=== PATIENT | male | born 1935 | race Caucasian/White ===

== ENCOUNTER → 2020-06-04 09:06 | Outpatient (BNVA) | payer MEDICARE, SELFPAY | PROVIDERS: PCP Internal Medicine Medical Oncology; Visit Provider Urology | DX: C67.3 Malignant neoplasm of anterior wall of bladder (principal); N40.1 Benign prostatic hyperplasia with lower urinary tract symptoms; N13.8 Other obstructive and reflux uropathy | CPT/HCPCS: 52000; 81003; 99213 ==

== ENCOUNTER 2020-09-03 08:50 | Outpatient (REF) | payer MEDICARE, SELFPAY ==
[2020-09-04 09:48] LABS: Urine Cytology See Pathology rpt
== END 2020-09-03 08:51 | disposition home or self-care (01) ==
LOC: CF 08:50
PROVIDERS: PCP Internal Medicine Medical Oncology; Visit Provider Urology
DX: C67.9 Malignant neoplasm of bladder, unspecified (principal)
CPT/HCPCS: 52000; 81002; 88112; 99212

== ENCOUNTER 2020-09-10 14:41 | Emergency (ER) | payer MEDICARE, SELFPAY ==
[2020-09-10 17:02] VITALS: BP 180/93; PULSE 80; RESP 16; TEMP 37.1; O2SAT 98; BMI 26.6
[2020-09-10 22:00] VITALS: BP 164/83; PULSE 95; RESP 18; TEMP 37.1; O2SAT 96
[2020-09-10 22:06] VITALS: BP 155/82; PULSE 82; RESP 18; O2SAT 98
--- NOTE | 2020-09-10 22:34 | US_ITS ---
EXAMINATION: US SCROTUM CLINICAL INFORMATION: Left scrotal pain. COMPARISON: None TECHNIQUE: A sonogram of the scrotum was performed assessing salguero-scale appearance and color Doppler flow. Spectral Doppler analysis of the arterial and venous flow were performed in the testes bilaterally. FINDINGS: RIGHT: Right testicle measures 4.0 x 1.9 x 3.2 cm, volume 12.6 mL. No focal testicular parenchymal lesions are visualized. Spectral Doppler analysis of the arterial and venous flow is normal in the right testis. Right epididymal head is normal in size. No right hydrocele or varicocele is seen. Right epididymal Doppler flow is normal. LEFT: Left testicle measures 3.4 x 2.0 x 2.5 cm, volume 8.8 mL. No focal testicular parenchymal lesions are visualized. Spectral Doppler analysis of the arterial and venous flow is normal in the left testis. Left epididymal head is slightly bigger than the right. No left varicocele is seen. A small to moderate left-sided hydrocele is present. Left epididymal Doppler flow is normal. US/US scrotum IMPRESSION: 1. Left-sided hydrocele. 2. Normal-appearing testes with symmetric vascular flow.
--- NOTE | 2020-09-10 22:35 | ECG_ITS ---
Test Reason : PAIN Blood Pressure : / mmHG Vent. Rate : 092 BPM Atrial Rate : 092 BPM P-R Int : 184 ms QRS Dur : 084 ms QT Int : 388 ms P-R-T Axes : 070 -15 040 degrees QTc Int : 479 ms Normal sinus rhythm Normal ECG No previous ECGs available Referred By: Gin Lares Electronically Signed By:MAYA MCCARTHY MD
--- NOTE | 2020-09-10 22:38 | ED_ITS ---
HPI - Abdominal Pain General Chief Complaint: Abdominal Pain Stated Complaint: low abd pain Time Seen by Provider: 09/10/20 22:16 Source: patient Mode of arrival: ambulatory Limitations: no limitations History of Present Illness HPI narrative: Patient comes to emergency room complaining of left lower quadrant pain. Patient states that early this morning, he woke up with bilateral lower quadrant cramping, he thought he was going to have diarrhea, walked to the bathroom, had no bowel movement. Patient states he has been having constant sharp pain in both lower quadrants but over last few hours it has been radiating towards the left lower quadrant. Patient states he has vomited 7 times today. Patient has history of bladder cancer, he is scheduled next week for a TURB with bilateral retrogrades. Patient states he also has significant left testicular pain. Patient denies hematuria Related Data Home Medications Medication Instructions Recorded Confirmed finasteride 5 mg tablet 5 mg PO DAILY 06/04/20 09/10/20 hydrochlorothiazide 25 mg tablet 25 mg PO DAILY 06/04/20 09/10/20 lisinopril 10 mg tablet 10 mg PO DAILY 06/04/20 09/10/20 tamsulosin 0.4 mg capsule 0.4 mg PO DAILY 06/04/20 09/10/20 Previous Rx's Medication Instructions Recorded prednisone 50 mg PO DAILY #5 tab 09/11/20 tamsulosin 0.4 mg PO BEDTIME #10 cap 09/11/20 tramadol 50 mg PO Q8H PRN #10 tab 09/11/20 Allergies Allergy/AdvReac Type Severity Reaction Status Date / Time No Known Allergies Allergy Verified 09/10/20 17:04 [No Known Allergies*] Review of Systems Review of Systems Constitutional : No Weight loss, No Fever, No Chills, No Night Sweats, No Fatigue, No Malaise ENT/Mouth : No Hearing loss, No Ear Pain, No Nasal Congestion, No Sinus Pain, No Hoarseness, No sore throat, No Rhinorrhea, No Swallowing Difficulty Eyes: No Eye Pain, No Swelling, No Redness, No Foreign Body, No Discharge, No Vision Changes Cardiovascular : No Chest Pain, No SOB, No Dyspnea on Exertion, No Orthopnea, No Edema, No Palpitations Respiratory : No Cough, No Sputum, No Wheezing, No Smoke Exposure, No Dyspnea Gastrointestinal : Complaining of nausea vomiting, No Diarrhea, No Constipation, complaining of bilateral lower quadrant pain, worse on the left side, No Hematochezia, No Melena Genitourinary : No Dysuria, No Urinary Frequency, No Hematuria, No Urinary Incontinence, No Urgency, No Flank Pain, No Urinary Flow Changes, No Hesitancy, complaining of left testicular pain Musculoskeletal : No joint pain, No Myalgias, No Joint Swelling Skin : No Skin Lesions, No rash Neuro : No Weakness, No Numbness, No Paresthesias, No Loss of Consciousness, No Dizziness, No Headache Psych : No Anxiety/Panic, No Depression, No SI/HI/AH/VH, No Social Issues, Heme/Lymph: No Bruising, No Bleeding,No Lymphadenopathy Endocrine : No Polyuria, No Polydipsia, No Temperature Intolerance Physical Exam Vital Signs: Vital Signs: Last Vital Signs Temp 98.8 F 09/10/20 22:00 Pulse 82 09/10/20 22:06 Resp 18 09/10/20 22:06 BP 155/82 H 09/10/20 22:06 Pulse Ox 98 09/10/20 22:06 Body Mass Index 26.6 Appearance: Alert. Oriented X3. No acute distress. Eyes: Pupils equal, round and reactive to light. ENT: Pharynx normal. Neck: Normal inspection. Neck supple. No lymph nodes noted. No crepitus CVS: Normal heart rate and rhythm. Pulses normal. Normal S1 and S2 Respiratory: No respiratory distress. Breath sounds normal. No Wheezing. No rales Abdomen: Soft , tender to palpation on the left lower quadrant : Pain to palpation on the left testicle, no discoloration Skin: Skin warm and dry. Normal skin color. Normal skin turgor. Extremities: No lower extremity edema. No lower extremity edema. No Lacerations. No Rash Neuro: Oriented X 3. No motor deficit. No sensory deficit. Moving all extermities. No slurred speech. Course Course Course Narrative: I discussed with the patient that he has a kidney stone. It is a 5 mm, it may or may not pass by itself patient's creatinine was elevated, patient was rehydrated, chemistry #2 pending. Patient's creatinine 2. Is 2. Did not change significantly from previous read. It is unlikely that the kidney stone is increasing the creatinine level since it is unilateral. It is likely that this is patient's new baseline. Patient has had previously elevated creatinine in the past. Patient started to have very close follow-up with his primary care physician for repeat chemistry labs. At this time, patient states he feels very well and is asymptomatic MDM - Abdominal Pain Lab Data Result diagrams: 09/10/20 22:46 09/11/20 04:19 Labs: Lab Results 09/10/20 09/10/20 09/11/20 Range/Units 22:46 22:46 01:55 WBC 12.4 H (4.8-10.8) X10*3/uL RBC 4.82 (4.60-5.80) X10*6/uL Hgb 15.3 (14.0-18.0) g/dl Hct 45.3 (42-52) % MCV 94.0 (80-98) fL MCH 31.7 (27.0-33.0) pg MCHC 33.8 (31.0-36.0) g/dl RDW 12.6 (11.0-16.0) % Plt Count 193 (160-400) X10*3/uL MPV 9.4 (9.4-12.4) fL Immature Gran % (Auto) 0.5 H (0.0-0.4) % Neut % (Auto) 90.9 H (45-73) % Lymph % (Auto) 5.0 L (20-40) % Stephens % (Auto) 3.5 (2-11) % Eos % (Auto) 0.1 (0-4) % Baso % (Auto) 0.0 (0-2) % Lymph # (Auto) 0.6 L (1.2-4.9) X10*3/uL Stephens # (Auto) 0.4 (0.1-1.2) X10*3/uL Eos # (Auto) 0.0 (0.0-0.4) X10*3/uL Baso # (Auto) 0.0 (0.0-0.2) X10*3/uL Abs Immat Gran (auto) 0.06 H (0.00-0.03) X10*3/uL Absolute Neuts (auto) 11.2 H (2.0-8.3) X10*3/uL Absolute Nucleated RBC 0.000 (0.0-0.012) X10*3/uL Nucleated RBC % (auto) 0.0 (0.0-0.2) /100WBC Sodium 142 (135-145) mmol/L Potassium 5.1 (3.3-5.1) mmol/l Chloride 106 (96-108) mmol/L Carbon Dioxide 23 (22-29) mmol/L Anion Gap 18 (12-20) BUN 37 H (9-16) mg/dL Creatinine 1.91 H (0.5-1.4) mg/dL Estim Creat Clear Calc 26.4 Estimated GFR 34 Random Glucose 176 H (60-115) mg/dL Calcium 8.8 (8.4-10.2) mg/dL Total Bilirubin 1.1 H (0.0-1.0) mg/dL Direct Bilirubin 0.3 (0.0-0.5) mg/dL AST 32 (5-37) U/L ALT 32 (0-40) U/L Alkaline Phosphatase 74 (39-117) U/L Total Protein 7.1 (6.5-8.0) g/dL Albumin 4.5 (3.5-5.0) g/dL Lipase 32 (8-78) U/L Urine Color YELLOW Urine Appearance CLEAR Urine pH 6.0 (5.0-8.0) Ur Specific Anderson 1.025 (1.005-1.025) Urine Protein NEG (NEG-TRACE) MG/DL Urine Glucose (UA) NEG (NEG) MG/DL Urine Ketones NEG (NEG) MG/DL Urine Blood 1+ H (NEG) Urine Nitrite NEG (NEG) Ur Leukocyte Esterase NEG (NEG) Urine RBC 0-2 (0) /HPF Urine WBC 0 (0-4) /HPF Ur Squamous Epith Cells TRACE /LPF Amorphous Sediment TRACE /LPF Urine Bacteria NONE /LPF Urine Mucus TRACE /LPF 09/11/20 Range/Units 04:19 WBC (4.8-10.8) X10*3/uL RBC (4.60-5.80) X10*6/uL Hgb (14.0-18.0) g/dl Hct (42-52) % MCV (80-98) fL MCH (27.0-33.0) pg MCHC (31.0-36.0) g/dl RDW (11.0-16.0) % Plt Count (160-400) X10*3/uL MPV (9.4-12.4) fL Immature Gran % (Auto) (0.0-0.4) % Neut % (Auto) (45-73) % Lymph % (Auto) (20-40) % Stephens % (Auto) (2-11) % Eos % (Auto) (0-4) % Baso % (Auto) (0-2) % Lymph # (Auto) (1.2-4.9) X10*3/uL Stephens # (Auto) (0.1-1.2) X10*3/uL Eos # (Auto) (0.0-0.4) X10*3/uL Baso # (Auto) (0.0-0.2) X10*3/uL Abs Immat Gran (auto) (0.00-0.03) X10*3/uL Absolute Neuts (auto) (2.0-8.3) X10*3/uL Absolute Nucleated RBC (0.0-0.012) X10*3/uL Nucleated RBC % (auto) (0.0-0.2) /100WBC Sodium 142 (135-145) mmol/L Potassium 4.2 (3.3-5.1) mmol/l Chloride 111 H (96-108) mmol/L Carbon Dioxide 18 L (22-29) mmol/L Anion Gap 17 (12-20) BUN 36 H (9-16) mg/dL Creatinine 2.01 H (0.5-1.4) mg/dL Estim Creat Clear Calc 25.1 Estimated GFR 32 Random Glucose 147 H (60-115) mg/dL Calcium 7.8 L D (8.4-10.2) mg/dL Total Bilirubin (0.0-1.0) mg/dL Direct Bilirubin (0.0-0.5) mg/dL AST (5-37) U/L ALT (0-40) U/L Alkaline Phosphatase (39-117) U/L Total Protein (6.5-8.0) g/dL Albumin (3.5-5.0) g/dL Lipase (8-78) U/L Urine Color Urine Appearance Urine pH (5.0-8.0) Ur Specific Anderson (1.005-1.025) Urine Protein (NEG-TRACE) MG/DL Urine Glucose (UA) (NEG) MG/DL Urine Ketones (NEG) MG/DL Urine Blood (NEG) Urine Nitrite (NEG) Ur Leukocyte Esterase (NEG) Urine RBC (0) /HPF Urine WBC (0-4) /HPF Ur Squamous Epith Cells /LPF Amorphous Sediment /LPF Urine Bacteria /LPF Urine Mucus /LPF Imaging Data Scrotum ultrasound: Radiologist's impression: RIGHT: Right testicle measures 4.0 x 1.9 x 3.2 cm, volume 12.6 mL. No focal testicular parenchymal lesions are visualized. Spectral Doppler analysis of the arterial and venous flow is normal in the right testis. Right epididymal head is normal in size. No right hydrocele or varicocele is seen. Right epididymal Doppler flow is normal. LEFT: Left testicle measures 3.4 x 2.0 x 2.5 cm, volume 8.8 mL. No focal testicular parenchymal lesions are visualized. Spectral Doppler analysis of the arterial and venous flow is normal in the left testis. Left epididymal head is slightly bigger than the right. No left varicocele is seen. A small to moderate left-sided hydrocele is present. Left epididymal Doppler flow is normal. US/US scrotum IMPRESSION: 1. Left-sided hydrocele. 2. Normal-appearing testes with symmetric vascular flow. CT scan - abdomen: Radiologist's impression: FINDINGS: LUNG BASES: Mild dependent atelectasis. No focal consolidation. Heart is normal in size. No pericardial effusion. LIVER, GALLBLADDER, AND BILIARY TREE: Numerous sharply demarcated water density cystic lesions are present in the liver measuring up to 4.2 cm in diameter. These most likely correspond to cysts but are incompletely assessed without intravenous contrast material. Liver is normal in size and contour. No biliary ductal dilatation. The gallbladder is unremarkable with no evidence of radiopaque gallstones, gallbladder wall thickening, or obvious pericholecystic inflammatory changes. PANCREAS: Mild generalized fatty replacement of the pancreas. No ductal dilatation or focal abnormalities. No calcifications or surrounding inflammatory fat stranding. SPLEEN: Unremarkable. ADRENAL GLANDS: Unremarkable. KIDNEYS AND URETERS: Numerous bilateral water density peripelvic cysts are identified. Multiple bilateral renal calculi are again noted. The largest stone on the right measures 6 mm in greatest diameter with a density of 1280 Hounsfield units, situated 1990 is deep to the skin surface at the right posterior mid axillary line. A 5 mm calculus is present at a lower pole calyx in the right kidney. The largest calculus in the left kidney is situated within a calyx at the interpolar region, measuring 6 mm in diameter with a density of 1333 Hounsfield units, situated 8.5 cm from the skin surface at the left posterior mid axillary line. There is superimposed moderate left-sided hydronephrosis with peripelvic and perinephric fat stranding. The proximal ureter is mildly dilated due to an obstructing calculus at the left proximal ureter just distal to the UVJ. This calculus measures 5 mm in diameter and has a density of 1500 Hounsfield units. No additional obstructing renal or ureteral calculi are identified. Retroperitoneal fat stranding extends from the left kidney distally and the fascial plane anterior to the iliopsoas musculature. BLADDER: Subtle bladder wall irregularity is noted, not well assessed on this unenhanced study. GASTROINTESTINAL TRACT: Mild colonic diverticulosis. No evidence of acute diverticulitis. Stomach, small bowel, and colon are normal in caliber. No vertebral body wall thickening or acute inflammatory changes. Appendix is normal. ABDOMINAL WALL: Status post hernia mesh repair in the left inguinal region with a small residual fat-containing focus at the left internal canal. LYMPH NODES: No adenopathy. VASCULAR: Atherosclerotic calcifications are present in the abdominal aorta and iliac arteries. No aneurysmal dilatation. PELVIC VISCERA: Prostate gland is borderline enlarged, measuring 4.6 cm transverse. There is a central defect in the prostate gland near the bladder which and is of uncertain etiology. Recommend correlation with prior surgical procedures in this region. OSSEOUS STRUCTURES: Moderate to severe degenerative spondylosis is present in the lower lumbar spine. No acute fracture or malalignment. 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 Prominent enthesopathic spurring at the greater trochanters with changes of chronic tearing of the left gluteus minimus. CT/CT abdomen pelvis wo con IMPRESSION: 1. An obstructing 5 mm calculus at the left proximal ureter producing moderate left hydroureteronephrosis. 2. Multiple additional nonobstructing bilateral renal calculi. Multiple bilateral parapelvic renal cysts. 3. Numerous hepatic cysts. 4. Mild colonic diverticulosis. No acute diverticulitis. ECG Data Attestation: I personally reviewed and interpreted this ECG as follows: (Heart rate 92, QTC 479, normal sinus rhythm, no ST segment depression or elevation, no T-wave inversion) Discharge Plan Discharge Clinical Impression: Ureterolithiasis Patient Disposition: Home, Self-Care Instructions: Kidney Stones (ED) Additional Instructions: Please follow-up with Dr. Gentile. Also, please follow-up with her primary care physician for repeat labs. Please follow-up with your primary care physician tomorrow. If you have any worsening or new symptoms, please return to the emergency room or call 911 Prescriptions: New prednisone 50 mg tablet 50 mg PO DAILY Qty: 5 RF: 0 tamsulosin 0.4 mg capsule 0.4 mg PO BEDTIME Qty: 10 RF: 0 tramadol 50 mg tablet 50 mg PO Q8H PRN (Reason: pain) Qty: 10 RF: 0 No Action finasteride 5 mg tablet 5 mg PO DAILY RF: 0 tamsulosin 0.4 mg capsule 0.4 mg PO DAILY RF: 0 hydrochlorothiazide 25 mg tablet 25 mg PO DAILY RF: 0 lisinopril 10 mg tablet 10 mg PO DAILY RF: 0 Referrals: Tong Gentile MD [Physician] - 1 day [facility] Past Medical History Medical History Arthritis Cancer Carpal tunnel syndrome, bilateral Elevated cholesterol Hearing loss History of BPH HTN (hypertension) Normal colonoscopy Surgical History H/O colonoscopy H/O inguinal hernia repair History of bladder surgery History of carpal tunnel release of both wrists History of left knee replacement History of total right knee replacement (TKR) History of transurethral destruction of bladder lesion Family History Family History Father No problems noted. Mother No problems noted. Social History Social History Alcohol intake: current Alcohol intake frequency: holidays/special occasions only Alcohol type: wine Smoking Status: Never smoker Use of substances other than those prescribed or required for medical reasons: No Advance Directives: No
[2020-09-10 22:52] LABS: Eosinophils Percent Auto 0.1 % (0-4); Hematocrit 45.3 % (42-52); Hemoglobin 15.3 g/dl (14.0-18.0); Imm Gran Abs Auto 0.06 X10*3/uL (0.00-0.03); Imm Gran Pct Auto 0.5 % (0.0-0.4); Lymphocytes Absolute Auto 0.6 X10*3/uL (1.2-4.9); MANUAL DIFF FLAG NO; Mean Corpuscular HGB Conc 33.8 g/dl (31.0-36.0); Mean Corpuscular Hemoglobin 31.7 pg (27.0-33.0); Mean Platelet Volume 9.4 fL (9.4-12.4); Monocytes Absolute Auto 0.4 X10*3/uL (0.1-1.2); Monocytes Percent Auto 3.5 % (2-11); Neutrophils Absolute Auto 11.2 X10*3/uL (2.0-8.3); Neutrophils Percent Auto 90.9 % (45-73); Platelet Count 193 X10*3/uL (160-400); Red Blood Count 4.82 X10*6/uL (4.60-5.80); Red Cell Distribution Width 12.6 % (11.0-16.0); SCAN SMEAR FLAG 1; White Blood Count 12.4 X10*3/uL (4.8-10.8)
[2020-09-10] MEDS: 0.9 % Sodium Chloride 1,000 ML 999 ML IVCONT (22:54)
[2020-09-10] MEDS: ondansetron HCL 4 MG/2 ML VIAL IVPUSH (22:54)
[2020-09-10] MEDS: Morphine Sulfate 4 MG/ML CARTRIDGE 2 MG IVPUSH (22:54)
--- NOTE | 2020-09-10 22:56 | PC.NURSE ---
patient a&ox3, iv inserted, labs drawn, radiographer cardiac catheterization applied, nsr 80s, pt hypertensive-provider aware, electronic bench technician in room doing us, pt medicated per order, will continue to monitor
[2020-09-10 23:18] LABS: Alanine Aminotransferase 32 U/L (0-40); Albumin Level 4.5 g/dL (3.5-5.0); Alkaline Phosphatase 74 U/L (39-117); Anion Gap 18 (12-20); Aspartate Amino Transferase 32 U/L (5-37); Bilirubin Direct 0.3 mg/dL (0.0-0.5); Bilirubin Total 1.1 mg/dL (0.0-1.0); Blood Urea Nitrogen 37 mg/dL (9-16); Calcium 8.8 mg/dL (8.4-10.2); Carbon Dioxide 23 mmol/L (22-29); Chloride 106 mmol/L (96-108); Creatinine Clr Calc Pharmacy 26.4; Estimated Glomerular Filt Rate 34; Glucose Random 176 mg/dL (60-115); Lipase 32 U/L (8-78); Potassium 5.1 mmol/l (3.3-5.1); Sodium 142 mmol/L (135-145); Total Protein 7.1 g/dL (6.5-8.0)
--- NOTE | 2020-09-10 23:35 | CT_ITS ---
EXAMINATION: CT ABDOMEN AND PELVIS WITHOUT CONTRAST CLINICAL INFORMATION: Lower quadrant pain. COMPARISON: 01/12/2020 TECHNIQUE: Multidetector volumetric imaging was performed from the superior aspect of the liver through the pubic symphysis. Sagittal and coronal reformatted images were obtained on the technologist's workstation. This CT examination was performed using dose optimization techniques as appropriate, variously including the following: *Automated exposure control *Adjustment of mA and/or kV according to patient size (this includes techniques or standardized protocols for targeted exams where dose is matched to indication/reason for exam; i.e. extremities or head) *Use of iterative reconstruction technique DLP: 533 mGy-cm FINDINGS: LUNG BASES: Mild dependent atelectasis. No focal consolidation. Heart is normal in size. No pericardial effusion. LIVER, GALLBLADDER, AND BILIARY TREE: Numerous sharply demarcated water density cystic lesions are present in the liver measuring up to 4.2 cm in diameter. These most likely correspond to cysts but are incompletely assessed without intravenous contrast material. Liver is normal in size and contour. No biliary ductal dilatation. The gallbladder is unremarkable with no evidence of radiopaque gallstones, gallbladder wall thickening, or obvious pericholecystic inflammatory changes. PANCREAS: Mild generalized fatty replacement of the pancreas. No ductal dilatation or focal abnormalities. No calcifications or surrounding inflammatory fat stranding. SPLEEN: Unremarkable. ADRENAL GLANDS: Unremarkable. KIDNEYS AND URETERS: Numerous bilateral water density peripelvic cysts are identified. Multiple bilateral renal calculi are again noted. The largest stone on the right measures 6 mm in greatest diameter with a density of 1280 Hounsfield units, situated 1990 is deep to the skin surface at the right posterior mid axillary line. A 5 mm calculus is present at a lower pole calyx in the right kidney. The largest calculus in the left kidney is situated within a calyx at the interpolar region, measuring 6 mm in diameter with a density of 1333 Hounsfield units, situated 8.5 cm from the skin surface at the left posterior mid axillary line. There is superimposed moderate left-sided hydronephrosis with peripelvic and perinephric fat stranding. The proximal ureter is mildly dilated due to an obstructing calculus at the left proximal ureter just distal to the UVJ. This calculus measures 5 mm in diameter and has a density of 1500 Hounsfield units. No additional obstructing renal or ureteral calculi are identified. Retroperitoneal fat stranding extends from the left kidney distally and the fascial plane anterior to the iliopsoas musculature. BLADDER: Subtle bladder wall irregularity is noted, not well assessed on this unenhanced study. GASTROINTESTINAL TRACT: Mild colonic diverticulosis. No evidence of acute diverticulitis. Stomach, small bowel, and colon are normal in caliber. No vertebral body wall thickening or acute inflammatory changes. Appendix is normal. ABDOMINAL WALL: Status post hernia mesh repair in the left inguinal region with a small residual fat-containing focus at the left internal canal. LYMPH NODES: No adenopathy. VASCULAR: Atherosclerotic calcifications are present in the abdominal aorta and iliac arteries. No aneurysmal dilatation. PELVIC VISCERA: Prostate gland is borderline enlarged, measuring 4.6 cm transverse. There is a central defect in the prostate gland near the bladder which and is of uncertain etiology. Recommend correlation with prior surgical procedures in this region. OSSEOUS STRUCTURES: Moderate to severe degenerative spondylosis is present in the lower lumbar spine. No acute fracture or malalignment. 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 Prominent enthesopathic spurring at the greater trochanters with changes of chronic tearing of the left gluteus minimus. CT/CT abdomen pelvis wo con IMPRESSION: 1. An obstructing 5 mm calculus at the left proximal ureter producing moderate left hydroureteronephrosis. 2. Multiple additional nonobstructing bilateral renal calculi. Multiple bilateral parapelvic renal cysts. 3. Numerous hepatic cysts. 4. Mild colonic diverticulosis. No acute diverticulitis.
[2020-09-11] MEDS: 0.9 % Sodium Chloride 500 ML 999 ML IVCONT (02:02)
[2020-09-11 02:36] LABS: Glucose Urine UA NEG (NEG); Leukocyte Esterase Urine NEG (NEG); Nitrite Urine NEG (NEG); Specific Gravity - Urine 1.025 (1.005-1.025); Urine Blood 1+ (NEG); Urine Ketones NEG (NEG); Urine Protein NEG (NEG-TRACE)
[2020-09-11 02:45] LABS: Appearance Urine CLEAR; Color Urine YELLOW
[2020-09-11 03:18] LABS: Amorphous Sediment Urine TRACE /LPF; Mucus Urine TRACE /LPF; RBC Urine 0-2 /HPF (0); Squamous Epithelial Cell Urine TRACE /LPF; WBC Urine 0 /HPF (0-4)
[2020-09-11 05:46] LABS: Anion Gap 17 (12-20); Blood Urea Nitrogen 36 mg/dL (9-16); Calcium 7.8 mg/dL (8.4-10.2); Carbon Dioxide 18 mmol/L (22-29); Chloride 111 mmol/L (96-108); Creatinine Clr Calc Pharmacy 25.1; Estimated Glomerular Filt Rate 32; Glucose Random 147 mg/dL (60-115); Potassium 4.2 mmol/l (3.3-5.1); Sodium 142 mmol/L (135-145)
== END 2020-09-11 06:55 | disposition home or self-care (01) ==
PROVIDERS: Emergency Provider Emergency Medicine; PCP Internal Medicine Medical Oncology
DX: Z79.899 Other long term (current) drug therapy (principal); R10.32 Left lower quadrant pain; N20.1 Calculus of ureter
CPT/HCPCS: 36415; 74176; 76870; 80048; 80076; 81001; 81003; 83690; 85025; 93005; 96361; 96374; 96375; 99284; J2270; J2405

== ENCOUNTER 2020-09-14 10:50 | Inpatient (IN) | payer MEDICARE, SELFPAY ==
[2020-09-14] VITALS (7 sets, daily range): BP systolic 104–193; BP diastolic 47–118; PULSE 90–131; RESP 15–18; TEMP 36.8–37.1; O2SAT 94–98; BMI 26.6
--- NOTE | 2020-09-14 09:55 | ECG_ITS ---
Test Reason : RAPD RATE Blood Pressure : / mmHG Vent. 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
[2020-09-14 12:53] LABS: Glucose Urine UA NEG (NEG); Leukocyte Esterase Urine NEG (NEG); Nitrite Urine NEG (NEG); Specific Gravity - Urine >= 1.030 (1.005-1.025); Urine Blood 3+ (NEG); Urine Ketones NEG (NEG); Urine Protein 1+ MG/DL (NEG-TRACE)
[2020-09-14 12:57] LABS: Appearance Urine HAZY; Color Urine YELLOW
[2020-09-14 13:11] LABS: Mucus Urine TRACE /LPF; RBC Urine TNTC /HPF (0); Renal Epithelial Cells Urine TRACE /LPF; Squamous Epithelial Cell Urine TRACE /LPF; WBC Urine 0 /HPF (0-4)
--- NOTE | 2020-09-14 13:44 | CT_ITS ---
EXAMINATION: CT ABDOMEN AND PELVIS WITHOUT CONTRAST CLINICAL INFORMATION: Kidney stones. Vomiting and abdominal distention. COMPARISON: Abdomen CT from 09/10/2020 TECHNIQUE: Multidetector volumetric imaging was performed from the superior aspect of the liver through the pubic symphysis. Sagittal and coronal reformatted images were obtained on the technologist's workstation. This CT examination was performed using dose optimization techniques as appropriate, variously including the following: *Automated exposure control *Adjustment of mA and/or kV according to patient size (this includes techniques or standardized protocols for targeted exams where dose is matched to indication/reason for exam; i.e. extremities or head) *Use of iterative reconstruction technique DLP: 543 mGy-cm FINDINGS: LUNG BASES: Linear opacities of atelectasis in each lower lobe and inferior lingula. No pulmonary consolidation or pleural effusion at either lung base. HEPATOBILIARY: Again noted are multiple hepatic cysts. Gallbladder is unremarkable. No evidence of biliary tract obstruction. PANCREAS: No acute abnormalities within the atrophied pancreas. No pancreatic mass or ductal dilatation. SPLEEN: Normal. ADRENAL GLANDS: There is mild symmetric fullness of adrenal glands without a discrete adrenal nodule. KIDNEYS AND URETERS: Again noted are peripelvic renal cysts, moderate left hydronephrosis and perinephric edema. The left-sided hydronephrosis is caused by a 0.5 cm calculus positioned just proximal to the region of the ureterovesical junction. The bilateral renal calculi are unchanged in size and position compared to 09/10/2020. BOWEL AND PERITONEUM: The esophageal vestibule is mildly distended with gas. The esophagus is underdistended. No abnormal sized loops of small or large bowel. Appendix is normal. Diverticulosis of the sigmoid colon without diverticulitis. There is mild gaseous distention of the colon, and mild to moderate amount of fecal material is present within the colon. A trace amount of free fluid is present in the abdomen and pelvis. No pneumoperitoneum. ABDOMINAL WALL: A very small fat-containing umbilical hernia is unchanged. Prior mesh placement along the undersurface of the abdominal wall, overlying the left inguinal canal. Chronic, mild protrusion of fat into each inguinal canal. VASCULATURE: Atherosclerosis of the abdominal aorta without aneurysm. LYMPH NODES: No pathologic sized lymph nodes in the abdomen or pelvis. No inguinal lymphadenopathy. BLADDER AND PELVIC VISCERA: The urinary bladder is unremarkable. Prostate gland is normal in size. Probable prior transurethral resection of some of the prostate tissue. SKELETAL: No acute abnormalities within the degenerated spine. Chronic grade 1 anterolisthesis is noted at L3-L4. The lumbar spine degenerative disc disease is severe at L1-L2, L4-5 and L5-S1. Chondrocalcinosis of the spine, hips and pubic symphysis. Chronic osteoarthritis of the hips. CT/CT abdomen pelvis wo con IMPRESSION: * The previously observed stone in the proximal left ureter has migrated distally, and is now positioned just proximal to the region of the ureterovesical junction. Persistent moderate left hydroureteronephrosis and perinephric edema. * The bilateral renal calculi are unchanged in size and position compared to 09/10/2020. * Multiple hepatic cysts. * Colonic diverticulosis without diverticulitis. * No evidence of bowel obstruction. * Small amount of free fluid is present in the abdomen and pelvis.
--- NOTE | 2020-09-14 13:44 | ECG_ITS ---
Test Reason : ABDOMINAL PAIN Blood Pressure : / mmHG Vent. Rate : 102 BPM Atrial Rate : 102 BPM P-R Int : 138 ms QRS Dur : 084 ms QT Int : 350 ms P-R-T Axes : 060 -29 025 degrees QTc Int : 456 ms Sinus tachycardia Inferior infarct , age undetermined Abnormal ECG When compared with ECG of 10-SEP-2020 23:05, Inferior infarct is now Present Referred By: Alethea Barrios Electronically Signed By:MAYA MCCARTHY MD
[2020-09-14 14:02] LABS: Hematocrit 46.4 % (42-52); Hemoglobin 15.8 g/dl (14.0-18.0); Imm Gran Abs Auto 0.12 X10*3/uL (0.00-0.03); Imm Gran Pct Auto 0.6 % (0.0-0.4); Lymphocytes Absolute Auto 0.8 X10*3/uL (1.2-4.9); Lymphocytes Percent Auto 3.5 % (20-40); MANUAL DIFF FLAG SCAN; Mean Corpuscular HGB Conc 34.1 g/dl (31.0-36.0); Mean Corpuscular Hemoglobin 31.7 pg (27.0-33.0); Mean Platelet Volume 9.9 fL (9.4-12.4); Monocytes Absolute Auto 2.1 X10*3/uL (0.1-1.2); Monocytes Percent Auto 9.7 % (2-11); Neutrophils Absolute Auto 18.2 X10*3/uL (2.0-8.3); Neutrophils Percent Auto 86.2 % (45-73); Platelet Count 202 X10*3/uL (160-400); Red Blood Count 4.99 X10*6/uL (4.60-5.80); Red Cell Distribution Width 12.6 % (11.0-16.0); SCAN SMEAR FLAG 1; White Blood Count 21.2 X10*3/uL (4.8-10.8)
--- NOTE | 2020-09-14 14:09 | ED.ABDPAIN ---
HPI - Abdominal Pain General Chief Complaint: Nausea/Vomiting/Diarrhea Stated Complaint: N/V/D Time Seen by Provider: 09/14/20 13:43 Source: patient Mode of arrival: ambulatory Limitations: no limitations History of Present Illness HPI narrative: 84 y/o male with history of bladder cancer, CKD, recently diagnosed 5mm obstructing left sided kidney stone with moderate left hydroureteronephrosis on 09/10 who presents back to the ED with N/V, diffuse abdominal pain and distention, as well as constipation. He states his last BM was on 09/10. He was discharged with Prednisone, Tramadol and Flomax for his kidney stone. For his constipation he tried fleet enemas, suppositories and stool softners without effect. He is passing gas. He is retching and dry heaving but not able to bring up any vomit. He states he did notice that he passed any kidney stones at home. He was due to see Dr. Gentile on 09/16 for bladder surgery per his report. Related Data Home Medications Medication Instructions Recorded Confirmed finasteride 5 mg tablet 5 mg PO DAILY 06/04/20 09/10/20 hydrochlorothiazide 25 mg tablet 25 mg PO DAILY 06/04/20 09/10/20 lisinopril 10 mg tablet 10 mg PO DAILY 06/04/20 09/10/20 tamsulosin 0.4 mg capsule 0.4 mg PO DAILY 06/04/20 09/10/20 Previous Rx's Medication Instructions Recorded prednisone 50 mg PO DAILY #5 tab 09/11/20 tamsulosin 0.4 mg PO BEDTIME #10 cap 09/11/20 tramadol 50 mg PO Q8H PRN #10 tab 09/11/20 Allergies Allergy/AdvReac Type Severity Reaction Status Date / Time No Known Allergies Allergy Verified 09/14/20 12:09 [No Known Allergies*] Review of Systems Review of Systems Constitutional: No Fever, No Chills ENT/Mouth: No sore throat, No Rhinorrhea, No Swallowing Difficulty Eyes: No Eye Pain, No Swelling, No Redness Cardiovascular: No Chest Pain, No SOB, No Orthopnea, No Edema Respiratory: No Cough, No Sputum, No Wheezing, No dyspnea Gastrointestinal: + Nausea, + Vomiting, No Diarrhea, + abdominal Pain, +constipation, No Hematochezia, No Melena Genitourinary: No Dysuria, No Urinary Frequency, No Hematuria Musculoskeletal: No joint pain, No Myalgias Skin: No Skin Lesions, No rash Neuro: No Weakness, No Numbness, No Dizziness, No Headache Psych: No Anxiety/Panic, No Depression Heme/Lymph: No Bruising, No Lymphadenopathy Endocrine: No Polyuria, No Polydipsia Physical Exam Vital Signs: Vital Signs: Last Vital Signs Temp 98.5 F 09/14/20 15:57 Pulse 109 H 09/14/20 15:57 Resp 15 09/14/20 15:57 BP 162/79 H 09/14/20 15:57 Pulse Ox 94 09/14/20 15:57 Body Mass Index 26.6 Appearance: Alert. Oriented X3. Appears uncomfortable and in pain Eyes: Pupils equal, round and reactive to light. ENT: Pharynx normal. Neck: Normal inspection. Neck supple. CVS: Normal heart rate and rhythm. Pulses normal. Respiratory: No respiratory distress. Breath sounds normal. Abdomen: Softly distended with tympany to percussion, tender throughout, left sided CVA tenderness Skin: Skin warm and dry. Normal skin color. Normal skin turgor. No rashes. Extremities: No lower extremity edema. Neuro: Oriented X 3. No motor deficit. No sensory deficit. Course Course Course Narrative: 84 y/o male with known obstructing 5mm kidney stone presenting with persistent pain, N/V and new constipation. Tympany on percussion. ?evolving SBO vs worsening pain from kidney stone. Will get repeat CT scan - IV zofran and morphine ordered. Only 160cc in the bladder. Reevaluation(s) Reevaluation #1: WBC 21K, concern for possible infected stone so dose of Rocephin ordered. Awaiting UA. SCr up just slightly. Upon review he did have a normal SCr in December (however was 1.94 in 2019) so unclear baseline. Concern that the stone is leading to obstructive uropathy. CT scan showing previous stone now at [facility] with persistent hydro and peripnephric edema. TT Dr. Gentiel who is recommending admission to medicine with his service consulting. Reevaluation #2: UA negative, lactic acid ok. Cultures sent but leukocytosis is likely reactive from persistent vomiting. Patient continues to report pain - additional IV morphine added. TT Dr. Black who will admit the patient. He was updated on plan for admission and all questions were answered. MDM - Abdominal Pain Lab Data Result diagrams: 09/14/20 13:55 09/14/20 13:55 Labs: Lab Results 09/14/20 09/14/20 09/14/20 Range/Units 12:17 13:55 13:55 WBC 21.2 H (4.8-10.8) X10*3/uL RBC 4.99 (4.60-5.80) X10*6/uL Hgb 15.8 (14.0-18.0) g/dl Hct 46.4 (42-52) % MCV 93.0 (80-98) fL MCH 31.7 (27.0-33.0) pg MCHC 34.1 (31.0-36.0) g/dl RDW 12.6 (11.0-16.0) % Plt Count 202 (160-400) X10*3/uL MPV 9.9 (9.4-12.4) fL Immature Gran % (Auto) 0.6 H (0.0-0.4) % Neut % (Auto) 86.2 H (45-73) % Lymph % (Auto) 3.5 L (20-40) % Bland % (Auto) 9.7 (2-11) % Eos % (Auto) 0.0 (0-4) % Baso % (Auto) 0.0 (0-2) % Lymph # (Auto) 0.8 L (1.2-4.9) X10*3/uL Bland # (Auto) 2.1 H (0.1-1.2) X10*3/uL Eos # (Auto) 0.0 (0.0-0.4) X10*3/uL Baso # (Auto) 0.0 (0.0-0.2) X10*3/uL Abs Immat Gran (auto) 0.12 H (0.00-0.03) X10*3/uL Absolute Neuts (auto) 18.2 H (2.0-8.3) X10*3/uL Absolute Nucleated RBC 0.000 (0.0-0.012) X10*3/uL Nucleated RBC % (auto) 0.0 (0.0-0.2) /100WBC Smear Tech's Comments VERIFIED Hold Blue Top SEE NOTE Sodium (135-145) mmol/L Potassium (3.3-5.1) mmol/l Chloride (96-108) mmol/L Carbon Dioxide (22-29) mmol/L Anion Gap (12-20) BUN (9-16) mg/dL Creatinine (0.5-1.4) mg/dL Estim Creat Clear Calc Estimated GFR Random Glucose (60-115) mg/dL Lactic Acid (0.5-2.0) mmol/L Calcium (8.4-10.2) mg/dL Magnesium (1.6-2.6) mg/dL Total Bilirubin (0.0-1.0) mg/dL Direct Bilirubin (0.0-0.5) mg/dL AST (5-37) U/L ALT (0-40) U/L Alkaline Phosphatase (39-117) U/L Total Protein (6.5-8.0) g/dL Albumin (3.5-5.0) g/dL Urine Color YELLOW Urine Appearance HAZY Urine pH 6.0 (5.0-8.0) Ur Specific [place] >= 1.030 H (1.005-1.025) Urine Protein 1+ H (NEG-TRACE) MG/DL Urine Glucose (UA) NEG (NEG) MG/DL Urine Ketones NEG (NEG) MG/DL Urine Blood 3+ H (NEG) Urine Nitrite NEG (NEG) Ur Leukocyte Esterase NEG (NEG) Urine RBC TNTC H (0) /HPF Urine WBC 0 (0-4) /HPF Ur Squamous Epith Cells TRACE /LPF Ur Renal Epithelial Cell TRACE /LPF Urine Bacteria NONE /LPF Urine Mucus TRACE /LPF COVID-19 ([facility]) (Negative) COVID-19 Clin Com 09/14/20 09/14/20 09/14/20 Range/Units 13:55 15:03 15:04 WBC (4.8-10.8) X10*3/uL RBC (4.60-5.80) X10*6/uL Hgb (14.0-18.0) g/dl Hct (42-52) % MCV (80-98) fL MCH (27.0-33.0) pg MCHC (31.0-36.0) g/dl RDW (11.0-16.0) % Plt Count (160-400) X10*3/uL MPV (9.4-12.4) fL Immature Gran % (Auto) (0.0-0.4) % Neut % (Auto) (45-73) % Lymph % (Auto) (20-40) % Bland % (Auto) (2-11) % Eos % (Auto) (0-4) % Baso % (Auto) (0-2) % Lymph # (Auto) (1.2-4.9) X10*3/uL Bland # (Auto) (0.1-1.2) X10*3/uL Eos # (Auto) (0.0-0.4) X10*3/uL Baso # (Auto) (0.0-0.2) X10*3/uL Abs Immat Gran (auto) (0.00-0.03) X10*3/uL Absolute Neuts (auto) (2.0-8.3) X10*3/uL Absolute Nucleated RBC (0.0-0.012) X10*3/uL Nucleated RBC % (auto) (0.0-0.2) /100WBC Smear Tech's Comments Hold Blue Top Sodium 137 (135-145) mmol/L Potassium 4.1 (3.3-5.1) mmol/l Chloride 99 (96-108) mmol/L Carbon Dioxide 24 (22-29) mmol/L Anion Gap 18 (12-20) BUN 42 H (9-16) mg/dL Creatinine 2.04 H (0.5-1.4) mg/dL Estim Creat Clear Calc 24.7 Estimated GFR 31 Random Glucose 161 H (60-115) mg/dL Lactic Acid 2.0 (0.5-2.0) mmol/L Calcium 8.3 L D (8.4-10.2) mg/dL Magnesium 2.1 (1.6-2.6) mg/dL Total Bilirubin 1.9 H (0.0-1.0) mg/dL Direct Bilirubin 0.8 H (0.0-0.5) mg/dL AST 21 (5-37) U/L ALT 28 (0-40) U/L Alkaline Phosphatase 67 (39-117) U/L Total Protein 6.2 L (6.5-8.0) g/dL Albumin 3.9 (3.5-5.0) g/dL Urine Color Urine Appearance Urine pH (5.0-8.0) Ur Specific [place] (1.005-1.025) Urine Protein (NEG-TRACE) MG/DL Urine Glucose (UA) (NEG) MG/DL Urine Ketones (NEG) MG/DL Urine Blood (NEG) Urine Nitrite (NEG) Ur Leukocyte Esterase (NEG) Urine RBC (0) /HPF Urine WBC (0-4) /HPF Ur Squamous Epith Cells /LPF Ur Renal Epithelial Cell /LPF Urine Bacteria /LPF Urine Mucus /LPF COVID-19 (CAROLINE) Negative (Negative) COVID-19 Clin Com See Note Critical Care Time Critical Care Time Critical Care Time: No Discharge Plan Discharge Clinical Impression: Hydronephrosis with renal and ureteral calculous obstruction, Constipation Patient Disposition: Admitted As Inpatient Prescriptions: No Action prednisone 50 mg tablet 50 mg PO DAILY Qty: 5 RF: 0 tamsulosin 0.4 mg capsule 0.4 mg PO BEDTIME Qty: 10 RF: 0 tramadol 50 mg tablet 50 mg PO Q8H PRN (Reason: pain) Qty: 10 RF: 0 finasteride 5 mg tablet 5 mg PO DAILY RF: 0 tamsulosin 0.4 mg capsule 0.4 mg PO DAILY RF: 0 hydrochlorothiazide 25 mg tablet 25 mg PO DAILY RF: 0 lisinopril 10 mg tablet 10 mg PO DAILY RF: 0 PMFSH Past Medical History Medical History (Updated 09/14/20 @ 16:14 by JULI Mcintyre) Arthritis Cancer Carpal tunnel syndrome, bilateral CKD (chronic kidney disease) Elevated cholesterol Hearing loss History of BPH HTN (hypertension) Normal colonoscopy Surgical History H/O colonoscopy H/O inguinal hernia repair History of bladder surgery History of carpal tunnel release of both wrists History of left knee replacement History of total right knee replacement (TKR) History of transurethral destruction of bladder lesion Family History Family History Father No problems noted. Mother No problems noted. Social History Social History Alcohol intake: current Alcohol intake frequency: holidays/special occasions only Alcohol type: wine Smoking Status: Never smoker Advance Directives: No Advance Directives Information Provided: No
[2020-09-14] MEDS: Morphine Sulfate 2 MG/ML CARTRIDGE IVPUSH (14:10)
[2020-09-14] MEDS: ondansetron HCL 4 MG/2 ML VIAL IVPUSH ×2 (14:10→21:12)
[2020-09-14] MEDS: 0.9 % Sodium Chloride 1,000 ML 999 ML IVCONT (14:16)
[2020-09-14 14:21] LABS: SLIDE REVIEW VERIFIED
[2020-09-14 14:42] LABS: Alanine Aminotransferase 28 U/L (0-40); Albumin Level 3.9 g/dL (3.5-5.0); Alkaline Phosphatase 67 U/L (39-117); Anion Gap 18 (12-20); Aspartate Amino Transferase 21 U/L (5-37); Bilirubin Direct 0.8 mg/dL (0.0-0.5); Bilirubin Total 1.9 mg/dL (0.0-1.0); Blood Urea Nitrogen 42 mg/dL (9-16); Calcium 8.3 mg/dL (8.4-10.2); Carbon Dioxide 24 mmol/L (22-29); Chloride 99 mmol/L (96-108); Creatinine Clr Calc Pharmacy 24.7; Estimated Glomerular Filt Rate 31; Glucose Random 161 mg/dL (60-115); Magnesium 2.1 mg/dL (1.6-2.6); Potassium 4.1 mmol/l (3.3-5.1); Sodium 137 mmol/L (135-145); Total Protein 6.2 g/dL (6.5-8.0)
[2020-09-14] MEDS: cefTRIAXone sodium 1 GM in 0.9 % Sodium Chloride 50 ML IV (15:08)
[2020-09-14 15:31] LABS: COVID-19 Test Negative (Negative); IDNOW Serial# 9DD0AD1C
[2020-09-14] MEDS: Morphine Sulfate 4 MG/ML CARTRIDGE IVPUSH (15:51)
[2020-09-14] MEDS: Tamsulosin HCL 0.4 MG CAPSULE 0.8 MG PO (16:00)
[2020-09-14] MEDS: dexAMETHasone sod phosphate 4 MG/ML VIAL 6 MG IVPUSH (16:00)
[2020-09-14] MEDS: Sodium Phosphate,Mono-Dibasic 133 ML ENEMA PR (16:01)
[2020-09-14] MEDS: Enoxaparin Sodium 30 MG/0.3 ML SYRINGE SUBCUT (18:25)
[2020-09-14] MEDS: amLODIPine Besylate 5 MG TABLET PO (18:26)
[2020-09-14] MEDS: oxyCODONE HCl Immed Release 5 MG TABLET PO (18:35)
[2020-09-14] MEDS: Sodium Chloride 0.45 % 1,000 ML 100 ML IVCONT (18:45)
--- NOTE | 2020-09-14 19:08 | HP_ITS ---
DATE OF SERVICE: 09/14/2020 HISTORY OF PRESENTING ILLNESS: This is an 84-year-old gentleman, who was recently evaluated in the emergency room on September 10 due to abdominal pain, localized to the left lower quadrant. The patient's workup revealed a 5 mm left ureteral stone with hydronephrosis. The patient's creatinine was stable. Case was discussed with Dr. Will, and the patient was supposed to have outpatient followup with Dr. Will, but the patient presented to [facility] today due to nausea, vomiting, diffuse abdominal pain and distention as well as constipation. The patient's last bowel movement was on September 10. The patient was discharged during previous ER visit on tramadol, Flomax, and prednisone for his kidney stone. In the emergency room, workup included a CAT scan of the abdomen and pelvis that showed persistent left hydroureteronephrosis. It was noted that the stone in the left proximal ureter has migrated distally and now positioned just proximal to the region of the ureterovesical junction. There were multiple hepatic cysts noticed. There was diverticulosis. There was small amount of free fluid in the abdomen and pelvis area with no evidence of bowel obstruction. The patient was noted to have moderate stool burden. In the ER, the patient was treated with morphine, Fleet enema as well as Flomax, antiemetics, IV antibiotics. The patient is feeling a little better since admission and sitting on a commode. PAST MEDICAL HISTORY: Significant for history of hyperlipidemia, history of hypertension, history of bladder cancer, history of chronic kidney disease stage 3. PAST SURGICAL HISTORY: 1. The patient is status post inguinal hernia repair. 2. Status post carpal tunnel release of both wrists. 3. History of left knee replacement. 4. History of total right knee replacement. ALLERGIES: THE PATIENT HAS NO KNOWN DRUG ALLERGIES. FAMILY HISTORY: The patient's mother is . There is no family history of premature coronary artery disease or diabetes. REVIEW OF SYSTEMS: CONSTITUTIONAL: The patient denies any fever or chills. CARDIOVASCULAR: The patient denies any chest pain or palpitation. RESPIRATORY: No cough or sputum production. GASTROINTESTINAL: The patient complained of dry heaving, nausea. No vomiting. Diffuse abdominal pain and distention. : He denies any urinary frequency or urgency. Rest of all other systems are reviewed and are negative. MEDICATIONS: On admission are finasteride 5 mg daily, hydrochlorothiazide 25 mg daily, lisinopril 10 mg daily, Flomax 0.4 mg daily. The patient was discharged home on tramadol as needed for pain control. PHYSICAL EXAMINATION: GENERAL: The patient appears to be uncomfortable, in no acute distress. HEENT: Pupils are equal, round, and reactive to light and accommodation. NECK: Supple. No increased JVD. CVS: The patient has normal heart rate and rhythm. LUNGS: Clear to auscultation bilaterally with no respiratory distress. No wheeze or rhonchi. ABDOMEN: Distended. Bowel sounds are audible. Mild tenderness to deep palpation. The patient has left-sided CVA tenderness with palpation. SKIN: Warm and dry. No rashes noted. EXTREMITIES: Without clubbing, cyanosis, or edema. NEURO: Nonfocal. LABORATORY DATA: Showed a WBC count of 21,000, hematocrit 46. Sodium 137, potassium 4.1, chloride 99, bicarb 24, creatinine 2. The patient's creatinine was 2.1 on September 11, but prior to that in December 2019, the patient's creatinine was 1.1. Random blood sugar is 161, calcium 8.3, bilirubin is 1.9, total protein is 6.2, normal AST and ALT. ASSESSMENT AND PLAN: This is an 84-year-old gentleman with history of bladder cancer, presented to [facility] few days ago with abdominal pain and was diagnosed to have a left ureteral stone, was supposed to have a followup with Dr. Will, but since the patient developed nausea, vomiting, abdominal distention, he returned back to emergency room for further followup and found to have constipation and persistent left ureteral stone that has now at the level of ureterovesical junction. The patient is being admitted for further management of stone and obstructive uropathy as well as acute on chronic kidney disease. 1. Left hydronephrosis due to left ureteral stone. The patient will be admitted to medical floor, will be treated with pain medication, IV fluid, IV antibiotic due to obstructive stone and will be seen by Dr. Will for possible cystoscopy and stone retraction if the stone does not come out by itself. 2. Acute on chronic kidney disease. The patient will be placed on IV fluid. We will hold hydrochlorothiazide and lisinopril. Follow renal function. 3. Nausea, vomiting, abdominal pain, and constipation, likely due to use of narcotic medication. The patient has been given Fleet enema if no response and the patient will be treated with stool softeners and lactulose. 4. Hypertension. The patient noted to have elevated blood pressure. We will place the patient on Norvasc since hydrochlorothiazide and lisinopril is on hold. We will follow blood pressure closely. 5. Deep vein thrombosis prophylaxis with renally dosed Lovenox. 6. Code status discussed with the patient and he wishes to be a full code. NOTE: The patient has elevated WBC count, likely due to stress versus obstructive left ureteral stone and possible UTI, will be covered with antibiotics. Follow CBC. MD WINDY Sanabria/ELMIRA / [id number] MTDD
[2020-09-14] MEDS: Docusate Sodium 100 MG CAPSULE PO (20:35)
--- NOTE | 2020-09-14 22:51 | PC.NURSE ---
patient's rate went to 150-170/min. corresponding mechanical pulse. hospitalist to bedside. ekg taken. monitoring at this time.
--- NOTE | 2020-09-14 23:36 | PC.NURSE ---
Hospitalist aware of sustained svt/afib. continuing to monitor.
[2020-09-14] MEDS: Metoprolol Tartrate 2.5 MG in 0.9 % Sodium Chloride 50 ML 210 MG IV (23:55)
[2020-09-14] MEDS: Metoprolol Tartrate 25 MG TABLET PO (23:57)
[2020-09-15] VITALS (10 sets, daily range): BP systolic 124–148; BP diastolic 45–87; PULSE 79–98; RESP 15–19; TEMP 36.4–37.2; O2SAT 96–100
--- NOTE | 2020-09-15 00:07 | PC.NURSE ---
2nd iv established in left wrist. 18g. metroprolol and maintainence fluid infusing.
--- NOTE | 2020-09-15 00:13 | PM.EVENT ---
Event Note Date of Service: 09/15/20 Event Note: Patient noted to have brief narrow complex tachycardia episodes in ED on telemetry. Some dizziness with them. Started on Metoprolol PO 25mg and IV prn for sustained tachycardeia. Tele showed narrow complex suggestive of SVT. Echo and card consults ordered.
--- NOTE | 2020-09-15 01:03 | PC.NURSE ---
pt had large loose bm at bedside commode.
--- NOTE | 2020-09-15 03:22 | PC.NURSE ---
pt has second bm at this time.
[2020-09-15] MEDS: Sodium Chloride 0.45 % 1,000 ML 100 ML IVCONT (05:18)
[2020-09-15 05:43] LABS: Basophils Percent Auto 0.1 % (0-2); Hematocrit 37.9 % (42-52); Hemoglobin 12.7 g/dl (14.0-18.0); Imm Gran Abs Auto 0.09 X10*3/uL (0.00-0.03); Imm Gran Pct Auto 0.5 % (0.0-0.4); Lymphocytes Percent Auto 4.9 % (20-40); MANUAL DIFF FLAG SCAN; Mean Corpuscular HGB Conc 33.5 g/dl (31.0-36.0); Mean Corpuscular Hemoglobin 31.7 pg (27.0-33.0); Mean Corpuscular Volume 94.5 fL (80-98); Mean Platelet Volume 9.9 fL (9.4-12.4); Monocytes Percent Auto 10.4 % (2-11); Neutrophils Absolute Auto 16.4 X10*3/uL (2.0-8.3); Neutrophils Percent Auto 84.1 % (45-73); Platelet Count 165 X10*3/uL (160-400); Red Blood Count 4.01 X10*6/uL (4.60-5.80); Red Cell Distribution Width 12.9 % (11.0-16.0); SCAN SMEAR FLAG 1; White Blood Count 19.5 X10*3/uL (4.8-10.8)
[2020-09-15 06:10] LABS: SLIDE REVIEW VERIFIED
[2020-09-15 06:52] LABS: Anion Gap 13 (12-20); Blood Urea Nitrogen 43 mg/dL (9-16); Calcium 6.2 mg/dL (8.4-10.2); Carbon Dioxide 20 mmol/L (22-29); Chloride 99 mmol/L (96-108); Creatinine Clr Calc Pharmacy 24.8; Estimated Glomerular Filt Rate 32; Glucose Random 690 mg/dL (60-115); Potassium 3.4 mmol/l (3.3-5.1); Sodium 129 mmol/L (135-145)
[2020-09-15 07:35] LABS: Glucose, Whole Blood 149 mg/dL (60-115)
[2020-09-15] MEDS: Docusate Sodium 100 MG CAPSULE PO ×2 (08:30→20:21)
[2020-09-15] MEDS: Tamsulosin HCL 0.4 MG CAPSULE PO (08:31)
[2020-09-15] MEDS: Finasteride 5 MG TABLET PO (08:31)
[2020-09-15] MEDS: 0.9 % Sodium Chloride Flush 3 ML SYRINGE IVFLUSH ×3 (08:33→21:48)
--- NOTE | 2020-09-15 09:41 | P.PNIM_ITS ---
Subjective Subjective Date of Service: 09/15/20 Interval History: Admitted for obstructive uropathy abdominal pain and constipation, patient feeling better this a.m. except for persistent hiccup causing abdominal discomfort has had 2 bowel movements since admission, overnight events noted patient had a run of narrow complex tachycardia heart rate improved with use of metoprolol patient remained asymptomatic. Review of Systems [employer] no headache no dizziness CVS no chest pain GI hiccups and abdominal pain with hiccups Respiratory no cough sputum production Physical Exam Vital Signs: Vital Signs: Last Vital Signs Temp 98.7 F 09/14/20 18:17 Pulse 80 09/15/20 07:55 Resp 18 09/15/20 07:55 BP 137/84 09/15/20 07:55 Pulse Ox 98 09/15/20 07:55 Body Mass Index 26.6 General patient resting in bed appears uncomfortable due to hiccups comfortably in no acute distress. Neck is supple no JVD. CVS regular rate rhythm, Respiratory lungs clear to auscultation, no respiratory distress, no wheeze, no rhonchi. Gastrointestinal abdomen soft, distended bowel sounds audible, no guarding no rigidity Extremities no clubbing cyanosis or edema. Neuro nonfocal patient moving all 4 extremity speech clear. Skin no rash Objective Data Current Medications Generic Name Dose Route Start Last Admin Trade Name Freq PRN Reason Stop Dose Admin Acetaminophen 650 mg 09/14/20 17:52 Acetaminophen 325 Mg Tablet PO Q6H PRN Pain, Mild (Pain Scale 1-3) Docusate Sodium 100 mg 09/14/20 21:00 09/15/20 08:30 Docusate Sodium 100 Mg Capsule PO 100 mg BID CRISTELA Administration Enoxaparin Sodium 30 mg 09/14/20 18:00 09/14/20 18:25 Enoxaparin Sodium 30 Mg/0.3 Ml Syringe SUBCUT 30 mg Q24H CRISTELA Administration Finasteride 5 mg 09/15/20 09:00 09/15/20 08:31 Finasteride 5 Mg Tablet PO 5 mg DAILY CRISTELA Administration Metoprolol Tartrate 2.5 mg/ 52.5 mls @ 210 mls/hr 09/14/20 23:39 09/15/20 00:13 Sodium Chloride IV Infused Q6H PRN Infusion HR sustained >130 Promethazine HCl 12.5 mg/ 50.5 mls @ 202 mls/hr 09/15/20 09:36 Sodium Chloride IV Q6H PRN Nausea Ceftriaxone Sodium 1 gm/ 50 mls @ 100 mls/hr 09/15/20 09:45 Sodium Chloride IV Q24H CRISTELA Metoprolol Succinate 25 mg 09/15/20 09:45 Metoprolol Succinate Er 25 Mg Tab.Er.24h PO DAILY CRISTELA Protocol Oxycodone HCl 5 mg 09/14/20 17:52 09/14/20 18:35 Oxycodone Hcl Immed Release 5 Mg Tablet PO 5 mg Q6H PRN Administration Pain, Severe (Pain Scale 7-10) Pharmacy Consult 1 each 09/14/20 16:04 Consult Rx Perform Med Rec MISCELLANE ONCE PRN Consult order Sodium Chloride 3 ml 09/15/20 00:00 09/15/20 08:33 0.9 % Sodium Chloride Flush 3 Ml Syringe IVFLUSH 3 ml QSHIFT CRISTELA Administration Tamsulosin HCl 0.4 mg 09/15/20 09:00 09/15/20 08:31 Tamsulosin Hcl 0.4 Mg Capsule PO 0.4 mg DAILY CRISTELA Administration Labs CBC & Chem 7: 09/15/20 05:38 09/15/20 05:38 Assessment and Plan (1) Hydronephrosis with renal and ureteral calculous obstruction: Status: Acute (2) Constipation: Status: Acute (3) Bladder cancer: Status: Acute (4) BPH loc w urin obs/LUTS: Status: Acute (5) Acute kidney injury superimposed on chronic kidney disease: Status: Acute Assessment and Plan: 84-year-old gentleman with history of bladder cancer, presented to [facility] few days ago with abdominal pain and was diagnosed to have aleft ureteral stone, was supposed to have a followup with Dr. Will, but sincethe patient developed nausea, vomiting, abdominal distention, he returned backto emergency room for further followup and found to have constipation and persistent left ureteral stone that has now at the level of ureterovesicaljunction. The patient is being admitted for further management of stone andobstructive uropathy as well as acute on chronic kidney disease. 1. Left hydronephrosis due to left ureteral stone. Patient feeling better this a.m. mild abdominal discomfort, creatinine remains elevated continue IV fluid and pain management patient to be evaluated by Dr. Gentile at a.m. for cystoscopy Keep patient NPO after midnight 2. Acute on chronic kidney disease stage IV. Likely related to obstructive uropathy with left ureteral stone, continue to hold hydrochlorothiazide and lisinopril IV fluid, follow renal function 3. Nausea, vomiting, abdominal pain, and constipation, likely due to use of narcotic medication. Patient responded well to Fleet enema has had 2-3 bowel movements persistent mild abdominal distension soft nontender continue stool softeners and lactulose as needed while on narcotic. 4. Hypertension. Hydrochlorothiazide and lisinopril on hold due to renal failure, patient treated with 1 dose of Norvasc but last night had an episode of narrow complex tachycardia therefore will place on Toprol-XL 25 mg daily 5. Narrow complex tachycardia with heart rate up to 130s last night patient treated with IV metoprolol currently in normal sinus rhythm patient remained asymptomatic will obtain an echocardiogram tomorrow morning. 6. Leukocytosis likely due to stress versus related to obstructive left ureteral stone, UA is unremarkable will follow blood cultures continue patient on IV ceftriaxone, of note patient also received 1 dose of IV dexamethasone in the ER 7. Elevated blood sugar patient noted to have a blood sugar of 690 repeat blood sugar in 140 blood sugars were drawn above the IV D5W therefore will DC insulin sliding scale and blood sugar monitoring patient has no history of diabetes Code status discussed with the patient and he wishes to be a full code. Deep vein thrombosis prophylaxis with renally dosed Lovenox
[2020-09-15] MEDS: oxyCODONE HCl Immed Release 5 MG TABLET PO ×3 (10:17→23:03)
--- NOTE | 2020-09-15 11:13 | P.CONCA_ITS ---
History of Present Illness History of Present Illness Date of Service: 09/15/20 Requesting physician: Yoana Black Consult reason: pre-op evaluation and other (SVT) Chief complaint: COLIN/hydronephrosis left ureteral stone Narrative: You are asked to consult on Bill because of brief short runs of narrow complex tachycardia. This was noted while patient is being monitored in the ED. Presently ED with abdominal discomfort present 1st on Wednesday was diagnosed with kidney stone. He subsequently presented yesterday again with recurrent belly discomfort, nausea and able to keep anything down and intractable hiccups. Noted to have again ureteral stone with hydronephrosis with acute kidney injury. He is scheduled to undergo urology procedure tomorrow under general anesthesia. While in the ED while on straining and under distress he was noted to have short burst of narrow complex tachycardia. They are consistent with supraventricular tachycardia. He had no symptoms of palpitations during this time. He has no lightheadedness, syncope. He was started on metoprolol therapy and since then has not noted any significant tachyarrhythmias. Do no bradycardia noted. He has no prior cardiac history. 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 Review of Systems Constitutional: Constitutional: Denies body ache(s), Denies fever(s) and Reports malaise Cardiovascular: Cardiovascular: Reports no additional cardiovascular complain ts Respiratory: Respiratory: Reports no additional respiratory complaints Gastrointestinal: Gastrointestinal: Reports abdominal pain, Reports nausea and Reports other (Hiccups) Musculoskeletal: Musculoskeletal: Reports no additional musculoskeletal complaints Neurologic: Reports system reviewed and no additional complaints, except as documented Psychiatric: Psychiatric: Reports no additional psychiatric complaints Endocrine: Endocrine: Reports no additional endocrine complaints Hematologic/Lymphatic: Hematologic/Lymphatic: Reports no additional hematologic/lymphatic complaints [facility] Past Medical History Medical History (Updated 09/15/20 @ 11:18 by Ulises Zuluaga MD) Arthritis Cancer Carpal tunnel syndrome, bilateral CKD (chronic kidney disease) Elevated cholesterol Hearing loss History of BPH HTN (hypertension) Normal colonoscopy SVT (supraventricular tachycardia) Family History Family History Father No problems noted. Mother No problems noted. Surgical History Surgical History H/O colonoscopy H/O inguinal hernia repair History of bladder surgery History of carpal tunnel release of both wrists History of left knee replacement History of total right knee replacement (TKR) History of transurethral destruction of bladder lesion Social History Social History Alcohol intake: current Alcohol intake frequency: holidays/special occasions only Alcohol type: wine Smoking Status: Never smoker Advance Directives: No Advance Directives Information Provided: No Meds Allergies Allergy/AdvReac Type Severity Reaction Status Date / Time No Known Allergies Allergy Verified 09/14/20 12:09 [No Known Allergies*] Home Medications Medication Instructions Recorded Confirmed Type finasteride 5 mg tablet 5 mg PO DAILY 06/04/20 09/14/20 History hydrochlorothiazide 25 mg tablet 25 mg PO DAILY 06/04/20 09/14/20 History lisinopril 10 mg tablet 10 mg PO DAILY 06/04/20 09/14/20 History tamsulosin 0.4 mg capsule 0.4 mg PO DAILY 06/04/20 09/14/20 History Physical Exam Vital Signs: Vital Signs: Last Vital Signs Temp 98.7 F 09/14/20 18:17 Pulse 89 09/15/20 10:19 Resp 19 09/15/20 10:19 BP 133/87 09/15/20 10:19 Pulse Ox 98 09/15/20 10:19 Body Mass Index 26.6 Const: General: cooperative, comfortable, in distress mild and other (Due to abdominal discomfort) and anxious Nutritional Appearance: average body habitus Orientation/consciousness: patient oriented x3 Limitations: no limitations HENMT: Head: Yes normocephalic and Yes atraumatic Neck: Neck: Yes trachea midline, Yes supple and Yes no JVD Resp: Effort & Inspection: normal respiratory effort Auscultation: clear to auscultation bilaterally Cardio: Jugular venous distension: no JVD Palpation: normal PMI Rate: regular rate Rhythm: regular rhythm Heart sounds: S1 normal heart sound present and S2 normal heart sound present GI: Inspection: Yes distended Auscultation: normal bowel sounds Skin: General skin exam: no rashes or lesions noted Neuro: General: patient oriented x3 Extrem: General: Yes no clubbing, cyanosis or edema Psych: Appearance: grossly normal Results Labs and Meds Result diagrams: 09/15/20 05:38 09/15/20 05:38 Lab results: Laboratory Results - last 24 hr 09/14/20 09/14/20 09/14/20 12:17 13:55 13:55 WBC 21.2 H RBC 4.99 Hgb 15.8 Hct 46.4 MCV 93.0 MCH 31.7 MCHC 34.1 RDW 12.6 Plt Count 202 MPV 9.9 Immature Gran % (Auto) 0.6 H Neut % (Auto) 86.2 H Lymph % (Auto) 3.5 L [place] % (Auto) 9.7 Eos % (Auto) 0.0 Baso % (Auto) 0.0 Lymph # (Auto) 0.8 L [place] # (Auto) 2.1 H Eos # (Auto) 0.0 Baso # (Auto) 0.0 Abs Immat Gran (auto) 0.12 H Absolute Neuts (auto) 18.2 H Absolute Nucleated RBC 0.000 Nucleated RBC % (auto) 0.0 Smear Tech's Comments VERIFIED Hold Blue Top SEE NOTE Sodium Potassium Chloride Carbon Dioxide Anion Gap BUN Creatinine Estim Creat Clear Calc Estimated GFR POC Glucose Random Glucose Lactic Acid Calcium Magnesium Total Bilirubin Direct Bilirubin AST ALT Alkaline Phosphatase Total Protein Albumin Urine Color YELLOW Urine Appearance HAZY Urine pH 6.0 Ur Specific [place] >= 1.030 H Urine Protein 1+ H Urine Glucose (UA) NEG Urine Ketones NEG Urine Blood 3+ H Urine Nitrite NEG Ur Leukocyte Esterase NEG Urine RBC TNTC H Urine WBC 0 Ur Squamous Epith Cells TRACE Ur Renal Epithelial Cell TRACE Urine Bacteria NONE Urine Mucus TRACE COVID-19 (CAROLINE) COVID-19 Clin Com 09/14/20 09/14/20 09/14/20 13:55 15:03 15:04 WBC RBC Hgb Hct MCV MCH MCHC RDW Plt Count MPV Immature Gran % (Auto) Neut % (Auto) Lymph % (Auto) [place] % (Auto) Eos % (Auto) Baso % (Auto) Lymph # (Auto) [place] # (Auto) Eos # (Auto) Baso # (Auto) Abs Immat Gran (auto) Absolute Neuts (auto) Absolute Nucleated RBC Nucleated RBC % (auto) Smear Tech's Comments Hold Blue Top Sodium 137 Potassium 4.1 Chloride 99 Carbon Dioxide 24 Anion Gap 18 BUN 42 H Creatinine 2.04 H Estim Creat Clear Calc 24.7 Estimated GFR 31 POC Glucose Random Glucose 161 H Lactic Acid 2.0 Calcium 8.3 L D Magnesium 2.1 Total Bilirubin 1.9 H Direct Bilirubin 0.8 H AST 21 ALT 28 Alkaline Phosphatase 67 Total Protein 6.2 L Albumin 3.9 Urine Color Urine Appearance Urine pH Ur Specific [place] Urine Protein Urine Glucose (UA) Urine Ketones Urine Blood Urine Nitrite Ur Leukocyte Esterase Urine RBC Urine WBC Ur Squamous Epith Cells Ur Renal Epithelial Cell Urine Bacteria Urine Mucus COVID-19 (CAROLINE) Negative COVID-19 Clin Com See Note 09/15/20 09/15/20 09/15/20 05:38 05:38 07:30 WBC 19.5 H RBC 4.01 L Hgb 12.7 L Hct 37.9 L MCV 94.5 MCH 31.7 MCHC 33.5 RDW 12.9 Plt Count 165 MPV 9.9 Immature Gran % (Auto) 0.5 H Neut % (Auto) 84.1 H Lymph % (Auto) 4.9 L [place] % (Auto) 10.4 Eos % (Auto) 0.0 Baso % (Auto) 0.1 Lymph # (Auto) 1.0 L [place] # (Auto) 2.0 H Eos # (Auto) 0.0 Baso # (Auto) 0.0 Abs Immat Gran (auto) 0.09 H Absolute Neuts (auto) 16.4 H Absolute Nucleated RBC 0.000 Nucleated RBC % (auto) 0.0 Smear Tech's Comments VERIFIED Hold Blue Top Sodium 129 L Potassium 3.4 Chloride 99 Carbon Dioxide 20 L Anion Gap 13 BUN 43 H Creatinine 2.03 H Estim Creat Clear Calc 24.8 Estimated GFR 32 POC Glucose 149 H Random Glucose 690 H* Lactic Acid Calcium 6.2 L D Magnesium Total Bilirubin Direct Bilirubin AST ALT Alkaline Phosphatase Total Protein Albumin Urine Color Urine Appearance Urine pH Ur Specific [place] Urine Protein Urine Glucose (UA) Urine Ketones Urine Blood Urine Nitrite Ur Leukocyte Esterase Urine RBC Urine WBC Ur Squamous Epith Cells Ur Renal Epithelial Cell Urine Bacteria Urine Mucus COVID-19 (CAROLINE) COVID-19 Clin Com Imaging Radiologist's impression: Impressions Abdomen/Pelvis CT 09/14/20 13:44 IMPRESSION: * The previously observed stone in the proximal left ureter has migrated distally, and is now positioned just proximal to the region of the ureterovesical junction. Persistent moderate left hydroureteronephrosis and perinephric edema. * The bilateral renal calculi are unchanged in size and position compared to 09/10/2020. * Multiple hepatic cysts. * Colonic diverticulosis without diverticulitis. * No evidence of bowel obstruction. * Small amount of free fluid is present in the abdomen and pelvis. Assessment and Plan (1) Preoperative cardiovascular examination: Status: Acute Preoperative cardiovascular risk stratification elderly man to undergo urologic surgery under general anesthesia. Prior to Wednesday he was in pretty active shape. He had more than 4 Mets of physical activity level. He has no cardiac symptoms with that. He is currently optimized to undergo urology procedure with low risk for perioperative cardiovascular morbidity mortality. Continue metoprolol to control arrhythmias, see below. (2) SVT (supraventricular tachycardia): Status: Acute Supraventricular tachycardia, narrow complex short bursts without any symptoms. Most likely caused by systemic strain related to pain as well as kidney stone. Rule out any overwhelming infection. Agree with metoprolol therapy at this point time. We discussed about stress medications strategies. Benign nature of overall short burst of SVT was discussed with him. He understands and agrees. Avoidance of stimulants was discussed. Will sign of the case at current time. Feel free to consult us if there are any issues.
[2020-09-15] MEDS: Metoprolol Succinate ER 25 MG TAB.ER.24H PO (11:40)
[2020-09-15] MEDS: cefTRIAXone sodium 1 GM in 0.9 % Sodium Chloride 50 ML IV (14:52)
[2020-09-15] MEDS: Enoxaparin Sodium 30 MG/0.3 ML SYRINGE SUBCUT (17:06)
--- NOTE | 2020-09-15 20:54 | PM.EVENT ---
Event Note Date of Service: 09/15/20 Event Note: Patient was to be admitted to [facility] for telemetry monitroing due to the SVT episodes. Cardiology input noted-benign nature of the dysrhythmia and was started on Metroprolol with good effect. Per ED nursing staff no significant SVT episodes seen on tele so will downgrade to Med Surg bed.
[2020-09-16] VITALS (16 sets, daily range): BP systolic 121–164; BP diastolic 60–86; PULSE 76–111; RESP 16–20; TEMP 36.2–36.9; O2SAT 93–96
[2020-09-16] MEDS: oxyCODONE HCl Immed Release 5 MG TABLET PO (05:58)
[2020-09-16 06:26] LABS: MANUAL DIFF FLAG NO
[2020-09-16 06:42] LABS: Basophils Percent Auto 0.1 % (0-2); Hematocrit 39.6 % (42-52); Hemoglobin 13.4 g/dl (14.0-18.0); Imm Gran Abs Auto 0.09 X10*3/uL (0.00-0.03); Imm Gran Pct Auto 0.6 % (0.0-0.4); Lymphocytes Absolute Auto 0.8 X10*3/uL (1.2-4.9); Lymphocytes Percent Auto 5.6 % (20-40); Mean Corpuscular HGB Conc 33.8 g/dl (31.0-36.0); Mean Corpuscular Volume 94.5 fL (80-98); Mean Platelet Volume 10.2 fL (9.4-12.4); Monocytes Absolute Auto 1.5 X10*3/uL (0.1-1.2); Monocytes Percent Auto 10.1 % (2-11); Neutrophils Absolute Auto 12.4 X10*3/uL (2.0-8.3); Neutrophils Percent Auto 83.6 % (45-73); Platelet Count 187 X10*3/uL (160-400); Red Blood Count 4.19 X10*6/uL (4.60-5.80); Red Cell Distribution Width 12.8 % (11.0-16.0); White Blood Count 14.8 X10*3/uL (4.8-10.8)
[2020-09-16 07:12] LABS: Anion Gap 16 (12-20); Blood Urea Nitrogen 52 mg/dL (9-16); Calcium 7.8 mg/dL (8.4-10.2); Carbon Dioxide 22 mmol/L (22-29); Chloride 103 mmol/L (96-108); Creatinine Clr Calc Pharmacy 25.6; Estimated Glomerular Filt Rate 33; Glucose Random 138 mg/dL (60-115); Potassium 3.8 mmol/l (3.3-5.1); Sodium 137 mmol/L (135-145)
--- NOTE | 2020-09-16 07:34 | P.CNUR_ITS ---
History of Present Illness Consult details Consult date: 09/15/20 Narrative: Admit for left distal ureteric stone Patient is known to me Has upcoming procedure for bladder cancer Seen in hospital for kidney stone last Wednesday Repeat presentation and stone is in distal portion of left ureter Will admit for pain management and scheduled procedure tomorrow will include ureteroscopy laser lithotripsy and stent placement. Review of Systems 2 Review of Systems: Yes all other systems are reviewed and are negative Neurologic: Reports system reviewed and no additional complaints, except as documented PMFSH Past Medical History Medical History Arthritis Cancer Carpal tunnel syndrome, bilateral CKD (chronic kidney disease) Elevated cholesterol Hearing loss History of BPH HTN (hypertension) Normal colonoscopy SVT (supraventricular tachycardia) Family History Family History Father No problems noted. Mother No problems noted. Surgical History Surgical History H/O colonoscopy H/O inguinal hernia repair History of bladder surgery History of carpal tunnel release of both wrists History of left knee replacement History of total right knee replacement (TKR) History of transurethral destruction of bladder lesion Social History Social History Household Members: Spouse Housing: House Alcohol intake: current Alcohol intake frequency: holidays/special occasions only Alcohol type: wine Smoking Status: Never smoker Meds Allergies Allergy/AdvReac Type Severity Reaction Status Date / Time No Known Allergies Allergy Verified 09/14/20 12:09 [No Known Allergies*] Home Medications Medication Instructions Recorded Confirmed Type finasteride 5 mg tablet 5 mg PO DAILY 06/04/20 09/14/20 History hydrochlorothiazide 25 mg tablet 25 mg PO DAILY 06/04/20 09/14/20 History lisinopril 10 mg tablet 10 mg PO DAILY 06/04/20 09/14/20 History tamsulosin 0.4 mg capsule 0.4 mg PO DAILY 06/04/20 09/14/20 History Physical Exam Vital Signs: Vital Signs: Last Vital Signs Temp 98.4 F 09/16/20 07:10 Pulse 84 09/16/20 07:10 Resp 18 09/16/20 07:10 BP 121/63 09/16/20 07:10 Pulse Ox 93 09/16/20 07:10 Body Mass Index 26.6 Const: General: cooperative, healthy appearing, comfortable and no acute distress Nutritional Appearance: average body habitus Orientation/consciousness: oriented to person, oriented to place and oriented to time Eyes: General: appearance normal, both eyes and all related structures Chest: Chest palpation & inspection: normal inspection of the chest Resp: Effort & Inspection: normal respiratory effort Cardio: Rate: regular rate GI: Inspection: Yes normal to inspection Skin: Hair: normal Neuro: General: oriented to person, oriented to place and oriented to time Extrem: General: Yes normal to inspection Results Labs Result diagrams: 09/16/20 05:55 09/16/20 05:54 Labs: Abnormal lab results 09/15/20 09/16/20 09/16/20 Range/Units 07:30 05:54 05:55 WBC 14.8 H (4.8-10.8) X10*3/uL RBC 4.19 L (4.60-5.80) X10*6/uL Hgb 13.4 L (14.0-18.0) g/dl Hct 39.6 L (42-52) % Immature Gran % (Auto) 0.6 H (0.0-0.4) % Neut % (Auto) 83.6 H (45-73) % Lymph % (Auto) 5.6 L (20-40) % Lymph # (Auto) 0.8 L (1.2-4.9) X10*3/uL [place] # (Auto) 1.5 H (0.1-1.2) X10*3/uL Abs Immat Gran (auto) 0.09 H (0.00-0.03) X10*3/uL Absolute Neuts (auto) 12.4 H (2.0-8.3) X10*3/uL BUN 52 H (9-16) mg/dL Creatinine 1.97 H (0.5-1.4) mg/dL POC Glucose 149 H (60-115) mg/dL Random Glucose 138 H D (60-115) mg/dL Calcium 7.8 L D (8.4-10.2) mg/dL Short CBC 09/16/20 Range/Units 05:55 WBC 14.8 H (4.8-10.8) X10*3/uL Hgb 13.4 L (14.0-18.0) g/dl Hct 39.6 L (42-52) % Plt Count 187 (160-400) X10*3/uL BMP 09/16/20 05:54 Sodium 137 Potassium 3.8 Chloride 103 Carbon Dioxide 22 BUN 52 H Creatinine 1.97 H Calcium 7.8 L D Urine 09/14/20 Range/Units 12:17 Urine Color YELLOW Urine Appearance HAZY Urine pH 6.0 (5.0-8.0) Ur Specific [place] >= 1.030 H (1.005-1.025) Urine Protein 1+ H (NEG-TRACE) MG/DL Urine Glucose (UA) NEG (NEG) MG/DL All other labs normal. Assessment and Plan (1) Bladder cancer: Status: Acute (2) BPH loc w urin obs/LUTS: Status: Acute (3) Hydronephrosis with renal and ureteral calculous obstruction: Status: Acute 1.0 admit for pain management 2.0 plan for left-sided ureteroscopy laser lithotripsies stent placement tomorrow in addition to bladder tumor removal
[2020-09-16] MEDS: 0.9 % Sodium Chloride Flush 3 ML SYRINGE IVFLUSH ×2 (07:57→16:18)
[2020-09-16] MEDS: Finasteride 5 MG TABLET PO (09:13)
[2020-09-16] MEDS: Tamsulosin HCL 0.4 MG CAPSULE PO (09:13)
[2020-09-16] MEDS: Metoprolol Succinate ER 25 MG TAB.ER.24H PO (09:13)
[2020-09-16] MEDS: Docusate Sodium 100 MG CAPSULE PO ×2 (09:13→21:34)
[2020-09-16] MEDS: Lactated Ringers 1,000 ML 50 ML IVCONT ×2 (10:59→19:56)
--- NOTE | 2020-09-16 11:06 | MHC.CM.PN ---
CM ATEMPTED TO MEET WITH PATIENT, PT OFF UNIT FOR PROCEDURE AT THIS TIME, CM WILL ATTEMPT LATER IN DAY.
--- NOTE | 2020-09-16 11:41 | P.CONAN_ITS ---
[facility] Past Medical History Medical History Arthritis Cancer Carpal tunnel syndrome, bilateral CKD (chronic kidney disease) Elevated cholesterol Hearing loss History of BPH HTN (hypertension) Normal colonoscopy SVT (supraventricular tachycardia) Family History Family History Father No problems noted. Mother No problems noted. Surgical History Surgical History H/O colonoscopy H/O inguinal hernia repair History of bladder surgery History of carpal tunnel release of both wrists History of left knee replacement History of total right knee replacement (TKR) History of transurethral destruction of bladder lesion Social History Social History Household Members: Spouse Housing: House Alcohol intake: current Alcohol intake frequency: holidays/special occasions only Alcohol type: wine Smoking Status: Never smoker Meds Allergies Allergy/AdvReac Type Severity Reaction Status Date / Time No Known Allergies Allergy Verified 09/14/20 12:09 [No Known Allergies*] Home Medications Medication Instructions Recorded Confirmed Type finasteride 5 mg tablet 5 mg PO DAILY 06/04/20 09/14/20 History hydrochlorothiazide 25 mg tablet 25 mg PO DAILY 06/04/20 09/14/20 History lisinopril 10 mg tablet 10 mg PO DAILY 06/04/20 09/14/20 History tamsulosin 0.4 mg capsule 0.4 mg PO DAILY 06/04/20 09/14/20 History Exam Exam Date and Time: September 16, 2020 1141 Height,Weight and Vital Signs: Height 5 ft 6 in Weight 74.843 kg Last Vital Signs Temp 98.0 F 09/16/20 10:53 Pulse 76 09/16/20 10:53 Resp 18 09/16/20 10:53 BP 150/76 H 09/16/20 10:53 Pulse Ox 94 09/16/20 10:53 Pertinent Lab Results Pertinent Lab Results: Laboratory Tests 09/14/20 09/14/20 09/14/20 12:17 13:55 13:55 WBC 21.2 H RBC 4.99 Hgb 15.8 Hct 46.4 MCV 93.0 MCH 31.7 MCHC 34.1 RDW 12.6 Plt Count 202 MPV 9.9 Immature Gran % (Auto) 0.6 H Neut % (Auto) 86.2 H Lymph % (Auto) 3.5 L Callahan % (Auto) 9.7 Eos % (Auto) 0.0 Baso % (Auto) 0.0 Lymph # (Auto) 0.8 L Callahan # (Auto) 2.1 H Eos # (Auto) 0.0 Baso # (Auto) 0.0 Abs Immat Gran (auto) 0.12 H Absolute Neuts (auto) 18.2 H Absolute Nucleated RBC 0.000 Nucleated RBC % (auto) 0.0 Smear Tech's Comments VERIFIED Hold Blue Top SEE NOTE Sodium Potassium Chloride Carbon Dioxide Anion Gap BUN Creatinine Estim Creat Clear Calc Estimated GFR POC Glucose Random Glucose Lactic Acid Calcium Magnesium Total Bilirubin Direct Bilirubin AST ALT Alkaline Phosphatase Total Protein Albumin Urine Color YELLOW Urine Appearance HAZY Urine pH 6.0 Ur Specific [place] >= 1.030 H Urine Protein 1+ H Urine Glucose (UA) NEG Urine Ketones NEG Urine Blood 3+ H Urine Nitrite NEG Ur Leukocyte Esterase NEG Urine RBC TNTC H Urine WBC 0 Ur Squamous Epith Cells TRACE Ur Renal Epithelial Cell TRACE Urine Bacteria NONE Urine Mucus TRACE COVID-19 (CAROLINE) COVID-19 Clin Com 09/14/20 09/14/20 09/14/20 13:55 15:03 15:04 WBC RBC Hgb Hct MCV MCH MCHC RDW Plt Count MPV Immature Gran % (Auto) Neut % (Auto) Lymph % (Auto) Callahan % (Auto) Eos % (Auto) Baso % (Auto) Lymph # (Auto) Callahan # (Auto) Eos # (Auto) Baso # (Auto) Abs Immat Gran (auto) Absolute Neuts (auto) Absolute Nucleated RBC Nucleated RBC % (auto) Smear Tech's Comments Hold Blue Top Sodium 137 Potassium 4.1 Chloride 99 Carbon Dioxide 24 Anion Gap 18 BUN 42 H Creatinine 2.04 H Estim Creat Clear Calc 24.7 Estimated GFR 31 POC Glucose Random Glucose 161 H Lactic Acid 2.0 Calcium 8.3 L D Magnesium 2.1 Total Bilirubin 1.9 H Direct Bilirubin 0.8 H AST 21 ALT 28 Alkaline Phosphatase 67 Total Protein 6.2 L Albumin 3.9 Urine Color Urine Appearance Urine pH Ur Specific [place] Urine Protein Urine Glucose (UA) Urine Ketones Urine Blood Urine Nitrite Ur Leukocyte Esterase Urine RBC Urine WBC Ur Squamous Epith Cells Ur Renal Epithelial Cell Urine Bacteria Urine Mucus COVID-19 (CAROLINE) Negative COVID-19 Clin Com See Note 09/15/20 09/15/20 09/15/20 05:38 05:38 07:30 WBC 19.5 H RBC 4.01 L Hgb 12.7 L Hct 37.9 L MCV 94.5 MCH 31.7 MCHC 33.5 RDW 12.9 Plt Count 165 MPV 9.9 Immature Gran % (Auto) 0.5 H Neut % (Auto) 84.1 H Lymph % (Auto) 4.9 L Callahan % (Auto) 10.4 Eos % (Auto) 0.0 Baso % (Auto) 0.1 Lymph # (Auto) 1.0 L Callahan # (Auto) 2.0 H Eos # (Auto) 0.0 Baso # (Auto) 0.0 Abs Immat Gran (auto) 0.09 H Absolute Neuts (auto) 16.4 H Absolute Nucleated RBC 0.000 Nucleated RBC % (auto) 0.0 Smear Tech's Comments VERIFIED Hold Blue Top Sodium 129 L Potassium 3.4 Chloride 99 Carbon Dioxide 20 L Anion Gap 13 BUN 43 H Creatinine 2.03 H Estim Creat Clear Calc 24.8 Estimated GFR 32 POC Glucose 149 H Random Glucose 690 H* Lactic Acid Calcium 6.2 L D Magnesium Total Bilirubin Direct Bilirubin AST ALT Alkaline Phosphatase Total Protein Albumin Urine Color Urine Appearance Urine pH Ur Specific [place] Urine Protein Urine Glucose (UA) Urine Ketones Urine Blood Urine Nitrite Ur Leukocyte Esterase Urine RBC Urine WBC Ur Squamous Epith Cells Ur Renal Epithelial Cell Urine Bacteria Urine Mucus COVID-19 (CAROLINE) COVID-19 Clin Com 09/16/20 09/16/20 05:54 05:55 WBC 14.8 H RBC 4.19 L Hgb 13.4 L Hct 39.6 L MCV 94.5 MCH 32.0 MCHC 33.8 RDW 12.8 Plt Count 187 MPV 10.2 Immature Gran % (Auto) 0.6 H Neut % (Auto) 83.6 H Lymph % (Auto) 5.6 L Callahan % (Auto) 10.1 Eos % (Auto) 0.0 Baso % (Auto) 0.1 Lymph # (Auto) 0.8 L [place]ahan # (Auto) 1.5 H Eos # (Auto) 0.0 Baso # (Auto) 0.0 Abs Immat Gran (auto) 0.09 H Absolute Neuts (auto) 12.4 H Absolute Nucleated RBC 0.000 Nucleated RBC % (auto) 0.0 Smear Tech's Comments Hold Blue Top Sodium 137 Potassium 3.8 Chloride 103 Carbon Dioxide 22 Anion Gap 16 BUN 52 H Creatinine 1.97 H Estim Creat Clear Calc 25.6 Estimated GFR 33 POC Glucose Random Glucose 138 H D Lactic Acid Calcium 7.8 L D Magnesium Total Bilirubin Direct Bilirubin AST ALT Alkaline Phosphatase Total Protein Albumin Urine Color Urine Appearance Urine pH Ur Specific [place] Urine Protein Urine Glucose (UA) Urine Ketones Urine Blood Urine Nitrite Ur Leukocyte Esterase Urine RBC Urine WBC Ur Squamous Epith Cells Ur Renal Epithelial Cell Urine Bacteria Urine Mucus COVID-19 (CAROLINE) COVID-19 Clin Com Airway Mallampati Class: III TM Dist: >3cm Neck ROM: Full Loose/Missing/Broken Teeth: No Heart: RRR Lungs: CTA Assessment and Plan Assessment Anesthesia Assessment: Anesthesia Plan Discussed and Chart Reviewed Final Anesthetic Review NPO: Yes ASA Class: II Final Preanesthetic Review: Meds/Allgs Chart Reviewed, Consent Obtained/Reviewed and Anes Risks/Benef Reviewed Patient Risk: Low Procedure Risk: Low Anesthetic Plan Anesthetic Plan: GA Disposition: Standard PACU
--- NOTE | 2020-09-16 11:44 | FL_ITS ---
EXAMINATION: XR FLUOROSCOPY WITH IMAGES CLINICAL INFORMATION: Kidney stones and left ureter stone COMPARISON: Previous CT of the abdomen and pelvis 09/14/2020 TECHNIQUE: Fluoroscopy performed by Dr. Tong Gentile. Fluoroscopy time: 66 seconds Dose: 19 mgy Images: 3 FINDINGS: Initial image demonstrates opacification of the left distal ureter. There is a round filling defect in the left distal ureter questionable for a stone. Final images demonstrate placement of a left internal ureteral stent. There is evidence of previous left hernia repair. FL/FL guidance in OR IMPRESSION: Fluoroscopic guidance for left retrograde exam.
--- NOTE | 2020-09-16 11:45 | MHC.SHP ---
Pre-Procedural Eval Section A The patient is an INPATIENT: Yes Changes since office visit: No Cold of Flu in the past 2 weeks, No New Medical Problems, No Changes in Medication and No Patient answered all questions The History & Physical has been completed within 30 days and I have reviewed it.: Yes Section B Chief Complaint: COLIN/hydronephrosis left ureteral stone Allergies: Allergies Allergy/AdvReac Type Severity Reaction Status Date / Time No Known Allergies Allergy Verified 09/14/20 12:09 [No Known Allergies*] Plan Diagnosis/Plan: Change I have reviewed the history and physical and performed a pertinent physical examination on my patient. No changes have occurred unless specified. Has additional distal left ureteric stone and stone in left kidney. Procedure will be transurethral resection of bladder tumor plus left retrograde, ureteroscopy, laser lithotripsy, stent placement.
--- NOTE | 2020-09-16 11:52 | PC.NURSE ---
REVIEWED WITH MD, NO ANTIBIOTIC NEEDED. ALREADY ON IV ABX ON FLOOR.
--- NOTE | 2020-09-16 13:02 | P.BOP_ITS ---
Brief Operative Note Date of Service: 09/16/20 Pre-op diagnosis: 1. Bladder cancer 2. Left distal ureteral stone 3. Left renal stone multiple Post-op diagnosis: same Procedure: 1. TURBT medium bladder tumor left sidewall 2. Left retrograde, left rigid ureteroscopy laser lithotripsy stone basketing 3. Left flexible ureteroscopy to left renal pelvis with laser lithotripsy of 2 stones 4. Stent placement left Implants: Left 6 Turkmen by 24 cm stent Surgeon: Tong Gentile MD Anesthesia: GLMA Estimated blood loss (mL): 0 Pathology: other (1. ureteric stone) Condition: stable Disposition: floor
--- NOTE | 2020-09-16 13:04 | P.OP_ITS ---
Operative Note Operative Note Date of Service: 09/16/20 Narrative: PreOperative Diagnosis: 1. Bladder cancer 2. Left distal ureteric stone 3. Left renal stone times 2 Post Operative Diagnosis: Same Procedure: 1. TURBT fulguration of bladder cancer 2. Left retrograde, rigid ureteroscopy, laser lithotripsy stone basketing 3. Left flexible ureteroscopy laser lithotripsy stone basketing of 2 separate stones 4. Left stent placement 5. Gemcitabine bladder instillation Surgeon: Dr Tong Gentile Anesthesia: General Indications for procedure: This is a 84-year-old male. Originally scheduled for TURBT of a small tumor. Admitted to hospital yesterday with a distal left ureteric stone. Also has proximal renal stone. Advised to undergo the TURBT and additional procedures necessary for stone management. These have been discussed. Procedure: After informed consent was verified the patient was brought to the operating room and placed in a supine position. Anesthesia was administered per protocol. Patient was placed in a modified dorsal lithotomy position and prepped and draped in sterile fashion. Safety pause time-out was performed. Antibiotics being given. A 22 [place] cystoscope inserted per urethra. No abnormality noted the anterior posterior urethra. Prior prostate TURP with healing was noted. The cystoscope was removed. Resectoscope was placed. Bladder was examined in its entirety. On left wall was recurrent bladder tumor. This was fulgurated and resected. There was minimal specimen after this procedure. We used a narrow band imaging blue light to examine the rest of the bladder. There were a few areas of enhancing cells which were fulgurated. No other enhancing lesions with seen. Once complete the resectoscope was removed. The cystoscope was placed. Retrograde was performed on the left side which showed a filling defect in the distal portion of the ureter. A Sensor guidewire was placed without difficulty. The rigid ureteral scope was placed alongside the Sensor guidewire. A stone was encountered and using the holmium laser 272 nm the stone was broken into small pieces. Using a basket these were removed and will be sent for analysis. Rigid ureteroscope was removed. The flexible ureteroscope was placed over the wire. Within able to be advanced. The scope was removed. The open-ended ca theter was placed over the wire and a wire exchange to a Stiff wire. Once this has occurred we were able to advance the flexible ureteral scope up to level the renal pelvis. The wire was removed. Renal pelvis was examined in its entirety. There was a stone in both the upper and mid calices. Each was approximately 5 mm in size similar the size of the 1 that had become stuck. Each was dusted u sing the holmium laser on dusting settings. When this was complete the wire was placed back through the flexible ureteral scope. The ureter scope was removed. A rigid cystoscope was back loaded over the wire. A 6 [place]ian by 24 cm double-J ureteric stent was placed without difficulty good coil seen in the kidney and in the bladder. The cystoscope was removed. The bladder was emptied. An [address] Andrade catheter was placed. 2 g of gemcitabine in 50 cc of normal saline was placed which will remain indwelling for 1 hour and then will be irrigated from his bladder. He tolerated procedure well was extubated in operating room transferred in stable condition recovery area Pathology: Stones Drains: Andrade catheter
--- NOTE | 2020-09-16 13:47 | P.PNIM_ITS ---
Subjective Subjective Date of Service: 09/16/20 Interval History: the patient was seen and evaluated this morning Laying in bed, feels comfortable complaining from a lot of back ups and ab dominal pain on and of a Denies any fever, chills or shortness of breath No reported other overnight events. Systemic review: No fever, chills or weakness No chest pain, palpitation No shortness of breath or coughing Left-sided abdominal abdominal pain, no reported a nausea or vomiting No urinary symptoms No any rash or wounds Physical Exam Vital Signs: Vital Signs: Last Vital Signs Temp 98 F 09/16/20 13:39 Pulse 108 H 09/16/20 13:39 Resp 16 09/16/20 13:39 BP 142/73 H 09/16/20 13:25 Pulse Ox 95 09/16/20 13:39 Body Mass Index 26.6 Const: Other: Constitutional : Alert, oriented, not in distress Neck : Normal inspection, Supple Cardiovascular : RRR, S1 S2, no lower extremity edema Respiratory : Good bilateral air entry, no crackles, wheezes or rhonchi Gastrointestinal: soft, lax, Normal bowel sounds, Non tender Skin : Warm/Dry, No rash Neurological : Alert & oriented x3, No focal deficit Objective Data Current Medications Generic Name Dose Route Start Last Admin Trade Name Freq PRN Reason Stop Dose Admin Acetaminophen 650 mg 09/14/20 17:52 Acetaminophen 325 Mg Tablet PO Q6H PRN Pain, Mild (Pain Scale 1-3) Acetaminophen 650 mg 09/16/20 11:55 Acetaminophen 325 Mg Tablet PO ONCE PRN Pain, Mild (Pain Scale 1-3) Docusate Sodium 100 mg 09/14/20 21:00 09/16/20 09:13 Docusate Sodium 100 Mg Capsule PO 100 mg BID CRISTELA Administration Enoxaparin Sodium 30 mg 09/14/20 18:00 09/15/20 17:06 Enoxaparin Sodium 30 Mg/0.3 Ml Syringe SUBCUT 30 mg Q24H CRISTELA Administration Finasteride 5 mg 09/15/20 09:00 09/16/20 09:13 Finasteride 5 Mg Tablet PO 5 mg DAILY CRISTELA Administration Metoprolol Tartrate 2.5 mg/ 52.5 mls @ 210 mls/hr 09/14/20 23:39 09/15/20 00:13 Sodium Chloride IV Infused Q6H PRN Infusion HR sustained >130 Promethazine HCl 12.5 mg/ 50.5 mls @ 202 mls/hr 09/15/20 09:36 Sodium Chloride IV Q6H PRN Nausea Ceftriaxone Sodium 1 gm/ 50 mls @ 100 mls/hr 09/15/20 14:00 09/15/20 14:52 Sodium Chloride IV 100 mls/hr Q24H CRISTELA Administration Lactated Ringer's 1,000 mls @ 50 mls/hr 09/16/20 10:45 09/16/20 10:59 Lr IVCONT 50 mls/hr .Q20H CRISTELA Administration Metoprolol Succinate 25 mg 09/15/20 09:45 09/16/20 09:13 Metoprolol Succinate Er 25 Mg Tab.Er.24h PO 25 mg DAILY CRISTELA Administration Protocol Oxycodone HCl 5 mg 09/14/20 17:52 09/16/20 05:58 Oxycodone Hcl Immed Release 5 Mg Tablet PO 5 mg Q6H PRN Administration Pain, Severe (Pain Scale 7-10) Pharmacy Consult 1 each 09/14/20 16:04 Consult Rx Perform Med Rec MISCELLANE ONCE PRN Consult order Sodium Chloride 3 ml 09/15/20 00:00 09/16/20 07:57 0.9 % Sodium Chloride Flush 3 Ml Syringe IVFLUSH 3 ml QSHIFT CRISTELA Administration Tamsulosin HCl 0.4 mg 09/15/20 09:00 09/16/20 09:13 Tamsulosin Hcl 0.4 Mg Capsule PO 0.4 mg DAILY CRISTELA Administration Labs CBC & Chem 7: 09/16/20 05:55 09/16/20 05:54 Microbiology Microbiology Results: Microbiology 09/14/20 15:09 Blood - Venous Blood Culture - Preliminary No growth after 24 hours. 09/14/20 15:03 Blood - Venous Blood Culture - Preliminary No growth after 24 hours. Assessment and Plan (1) Hydronephrosis with renal and ureteral calculous obstruction: Status: Acute (2) Constipation: Status: Acute (3) Bladder cancer: Status: Acute (4) BPH loc w urin obs/LUTS: Status: Acute (5) Acute kidney injury superimposed on chronic kidney disease: Status: Acute Assessment and Plan: 84-year-old gentleman with history of bladder cancer, presented to [facility] few days ago with abdominal pain and was diagnosed to have a left ureteral stone, was supposed to have a followup with Dr. Will, but sincethe patient developed nausea, vomiting, abdominal distention, he returned backto emergency room for further followup and found to have constipation and persistent left ureteral stone that has now at the level of ureterovesicaljunction. Left hydronephrosis due to obstructive left ureteral stone. Pain better controlled Plan by Dr. Gentile today for cystoscopy Monitor urine output Acute on chronic kidney disease stage IV Secondary to obstructive uropathy with left ureteral stone continue to hold hydrochlorothiazide and lisinopril Continue IV fluid follow renal function Constipation likely due to use of narcotic medication. Patient responded well to Fleet enema has had 2-3 bowel movements continue stool softeners and lactulose as needed while on narcotic. Hypertension. Hydrochlorothiazide and lisinopril on hold due to renal failure Continue Toprol-XL 25 mg daily Narrow complex tachycardia heart rate up to 130s H for an episode, treated with IV metoprolol currently in normal sinus rhythm patient remained asymptomatic will obtain an echocardiogram Leukocytosis likely due to stress versus related to obstructive left ureteral stone, UA is unremarkable Which follow blood cultures continue IV ceftriaxone DVT PPX Lovenox
--- NOTE | 2020-09-16 15:33 | MHC.CM.PN ---
IMM 09/16/20, PT RETURNED FROM LEFT LITHOTRIPSY & STENT, PT IS ALERT AND ORIENTED, PT REPORTS HE IS INDEPENDENT WITH ALL CARE AT HOME, DENIES USE OF DME OR ANY HOME SERVICES, PT LIVES WITH AT HOME. PT VERIFIES PCP DR JIA CHAMBERS AND [facility] [place]. PER PT IS HEALTH CARE PROXY, PT COULD NOT RECALL IF THERE IS AN ALTERNATE. CM CALLED PT'S MARCELA AND REQUESTED A COPY BE FAXED TO CM, PT'S REPORTS SHE WILL LOOK FOR IT. HCP/: MARCELA (CELL) [phone], (L) [phone] PCP: DR JIA CHAMBERS
[2020-09-16] MEDS: cefTRIAXone sodium 1 GM in 0.9 % Sodium Chloride 50 ML IV (16:17)
[2020-09-16] MEDS: Enoxaparin Sodium 30 MG/0.3 ML SYRINGE SUBCUT (17:12)
[2020-09-17 06:21] LABS: Hematocrit 36.9 % (42-52); Hemoglobin 12.4 g/dl (14.0-18.0); Mean Corpuscular HGB Conc 33.6 g/dl (31.0-36.0); Mean Corpuscular Hemoglobin 31.6 pg (27.0-33.0); Mean Corpuscular Volume 93.9 fL (80-98); Mean Platelet Volume 10.1 fL (9.4-12.4); Platelet Count 228 X10*3/uL (160-400); Red Blood Count 3.93 X10*6/uL (4.60-5.80); Red Cell Distribution Width 12.7 % (11.0-16.0); White Blood Count 14.9 X10*3/uL (4.8-10.8)
[2020-09-17 06:42] LABS: Anion Gap 13 (12-20); Blood Urea Nitrogen 49 mg/dL (9-16); Calcium 7.5 mg/dL (8.4-10.2); Carbon Dioxide 21 mmol/L (22-29); Chloride 108 mmol/L (96-108); Creatinine Clr Calc Pharmacy 38.8; Estimated Glomerular Filt Rate 53; Glucose Random 158 mg/dL (60-115); Potassium 4.2 mmol/l (3.3-5.1); Sodium 138 mmol/L (135-145)
[2020-09-17 07:46] VITALS: BP 163/81; PULSE 82; RESP 19; TEMP 36.4; O2SAT 94
--- NOTE | 2020-09-17 09:00 | CA_ITS ---
Transthoracic Echocardiogram Patient (Last, First, Middle): Bill Patel R Gender: Male Date of : 1935 Age: 84 Procedure Date: 09/17/2020 Procedure Type: Transthoracic Echocardiogram Location: S3E Height: 167.64 cm Weight: 73.94 kg BSA: 1.83 m2 Heart Rate: bpm BP: 126 / 67 mmHg Field Sales Agent: DSG Referring MD: Jaylen Del Valle MD Symptoms: tachycardia Study Quality: Fair ECG Rhythm: Sinus Conclusions: - The left ventricular systolic function is normal. The visually estimated ejection fraction is between 65-70%. - There is mild calcification of the aortic valve. - There is mild mitral annular calcification. - There is mild tricuspid valve regurgitation. Findings Left Ventricle Normal left ventricular cavity size. There is moderately increased left ventricular wall thickness. The left ventricular systolic function is normal. The visually estimated ejection fraction is between 65-70%. There is no evidence of regional wall motion abnormalities. E/E prime ratio is between 8 and 15 consistent with indeterminate filling pressures. Evidence suggests grade I (mild) diastolic dysfunction. Right Ventricle Normal right ventricular cavity size and systolic function. Atria The left atrium is normal in size. The right atrium is normal in size. Aortic Valve There is mild calcification of the aortic valve. There is no aortic valve stenosis. There is no aortic valve regurgitation. Mitral Valve There is mild mitral annular calcification. There is trace mitral valve regurgitation. There is no mitral valve stenosis. Pulmonic Valve The pulmonic valve was not well visualized. Tricuspid Valve Normal tricuspid valve structure. There is mild tricuspid valve regurgitation. The pulmonary artery systolic pressure is normal. Great Vessels The aortic annulus, sinuses of valsalva, and asc aorta are normal in size. Venous The inferior vena cava is normal in size and collapses greater than 50% with inspiration. Pericardium/Pleural There is no evidence of pericardial effusion. Prior Study Comparison No prior study available for comparison. Measurements 2D Linear Measurements IVSd: 1.04 0.6-0.9/0.6-1.0 cm LVIDd: 4.70 3.9-5.3/4.2-5.9 cm LVIDd Index: 2.57 2.4-3.2/2.2-3.1 cm/m2 LVIDs: 2.33 2.0-3.6 cm LVPWd: 1.18 0.7-1.1 cm Ao Root: 2.70 2.1-3.5 cm LA Diam: 3.90 2.7-3.8/3.0-4.0 cm LAIDs Index: 2.13 1.5-2.3 cm/m2 LV Mass: 236.65 67-162/88-224 g LV Mass Index: 129.32 43-95/49-115 g/m2 LVOT Diam: 1.80 3.0+(-)1.3 cm 2D Systolic Function EF 4C: 63.90 >55% EF 2C: 69.80 >55% EF BiP: 66.70 >55% Mitral Valve MV Pk E: 0.75 MV PK A: 1.18 MV Decel Time: 165.00 E/A: 0.60 E'Lateral: 6.77 E'Medial: 6.29 E/E' Med: 12.00 E/E' Lat: 11.10 PHT: 48.00 MVA PHT: 4.58 Decel [place]: 4.54 Aortic Valve AoV Pk Stephen: 1.91 AoV Pk Grad: 15.00 LVOT LVOT Pk Stephen: 1.28 LVOT Mn Stephen: 0.82 LVOT VTI: 0.24 LVOT Pk Grad: 7.00 LVOT Mn Grad: 3.00 LVOT Diam: 1.80 LVOT Area: 2.54 Diastolic Function MV Pk E: 0.75 MV Pk A: 1.18 E/A: 0.60 E'Medial: 6.29 E/E' Med: 12.00 E' Laterial: 6.77 E/E' Lat: 11.10 Tricuspid Valve TR Pk Stephen: 2.46 TR Pk Grad: 24.00 RA Press: 3.00 RVSP: 27.00 Great Vessels Aorta Ao Root-2D: 2.70 2.0-3.7 cm Ao Asc: 3.30 2.1-3.4 cm Updated in Other Vendor System with Status of Final Michael Cadet MD electronically signed on 09/17/2020 12:17:52 PM with status of Final
[2020-09-17] MEDS: Docusate Sodium 100 MG CAPSULE PO (09:42)
[2020-09-17] MEDS: Metoprolol Succinate ER 25 MG TAB.ER.24H PO (09:42)
[2020-09-17] MEDS: 0.9 % Sodium Chloride Flush 3 ML SYRINGE IVFLUSH (09:42)
[2020-09-17] MEDS: Finasteride 5 MG TABLET PO (09:42)
[2020-09-17] MEDS: Tamsulosin HCL 0.4 MG CAPSULE PO (09:42)
--- NOTE | 2020-09-17 10:52 | MHC.CM.PN ---
PT DISCHARGING HOME SELF-CARE TODAY, TO TRANSPORT.
--- NOTE | 2020-09-17 11:12 | MHC.CM.PN ---
CM SPOKE WITH PT'S REGARDING HCP, PT'S MARCELA WILL REATTEMPT TO FAX IT TO [facility] FAX.
--- NOTE | 2020-09-17 11:14 | P.DS_ITS ---
DS: Providers Provider Date of Service: 09/17/20 Date of admission: 09/14/20 17:52 Primary care physician: Bill Tanner MD Consults: 09/14/20 16:10 Consult to Urology Stat Consulting Provider: Tong Gentile Reason for consultation: obstructing stone w/ hydro and ?COLIN, persistent pain, N/V Has provider been notified: Yes 09/15/20 00:15 Consult to Cardiology Routine Consulting Provider: Ulises Zuluaga Reason for consultation: narrow complex tachycardia Has provider been notified: No DS: Diagnosis Discharge Diagnosis (1) Hydronephrosis with renal and ureteral calculous obstruction: Status: Acute (2) Constipation: Status: Acute (3) Bladder cancer: Status: Acute (4) BPH loc w urin obs/LUTS: Status: Acute (5) Acute kidney injury superimposed on chronic kidney disease: Status: Acute DS: Medications Discharge Medications Home Medications: Home Medications Medication Instructions Recorded Confirmed finasteride 5 mg tablet 5 mg PO DAILY 06/04/20 09/14/20 lisinopril 10 mg tablet 10 mg PO DAILY 06/04/20 09/14/20 tamsulosin 0.4 mg capsule 0.4 mg PO DAILY 06/04/20 09/14/20 Previous Rx's Medication Instructions Recorded hydrochlorothiazide 12.5 mg PO DAILY #30 tab 09/17/20 metoprolol succinate 25 mg PO DAILY #30 tab 09/17/20 DS: Summary Hospital Course Hospital Course: History of presenting illness 84-year-old gentleman, who was recently evaluated in the emergencyroom on September 10 due to abdominal pain, localized to the left lower quadrant. The patient's workup revealed a 5 mm left ureteral stone with hydronephrosis.The patient's creatinine was stable. Case was discussed with Dr. Will, andthe patient was supposed to have outpatient followup with Dr. Will, but the patient presented to [facility] today due to nausea, vomiting,diffuse abdominal pain and distention as well as constipation. The patient'slast bowel movement was on September 10. The patient was discharged duringprevious ER visit on tramadol, Flomax, and prednisone for his kidney stone. Inthe emergency room, workup included a CAT scan of the abdomen and pelv is that showed persistent left hydroureteronephrosis. It was noted that the stone in the left proximal ureter has migrated distally and now positioned just proximal to the region of the ureterovesical junction. There were multiple hepatic cysts noticed. There was diverticulosis. There was small amount offree fluid in the abdomen and pelvis area with no evidence of bowelobstruction. The patient was noted to have moderate stool burden. In the ER,the patient was treated with morphine, Fleet enema as well as Flomax,antiemetics, IV antibiotics. The patient is feeling a little better sinceadmission and sitting on a commode. Hospital course 84-year-old gentleman with history of bladder cancer, presented to [facility] few days ago with abdominal pain and was diagnosed to have a left ureteral stone, was supposed to have a followup with Dr. Will, but since the patient developed nausea, vomiting, abdominal distention, he returned back to emergency room for further followup and found to have constipation and persistent left ureteral stone that has now at the level of ureterovesical junction. Left hydronephrosis due to obstructive left ureteral stone/bladder ca. s/p transurethral resection of bladder tumor plus left retrograde, ureteroscopy, laser lithotripsy, stent placement on 09/16 postprocedure, postprocedure patient is voiding clear urine, no complain of pain. Being discharged home for close outpatient follow-up with Urology. Acute on chronic kidney disease stage IV Secondary to obstructive uropathy , creatinine function back to baseline resume home medication Constipation likely due to use of narcotic medication, resolved. Hypertension. Continue lisinopril, dose of hydrochlorothiazide reduced to 12.5 mg since patient started on Toprol-XL 25 mg due to narrow complex tachycardia Narrow complex tachycardia Noted to have 1 episode of supraventricular tachycardia, narrow complex without any symptoms likely due to pain, patient placed on Toprol-XL 25 mg evaluated by Cardiology no further intervention Required Leukocytosis likely due to stress , blood cultures x2 negative UA is unremarkable patient treated initially with IV ceftriaxone now antibiotic discontinued. Time Spent with Patient Time attestation: Total time spent providing and/or coordinating discharge services: Discharge coordination time: Greater than 30 minutes Physical Exam Vital Signs: Vital Signs: Last Vital Signs Temp 97.6 F 09/17/20 07:46 Pulse 82 09/17/20 07:46 Resp 19 09/17/20 07:46 BP 163/81 H 09/17/20 07:46 Pulse Ox 94 09/17/20 07:46 Body Mass Index 26.6 General no acute distress. Neck is supple no JVD. CVS regular rate rhythm, Respiratory lungs clear to auscultation, no respiratory distress, no wheeze, no rhonchi. Gastrointestinal abdomen soft, bowel sounds audible, no guarding, no rigidity Extremities no clubbing, cyanosis or edema. Neuro nonfocal patient moving all 4 extremity speech clear. Skin no rash DS: Data Data Completed and Pending Pending studies at discharge: Pending at discharge 09/16/20 13:13 Surgical [PTH] Routine Labs on day of discharge: Laboratory Tests 09/14/20 09/14/20 09/14/20 12:17 13:55 13:55 WBC 21.2 H RBC 4.99 Hgb 15.8 Hct 46.4 MCV 93.0 MCH 31.7 MCHC 34.1 RDW 12.6 Plt Count 202 MPV 9.9 Immature Gran % (Auto) 0.6 H Neut % (Auto) 86.2 H Lymph % (Auto) 3.5 L [place] % (Auto) 9.7 Eos % (Auto) 0.0 Baso % (Auto) 0.0 Lymph # (Auto) 0.8 L [place] # (Auto) 2.1 H Eos # (Auto) 0.0 Baso # (Auto) 0.0 Abs Immat Gran (auto) 0.12 H Absolute Neuts (auto) 18.2 H Absolute Nucleated RBC 0.000 Nucleated RBC % (auto) 0.0 Smear Tech's Comments VERIFIED Hold Blue Top SEE NOTE Sodium Potassium Chloride Carbon Dioxide Anion Gap BUN Creatinine Estim Creat Clear Calc Estimated GFR POC Glucose Random Glucose Lactic Acid Calcium Magnesium Total Bilirubin Direct Bilirubin AST ALT Alkaline Phosphatase Total Protein Albumin Urine Color YELLOW Urine Appearance HAZY Urine pH 6.0 Ur Specific [place] >= 1.030 H Urine Protein 1+ H Urine Glucose (UA) NEG Urine Ketones NEG Urine Blood 3+ H Urine Nitrite NEG Ur Leukocyte Esterase NEG Urine RBC TNTC H Urine WBC 0 Ur Squamous Epith Cells TRACE Ur Renal Epithelial Cell TRACE Urine Bacteria NONE Urine Mucus TRACE COVID-19 (CAROLINE) COVID-19 Clin Com 09/14/20 09/14/20 09/14/20 13:55 15:03 15:04 WBC RBC Hgb Hct MCV MCH MCHC RDW Plt Count MPV Immature Gran % (Auto) Neut % (Auto) Lymph % (Auto) [place] % (Auto) Eos % (Auto) Baso % (Auto) Lymph # (Auto) [place] # (Auto) Eos # (Auto) Baso # (Auto) Abs Immat Gran (auto) Absolute Neuts (auto) Absolute Nucleated RBC Nucleated RBC % (auto) Smear Tech's Comments Hold Blue Top Sodium 137 Potassium 4.1 Chloride 99 Carbon Dioxide 24 Anion Gap 18 BUN 42 H Creatinine 2.04 H Estim Creat Clear Calc 24.7 Estimated GFR 31 POC Glucose Random Glucose 161 H Lactic Acid 2.0 Calcium 8.3 L D Magnesium 2.1 Total Bilirubin 1.9 H Direct Bilirubin 0.8 H AST 21 ALT 28 Alkaline Phosphatase 67 Total Protein 6.2 L Albumin 3.9 Urine Color Urine Appearance Urine pH Ur Specific [place] Urine Protein Urine Glucose (UA) Urine Ketones Urine Blood Urine Nitrite Ur Leukocyte Esterase Urine RBC Urine WBC Ur Squamous Epith Cells Ur Renal Epithelial Cell Urine Bacteria Urine Mucus COVID-19 (CAROLINE) Negative COVID-19 Clin Com See Note 09/15/20 09/15/20 09/15/20 05:38 05:38 07:30 WBC 19.5 H RBC 4.01 L Hgb 12.7 L Hct 37.9 L MCV 94.5 MCH 31.7 MCHC 33.5 RDW 12.9 Plt Count 165 MPV 9.9 Immature Gran % (Auto) 0.5 H Neut % (Auto) 84.1 H Lymph % (Auto) 4.9 L [place] % (Auto) 10.4 Eos % (Auto) 0.0 Baso % (Auto) 0.1 Lymph # (Auto) 1.0 L [place] # (Auto) 2.0 H Eos # (Auto) 0.0 Baso # (Auto) 0.0 Abs Immat Gran (auto) 0.09 H Absolute Neuts (auto) 16.4 H Absolute Nucleated RBC 0.000 Nucleated RBC % (auto) 0.0 Smear Tech's Comments VERIFIED Hold Blue Top Sodium 129 L Potassium 3.4 Chloride 99 Carbon Dioxide 20 L Anion Gap 13 BUN 43 H Creatinine 2.03 H Estim Creat Clear Calc 24.8 Estimated GFR 32 POC Glucose 149 H Random Glucose 690 H* Lactic Acid Calcium 6.2 L D Magnesium Total Bilirubin Direct Bilirubin AST ALT Alkaline Phosphatase Total Protein Albumin Urine Color Urine Appearance Urine pH Ur Specific [place] Urine Protein Urine Glucose (UA) Urine Ketones Urine Blood Urine Nitrite Ur Leukocyte Esterase Urine RBC Urine WBC Ur Squamous Epith Cells Ur Renal Epithelial Cell Urine Bacteria Urine Mucus COVID-19 (CAROLINE) COVID-19 [employer] Com 09/16/20 09/16/20 09/17/20 05:54 05:55 05:38 WBC 14.8 H 14.9 H RBC 4.19 L 3.93 L Hgb 13.4 L 12.4 L Hct 39.6 L 36.9 L MCV 94.5 93.9 MCH 32.0 31.6 MCHC 33.8 33.6 RDW 12.8 12.7 Plt Count 187 228 MPV 10.2 10.1 Immature Gran % (Auto) 0.6 H Neut % (Auto) 83.6 H Lymph % (Auto) 5.6 L [place] % (Auto) 10.1 Eos % (Auto) 0.0 Baso % (Auto) 0.1 Lymph # (Auto) 0.8 L [place] # (Auto) 1.5 H Eos # (Auto) 0.0 Baso # (Auto) 0.0 Abs Immat Gran (auto) 0.09 H Absolute Neuts (auto) 12.4 H Absolute Nucleated RBC 0.000 0.000 Nucleated RBC % (auto) 0.0 0.0 Smear Tech's Comments Hold Blue Top Sodium 137 Potassium 3.8 Chloride 103 Carbon Dioxide 22 Anion Gap 16 BUN 52 H Creatinine 1.97 H Estim Creat Clear Calc 25.6 Estimated GFR 33 POC Glucose Random Glucose 138 H D Lactic Acid Calcium 7.8 L D Magnesium Total Bilirubin Direct Bilirubin AST ALT Alkaline Phosphatase Total Protein Albumin Urine Color Urine Appearance Urine pH Ur Specific [place] Urine Protein Urine Glucose (UA) Urine Ketones Urine Blood Urine Nitrite Ur Leukocyte Esterase Urine RBC Urine WBC Ur Squamous Epith Cells Ur Renal Epithelial Cell Urine Bacteria Urine Mucus COVID-19 (CAROLINE) COVID-19 Clin Com 09/17/20 05:38 WBC RBC Hgb Hct MCV MCH MCHC RDW Plt Count MPV Immature Gran % (Auto) Neut % (Auto) Lymph % (Auto) [place] % (Auto) Eos % (Auto) Baso % (Auto) Lymph # (Auto) [place] # (Auto) Eos # (Auto) Baso # (Auto) Abs Immat Gran (auto) Absolute Neuts (auto) Absolute Nucleated RBC Nucleated RBC % (auto) Smear Tech's Comments Hold Blue Top Sodium 138 Potassium 4.2 Chloride 108 Carbon Dioxide 21 L Anion Gap 13 BUN 49 H Creatinine 1.30 Estim Creat Clear Calc 38.8 Estimated GFR 53 POC Glucose Random Glucose 158 H Lactic Acid Calcium 7.5 L Magnesium Total Bilirubin Direct Bilirubin AST ALT Alkaline Phosphatase Total Protein Albumin Urine Color Urine Appearance Urine pH Ur Specific [place] Urine Protein Urine Glucose (UA) Urine Ketones Urine Blood Urine Nitrite Ur Leukocyte Esterase Urine RBC Urine WBC Ur Squamous Epith Cells Ur Renal Epithelial Cell Urine Bacteria Urine Mucus COVID-19 (CAROLINE) COVID-19 Clin Com Preliminary micro results at discharge 09/14/20 15:09 Blood Culture - Preliminary Blood - Venous No growth after 48 hours. 09/14/20 15:03 Blood Culture - Preliminary Blood - Venous No growth after 48 hours. Discharge Plan Discharge Patient Disposition: Home, Self-Care Referrals: Bill Tanner MD [Primary Care Provider] - Discharge Medications: New metoprolol succinate 25 mg Tablet Extended Release 24 Hr 25 mg PO DAILY Qty: 30 RF: 0 hydrochlorothiazide 12.5 mg tablet 12.5 mg PO DAILY Qty: 30 RF: 0 Continued finasteride 5 mg tablet 5 mg PO DAILY RF: 0 tamsulosin 0.4 mg capsule 0.4 mg PO DAILY RF: 0 lisinopril 10 mg tablet 10 mg PO DAILY RF: 0 Discontinued hydrochlorothiazide 25 mg tablet 25 mg PO DAILY RF: 0 Discharge Orders: Discharge Order (Routine); Ordered 09/17/20 Ordered By: Yoana Black Diet: advance to usual diet Activity on Discharge: As tolerated Visit Report Forms: Patient Portal Discharge page Care Plan Goals: Continue all medications as prescribed Health Concerns: Constipation/ renal stone Plan of Treatment: Outpatient follow-up with primary care physician and Urology Dr. Gentile
[2020-09-17 11:24] VITALS: BP 135/67; PULSE 78; RESP 17; TEMP 36.6; O2SAT 96
[2020-09-17 11:55] VITALS: O2SAT 97
--- NOTE | 2020-09-17 15:00 | HO.POSTANES ---
Post Anesthesia Evaluation Post Anesthesia Evaluation Vital Signs: Vital Signs Temp Pulse Resp BP Pulse Ox 09/17/20 11:55 97 09/17/20 11:24 97.8 F 78 17 135/67 96 09/17/20 07:46 97.6 F 82 19 163/81 H 94 Anesthesia: General Mental Status: Awake Pain Control: Satisfactory Nausea/Vomiting: None Hydration: Adequate Anesthesia-Related Issues: No Anes. Related Issues
== END 2020-09-17 12:30 | disposition home or self-care (01) | DRG 657 ==
LOC: HO.ED 16:14 → HO.EDOVER 17:57 → HO.S3 09-15 20:56
PROVIDERS: Physician Assistant; Student in an Organized Health Care Education/Training Program; Urology; Admitting Provider Hospitalist; Emergency Provider Emergency Medicine Emergency Medical Services; PCP Internal Medicine Medical Oncology; Visit Provider Hospitalist
PROC: 0TBB8ZZ Excision of Bladder, Via Natural or Artificial Opening Endoscopic (ICD-10-PCS; principal; 2020-09-16 10:20)
DX: C67.9 Malignant neoplasm of bladder, unspecified (principal); N13.2 Hydronephrosis with renal and ureteral calculous obstruction; N13.8 Other obstructive and reflux uropathy; I47.1 Supraventricular tachycardia; N18.4 Chronic kidney disease, stage 4 (severe); N17.9 Acute kidney failure, unspecified; I12.9 Hypertensive chronic kidney disease with stage 1 through stage 4 chronic kidney disease, or unspecified chronic kidney disease; N40.1 Benign prostatic hyperplasia with lower urinary tract symptoms; D72.829 Elevated white blood cell count, unspecified; K59.03 Drug induced constipation; T40.605A Adverse effect of unspecified narcotics, initial encounter; Y92.9 Unspecified place or not applicable; Z96.653 Presence of artificial knee joint, bilateral; Z20.822 Contact with and (suspected) exposure to COVID-19; Z79.899 Other long term (current) drug therapy
CPT/HCPCS: 36415; 74176; 80048; 80076; 81001; 82365; 82947; 83605; 83735; 85025; 85027; 87040; 87635; 88300; 93005; 93306; 96361; 96365; 96375; 96376; 99285; C1769; C2617; J0696; J1100; J1650; J2270; J2405; J3010; J9201; Q9967

== ENCOUNTER → 2020-09-24 08:46 | Outpatient (REF) | payer MEDICARE, SELFPAY ==
--- NOTE | 2020-09-24 07:39 | ECG_ITS ---
Hook-up date: 2020-09-24 11:27:00 Duration: 27:53:00 Test Indications: SVT, PREPROC EXAM Medications: 312915 QRS complexes 15 Ventricular ectopics which represent <1 % of total QRS comp. 371 Supraventricular ectopics which represent <1 % of total QRS comp. * Paced QRS complexs which represent % of total QRS comp. VENTRICULAR ECTOPY 12 Isolated 0 Bigeminal Cycles 0 Couplets 1 Runs 3 Beats in Runs 3 Beats LONGEST at 130 BPM at 13:39:26 2020-09-24 3 Beats FASTEST at 130 BPM at 13:39:26 2020-09-24 SUPRAVENTRICULAR ECTOPY 301 Isolated 6 Couplets 5 Runs 58 Beats in Runs 24 Beats LONGEST at 143 BPM at 02:02:25 2020-09-25 24 Beats FASTEST at 143 BPM at 02:02:25 2020-09-25 HEART RATES 49 MIN at 06:25:47 2020-09-25 77 AVG 121 MAX at 21:55:15 2020-09-24 LONGEST RR 1.3680 secs at 06:25:43 2020-09-25 S-T LEVELS Channel 1 - 128 mm at 11:27:00 2020-09-24 - 128 mm at 11:27:00 2020-09-24 Channel 2 - 128 mm at 11:27:00 2020-09-24 - 128 mm at 11:27:00 2020-09-24 Channel 3 - 128 mm at 03:04:61 -- - 128 mm at 03:04:61 Basic rhythm Normal sinus rhythm No long pause or profound bradycardia Rare Premature ventricular complexes One 3 beat norman of NSVT at 130 bpm Occasional Premature atrial complexes One 24 beat run of SVE c/w SVT No diary submitted Referred By: Ulises Zuluaga Overread By: ULISES ZULUAGA MD
== END ==
LOC: HO.CARD 08:46
PROVIDERS: PCP Internal Medicine Medical Oncology; Visit Provider Urology
DX: C67.9 Malignant neoplasm of bladder, unspecified (principal); N20.0 Calculus of kidney; Z01.810 Encounter for preprocedural cardiovascular examination; I47.1 Supraventricular tachycardia
CPT/HCPCS: 52000; 52310; 93226; 99212

== ENCOUNTER → 2020-10-08 09:40 | Outpatient (BNVA) | payer MEDICARE, SELFPAY | PROVIDERS: PCP Internal Medicine Medical Oncology; Visit Provider Nurse Practitioner Family | DX: I47.1 Supraventricular tachycardia (principal); R06.02 Shortness of breath; I10 Essential (primary) hypertension; E78.00 Pure hypercholesterolemia, unspecified | CPT/HCPCS: 93005; 99212 ==

== ENCOUNTER → 2020-10-16 07:56 | Outpatient (REF) | payer MEDICARE, SELFPAY ==
--- NOTE | ~2020-10-16 | NM_ITS ---
Lexiscan Myocardial perfusion study Indication: Supraventricular tachycardia, abnormal EKG showing inferior Q waves, assess for ischemia Technique: The patient was brought in for a Lexiscan perfusion study on 10/16/2020 and was injected 0.4 mg of Lexiscan intravenously. Within a minute of this injection 25 mCi of sestamibi was given intravenously. Images were obtained using the SPECT gamma camera interlaced with the gating device. Images were obtained in supine position. Resting perfusion study was performed on 10/17/2020. Patient was administered 25 mCi of sestamibi intravenously at rest. Images were then obtained in supine position. Total DLP 60mGy-cm. Images were processed with the software and compared side to side in short axis, horizontal long axis and vertical long axis views. Findings: Raw acquisition was reviewed. The stress perfusion study showed diminished tracer uptake along the inferior wall. With CT attenuation correction this improves significantly suggestive of diaphragmatic attenuation artifact. The gated study shows normal LV systolic function with calculated LVEF of 70%. LV cavity is normal in size. The gated study shows normal wall thickening and contraction of segments. Resting study shows diminished tracer uptake along the inferior wall that seems similar to the stress acquisition. There is also improvement with CT attenuation correction suggesting diaphragmatic artifact. Gating at rest reveals normal wall motion with ejection fraction at 75%. The findings are consistent with fixed inferior defect consistent with diaphragmatic artifact. No reversible defects.. NM/NM roxy perf SPECT rest & str Impression: 1. Myocardial perfusion imaging study shows no evidence of ischemia. Fixed inferior defect suspected to be from diaphragmatic artifact. 2. Gated LVEF is 70% during stress; 73% during rest. 3. Transient ischemic dilatation not present. EKG component of the test reported separately.
--- NOTE | 2020-10-16 08:03 | CA_ITS ---
Acquisition Time: 2020-10-16 08:04:04 Total Exercise Time: 00:02:00 Test Indications: SVT,AFIB Medications: SEE CHART Protocol: LEXISCAN Max HR: 086 BPM 62% of Pred: 137 BPM Max BP: 128/070 mmHG Max Work Load: 1.0 METS Pharmacological stress test using Lexiscan while sitting and kicking his feet. Pt tolerated well, However 2 minutes into recovery pt's HR down to 28, Pt became pale. Pt placed in trandelenburg position. Asystole on the monitor with no pulse, code called. CPR started and pt back to SR with palpable pulse after 20 sec. Pt's color returned to normal pt woke up HR up to 60's. BP 122/60 then 130 66. NS 250 ml given to pt. Aminophyline 75 mg IV given to pt to reversed the sx. Report to Anny ESQUIVEL in the ED. Pt transfered to ED. Referred By: Darlin Laguerre Overread By: Danny Hightower
== END ==
LOC: HO.CARD 07:56
PROVIDERS: Visit Provider Nurse Practitioner Family
DX: R06.02 Shortness of breath (principal); I47.1 Supraventricular tachycardia; I10 Essential (primary) hypertension
CPT/HCPCS: 78452; 93017; A9500; J0280; J2785

== ENCOUNTER 2020-10-16 09:30 | Emergency (ER) | payer MEDICARE, SELFPAY ==
--- NOTE | ~2020-10-16 | XR_ITS ---
EXAMINATION: XR CHEST CLINICAL INFORMATION: Syncope COMPARISON: None. TECHNIQUE: Portable upright AP view of the chest was obtained. FINDINGS: The heart is normal in size. The vascularity is normal. There is no vascular congestion, airspace consolidation, or effusion. The costophrenic sulci are clear. The hilar and mediastinal contours are normal. There is subtle oval density overlying the right posterior lateral fifth rib and left posterior lateral sixth rib. These may represent bone islands. Possibility of superimposed pulmonary nodule cannot be excluded. There is no acute bony abnormality. There are degenerative changes thoracic spine and 2 orthopedic anchors overlying left humeral head. XR/XR chest 1V IMPRESSION: 1. Small nodular density overlying right fifth rib and overlying left sixth rib, possibly bone islands. When clinically able, additional slightly lordotic view may be performed to exclude superimposed pulmonary nodule. 2. Otherwise unremarkable exam.
[2020-10-16 09:31] VITALS: BP 131/66; PULSE 58; RESP 16; TEMP 36.8; O2SAT 100; BMI 26.6
--- NOTE | 2020-10-16 09:40 | ECG_ITS ---
Test Reason : SYNCOPE Blood Pressure : / mmHG Vent. Rate : 059 BPM Atrial Rate : 059 BPM P-R Int : 176 ms QRS Dur : 086 ms QT Int : 436 ms P-R-T Axes : 078 073 033 degrees QTc Int : 431 ms Sinus bradycardia Possible Right ventricular hypertrophy Abnormal ECG When compared with ECG of 14-SEP-2020 22:47, Vent. rate has decreased BY 41 BPM QRS axis Shifted right Criteria for Inferior infarct are no longer Present T wave amplitude has increased in Lateral leads Referred By: Dread Hoffman Electronically Signed By:Jeet Aquino
[2020-10-16] MEDS: 0.9 % Sodium Chloride 1,000 ML 999 ML IVCONT (09:57)
[2020-10-16 10:00] VITALS: O2SAT 100
--- NOTE | 2020-10-16 10:05 | ED.SYNCOPE ---
HPI - Syncope General Chief Complaint: Syncope Stated Complaint: Syncope Time Seen by Provider: 10/16/20 09:40 Source: patient Mode of arrival: ambulatory Limitations: no limitations History of Present Illness HPI narrative: 84-year-old male came in from cardiac suite after patient passed out after patient had Lexiscan and regadenoson injection patient became bradycardic then lost consciousness, after chest dropping he regained consciousness shortly after. Patient declined shortness of breath, or chest pain. Patient now feels back to normal baseline. Related Data Home Medications Medication Instructions Recorded Confirmed finasteride 5 mg tablet 5 mg PO DAILY 06/04/20 10/08/20 lisinopril 10 mg tablet 10 mg PO DAILY 06/04/20 10/08/20 tamsulosin 0.4 mg capsule 0.4 mg PO DAILY 06/04/20 10/08/20 Previous Rx's Medication Instructions Recorded hydrochlorothiazide 12.5 mg PO DAILY #30 tab 09/17/20 metoprolol succinate 25 mg 25 mg PO DAILY #30 tab 10/08/20 tablet,extended release 24 hr Allergies Allergy/AdvReac Type Severity Reaction Status Date / Time No Known Allergies Allergy Verified 09/24/20 09:11 [No Known Allergies*] Review of Systems Review of Systems: All other systems are reviewed and are negative Constitutional: Reports as per HPI and Reports no additional constitutional complaints Eyes: Reports as per HPI and Reports no additional eye complaints Reports system reviewed and no additional complaints, except as documented Cardiovascular: Reports as per HPI and Reports no additional cardiovascular complaints Respiratory: Reports as per HPI and Reports no additional respiratory complaints Gastrointestinal: Reports as per HPI and Reports no additional gastrointestinal complaints Genitourinary: Reports no additional female genitourinary complaints Musculoskeletal: Reports no additional musculoskeletal complaints Skin/Breast: Reports system reviewed and no additional complaints, except as docu Psychiatric: Reports no additional psychiatric complaints Endocrine: Reports no additional endocrine complaints Hematologic/Lymphatic: Reports no additional hematologic/lymphatic complaints Allergic/Immunologic: Reports no additional allergic/immunologic complaints Reports system reviewed and no additional complaints, except as documented and Reports Abnormal speech present [facility] Past Medical History Medical History Arthritis Cancer Carpal tunnel syndrome, bilateral CKD (chronic kidney disease) Elevated cholesterol Hearing loss History of BPH HTN (hypertension) Normal colonoscopy SVT (supraventricular tachycardia) Surgical History H/O colonoscopy H/O inguinal hernia repair History of bladder surgery History of carpal tunnel release of both wrists History of left knee replacement History of total right knee replacement (TKR) History of transurethral destruction of bladder lesion Family History Family History Father No problems noted. Mother No problems noted. Social History Social History Household Members: Spouse Housing: House Alcohol intake: never Smoking Status: Never smoker Advance Directives Date on File: 09/18/20 service: Yes Current occupational status: retired Physical Exam Vital Signs: Vital Signs: Last Vital Signs Temp 97.5 F 10/16/20 11:57 Pulse 64 10/16/20 11:57 Resp 17 10/16/20 11:57 BP 138/62 10/16/20 11:57 Pulse Ox 97 10/16/20 11:57 Body Mass Index 26.6 Vital signs have been reviewed as appeared to be correct. Blood pressure normal. Heart rate normal. Respiration rate normal. Temperature normal. Oxygen saturation normal. With orthostatic vital sign patient was symptomatic and dizzy when he stood up. Appearance: Alert. Oriented X3. No acute distress. Head: Normal external exam. Normocephalic. Atraumatic. No Motta signs noted. No raccoon eyes noted Eyes: PERRLA. EOMI. Conjunctiva and sclera normal. Eyelids normal. ENT: TM's Normal. Pharynx normal. Uvula midline. Moist mucous membranes. No trismus noted. No drooling noted. No muffled voice noted. Neck: Normal inspection. Neck supple. FROM. No adenopathy. Thyroid Normal. No meningeal signs. No neck mass noted. CVS: Normal heart rate and rhythm. Heart sound normal. No murmurs noted. Pulses normal throughout. Respiratory: No respiratory distress. Painless inspiration. Breath sounds normal. No wheezes/rales/rhonchi noted. Chest nontender. No accessory muscle usage noted or decreased air movement noted. Abdomen: Soft and nontender. Bowel sounds normal in all 4 quadrants. No distention noted. No organomegaly noted. No visible injury noted. Back: No CVA tenderness. Full range of motion noted. Skin: Skin warm and dry. Normal skin color. Normal skin turgor. No rashes/lesions/lacerations noted. Extremities: No lower extremity edema. Extremities exhibit normal range of motion. Extremities nontender. Neuro: Oriented X 3. No motor deficit. No sensory deficit. Reflexes normal. Course Course Course Narrative: Assessment and plan. 84-year-old male who had Lexiscan done and developed bradycardia and syncopal episode after regadenoson injection which could be a normal side effect, patient had slight orthostatic vital signs but patient received IV fluid in the emergency department, patient is asymptomatic currently EKG is unchanged, troponin is unremarkable, Dr. Aquino crowning hammer operator input is appreciated and patient can be discharged home and follow-up to continue the cardiac workup as an outpatient. Patient is asymptomatic at discharge Labs are baseline patient has chronic hematuria patient had a history of urinary bladder tumor removal by Dr. Gentile. Will discharge the patient to follow up with Dr. Zuluaga office, and follow-up with Dr. Gentile for hematuria. MDM - Syncope Lab Data Attestation: I reviewed the patient's lab results. Result diagrams: 10/16/20 11:17 10/16/20 11:17 Labs: Lab Results 10/16/20 10/16/20 10/16/20 Range/Units 11:17 11:17 11:17 WBC 9.1 (4.8-10.8) X10*3/uL RBC 4.02 L (4.60-5.80) X10*6/uL Hgb 12.8 L (14.0-18.0) g/dl Hct 38.3 L (42-52) % MCV 95.3 (80-98) fL MCH 31.8 (27.0-33.0) pg MCHC 33.4 (31.0-36.0) g/dl RDW 12.7 (11.0-16.0) % Plt Count 157 L D (160-400) X10*3/uL MPV 9.5 (9.4-12.4) fL Immature Gran % (Auto) 0.9 H (0.0-0.4) % Neut % (Auto) 81.2 H (45-73) % Lymph % (Auto) 9.9 L (20-40) % Atlantic % (Auto) 7.6 (2-11) % Eos % (Auto) 0.1 (0-4) % Baso % (Auto) 0.3 (0-2) % Lymph # (Auto) 0.9 L (1.2-4.9) X10*3/uL Atlantic # (Auto) 0.7 (0.1-1.2) X10*3/uL Eos # (Auto) 0.0 (0.0-0.4) X10*3/uL Baso # (Auto) 0.0 (0.0-0.2) X10*3/uL Abs Immat Gran (auto) 0.08 H (0.00-0.03) X10*3/uL Absolute Neuts (auto) 7.4 (2.0-8.3) X10*3/uL Absolute Nucleated RBC 0.000 (0.0-0.012) X10*3/uL Nucleated RBC % (auto) 0.0 (0.0-0.2) /100WBC Sodium 138 (135-145) mmol/L Potassium 4.0 (3.3-5.1) mmol/L Chloride 106 (96-108) mmol/L Carbon Dioxide 26 (22-29) mmol/L Anion Gap 10 L (12-20) BUN 22 H D (9-16) mg/dL Creatinine 0.96 (0.5-1.4) mg/dL Estim Creat Clear Calc 52.6 Estimated GFR > 60 Random Glucose 134 H (60-115) mg/dL Calcium 7.6 L (8.4-10.2) mg/dL Total Bilirubin 1.0 (0.0-1.0) mg/dL Direct Bilirubin 0.4 (0.0-0.5) mg/dL AST 16 (5-37) U/L ALT 19 (0-40) U/L Alkaline Phosphatase 69 (39-117) U/L Troponin I High Sens 6.2 (<3.5-35.0) ng/L B-Natriuretic Peptide (<100) pg/mL Total Protein 5.4 L (6.5-8.0) g/dL Albumin 3.7 (3.5-5.0) g/dL Lipase 40 (8-78) U/L COVID-19 (CAROLINE) (Negative) COVID-19 Clin Com 10/16/20 10/16/20 Range/Units 11:17 11:17 WBC (4.8-10.8) X10*3/uL RBC (4.60-5.80) X10*6/uL Hgb (14.0-18.0) g/dl Hct (42-52) % MCV (80-98) fL MCH (27.0-33.0) pg MCHC (31.0-36.0) g/dl RDW (11.0-16.0) % Plt Count (160-400) X10*3/uL MPV (9.4-12.4) fL Immature Gran % (Auto) (0.0-0.4) % Neut % (Auto) (45-73) % Lymph % (Auto) (20-40) % Atlantic % (Auto) (2-11) % Eos % (Auto) (0-4) % Baso % (Auto) (0-2) % Lymph # (Auto) (1.2-4.9) X10*3/uL Atlantic # (Auto) (0.1-1.2) X10*3/uL Eos # (Auto) (0.0-0.4) X10*3/uL Baso # (Auto) (0.0-0.2) X10*3/uL Abs Immat Gran (auto) (0.00-0.03) X10*3/uL Absolute Neuts (auto) (2.0-8.3) X10*3/uL Absolute Nucleated RBC (0.0-0.012) X10*3/uL Nucleated RBC % (auto) (0.0-0.2) /100WBC Sodium (135-145) mmol/L Potassium (3.3-5.1) mmol/L Chloride (96-108) mmol/L Carbon Dioxide (22-29) mmol/L Anion Gap (12-20) BUN (9-16) mg/dL Creatinine (0.5-1.4) mg/dL Estim Creat Clear Calc Estimated GFR Random Glucose (60-115) mg/dL Calcium (8.4-10.2) mg/dL Total Bilirubin (0.0-1.0) mg/dL Direct Bilirubin (0.0-0.5) mg/dL AST (5-37) U/L ALT (0-40) U/L Alkaline Phosphatase (39-117) U/L Troponin I High Sens (<3.5-35.0) ng/L B-Natriuretic Peptide 78 (<100) pg/mL Total Protein (6.5-8.0) g/dL Albumin (3.5-5.0) g/dL Lipase (8-78) U/L COVID-19 (CAROLINE) Negative (Negative) COVID-19 Clin Com See Note Imaging Data Chest x-ray: Radiologist's impression: 1. Small nodular density overlying right fifth rib and overlying left sixth rib, possibly bone islands. When clinically able, additional slightly lordotic view may be performed to exclude superimposed pulmonary nodule. 2. Otherwise unremarkable exam. ECG Data Interpretation: Sinus bradycardia at 59 beats per minutes, normal axis deviation, normal intervals, no significant ST-T changes. Discharge Plan Discharge Clinical Impression: Hematoma Syncope Qualifiers: Syncope type: unspecified Qualified Code(s): R55 - Syncope and collapse Patient Disposition: Home, Self-Care Instructions: Syncope (ED), Hematuria (ED) Prescriptions: No Action hydrochlorothiazide 12.5 mg tablet 12.5 mg PO DAILY Qty: 30 RF: 0 finasteride 5 mg tablet 5 mg PO DAILY RF: 0 tamsulosin 0.4 mg capsule 0.4 mg PO DAILY RF: 0 lisinopril 10 mg tablet 10 mg PO DAILY RF: 0 metoprolol succinate 25 mg tablet extended release 24 hr 25 mg PO DAILY Qty: 30 RF: 5 Referrals: Tong Gentile MD [Physician] - 2 days Bill Tanner MD [Primary Care Provider] - 2 days Ulises Zuluaga MD [Physician] - 2 days Interventions: ED Discharge Assessment Last Done: 10/16/20 13:02 Discharge Date/Time: 10/16/20 13:03
[2020-10-16 10:06] VITALS: BP 150/47; PULSE 52
[2020-10-16 10:07] VITALS: BP 122/60; BP 129/62; PULSE 60; PULSE 66
--- NOTE | 2020-10-16 10:27 | PC.NURSE ---
cardio at bedside
--- NOTE | 2020-10-16 10:39 | PC.NURSE ---
ambulated to the bathroom and back. independent steady gait. pt had a bm
--- NOTE | 2020-10-16 11:02 | PM.CNCAR ---
History of Present Illness History of Present Illness Date of Service: 10/16/20 Requesting physician: Dread Hoffman Chief complaint: Syncope Narrative: 84-year-old gentleman who came for Lexiscan and developed bradycardia and brief syncope. He recently was in the hospital when he developed supraventricular tachycardia. ECG at that time and subsequently showed inferior Q-waves. It appears he saw our office and then was referred for stress testing. He underwent Lexiscan and after getting Regadenoson he developed dizziness and reported bradycardia and briefly passed out. ER is reported that CPR was started for few seconds. Patient is back to normal and has no symptoms. He said occasionally feels lightheaded and he had workup done for that previously. He denies chest discomfort shortness of breath right now. He was noticed to be slightly orthostatic and is getting IV fluids. Review of Systems Review of Systems: No symptoms Yes all other systems are reviewed and are negative [facility] Past Medical History Medical History Arthritis Cancer Carpal tunnel syndrome, bilateral CKD (chronic kidney disease) Elevated cholesterol Hearing loss History of BPH HTN (hypertension) Normal colonoscopy SVT (supraventricular tachycardia) Family History Family History Father No problems noted. Mother No problems noted. Surgical History Surgical History H/O colonoscopy H/O inguinal hernia repair History of bladder surgery History of carpal tunnel release of both wrists History of left knee replacement History of total right knee replacement (TKR) History of transurethral destruction of bladder lesion Social History Social History Household Members: Spouse Housing: House Alcohol intake: never Smoking Status: Never smoker Use of substances other than those prescribed or required for medical reasons: No Advance Directives: Yes Advance Directives on File: Yes Advance Directives Date on File: 09/18/20 service: Yes Current occupational status: retired Meds Allergies Allergy/AdvReac Type Severity Reaction Status Date / Time No Known Allergies Allergy Verified 09/24/20 09:11 [No Known Allergies*] Home Medications Medication Instructions Recorded Confirmed Last Taken Type finasteride 5 mg tablet 5 mg PO DAILY 06/04/20 10/08/20 Unknown History lisinopril 10 mg tablet 10 mg PO DAILY 06/04/20 10/08/20 Unknown History tamsulosin 0.4 mg capsule 0.4 mg PO DAILY 06/04/20 10/08/20 09/14/20 History Physical Exam Vital Signs: Vital Signs: Last Vital Signs Temp 98.2 F 10/16/20 09:31 Pulse 66 10/16/20 10:07 Resp 16 10/16/20 09:31 BP 129/62 10/16/20 10:07 Pulse Ox 100 10/16/20 10:00 Body Mass Index 26.6 GENERAL APPEARANCE: in no acute distress, well developed, well nourished. HEENT: unremarkable. HEAD: normocephalic, atraumatic. NECK/THYROID: no carotid bruit, no jugular venous distention. SKIN: no suspicious lesions, warm and dry. HEART: no murmurs, regular rate and rhythm, S1, S2 normal. LUNGS: clear to auscultation bilaterally. ABDOMEN: normal, bowel sounds present, soft, nontender, nondistended. EXTREMITIES: no clubbing, cyanosis, or edema. PERIPHERAL PULSES: equal. NEUROLOGIC: nonfocal, alert and oriented. PSYCH: mood/affect full range. Results Labs and Meds Result diagrams: 10/16/20 11:17 10/16/20 11:17 Imaging Radiologist's impression: Impressions Chest X-Ray 10/16/20 09:40 IMPRESSION: 1. Small nodular density overlying right fifth rib and overlying left sixth rib, possibly bone islands. When clinically able, additional slightly lordotic view may be performed to exclude superimposed pulmonary nodule. 2. Otherwise unremarkable exam. Assessment and Plan (1) Syncope: Qualifiers: Syncope type: unspecified Qualified Code(s): R55 - Syncope and collapse Status: Acute Pleasant 84-year-old gentleman who came for an outpatient pharmacologic stress test. After getting Regadenoson he developed dizziness and bradycardia which was transient. He briefly passed out but is back to normal. He is mildly orthostatic and is getting IV fluids. He is otherwise back to normal. I think this is likely a reaction to regular no son. Bradycardia can happen with Regadenoson and is usually of brief reaction because of short half-life of the drug. In any case right now if his blood workup comes back normal and he is feeling back to normal after IV fluids then after ambulation he can be discharged back home. In terms of his stress testing we will have to reschedule him. He is saying that he can exercise a probably we can pursue an exercise stress tests or coronary CTA. Thank you for allowing me to participate in the care of your patient. Please feel free to contact me if you have any questions.
[2020-10-16 11:25] LABS: MANUAL DIFF FLAG NO
[2020-10-16 11:30] LABS: Basophils Percent Auto 0.3 % (0-2); Eosinophils Percent Auto 0.1 % (0-4); Hematocrit 38.3 % (42-52); Hemoglobin 12.8 g/dl (14.0-18.0); Imm Gran Abs Auto 0.08 X10*3/uL (0.00-0.03); Imm Gran Pct Auto 0.9 % (0.0-0.4); Lymphocytes Absolute Auto 0.9 X10*3/uL (1.2-4.9); Lymphocytes Percent Auto 9.9 % (20-40); Mean Corpuscular HGB Conc 33.4 g/dl (31.0-36.0); Mean Corpuscular Hemoglobin 31.8 pg (27.0-33.0); Mean Corpuscular Volume 95.3 fL (80-98); Mean Platelet Volume 9.5 fL (9.4-12.4); Monocytes Absolute Auto 0.7 X10*3/uL (0.1-1.2); Monocytes Percent Auto 7.6 % (2-11); Neutrophils Absolute Auto 7.4 X10*3/uL (2.0-8.3); Neutrophils Percent Auto 81.2 % (45-73); Platelet Count 157 X10*3/uL (160-400); Red Blood Count 4.02 X10*6/uL (4.60-5.80); Red Cell Distribution Width 12.7 % (11.0-16.0); White Blood Count 9.1 X10*3/uL (4.8-10.8)
--- NOTE | 2020-10-16 11:45 | PC.NURSE ---
labs drawn pt to [facility] to complete testing
[2020-10-16 11:50] LABS: COVID-19 Test Negative (Negative)
--- NOTE | 2020-10-16 11:54 | PC.NURSE ---
return from [facility]. plan for dc per cardio and return tomorrow for additional nuc med scan
[2020-10-16 11:56] LABS: Alanine Aminotransferase 19 U/L (0-40); Albumin Level 3.7 g/dL (3.5-5.0); Alkaline Phosphatase 69 U/L (39-117); Anion Gap 10 (12-20); Aspartate Amino Transferase 16 U/L (5-37); Bilirubin Direct 0.4 mg/dL (0.0-0.5); Blood Urea Nitrogen 22 mg/dL (9-16); Calcium 7.6 mg/dL (8.4-10.2); Carbon Dioxide 26 mmol/L (22-29); Chloride 106 mmol/L (96-108); Creatinine Clr Calc Pharmacy 52.6; Estimated Glomerular Filt Rate > 60; Glucose Random 134 mg/dL (60-115); Lipase 40 U/L (8-78); Sodium 138 mmol/L (135-145); Total Protein 5.4 g/dL (6.5-8.0)
[2020-10-16 11:57] VITALS: BP 138/62; PULSE 64; RESP 17; TEMP 36.4; O2SAT 97
[2020-10-16 11:57] LABS: B Type Natriuretic Peptide 78 pg/mL (<100); Troponin-I High Sensitivity 6.2 ng/L (<3.5-35.0)
--- NOTE | 2020-10-16 11:58 | PC.NURSE ---
pt returned from [facility], vitals obtained, pt sinus vimal 60s on patch driller, no c/o pain or discomfort, patient awaiting lab results, will continue to monitor.
== END 2020-10-16 13:03 | disposition home or self-care (01) ==
PROVIDERS: Emergency Provider Emergency Medicine; PCP Internal Medicine Medical Oncology
DX: S20.219A Contusion of unspecified front wall of thorax, initial encounter (principal); R55 Syncope and collapse; I10 Essential (primary) hypertension; W18.30XA Fall on same level, unspecified, initial encounter; Y93.9 Activity, unspecified; Y92.9 Unspecified place or not applicable; Y99.9 Unspecified external cause status; Z20.822 Contact with and (suspected) exposure to COVID-19; Z79.899 Other long term (current) drug therapy
CPT/HCPCS: 36415; 71045; 78452; 80048; 80076; 83690; 83880; 84484; 85025; 87635; 93005; 93017; 96360; 99284; 99285; A9500; J0280; J2785

== ENCOUNTER → 2020-10-22 11:08 | Outpatient (BNVA) | payer MEDICARE, SELFPAY | PROVIDERS: PCP Internal Medicine Medical Oncology; Visit Provider Urology | DX: N20.0 Calculus of kidney (principal); N40.1 Benign prostatic hyperplasia with lower urinary tract symptoms; C67.9 Malignant neoplasm of bladder, unspecified | CPT/HCPCS: 81002; 99212 ==

== ENCOUNTER → 2020-11-05 09:40 | Outpatient (BNVA) | payer MEDICARE, SELFPAY | PROVIDERS: PCP Internal Medicine Medical Oncology; Visit Provider Nurse Practitioner Family | DX: I47.1 Supraventricular tachycardia (principal); I10 Essential (primary) hypertension; R06.02 Shortness of breath; E78.00 Pure hypercholesterolemia, unspecified; Z79.899 Other long term (current) drug therapy | CPT/HCPCS: 99212 ==

== ENCOUNTER 2020-12-09 07:51 | Outpatient (REF) | payer MEDICARE, SELFPAY ==
--- NOTE | ~2020-12-09 | US_ITS ---
EXAMINATION: US RETROPERITONEAL LIMITED (RENAL ONLY) CLINICAL INFORMATION: Calculus of kidney. COMPARISON: CT abdomen pelvis 09/14/2020. TECHNIQUE: Real-time imaging of the kidneys. FINDINGS: RIGHT KIDNEY: 10.5 x 6.0 x 6.2 cm (SAG x AP x TRV). The kidney is normal in size, contour, and echogenicity. Renal cortical thickness is normal. No focal parenchymal lesions or hydronephrosis. There are multiple parapelvic cyst. There is echogenic stone in the midpole measuring 0.3 x 0.3 cm. There is mild hydronephrosis and a prominent proximal ureter measuring 0.8 cm. LEFT KIDNEY: 11.1 x 5.7 x 5.7 cm (SAG x AP x TRV). The kidney is normal in size, contour, and echogenicity. Renal cortical thickness is normal. No renal calculi or focal parenchymal lesions. There are parapelvic left renal cyst. There is mild hydronephrosis with a prominent ureter measuring 0.5 cm. US/US renal BI IMPRESSION: Mild bilateral hydronephrosis with prominent ureters but no obstructive etiology seen. There is a nonobstructive echogenic stone midpole right kidney. There are bilateral parapelvic renal cyst.
== END 2020-12-09 07:52 | disposition home or self-care (01) ==
LOC: HO.US 07:51
PROVIDERS: Visit Provider Urology
DX: N20.0 Calculus of kidney (principal)
CPT/HCPCS: 76775

== ENCOUNTER → 2020-12-24 09:13 | Outpatient (BNVA) | payer MEDICARE, SELFPAY | PROVIDERS: PCP Internal Medicine Medical Oncology; Visit Provider Urology | DX: N20.0 Calculus of kidney (principal); C67.9 Malignant neoplasm of bladder, unspecified | CPT/HCPCS: 52000; 81002; 99212 ==

== ENCOUNTER → 2021-03-11 08:41 | Outpatient (BNVA) | payer MEDICARE, SELFPAY | PROVIDERS: PCP Internal Medicine Medical Oncology; Visit Provider Internal Medicine Cardiovascular Disease | DX: I47.1 Supraventricular tachycardia (principal); R55 Syncope and collapse; I10 Essential (primary) hypertension | CPT/HCPCS: 93005; 99212 ==

== ENCOUNTER 2021-05-06 14:24 | Emergency (ER) | payer OTHER, MEDICARE, SELFPAY ==
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
[2021-05-06 14:41] VITALS: BP 157/76; BP 172/78; PULSE 74; PULSE 78; RESP 18; O2SAT 95; O2SAT 98; BMI 42.7
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
[2021-05-06 15:48] VITALS: BP 181/72; PULSE 63; RESP 18; O2SAT 98
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
[2021-05-06 17:22] VITALS: BP 188/77; PULSE 65; RESP 16; TEMP 36.9; O2SAT 99
--- NOTE | 2021-05-06 17:23 | PC.NURSE ---
NASRIN HEWITT IS AWARE OF PATIENT HIGH BLOOD PRESSURE .
[2021-05-06 17:37] LABS: MANUAL DIFF FLAG NO
[2021-05-06 17:38] LABS: Basophils Percent Auto 0.1 % (0-2); Eosinophils Percent Auto 0.3 % (0-4); Hematocrit 43.6 % (42-52); Hemoglobin 14.5 g/dl (14.0-18.0); Imm Gran Abs Auto 0.09 X10*3/uL (0.00-0.03); Imm Gran Pct Auto 0.7 % (0.0-0.4); Lymphocytes Absolute Auto 0.9 X10*3/uL (1.2-4.9); Lymphocytes Percent Auto 6.7 % (20-40); Mean Corpuscular HGB Conc 33.3 g/dl (31.0-36.0); Mean Corpuscular Hemoglobin 32.4 pg (27.0-33.0); Mean Corpuscular Volume 97.5 fL (80-98); Mean Platelet Volume 9.4 fL (9.4-12.4); Monocytes Percent Auto 7.5 % (2-11); Neutrophils Absolute Auto 11.3 X10*3/uL (2.0-8.3); Neutrophils Percent Auto 84.7 % (45-73); Platelet Count 198 X10*3/uL (160-400); Red Blood Count 4.47 X10*6/uL (4.60-5.80); Red Cell Distribution Width 12.4 % (11.0-16.0); White Blood Count 13.4 X10*3/uL (4.8-10.8)
[2021-05-06 17:51] LABS: Anion Gap 12 (12-20); Blood Urea Nitrogen 26 mg/dL (9-16); Calcium 9.2 mg/dL (8.4-10.2); Carbon Dioxide 25 mmol/L (22-29); Chloride 109 mmol/L (96-108); Creatinine Clr Calc Pharmacy 55.5; Estimated Glomerular Filt Rate 57; Glucose Random 124 mg/dL (60-115); Potassium 4.5 mmol/L (3.3-5.1); Sodium 141 mmol/L (135-145)
[2021-05-06 17:57] LABS: Troponin-I High Sensitivity 5.5 ng/L (<3.5-35.0)
--- NOTE | 2021-05-06 18:03 | PC.NURSE ---
had wave of nausea that has improved. clarke requested. awaits MRI.
[2021-05-06 18:06] LABS: Glucose, Whole Blood 97 mg/dL (60-115)
[2021-05-06] MEDS: Ondansetron ODT 4 MG TAB.RAPDIS TRANSLINGU (18:11)
[2021-05-06 18:52] VITALS: BP 178/88; PULSE 67; RESP 20; TEMP 36.9; O2SAT 99
--- NOTE | 2021-05-06 19:51 | PC.NURSE ---
PT AWAITING FOR CT.
[2021-05-06 20:33] VITALS: BP 186/85; PULSE 63; RESP 17; TEMP 37.6; O2SAT 95
[2021-05-06 21:01] VITALS: RESP 18
[2021-05-06] MEDS: Morphine Sulfate 4 MG/ML CARTRIDGE IVPUSH (21:01)
[2021-05-06] MEDS: ondansetron HCL 4 MG/2 ML VIAL IVPUSH (21:01)
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
== END 2021-05-06 22:46 | disposition short-term general hospital (02) ==
PROVIDERS: Emergency Provider Emergency Medicine; PCP Internal Medicine Medical Oncology
DX: S14.127A Central cord syndrome at C7 level of cervical spinal cord, initial encounter (principal); S60.512A Abrasion of left hand, initial encounter; V47.6XXA Car passenger injured in collision with fixed or stationary object in traffic accident, initial encounter; Z20.822 Contact with and (suspected) exposure to COVID-19; R06.02 Shortness of breath; I10 Essential (primary) hypertension; W22.12XA Striking against or struck by front passenger side automobile airbag, initial encounter; Y93.89 Activity, other specified; Y92.414 Local residential or business street as the place of occurrence of the external cause; Y99.9 Unspecified external cause status; Z79.899 Other long term (current) drug therapy
CPT/HCPCS: 36415; 71046; 72125; 72141; 73130; 80048; 82947; 84484; 85025; 93005; 96374; 96375; 99285; 99291; J2270; J2405

== ENCOUNTER 2021-05-16 13:51 | Outpatient (REF) | payer MEDICARE, SELFPAY ==
[2021-05-16 17:36] LABS: Urine Cytology See Pathology rpt
== END 2021-05-16 13:52 | disposition home or self-care (01) ==
LOC: HO.LAB 13:51
PROVIDERS: PCP Internal Medicine Medical Oncology; Visit Provider Urology
DX: C67.9 Malignant neoplasm of bladder, unspecified (principal); N39.0 Urinary tract infection, site not specified; Z79.899 Other long term (current) drug therapy
CPT/HCPCS: 87086; 87088; 87186; 88112; 99212

== ENCOUNTER 2021-06-19 10:40 | Outpatient (REF) | payer MEDICARE, SELFPAY ==
[2021-06-19 16:45] LABS: Urine Cytology See Pathology rpt
== END 2021-06-19 10:41 | disposition home or self-care (01) ==
LOC: HO.LAB 10:40
PROVIDERS: PCP Internal Medicine Medical Oncology; Visit Provider Urology
DX: C67.9 Malignant neoplasm of bladder, unspecified (principal)
CPT/HCPCS: 52000; 88112; 99212

== ENCOUNTER 2021-08-15 10:55 | Outpatient (REF) | payer MEDICARE, SELFPAY ==
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
[2021-08-15 11:22] LABS: MANUAL DIFF FLAG NO
[2021-08-15 12:13] LABS: Basophils Percent Auto 0.3 % (0-2); Eosinophils Percent Auto 0.5 % (0-4); Hematocrit 42.6 % (42.0-52.0); Hemoglobin 14.3 g/dl (14.0-18.0); Imm Gran Abs Auto 0.04 X10*3/uL (0.00-0.03); Imm Gran Pct Auto 0.6 % (0.0-0.4); Lymphocytes Absolute Auto 1.4 X10*3/uL (1.2-4.9); Lymphocytes Percent Auto 21.7 % (20-40); Mean Corpuscular HGB Conc 33.6 g/dl (31.0-36.0); Mean Corpuscular Hemoglobin 32.9 pg (27.0-33.0); Mean Corpuscular Volume 98.2 fL (80.0-98.0); Mean Platelet Volume 9.9 fL (9.4-12.4); Monocytes Absolute Auto 0.9 X10*3/uL (0.1-1.2); Neutrophils Absolute Auto 4.2 x10*3/uL (2.0-8.3); Neutrophils Percent Auto 63.9 % (45-73); Platelet Count 208 X10*3/uL (160-400); Red Blood Count 4.34 X10*6/uL (4.60-5.80); Red Cell Distribution Width 13.3 % (11.0-16.0); White Blood Count 6.5 X10*3/uL (4.8-10.8)
[2021-08-15 12:44] LABS: Alanine Aminotransferase 30 U/L (0-40); Albumin Level 4.3 g/dL (3.5-5.0); Alkaline Phosphatase 72 U/L (39-117); Anion Gap 12 (12-20); Aspartate Amino Transferase 31 U/L (5-37); B Type Natriuretic Peptide 38 pg/mL (<100); Bilirubin Total 1.5 mg/dL (0.0-1.0); Blood Urea Nitrogen 26 mg/dL (9-16); Calcium 9.5 mg/dL (8.4-10.2); Carbon Dioxide 27 mmol/L (22-29); Chloride 107 mmol/L (96-108); Estimated Glomerular Filt Rate 51; Glucose Random 64 mg/dL (60-115); Potassium 4.6 mmol/L (3.3-5.1); Sodium 141 mmol/L (135-145); Total Protein 6.5 g/dL (6.5-8.0)
[2021-08-15 13:10] LABS: Erythrocyte Sedimentation Rate 2 MM/HR (0-15)
== END 2021-08-15 10:56 | disposition home or self-care (01) ==
LOC: HO.XRAY 10:55
PROVIDERS: PCP Internal Medicine Medical Oncology; Visit Provider Internal Medicine Medical Oncology
DX: R97.20 Elevated prostate specific antigen [PSA] (principal); R06.09 Other forms of dyspnea; E78.2 Mixed hyperlipidemia
CPT/HCPCS: 36415; 71046; 80053; 83880; 84443; 85025; 85652

== ENCOUNTER → 2021-09-11 08:54 | Outpatient (BNVA) | payer MEDICARE, SELFPAY | PROVIDERS: PCP Internal Medicine Medical Oncology; Visit Provider Internal Medicine Cardiovascular Disease | DX: I47.1 Supraventricular tachycardia (principal); R06.02 Shortness of breath; R55 Syncope and collapse | CPT/HCPCS: 99212 ==

== ENCOUNTER 2021-10-17 10:54 | Outpatient (REF) | payer MEDICARE, SELFPAY ==
[2021-10-17 16:09] LABS: Urine Cytology See Pathology rpt
== END 2021-10-17 10:55 | disposition home or self-care (01) ==
LOC: HO.LAB 10:54
PROVIDERS: PCP Internal Medicine Medical Oncology; Visit Provider Urology
DX: C67.9 Malignant neoplasm of bladder, unspecified (principal); R39.15 Urgency of urination
CPT/HCPCS: 52000; 88112; 99212

== ENCOUNTER → 2021-11-14 08:38 | Outpatient (REF) | payer MEDICARE, SELFPAY ==
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
== END ==
LOC: HO.CARD 08:38
PROVIDERS: PCP Internal Medicine Medical Oncology; Visit Provider Internal Medicine Medical Oncology
DX: R06.00 Dyspnea, unspecified (principal)
CPT/HCPCS: 93306; 93356

== ENCOUNTER → 2021-12-16 14:14 | Outpatient (BNVA) | payer MEDICARE, SELFPAY | PROVIDERS: PCP Internal Medicine Medical Oncology; Visit Provider Urology | DX: Z13.89 Encounter for screening for other disorder (principal) | CPT/HCPCS: Q3014 ==

== ENCOUNTER 2022-01-19 14:59 | Outpatient (REF) | payer MEDICARE, SELFPAY ==
[2022-01-19 16:07] LABS: Anion Gap 13 (12-20); Blood Urea Nitrogen 39 mg/dL (9-16); Calcium 8.9 mg/dL (8.4-10.2); Carbon Dioxide 23 mmol/L (22-29); Chloride 106 mmol/L (96-108); Estimated Glomerular Filt Rate 40; Glucose Random 113 mg/dL (60-115); Potassium 4.3 mmol/L (3.3-5.1); Sodium 138 mmol/L (135-145)
== END 2022-01-19 15:00 | disposition home or self-care (01) ==
LOC: HO.LAB 14:59
PROVIDERS: PCP Internal Medicine Medical Oncology; Visit Provider Internal Medicine Cardiovascular Disease
DX: I10 Essential (primary) hypertension (principal); R06.02 Shortness of breath
CPT/HCPCS: 36415; 80048

== ENCOUNTER 2022-04-21 10:05 | Outpatient (REF) | payer MEDICARE, SELFPAY ==
[2022-04-21 16:51] LABS: Urine Cytology See Pathology rpt
== END 2022-04-21 10:06 | disposition home or self-care (01) ==
LOC: HO.LAB 10:05
PROVIDERS: Visit Provider Urology
DX: C67.9 Malignant neoplasm of bladder, unspecified (principal); N40.1 Benign prostatic hyperplasia with lower urinary tract symptoms; R39.15 Urgency of urination
CPT/HCPCS: 52000; 88112; 99212

== ENCOUNTER → 2022-09-10 08:41 | Outpatient (BNVA) | payer MEDICARE, SELFPAY | PROVIDERS: PCP Internal Medicine Medical Oncology; Referring Provider Internal Medicine Medical Oncology; Visit Provider Internal Medicine Cardiovascular Disease | DX: R06.02 Shortness of breath (principal); R55 Syncope and collapse; I47.1 Supraventricular tachycardia | CPT/HCPCS: 93005; 99212 ==

== ENCOUNTER 2022-10-22 08:47 | Outpatient (REF) | payer MEDICARE, SELFPAY ==
[2022-10-22 16:54] LABS: Urine Cytology See Pathology rpt
== END 2022-10-22 08:48 | disposition home or self-care (01) ==
LOC: HO.LAB 08:47
PROVIDERS: PCP Internal Medicine Medical Oncology; Visit Provider Urology
DX: C67.9 Malignant neoplasm of bladder, unspecified (principal)
CPT/HCPCS: 52000; 88112; 99212

== ENCOUNTER → 2022-12-02 11:37 | Outpatient (BNVA) | payer MEDICARE, SELFPAY | PROVIDERS: PCP Internal Medicine Medical Oncology; Visit Provider Urology | DX: R39.15 Urgency of urination (principal); N20.0 Calculus of kidney; C67.9 Malignant neoplasm of bladder, unspecified | CPT/HCPCS: Q3014 ==

== ENCOUNTER → 2023-02-04 09:24 | Outpatient (REF) | payer MEDICARE, SELFPAY | LOC: HO.CARD 09:24 | PROVIDERS: PCP Internal Medicine Medical Oncology; Visit Provider Internal Medicine Medical Oncology | DX: Z13.89 Encounter for screening for other disorder (principal) ==

== ENCOUNTER 2023-09-16 08:44 | Outpatient (AMB) | payer MEDICARE, SELFPAY ==
--- NOTE | 2023-09-16 08:46 | A.OFFVIS_ITS ---
Intake Vital Signs 09/16/23 08:47 Height 5 ft 6 in Weight 156 lb 8.451 oz BMI 25.3 BP 138/80 Blood Pressure Location Lt brachial Position Sitting Pulse 71 Intake Visit Reasons: 1Y follow up Intake Note: 1 year follow-up with ekg feeling good Clothing Sales Assistant Required: No Allergies No Known Allergies [No Known Allergies*] Allergy (Verified 12/02/22 11:46) Medication List - Last Reconciled 09/16/23 by Ulises Zuluaga MD finasteride 5 mg PO DAILY hydrochlorothiazide 12.5 mg PO DAILY lisinopril 10 mg PO DAILY metoprolol succinate ER 25 mg PO DAILY tamsulosin 0.4 mg PO DAILY tolterodine ER 2 mg PO DAILY 90 days HPI HPI Comments History of Present Illness Details Bill comes for follow-up. He has been doing well from cardiac perspective. Denies any new symptoms. He said he has not had any attacks or palpitations similar to SVT in the last couple years since being on metoprolol. No syncopal episodes. Remains active. Denies any exertional chest pain or shortness of breath. Maintains his house and lives independently. Blood pressures been generally well controlled. [facility]LY [facility] Medical History Cataract SVT (supraventricular tachycardia) CKD (chronic kidney disease) Cancer Arthritis Hearing loss History of BPH Elevated cholesterol HTN (hypertension) Carpal tunnel syndrome, bilateral Normal colonoscopy Surgical History History of bladder surgery History of transurethral destruction of bladder lesion H/O colonoscopy History of carpal tunnel release of both wrists H/O inguinal hernia repair History of total right knee replacement (TKR) History of left knee replacement Family History Father No problems noted. Mother No problems noted. Social History Household Members: Spouse Housing: House Do you presently have visiting nurse or other home services: No Alcohol intake: never Comment: PT SLEEPING Patient Tobacco Use Status: Never used Tobacco Advance Directives Date on File: 09/18/20 service: Yes Current occupational status: retired Review of Systems Const Denies chills, Denies fatigue, Denies fever(s), Denies frequent falls, Denies weakness, Denies weight gain and Denies weight loss ENT Denies dizziness Card Denies chest pain, Denies leg edema, Denies lightheadedness, Denies palpitations, Denies dyspnea, Denies dyspnea on exertion, Denies orthopnea and Denies other (loss of consciousness) Resp Denies cough, Denies dyspnea and Denies dyspnea on exertion GI Denies hematochezia and Denies change in stool character Musc Denies abnormal gait, Denies muscle weakness, Denies numbness, Denies radiating pain into limb and Denies tingling Neuro Denies abnormal gait, Denies dizziness, Denies frequent falls, Denies numbness, Denies tingling and Denies weakness Endo Denies fatigue and Denies palpitations Physical Exam Vital Signs: Last Vital Signs Pulse 71 09/16/23 08:47 BP 138/80 09/16/23 08:47 BMI result Body Mass Index 25.3 Const General: cooperative, comfortable, no acute distress, well developed, alert and awake Nutritional Appearance: average body habitus Orientation/consciousness: patient oriented x3 Limitations: no limitations Neck Neck: Yes trachea midline, Yes supple and Yes no JVD Resp Effort & Inspection: normal respiratory effort Auscultation: clear to auscultation bilaterally Cardio Jugular venous distension: no JVD Palpation: normal PMI Rate: regular rate Rhythm: regular rhythm Heart sounds: S1 normal heart sound present and S2 normal heart sound present GI Auscultation: normal bowel sounds Neuro General: patient oriented x3 and no focal motor deficits Extrem General: Yes no clubbing, cyanosis or edema Psych Appearance: grossly normal Assessment & Plan Assessment & Plan (1) SVT (supraventricular tachycardia): Code(s): I47.1 - Supraventricular tachycardia Plan: Supraventricular tachycardia which has remained suppressed on low-dose metoprolol therapy. Has done very well with no hospitalization related to it. Continue metoprolol therapy. We discussed about pathophysiology of supraventricular tachycardia and discussed about vagal maneuvers. He shows understanding. Avoidance of stimulants was discussed. (2) HTN (hypertension): Code(s): I10 - Essential (primary) hypertension Plan: Hypertension which is currently well optimized advised to monitor blood pressure at home maintain a log. Goal blood pressure less than 130/84. Low-salt diet was discussed. No change in therapy. Continue the same. (3) Syncope: Code(s): R55 - Syncope and collapse Qualifiers: Syncope type: unspecified Qualified Code(s): R55 - Syncope and collapse Plan: Prior history of syncope without any recurrence. Most likely orthostatic in nature. Discussed with him about maintaining adequate hydration. Orthostatic precautions were discussed. Follow up in the clinic in 1 year's time after an echocardiogram. Thank you for allowing me to partake in his care Orders: Orders CA echo transthoracic complete 50 Weeks I47.1 - Supraventricular tachycardia Coding Level of Care Code Est Pt Level 4 (52796) Diagnoses SVT (supraventricular tachycardia) I47.1 HTN (hypertension) I10 Syncope, unspecified syncope type R55 Syncope type: unspecified
[2023-09-16 08:47] VITALS: BP 138/80; PULSE 71; BMI 25.3
== END 2023-09-16 09:07 | disposition home or self-care (01) ==
PROVIDERS: PCP Internal Medicine Medical Oncology; Visit Provider Internal Medicine Cardiovascular Disease
DX: I47.10 Supraventricular tachycardia, unspecified (principal); I10 Essential (primary) hypertension; R55 Syncope and collapse
CPT/HCPCS: 93010; 99214

== ENCOUNTER → 2023-09-16 08:44 | Outpatient (BNVA) | payer MEDICARE, SELFPAY | PROVIDERS: Visit Provider Internal Medicine Cardiovascular Disease | DX: I47.10 Supraventricular tachycardia, unspecified (principal); I10 Essential (primary) hypertension; R55 Syncope and collapse | CPT/HCPCS: 93005; 99212 ==

== ENCOUNTER 2023-09-22 12:56 | Outpatient (REF) | payer MEDICARE, SELFPAY | END 2023-09-22 12:57 | disposition home or self-care (01) | LOC: HO.LAB 12:56 | PROVIDERS: PCP Internal Medicine Medical Oncology; Visit Provider Urology | DX: C67.9 Malignant neoplasm of bladder, unspecified (principal) | CPT/HCPCS: 52000; 88121; 99212 ==

== ENCOUNTER 2023-09-22 12:56 | Outpatient (AMB) | payer MEDICARE, SELFPAY ==
--- NOTE | 2023-09-22 13:05 | MHC.OFFVIS ---
Intake Intake Visit Reasons: Cysto(Bladder Ca) Intake Note: Patient is Present for Cystoscopy Urology Med: Finasteride, Tamsulosin, Tolterodine Antibiotic Allergy: None Blood Thinner: None URO- G Disposable Cystoscope lot: [id number] exp: 02/10/2025 Allergies No Known Allergies [No Known Allergies*] Allergy (Verified 12/02/22 11:46) HPI HPI Comments History of Present Illness Details Bill is a very pleasant male. He is a patient of Dr. Tanner. 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 10/22 NAD Adjuvant therapy gemcitabine three-week boost 12/18, 06/19 Planned treatment - surveillance Lower Urinary Tract Symptoms: Current visit is for further evaluation of, lower urinary tract symptoms, combination obstructive and urgency Current treatment includes - 10/21 at tolterodine for urgency frequency Prior treatments include 08/16 TURP, finasteride and tamsulosin Prostate Symptom Score 06/16 , Moderate (9-19), Bother 3. Symptoms include 06/16 , incomplete emptying, weak stream, nocturia (>2), and are progressing. Results from testing include renal/bladder us Yes date 06/29/2018 PVR 50 prostate size 50 Prior Prostate Score unknown. PSA 2/19 1.0. Prostate volume 50+gm. o Treatment plan continue with current medications [facility] Medical History Cataract SVT (supraventricular tachycardia) CKD (chronic kidney disease) Cancer Arthritis Hearing loss History of BPH Elevated cholesterol HTN (hypertension) Carpal tunnel syndrome, bilateral Normal colonoscopy Surgical History History of bladder surgery History of transurethral destruction of bladder lesion H/O colonoscopy History of carpal tunnel release of both wrists H/O inguinal hernia repair History of total right knee replacement (TKR) History of left knee replacement Family History Father No problems noted. Mother No problems noted. Social History Household Members: Spouse Housing: House Do you presently have visiting nurse or other home services: No Alcohol intake: never Comment: PT SLEEPING Patient Tobacco Use Status: Never used Tobacco Advance Directives Date on File: 09/18/20 service: Yes Current occupational status: retired Review of Systems Const Denies chills and Denies fever(s) Card Reports no additional complaints and Denies syncope Resp Denies cough GI Denies abdominal pain and Denies heartburn Reports as per HPI and Denies change in libido Neuro Denies syncope Psych Denies change in libido Endo Denies change in libido Physical Exam Const General: cooperative, healthy appearing, comfortable and no acute distress Orientation/consciousness: patient oriented x3 HEENT Face and sinus: Yes normal facial exam Mouth: moist mucous membranes Neck Neck: Yes normal visual inspection, Yes full ROM and Yes trachea midline Chest Chest palpation & inspection: normal inspection of the chest Resp Effort & Inspection: normal respiratory effort, able to speak in complete sentences and no respiratory distress GI Inspection: Yes normal to inspection Back/Spine/Pelvis Cervical Spine: normal cervical lordosis Thoracic/Lumbar Spine: thoracic and lumbar spine normal to inspection Skin General skin exam: no rashes or lesions noted Neuro General: patient oriented x3, gait normal, tone normal and moves all extremities Extrem General: Yes normal to inspection and Yes capillary refill normal Office Procedures Cystoscopy Consent Discussed risk and benefit or proposed procedure with the patient. Information consent for procedure given to the patient. Discussed technical aspects, risks, benefits and alternatives in full. Addressed all of the patient's questions and concerns regarding the procedure. The patient demonstrated knowledge and understanding. They wish to proceed with this procedure. Preparation The patient was prepped in the usual manner. A mid level practitioner was present and in the room. Genitalia was prepped with betadine solution in a sterile manner. Lidocaine Jelly 2% was placed into the urethra and 16Fr flexible Olympus cystoscope was inserted into the meatus after adequate lubrication. Procedure Meatus circumcised Urethra anterior and posterior urethra normal Prostatic Urethra TURP defect Bladder examination with retroflexion of cystoscope Bladder Orifices normal shape and position left lateral, right lateral, left horseshoe, right horseshoe, left stadium, right stadium, bilateral stadium Bladder Capacity medium Trabeculations mild moderate severe Cellule Formation grade 2- Diverticulum Formation - Mucosal Erythema - Bladder Tumor left sidewall superficial bladder cancer proximally quarter-sized [id number] DISPOSABLE SCOPE URO-G FLEXIBLE SCOPE Procedure code (CPT) selection complete Office Meds lidocaine HCl 2 % mucosal jelly in applicator Performing Provider: Tong Gentile MD Performing Location: [facility] Administered by: Katey Funez RN on 09/22/23 13:08 Dose Route Admin Location Dispensed Lot Number Expiration Date [employer] 10 mL intra-urethral 10 mL nitrofurantoin monohydrate/macrocrystals 100 mg capsule Performing Provider: Tong Gentile MD Performing Location: [facility] Administered by: Katey Funez RN on 09/22/23 13:08 Dose Route Admin Location Dispensed Lot Number Expiration Date [employer] 100 mg PO 1 cap naproxen 500 mg tablet Performing Provider: Tong Gentile MD Performing Location: [facility] Administered by: Katey Funez RN on 09/22/23 13:08 Dose Route Admin Location Dispensed Lot Number Expiration Date [employer] 500 mg PO 1 tab Assessment & Plan Assessment & Plan (1) Bladder cancer: Code(s): C67.9 - Malignant neoplasm of bladder, unspecified Plan Risks, benefits and alternatives to therapy were discussed. These include but are not limited to infection, bleeding, damage to local organs and tissues, need for further interventions. Anesthetic risks regarding cardiac arrhythmia, blood clots, and potential mortality were discussed. The patient understands the typical recovery time and the outpatient nature of the procedure. After consideration of these risks the patient gives full informed consent and they wish to move ahead with the procedure. TURBT with mitomycin-C and cytarabine Orders: Orders AMB Cystoscopy Today C67.9 - Malignant neoplasm of bladder, unspecified AMB Urinalysis Automated Today Z13.9 - Encounter for screening, unspecified FISH Bladder Cancer Today C67.9 - Malignant neoplasm of bladder, unspecified Patient Instructions: Imaging studies, laboratory and physical exam results were discussed and reviewed in detail. No major barriers to patient understanding were identified. An opportunity to ask questions regarding the treatment plan was provided. All questions were answered. The patient expressed understanding and agreement with the above treatment plan. The patient is aware they should contact our office by phone for worsening of their current condition or the appearance of new urologic symptoms. Compliance is encouraged with any medications and followup testing that is ordered. It is a privilege to participate in the urologic care of your patient. If you have any questions or concerns regarding treatment for the above conditions, or other urologic issues, please do not hesitate to contact me. The office telephone contact is [phone]. This note is constructed using voice recognition software. While every effort has been made to ensure accuracy clinical informatics strategist errors may have been included. Yours sincerely, Dr Tong Gentile MD, [facility] - Urology Providers of Expert, Compassionate Care for the Genitourinary System Coding Level of Care Code Est Pt Level 4 (41319) Diagnoses Bladder cancer C67.9 CPT Codes Cystoscopy - CPT: 74817-[id number] ([id number])
== END 2023-09-22 13:51 | disposition home or self-care (01) ==
PROVIDERS: PCP Internal Medicine Medical Oncology; Visit Provider Urology
DX: C67.2 Malignant neoplasm of lateral wall of bladder (principal)
CPT/HCPCS: 52000; 99213

== ENCOUNTER 2023-11-19 09:54 | Outpatient (AMB) | payer MEDICARE, SELFPAY ==
--- NOTE | 2023-11-19 09:57 | A.OFFVIS_ITS ---
Intake Intake Visit Reasons: H&P TURBT Intake Note: Patient is Present for Telephone Follow Up H&P Urology Med: Finasteride, Tamsulosin, Tolterodine Antibiotic Allergy: None Blood Thinner: None Confirmed Pharmacy: [facility] Allergies No Known Allergies [No Known Allergies*] Allergy (Verified 11/19/23 09:58) HPI HPI Comments History of Present Illness Details Bill is a very pleasant male. He is a patient of Dr. Tanner. He is seen for the following urologic conditions - bladder cancer - lower urinary tract symptoms - urinary urgency and frequency Telemedicine Evaluation 15 min Consultation DS [employer] Chris Video attempted Discussed TURBT with fulguration and mitomycin-C with cytarabine May require three-week boost after completion Cystoscopy with bladder cancer recurrence left sidewall Recommend TURBT with fulguration and mitomycin-C and cytarabine Bladder Cancer: 2018 noninvasive low-grade Bladder cancer was initially diagnosed Dr Gentile , 2017 Bladder intervention(s) performed 08/16 , TURBT, Ta noninvasive papillary carcinoma, 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 10/22 NAD Adjuvant therapy gemcitabine three-week boost 12/18, 06/19 Planned treatment - surveillance Lower Urinary Tract Symptoms: Current visit is for further evaluation of, lower urinary tract symptoms, combination obstructive and urgency Current treatment includes - 10/21 at tolterodine for urgency frequency Prior treatments include 08/16 TURP, finasteride and tamsulosin Prostate Symptom Score 06/16 , Moderate (9-19), Bother 3. Symptoms include 06/16 , incomplete emptying, weak stream, nocturia (>2), and are progressing. Results from testing include renal/bladder us Yes date 06/29/2018 PVR 50 prostate size 50 Prior Prostate Score unknown. PSA 10/18 1.0. Prostate volume 50+gm. o Treatment plan continue with current medications [facility] Medical History Cataract SVT (supraventricular tachycardia) CKD (chronic kidney disease) Cancer Arthritis Hearing loss History of BPH Elevated cholesterol HTN (hypertension) Carpal tunnel syndrome, bilateral Normal colonoscopy Surgical History History of bladder surgery History of transurethral destruction of bladder lesion H/O colonoscopy History of carpal tunnel release of both wrists H/O inguinal hernia repair History of total right knee replacement (TKR) History of left knee replacement Family History Father No problems noted. Mother No problems noted. Social History Household Members: Spouse Housing: House Do you presently have visiting nurse or other home services: No Alcohol intake: never Comment: PT SLEEPING Patient Tobacco Use Status: Never used Tobacco Advance Directives Date on File: 09/18/20 service: Yes Current occupational status: retired Review of Systems Const All systems reviewed & are unremarkable except as noted in HPI and below Reports no additional complaints Resp Reports no additional complaints GI Reports no additional complaints Reports as per HPI Musc Reports no additional complaints Physical Exam Telemedicine evaluation Appropriate responses Regular breathing rate and rhythm HEENT Head: Yes normal to inspection Ears: hearing grossly normal bilaterally Eyes General: appearance normal, both eyes and all related structures Neck Neck: Yes normal visual inspection Chest Chest palpation & inspection: normal inspection of the chest Resp Effort & Inspection: normal respiratory effort and able to speak in complete sentences Assessment & Plan Assessment & Plan (1) Bladder cancer: Code(s): C67.9 - Malignant neoplasm of bladder, unspecified Plan Risks, benefits and alternatives to therapy were discussed. These include but are not limited to infection, bleeding, damage to local organs and tissues, need for further interventions. Anesthetic risks regarding cardiac arrhythmia, blood clots, and potential mo rtality were discussed. The patient understands the typical recovery time and the outpatient nature of the procedure. After consideration of these risks the patient gives full informed consent and they wish to move ahead with the procedure. Plan TURBT with mitomycin-C/cytarabine Patient Instructions: Imaging studies, laboratory and physical exam results were discussed and reviewed in detail. No major barriers to patient understanding were identified. An opportunity to ask questions regarding the treatment plan was provided. All questions were answered. The patient expressed understanding and agreement with the above treatment plan. The patient is aware they should contact our office by phone for worsening of their current condition or the appearance of new urologic symptoms. Compliance is encouraged with any medications and followup testing that is ordered. It is a privilege to participate in the urologic care of your patient. If you have any questions or concerns regarding treatment for the above conditions, or other urologic issues, please do not hesitate to contact me. The office telephone contact is [phone]. This note is constructed using voice recognition software. While every effort has been made to ensure accuracy washhouse hand errors may have been included. Yours sincerely, Dr Tong Gentile MD, [facility] - Urology Providers of Expert, Compassionate Care for the Genitourinary System Telehealth Telehealth Location of provider rendering services: practice address Location of patient: address on file Patient Identification confirmed using: Name, : Yes Telehealth method: video Patient verbally consented to treatment: Yes Patient verbally consented to billing insurance company: Yes Patient informed of any privacy concerns related to visit: Yes Coding Level of Care Code Tele Est Pt Level 3 (75260) Diagnoses Bladder cancer C67.9
== END 2023-11-19 15:16 | disposition home or self-care (01) ==
LOC: HO.HUSH 09:54
PROVIDERS: PCP Internal Medicine Medical Oncology; Visit Provider Urology
DX: C67.4 Malignant neoplasm of posterior wall of bladder (principal)
CPT/HCPCS: 99213

== ENCOUNTER → 2023-11-19 09:54 | Outpatient (BNVA) | payer MEDICARE, SELFPAY | PROVIDERS: PCP Internal Medicine Medical Oncology; Visit Provider Urology ==

== ENCOUNTER 2023-11-29 06:42 | Day surgery (SDC) | payer MEDICARE, SELFPAY ==
[2023-11-25 10:36] VITALS: BMI 25.2
--- NOTE | 2023-11-26 09:12 | P.CONAN_ITS ---
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 Follows yearly. Last office visit 08/2023 [facility] Active Problems Active Problems: All Active Problems (Updated 10/17/21 @ 11:37 by Tong Gentile MD) Urinary urgency (Acute) SOB (shortness of breath) on exertion (Acute) Recurrent UTI (urinary tract infection) (Acute) Bladder cancer (Acute) BPH loc w urin obs/LUTS (Acute) Nephrolithiasis (Acute) Shortness of breath (Acute) Syncope (Acute) Central cord synd/C5-C7 (Acute) Elevated cholesterol (Acute) HTN (hypertension) (Acute) SVT (supraventricular tachycardia) (Acute) Past Medical History Medical History Cataract SVT (supraventricular tachycardia) CKD (chronic kidney disease) Cancer Arthritis Hearing loss History of BPH Elevated cholesterol HTN (hypertension) Carpal tunnel syndrome, bilateral Normal colonoscopy Family History Family History Father No problems noted. Mother No problems noted. Surgical History Surgical History History of bladder surgery History of transurethral destruction of bladder lesion H/O colonoscopy History of carpal tunnel release of both wrists H/O inguinal hernia repair History of total right knee replacement (TKR) History of left knee replacement Social History Social History Household Members: Spouse Housing: House Do you presently have visiting nurse or other home services: No Alcohol intake: never Comment: PT SLEEPING Patient Tobacco Use Status: Never used Tobacco Are you DNR?: No Advance Directives: No Advance Directives Information Provided: Yes Advance Directives Date on File: 09/18/20 Nutrition Risks: No Nutritional Risk service: Yes Current occupational status: retired Meds Allergies Allergy/AdvReac Type Severity Reaction Status Date / Time No Known Allergies Allergy Verified 11/29/23 07:28 [No Known Allergies*] Home Medications Medication Instructions Recorded Confirmed Last Taken Type lisinopril 10 mg tablet 10 mg PO DAILY 06/04/20 11/29/23 Unknown History finasteride 5 mg tablet 5 mg PO DAILY 09/10/22 11/29/23 Unknown History tamsulosin 0.4 mg capsule 0.4 mg PO DAILY 09/16/23 11/29/23 Unknown History Exam Height,Weight and Vital Signs: Height 5 ft 6 in Weight 70.76 kg Narrative Narrative: EKG 08/2023 normal sinus rhythm with sinus arrhythmias 71 beats per minute otherwise normal EKG Assessment and Plan Assessment Anesthesia Assessment: Chart Reviewed Documented by User: Kevan Peter MD 11/29/23 09:07 [facility] Past Medical History Medical History Cataract SVT (supraventricular tachycardia) CKD (chronic kidney disease) Cancer Arthritis Hearing loss History of BPH Elevated cholesterol HTN (hypertension) Carpal tunnel syndrome, bilateral Normal colonoscopy Family History Family History Father No problems noted. Mother No problems noted. Family history of problems with anesthesia: No Surgical History Surgical History History of bladder surgery History of transurethral destruction of bladder lesion H/O colonoscopy History of carpal tunnel release of both wrists H/O inguinal hernia repair History of total right knee replacement (TKR) History of left knee replacement History of Problems with Anesthesia: No Social History Social History Household Members: Spouse Housing: House Do you presently have visiting nurse or other home services: No Alcohol intake: never Comment: PT SLEEPING Patient Tobacco Use Status: Never used Tobacco Are you DNR?: No Advance Directives: No Advance Directives Information Provided: Yes Advance Directives Date on File: 09/18/20 Nutrition Risks: No Nutritional Risk service: Yes Current occupational status: retired Meds Allergies Allergy/AdvReac Type Severity Reaction Status Date / Time No Known Allergies Allergy Verified 11/29/23 07:28 [No Known Allergies*] Home Medications Medication Instructions Recorded Confirmed Last Taken Type lisinopril 10 mg tablet 10 mg PO DAILY 06/04/20 11/29/23 Unknown History finasteride 5 mg tablet 5 mg PO DAILY 09/10/22 11/29/23 Unknown History tamsulosin 0.4 mg capsule 0.4 mg PO DAILY 09/16/23 11/29/23 Unknown History Exam Airway Mallampati Class: II TM Dist: >3cm Neck ROM: Full Loose/Missing/Broken Teeth: Yes and Lower Heart: ok Lungs: ok Assessment and Plan Assessment Anesthesia Assessment: Anesthesia Plan Discussed Final Anesthetic Review Family History of Problems with Anesthesia: No History of Problems with Anesthesia: No NPO: Yes ASA Class: III Final Preanesthetic Review: No Changes in Pt Med Stat, Meds/Allgs Chart Reviewed , Consent Obtained/Reviewed and Anes Risks/Benef Reviewed Patient Risk: Intermediate Procedure Risk: Low Anesthetic Plan Anesthetic Plan: GA and Agree w/ Assess. and Plan Disposition: Standard PACU
[2023-11-29] VITALS (11 sets, daily range): BP systolic 102–157; BP diastolic 52–80; PULSE 57–81; RESP 14–18; TEMP 36.1–36.6; O2SAT 95–99; BMI 25.8
[2023-11-29] MEDS: Lactated Ringers 1,000 ML 100 ML IVCONT (07:18)
--- NOTE | 2023-11-29 08:30 | MHC.SHP ---
Pre-Procedural Eval Section A - 24 Hr Update-Section A only Date of Service: 11/29/23 The patient is an INPATIENT: No Changes since office visit: No Cold of Flu in the past 2 weeks, No New Medical Problems, No Changes in Medication and No Patient answered all questions The patient has been examined within 24 hours of the surgical procedure. The History & Physical has been completed within 30 days and I have reviewed it.: No Section B - Complete if H&P > 30 days Chief Complaint: Malignant neoplasm of bladder, unspecified Details of Present Illness: left side wall recurrence Relevant Family History (Specify if Yes): No Relevant Social History: None Present Medications: see Short Stay Collaborative assessment Medical History: Significant History History of Previous Operations: Relevant previous surgery/procedure and date(s) Allergies: Allergies Allergy/AdvReac Type Severity Reaction Status Date / Time No Known Allergies Allergy Verified 11/29/23 07:28 [No Known Allergies*] Review of Systems Sugical H&P ROS: Negative: Constitution, Cardiovascular, Respiratory, Neurological, Psychiatric, Hem-Onc, Allergic/Immunologic, Gastrointestinal, Genitourinary, Musculoskeletal, Integumentary, Endocrine and Eyes/Ears/Nose/Throat Exam Surgical H&P Exam: Normal: HEENT, Normal: Heart, Normal: Lungs, Normal: Extremities, Normal: Abdomen, Normal: Skin and Normal: Neurological Plan Diagnosis/Plan: Unchanged (TURBT with fulgeration and [facility]MC instillation) I have reviewed the history and physical and performed a pertinent physical examination on my patient. No changes have occurred unless specified. Time Spent With Patient Time: Total time managing care of this patient today ____ minutes.
--- NOTE | 2023-12-03 16:42 | P.OP_ITS ---
Operative Note Operative Note Date of Service: 11/29/23 Narrative: PreOperative Diagnosis: bladder cancer Post Operative Diagnosis: bladder cancer - multiple superficial lesions. Two lesions each approximately 2 cm lateral sidewall left Procedure: TURBT and mitomycin C with cytarabine Surgeon: Dr Tong Gentile Anesthesia: general Indications for procedure: Follow-up for superficial bladder cancer. Recurrence found within office. Here for therapy Procedure: After informed consent was verified the patient was brought to the operating keya m and placed in a supine position. Anesthesia was administered per protocol. The patient was placed in a modified dorsal lithotomy position and prepped and draped in a sterile fashion. Safety pause time-out was performed. Antibiotics were confirmed. A 26 Upper Sor[place] continuous flow resectoscope was inserted per urethra. The visual obturator was used in order to minimize potential for urethral damage. Lesions were resected and fulgurated with 1 cm margin. Bladder was examined with narrow band imaging. Areas of suspicion were fulgurated. At the completion of the procedure the bladder was irrigated. The cystoscope was removed. A [address] Andrade catheter was inserted into the bladder. 10 cc was placed in the balloon. Mitomycin-C with cytarabine was instilled into the bladder. The flow from the catheter was left clamped. The inflow to the catheter was attached to a 3 L normal saline bag. The patient tolerated the procedure well. They were extubated in the operating room and transferred in stable condition to the recovery area. Mitomycin-C will remain in the bladder for 1 hour. At the completion of 1 hour the clamp will be removed. The mitomycin-C will be allowed to egress to the urine collection bag. The 3 L bag of normal saline will be run at maximum rate through the bladder in order to dilute any residual mitomycin-C. The Andrade catheter will then be removed. Pathology: Bladder fragments Drains: Andrade catheter as above
== END 2023-11-29 12:33 | disposition home or self-care (01) ==
PROVIDERS: PCP Internal Medicine Medical Oncology; Visit Provider Urology
PROC: 0TBB8ZZ Excision of Bladder, Via Natural or Artificial Opening Endoscopic (ICD-10-PCS; CPT 52235; principal; 2023-11-29 08:50)
DX: C67.2 Malignant neoplasm of lateral wall of bladder (principal); I12.9 Hypertensive chronic kidney disease with stage 1 through stage 4 chronic kidney disease, or unspecified chronic kidney disease; N18.9 Chronic kidney disease, unspecified; E78.00 Pure hypercholesterolemia, unspecified; I47.10 Supraventricular tachycardia, unspecified; Z98.890 Other specified postprocedural states; Z79.899 Other long term (current) drug therapy
CPT/HCPCS: 52235; 51720; J1956; J2704; J3010; J9100; J9280

== ENCOUNTER → 2023-11-29 06:42 | Outpatient (BNV) | payer MEDICARE, SELFPAY | PROVIDERS: PCP Internal Medicine Medical Oncology; Visit Provider Urology | DX: C67.2 Malignant neoplasm of lateral wall of bladder (principal) | CPT/HCPCS: 52235 ==

== ENCOUNTER 2023-12-14 14:07 | Outpatient (AMB) | payer MEDICARE, SELFPAY ==
--- NOTE | 2023-12-14 14:12 | A.OFFVIS_ITS ---
Intake Intake Visit Reasons: S/P TURBT follow up(Confirmed) Intake Note: Patient is Present for Follow Up TURBT Urology Medication: Finasteride, Tolterodine, Tamsulosin Antibiotic Allergies: None Blood Thinners:None Allergies No Known Allergies [No Known Allergies*] Allergy (Verified 11/29/23 07:28) HPI HPI Comments History of Present Illness Details Bill is a very pleasant male. He is a patient of Dr. Tanner. He is seen for the following urologic conditions - bladder cancer - lower urinary tract symptoms - urinary urgency and frequency TURBT follow-up. 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 12/17 TURBT fulgerate recurrence - Gemcitabine 3 weeks 09/19 TURBT, distal left ureteric with single dose gemcitabine - 12/21 TURBT multiple small lesions with mitomycin C and cytarabine installation Recurrence Risk per [facility] Intermediate Risk Bladder cancer risk factors Organic Solvent exposure Yes Smoking No - no other exposures Prior Cystoscopy 12/16 small anterior lesion 06/17 - small red area fulgerated on prior resection area 12/17 NAD, 04/18 NAD - 09/19 small lesion left side posterior wall - 12/18 NAD, 06/19 NAD, 11/18 NAD, 04/20 NAD, 10/22 NAD Prior Cytology 12/16 FISH positive 06/17 Cytology + high-grade - 09/19 Atypical, 06/19 NAD, 04/20 NAD. 10/22 NAD Adjuvant therapy gemcitabine three-week boost 12/18, 06/19 Planned treatment - induction therapy Lower Urinary Tract Symptoms: Current visit is for further evaluation of, lower urinary tract symptoms, combination obstructive and urgency Current treatment includes - 10/21 at tolterodine for urgency frequency Prior treatments include 08/16 TURP, finasteride and tamsulosin Prostate Symptom Score 06/16 , Moderate (9-19), Bother 3. Symptoms include 06/16 , incomplete emptying, weak stream, nocturia (>2), and are progressing. Results from testing include renal/bladder us Yes date 06/29/2018 PVR 50 prostate size 50 Prior Prostate Score unknown. PSA 10/18 1.0. Prostate volume 50+gm. o Treatment plan continue with current medications [facility] Medical History Cataract SVT (supraventricular tachycardia) CKD (chronic kidney disease) Cancer Arthritis Hearing loss History of BPH Elevated cholesterol HTN (hypertension) Carpal tunnel syndrome, bilateral Normal colonoscopy Surgical History History of bladder surgery History of transurethral destruction of bladder lesion H/O colonoscopy History of carpal tunnel release of both wrists H/O inguinal hernia repair History of total right knee replacement (TKR) History of left knee replacement Family History Father No problems noted. Mother No problems noted. Social History Household Members: Spouse Housing: House Do you presently have visiting nurse or other home services: No Alcohol intake: never Comment: PT SLEEPING Patient Tobacco Use Status: Never used Tobacco Advance Directives Date on File: 09/18/20 service: Yes Current occupational status: retired Review of Systems Const Denies chills and Denies fever(s) Card Reports no additional complaints and Denies syncope Resp Denies cough GI Denies abdominal pain and Denies heartburn Reports as per HPI and Denies change in libido Neuro Denies syncope Psych Denies change in libido Endo Denies change in libido Physical Exam Const General: cooperative, healthy appearing, comfortable and no acute distress Orientation/consciousness: patient oriented x3 HEENT Face and sinus: Yes normal facial exam Mouth: moist mucous membranes Neck Neck: Yes normal visual inspection, Yes full ROM and Yes trachea midline Chest Chest palpation & inspection: normal inspection of the chest Resp Effort & Inspection: normal respiratory effort, able to speak in complete sentences and no respiratory distress GI Inspection: Yes normal to inspection Back/Spine/Pelvis Cervical Spine: normal cervical lordosis Thoracic/Lumbar Spine: thoracic and lumbar spine normal to inspection Skin General skin exam: no rashes or lesions noted Neuro General: patient oriented x3, gait normal, tone normal and moves all extremities Extrem General: Yes normal to inspection and Yes capillary refill normal Assessment & Plan Assessment & Plan (1) Bladder cancer: Code(s): C67.9 - Malignant neoplasm of bladder, unspecified Plan 5 weeks immunotherapy with check cystoscopy in 6 weeks Patient Instructions: Imaging studies, laboratory and physical exam results were discussed and reviewed in detail. No major barriers to patient understanding were identified. An opportunity to ask questions regarding the treatment plan was provided. All questions were answered. The patient expressed understanding and agreement with the above treatment plan. The patient is aware they should contact our office by phone for worsening of their current condition or the appearance of new urologic symptoms. Compliance is encouraged with any medications and followup testing that is ordered. It is a privilege to participate in the urologic care of your patient. If you have any questions or concerns regarding treatment for the above conditions, or other urologic issues, please do not hesitate to contact me. The office telephone contact is [phone]. This note is constructed using voice recognition software. While every effort has been made to ensure accuracy retail service technician errors may have been included. Yours sincerely, Dr Tong Gentile MD, [facility] - Urology Providers of Expert, Compassionate Care for the Genitourinary System Coding Level of Care Code Est Pt Level 4 (45092) Diagnoses Bladder cancer C67.9
== END 2023-12-14 14:24 | disposition home or self-care (01) ==
PROVIDERS: PCP Internal Medicine Medical Oncology; Visit Provider Urology
DX: C67.9 Malignant neoplasm of bladder, unspecified (principal)
CPT/HCPCS: 99214

== ENCOUNTER → 2023-12-14 14:07 | Outpatient (BNVA) | payer MEDICARE, SELFPAY | PROVIDERS: PCP Internal Medicine Medical Oncology; Visit Provider Urology | DX: C67.9 Malignant neoplasm of bladder, unspecified (principal) | CPT/HCPCS: 99212 ==

== ENCOUNTER 2024-03-14 11:07 | Outpatient (REF) | payer MEDICARE, SELFPAY ==
[2024-03-14 16:38] LABS: Urine Cytology See Pathology rpt
== END 2024-03-14 11:08 | disposition home or self-care (01) ==
LOC: HO.LAB 11:07
PROVIDERS: PCP Internal Medicine Medical Oncology; Visit Provider Urology
DX: C67.9 Malignant neoplasm of bladder, unspecified (principal)
CPT/HCPCS: 52000; 81003; 88112; 99212

== ENCOUNTER 2024-03-14 11:07 | Outpatient (AMB) | payer MEDICARE, SELFPAY ==
--- NOTE | 2024-03-14 11:21 | A.OFFVIS_ITS ---
Intake Visit Reasons: 3M Cysto(Bladder CA) Intake Note: Patient is Present for Cystoscopy Urology Med: Tolterodine, Tamsulosin, Finasteride Antibiotic Allergy: None Blood Thinner: None URO- G Disposable Cystoscope lot: [id number] exp:10/14/26 Allergies No Known Allergies [No Known Allergies*] Allergy (Verified 03/20/24 09:43) HPI Comments Details: Bill is a very pleasant male. He is a patient of Dr. Tanner. 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 12/17 TURBT fulgerate recurrence - Gemcitabine 3 weeks 09/19 TURBT, distal left ureteric with single dose gemcitabine - 12/21 TURBT multiple small lesions with mitomycin C and cytarabine installation Recurrence Risk per [facility] Intermediate Risk Bladder cancer risk factors Organic Solvent exposure Yes Smoking No - no other exposures Prior Cystoscopy 12/16 small anterior lesion 06/17 - small red area fulgerated on prior resection area 12/17 NAD, 04/18 NAD - 09/19 small lesion left side posterior wall - 12/18 NAD, 06/19 NAD, 11/18 NAD, 04/20 NAD, 10/22 NAD Prior Cytology 12/16 FISH positive 06/17 Cytology + high-grade - 09/19 Atypical, 06/19 NAD, 04/20 NAD. 10/22 NAD Adjuvant therapy gemcitabine three-week boost 12/18, 06/19 - Induction [facility]/Cytarabine 12/21 Planned treatment - surveillance Lower Urinary Tract Symptoms: Current visit is for further evaluation of, lower urinary tract symptoms, combination obstructive and urgency Current treatment includes - 10/21 at tolterodine for urgency frequency Prior treatments include 08/16 TURP, finasteride and tamsulosin Prostate Symptom Score 06/16 , Moderate (9-19), Bother 3. Symptoms include 06/16 , incomplete emptying, weak stream, nocturia (>2), and are progressing. Results from testing include renal/bladder us Yes date 06/29/2018 PVR 50 prostate size 50 Prior Prostate Score unknown. PSA 10/18 1.0. Prostate volume 50+gm. o Treatment plan continue with current medications PFSH Medical History (Updated 05/04/24 @ 12:17 by Debbie Padilla RN) [place] (hard of hearing) Basal cell carcinoma Dyspnea on exertion Syncope and collapse Cataract SVT (supraventricular tachycardia) CKD (chronic kidney disease) Cancer Arthritis Hearing loss History of BPH Elevated cholesterol HTN (hypertension) Carpal tunnel syndrome, bilateral Surgical History (Updated 05/04/24 @ 11:59 by Debbie Padilla RN) Hx of right cataract extraction History of bladder surgery History of transurethral destruction of bladder lesion H/O colonoscopy History of carpal tunnel release of both wrists H/O inguinal hernia repair History of total right knee replacement (TKR) History of left knee replacement Family History Father No problems noted. Mother No problems noted. Social History Household Members: Spouse Housing: House Are you a primary career services representative to a significant other at home: No Do you presently have visiting nurse or other home services: No Alcohol intake: never Comment: PT SLEEPING Patient Tobacco Use Status: Never used Tobacco Advance Directives Date on File: 09/18/20 service: Yes Current occupational status: retired Review of Systems Const Denies chills and Denies fever(s) Card Reports no additional complaints and Denies syncope Resp Denies cough GI Denies abdominal pain and Denies heartburn Reports as per HPI and Denies change in libido Neuro Denies syncope Psych Denies change in libido Endo Denies change in libido Physical Exam Const General: cooperative, healthy appearing, comfortable and no acute distress Orientation/consciousness: patient oriented x3 HEENT Face and sinus: Yes normal facial exam Mouth: moist mucous membranes Neck Neck: Yes normal visual inspection, Yes full ROM and Yes trachea midline Chest Chest palpation & inspection: normal inspection of the chest Resp Effort & Inspection: normal respiratory effort, able to speak in complete sentences and no respiratory distress GI Inspection: Yes normal to inspection Back/Spine/Pelvis Cervical Spine: normal cervical lordosis Thoracic/Lumbar Spine: thoracic and lumbar spine normal to inspection Skin General skin exam: no rashes or lesions noted Neuro General: patient oriented x3, gait normal, tone normal and moves all extremities Extrem General: Yes normal to inspection and Yes capillary refill normal Office Procedures Cystoscopy Consent Discussed risk and benefit or proposed procedure with the patient. Information consent for procedure given to the patient. Discussed technical aspects, risks, benefits and alternatives in full. Addressed all of the patient's questions and concerns regarding the procedure. The patient demonstrated knowledge and understanding. They wish to proceed with this procedure. Preparation The patient was prepped in the usual manner. A child center assistant was present and in the room. Genitalia was prepped with betadine solution in a sterile manner. Lidocaine Jelly 2% was placed into the urethra and 16Fr flexible Olympus cystoscope was inserted into the meatus after adequate lubrication. Procedure Cystoscopy performed using a disposable Urovue digital 16 Senegalese cystoscope. Meatus circumcision Urethra anterior and posterior urethra normal Prostatic Urethra open prostate Bladder examination with retroflexion of cystoscope Bladder Orifices normal shape and position Bladder Capacity medium Trabeculations - Cellule Formation - Diverticulum Formation - Mucosal Erythema - Bladder Tumor scarring with possible recurrence [id number] DISPOSABLE SCOPE URO-G FLEXIBLE SCOPE Procedure code (CPT) selection complete Office Meds lidocaine HCl 2 % mucosal jelly in applicator Performing Provider: Tong Gentile MD Performing Location: [facility] Administered by: Shahid Moise RN on 03/14/24 11:45 Dose Route Admin Location Dispensed Lot Number Expiration Date NDC Solution Design Engineer 10 mL intra-urethral 10 mL nitrofurantoin monohydrate/macrocrystals 100 mg capsule Performing Provider: Tong Gentile MD Performing Location: [facility] Administered by: Shahid Moise RN on 03/14/24 11:45 Dose Route Admin Location Dispensed Lot Number Expiration Date NDC Solution Design Engineer 100 mg PO 1 cap naproxen 500 mg tablet Performing Provider: Tong Gentile MD Performing Location: [facility] Administered by: Shahid Moise RN on 03/14/24 11:45 Dose Route Admin Location Dispensed Lot Number Expiration Date NDC Solution Design Engineer 500 mg PO 1 tab Results AMB Urinalysis, Automated UA Leukoctes 0 Violette/uL Last Edit by JUDITH Blue on 03/14/24 11:31 UA Nitrite Negative Last Edit by JUDITH Blue on 03/14/24 11:31 UA Urobilinogen 0.2 mg/dL Last Edit by Sharon Kraus, A on 03/14/24 11:3 1 UA Protein 15 mg/dL Last Edit by Sharon Kraus, RMA on 03/14/24 11:31 UA pH 5.0 Last Edit by Sharon Kraus, RMA on 03/14/24 11:31 UA Blood 10 Alessandro/uL Last Edit by Sharon Kraus, A on 03/14/24 11:31 UA Specific [place] 1.025 Last Edit by Shraon Kraus, RMA on 03/14/24 11: 31 UA Ketone Negative Last Edit by Sharon Kraus A on 03/14/24 11:31 UA Bilirubin 0 mg/dL Last Edit by Sharon Kraus A on 03/14/24 11:31 UA Glucose 0 mg/dL Last Edit by Sharon Kraus A on 03/14/24 11:31 Results Reviewed Results Reviewed: Laboratory Last Values Urine pH (Auto) 5.0 03/14/24 11:22 Specific [place] (Auto) 1.025 03/14/24 11:22 Urine Protein (Auto) 15 mg/dL 03/14/24 11:22 Glucose (UA)(Auto) 0 mg/dL 03/14/24 11:22 Urine Ketones (Auto) Negative 03/14/24 11:22 Urine Blood (Auto) 10 Alessandro/uL 03/14/24 11:22 Urine Nitrite (Auto) Negative 03/14/24 11:22 Urine Bilirubin (Auto) 0 mg/dL 03/14/24 11:22 Urine Urobilinogen (Auto) 0.2 mg/dL 03/14/24 11:22 Leukocyte Esterase (Auto) 0 Violette/uL 03/14/24 11:22 Assessment & Plan Assessment & Plan (1) Bladder cancer: Code(s): C67.9 - Malignant neoplasm of bladder, unspecified Category: Medical (2) BPH loc w urin obs/LUTS: Code(s): N40.1 - Benign prostatic hyperplasia with lower urinary tract symptoms Category: Medical Plan 3m f/u cysto in office Orders: Orders AMB Urinalysis Automated 03/14/24 Z13.9 - Encounter for screening, unspecified AMB Cystoscopy 03/14/24 C67.9 - Malignant neoplasm of bladder, unspecified Urine Cytology 03/14/24 C67.9 - Malignant neoplasm of bladder, unspecified Patient Instructions: Imaging studies, laboratory and physical exam results were discussed and re viewed in detail. No major barriers to patient understanding were identified. An opportunity to ask questions regarding the treatment plan was provided. All questions were answered. The patient expressed understanding and agreement with the above treatment plan. The patient is aware they should contact our office by phone for worsening of their current condition or the appearance of new urologic symptoms. Compliance is encouraged with any medications and followup testing that is ordered. It is a privilege to participate in the urologic care of your patient. If you have any questions or concerns regarding treatment for the above conditions, or other urologic issues, please do not hesitate to contact me. The office telephone contact is [phone]. This note is constructed using voice recognition software. While every effort has been made to ensure accuracy street sweeper errors may have been included. Yours sincerely, Dr Tong Gentile MD, [facility] - Urology Providers of Expert, Compassionate Care for the Genitourinary System Coding Level of Care Code Est Pt Level 3 (03668) Diagnoses Bladder cancer C67.9 BPH loc w urin obs/LUTS N40.1 CPT Codes Cystoscopy - CPT: [id number] ([id number])
== END 2024-03-14 12:07 | disposition home or self-care (01) ==
PROVIDERS: PCP Internal Medicine Medical Oncology; Visit Provider Urology
DX: C67.2 Malignant neoplasm of lateral wall of bladder (principal); Z13.9 Encounter for screening, unspecified
CPT/HCPCS: 52000; 99213

== ENCOUNTER 2024-03-17 08:38 | Outpatient (AMB) | payer MEDICARE, SELFPAY ==
--- NOTE | 2024-03-17 09:52 | A.SPINEOV_ITS ---
Intake Visit Reasons: Lumbar radiculopathy Intake Note: Mr. 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 He has an 88-year-old gentleman who underwent an L3-4, L4-[address] Adrian catalan in 2012, who had good relief of his claudicating leg symptoms at that time. However, over the last few years he has had progressive pain in the lower part of his sacral region radiating down to his buttock into his posterior thighs and calves with standing and walking. He occasionally will get the symptoms at night have to take a Tylenol but in general the symptoms are present in the upright posture and when he is mobilizing. If he sits down, it generally goes away. He has not had any therapy or cortisone injections at this point. He had a lumbar MRI done at [place] showing progressive worsening of spondylolisthesis at L3-4, severe stenosis at L3-4, and moderate to severe stenosis at L2-3. He was sent today for an evaluation. PMH: He is history of hypertension, bladder cancer for which he has had cystoscopies and subsequent removals of tumors periodically with chemotherapy, bilateral knee replacement, rotator cuff surgery twice, hypertension, SVT which has been managed with medication. He denies any heart attacks, strokes, bleeding disorders, major abdominal surgeries, neck surgeries, bleeding disorders blood clots etc.. His medical record however suggests he may have had a spinal cord injury at 1 point. Social hx: He has not smoke or drink Medications: Flomax, lisinopril, metoprolol, finasteride, hydrochlorothiazide, tolterodine Allergies: None Physical exam: He is awake alert oriented no acute distress, here with his , he has mild hand weakness and mild left iliopsoas weakness. Other than that his strength is full. Reflexes 3+ and symmetric, no Smith's, no clonus. He is slow to stand up due to discomfort and pain. Imaging review: There is a lumbar MRI and old x-rays done at [place], this shows he has spondylolisthesis at L3-4 with severe central canal stenosis. There is moderate central canal stenosis at L2-3 as well. L4-5 looks adequately decompressed. There is moderate foraminal stenosis at multiple levels. We sent the patient for flexion-extension x-rays and these show that there is some progression of the spondylolisthesis at L3-4 since 2013, but there is no significant movement with flexion-extension. There is a cervical MRI done at [place] showing severe spinal cord compression at C5-6 but no cord signal change. Impression: 88-year-old male history of an left L3-4, L4-[address] Campbell in 2012 who has had subsequent recurrence of his symptoms with pain in his sacral region going down into his buttocks, posterior thighs and calves with standing walking which gets better when he sits. He has no focal back pain. His MRI shows spondylolisthesis at L3-4 with severe stenosis at L3-4 and moderate to severe at L2-3. We sent the patient for flexion-extension x- rays and this shows there has been some progression of the spondylolisthesis at L3-4 compare to his x-rays done almost 10 years ago but no significant signs of translation with flexion or extension. Therefore Dr. Swenson is willing to offer him bilateral decompression from the right side at L3-4 to avoid the scar tissue from the previous left L3-4 approach. He does not think the L2-3 stenosis is significant enough to warrant surgery. We did also briefly talk about the fact that the patient has a cervical MRI done at [place] showing se geovanna spinal cord compression at C5-6. He does report some issue with fine motor movements of his hands but he has not bothered by any tingling numbness or weakness in his arms. He is really struggling with his mobility in his walking in terms of the pain so we had a maría discussion about the fact that there is some risk when he goes prone his head maybe slightly flexed and there could be some slight risk of causing spinal cord compression to get worse but we do not think it is a high risk. We discussed the possible option of decompressing the C5-6 level 1st with the laminectomy but the patient really has no symptoms and we generally try to avoid preventative surgeries especially on people of his age. The patient understands this and does not want us to address his cervical stenosis at this time, rather he would prefer to address the lumbar stenosis. Pt was given risk and benefits of surgery including but not limited to infection, hematoma , nerve injury,durotomy, weakness,bowel/bladder injury, persistent pain, as well as the option to continue with conservative treatment and patient wishes to proceed with surgery. Pt is aware they should stop their motrin, aspirin 7 days prior to surgery. All questions were answered to the best of our ability. If there is anything about this patients medical history that we have overlooked or concerns you have about us proceeding with surgery we would appreciate any input you can offer. We will need a clearance letter from your office just to say that he is okay to proceed with surgery. Thank you for allowing us to care for your patient. The total time spent with this visit with this patient was 45 minutes reviewing history, physical exam, lumbar imaging review, and implementation of treatment plan or further diagnostic testing Ronal Swenson MD,PhD [facility] Orders: Orders XR lumbar spine 4V min Today M48.061 - Spinal stenosis, lumbar region without neurogenic claudication Coding Level of Care Code New Pt Level 4 (87004) Diagnoses Lumbar stenosis M48.061
== END 2024-03-17 10:49 | disposition home or self-care (01) ==
PROVIDERS: PCP Internal Medicine Medical Oncology; Referring Provider Internal Medicine Medical Oncology; Visit Provider Physician Assistant
DX: M48.061 Spinal stenosis, lumbar region without neurogenic claudication (principal)
CPT/HCPCS: 99204

== ENCOUNTER 2024-03-17 08:38 | Outpatient (REF) | payer MEDICARE, SELFPAY ==
--- NOTE | ~2024-03-17 | XR_ITS ---
EXAMINATION: XR LUMBOSACRAL SPINE WITH OBLIQUES CLINICAL INFORMATION: Spinal stenosis COMPARISON: None available. TECHNIQUE: Neutral AP and lateral views lumbar spine followed by flexion and extension projections. FINDINGS: No acute lumbar compression fracture. Degenerative disc space narrowing at multiple levels, most pronounced L4-L5 and eccentrically at L1-L2. There is multilevel spondylosis. Anterolisthesis noted L3-L4. On the flexion/extension views, there is no appreciable abnormal mobility noted. There is multilevel facet arthrosis. XR/XR lumbar spine 4V min IMPRESSION: 1. No acute compression fracture. Degenerative disc space narrowing at multiple levels. 2. Anterolisthesis L3-L4. No appreciable abnormal mobility on flexion/extension views. 3. Multilevel facet arthrosis.
== END 2024-03-17 08:39 | disposition home or self-care (01) ==
LOC: HO.HOSX 08:38
PROVIDERS: PCP Internal Medicine Medical Oncology; Visit Provider Physician Assistant
DX: M48.061 Spinal stenosis, lumbar region without neurogenic claudication (principal)
CPT/HCPCS: 72110; 99202

== ENCOUNTER 2024-03-20 09:38 | Outpatient (AMB) | payer MEDICARE, SELFPAY ==
--- NOTE | 2024-03-20 09:40 | A.OFFVIS_ITS ---
Vital Signs 03/20/24 09:41 Height 5 ft 6 in Weight 156 lb BMI 25.2 BP 141/67 H Blood Pressure Location Rt brachial Position Sitting Pulse 70 Pulse Source Pulse Oximeter Pulse Oximetry (%) 96 Oxygen Delivery Method Room Air Intake Visit Reasons: Lumbar radiculopathy Allergies No Known Allergies [No Known Allergies*] Allergy (Verified 03/20/24 09:43) Medication List - Last Reconciled 03/20/24 by Kami Ramírez finasteride 5 mg PO DAILY hydrochlorothiazide 12.5 mg PO DAILY levofloxacin 500 mg PO DAILY 5 days lisinopril 10 mg PO DAILY metoprolol succinate ER 25 mg PO DAILY tamsulosin 0.4 mg PO DAILY tolterodine ER 2 mg PO DAILY 90 days HPI HPI Lumbar radiculopathy: Details: 88-year-old male who presents today to the office for an evaluation of lumbar radiculopathy. He underwent endoscopic L3-4 and L4-5 diskectomy/decompression by Dr. Adrian catalan in 2012, and he had good relief from his claudicating leg symptoms at that time. He has a history of hypertension, bladder cancer, for which he has had cystoscopies and subsequent removals of tumors periodically with chemotherapy, bilateral knee replacement, rotator cuff surgery twice, hypertension, and SVT, which have been managed with medication. He has had progressive pain in the lower part of his sacral region radiating down to his buttocks into his posterior thighs and calves with standing and walking that started a few years ago. His symptoms are present in his upright posture and when he is mobilizing. He rates his pain at 5?10/10 in intensity. He describes his pain as an aching, stabbing sensation. It is mostly worsened in the evening, but usually stays constant at baseline as well.? He is unable to get comfortable sleep at night. His pain alleviates when he sits down. He occasionally gets the symptoms at night and has to take Tylenol. He has not had any therapy or cortisone injections at this point. He had a lumbar MRI done at [place], showing progressive worsening of spondylolisthesis at L3-4, severe stenosis at L3-4, and moderate to severe stenosis at L2-3. 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 He is not on blood thinners.? He is scheduled for a right L3-[address] Swenson in April 2024. He was referred to us for consideration of an epidural steroid injection to provide him with some relief in the meantime while he is waiting for the surgery.? [facility] Medical History Cataract SVT (supraventricular tachycardia) CKD (chronic kidney disease) Cancer Arthritis Hearing loss History of BPH Elevated cholesterol HTN (hypertension) Carpal tunnel syndrome, bilateral Normal colonoscopy Surgical History History of bladder surgery History of transurethral destruction of bladder lesion H/O colonoscopy History of carpal tunnel release of both wrists H/O inguinal hernia repair History of total right knee replacement (TKR) History of left knee replacement Family History Father No problems noted. Mother No problems noted. Social History Household Members: Spouse Housing: House Do you presently have visiting nurse or other home services: No Alcohol intake: never Comment: PT SLEEPING Patient Tobacco Use Status: Never used Tobacco Advance Directives Date on File: 09/18/20 service: Yes Current occupational status: retired Review of Systems Const All systems reviewed & are unremarkable except as noted in HPI and below Physical Exam Vital Signs: Last Vital Signs Pulse 70 03/20/24 09:41 BP 141/67 H 03/20/24 09:41 Pulse Ox 96 03/20/24 09:41 Oxygen Delivery Method Room Air 03/20/24 09:41 BMI result Body Mass Index 25.2 General: Appears afebrile. Alert and oriented. Mood and affect appropriate. Follows and participates in conversation appropriately. Respiratory effort is unlabored. Able to transition from sit to stand unassisted. Ambulates with bilaterally normal heel strike and toe off. Standing up reproduces pain in the lower back and right leg area. Straight leg raise is positive on the right side. Results Reviewed Results Reviewed: Review of CT abdomen and pelvis reveals no prior laminectomy defects. Assessment & Plan Assessment & Plan (1) Lumbar stenosis: Code(s): M48.061 - Spinal stenosis, lumbar region without neurogenic claudication Category: Medical (2) Lumbar radiculopathy: Code(s): M54.16 - Radiculopathy, lumbar region Category: Medical Plan He is scheduled for a right L3-[address] Swenson in April 2024. He was referred to us for consideration of an epidural steroid injection to provide him with some relief in the meantime while he is waiting for the surgery.? We will schedule him for a right parasagittal interlaminar L2-3 epidural steroid injection under fluoroscopy. Discussed the risks and benefits of the procedure with the patient in detail. All questions were answered. The patient is on board with the plan. Justification for interventional therapy: ? Patient with average pain > 6/10 ? Patient has exhausted conservative therapy ? Patient unable to tolerate physical therapy due to pain. . Patient has a good understanding of their pain condition and has appropriate mental and social support Scribed for Dr. Chen by Soren Reis, medical device sales consultant, on 03/20/2024. I, Dr. Chen, have personally reviewed and agree with the information entered by the scribe. Coding Level of Care Code New Pt Level 4 (02071) Diagnoses Lumbar stenosis M48.061 Lumbar radiculopathy M54.16
[2024-03-20 09:41] VITALS: BP 141/67; PULSE 70; O2SAT 96; BMI 25.2
== END 2024-03-20 10:31 | disposition home or self-care (01) ==
PROVIDERS: PCP Internal Medicine Medical Oncology; Visit Provider Internal Medicine
DX: M48.061 Spinal stenosis, lumbar region without neurogenic claudication (principal); M54.16 Radiculopathy, lumbar region
CPT/HCPCS: 99204

== ENCOUNTER → 2024-03-20 09:38 | Outpatient (BNVA) | payer MEDICARE, SELFPAY | PROVIDERS: PCP Internal Medicine Medical Oncology; Visit Provider Internal Medicine | DX: M48.061 Spinal stenosis, lumbar region without neurogenic claudication (principal); M54.16 Radiculopathy, lumbar region | CPT/HCPCS: 99202 ==

== ENCOUNTER 2024-03-30 06:29 | Outpatient (REF) | payer MEDICARE, SELFPAY ==
--- NOTE | ~2024-03-30 | FL_ITS ---
EXAMINATION: XR FLUOROSCOPY WITH IMAGES CLINICAL INFORMATION: Lumbar radiculopathy. COMPARISON: CR lumbar spine 03/17/2024. TECHNIQUE: Fluoroscopy provided to: Dr. Chen Fluoroscopy time: 0.1 minutes DAP: 0.0166 mGycm2 Images: 2 FINDINGS: Coned-down spot images lumbar spine, unknown level, show needle in the interlaminar space centrally and subsequent dorsal epidural contrast injection. FL/FL guidance in treatment room IMPRESSION: Fluoroscopic guidance. Please refer to the full operative report for details. Electronically signed by: Amarjit Mancilla MD 05/25/2024 03:37 PM EDT
== END 2024-03-30 06:30 | disposition home or self-care (01) ==
LOC: CF 06:29
PROVIDERS: Visit Provider Internal Medicine
DX: M54.16 Radiculopathy, lumbar region (principal); M48.061 Spinal stenosis, lumbar region without neurogenic claudication
CPT/HCPCS: 62323; J3301; Q9967

== ENCOUNTER 2024-03-30 13:35 | Outpatient (AMB) | payer MEDICARE, SELFPAY ==
--- NOTE | 2024-03-30 13:57 | MHC.OFFVIS ---
Intake Visit Reasons: Right parasagittal interlaminar L2-L3 LONNIE Allergies No Known Allergies [No Known Allergies*] Allergy (Verified 03/20/24 09:43) HPI HPI Right parasagittal interlaminar L2-L3 LONNIE: Details: Patient presents for scheduled procedure. Denies any recent cough, cold, infection, fever or other significant changes in medical history since last office visit. PFS Medical History Cataract SVT (supraventricular tachycardia) CKD (chronic kidney disease) Cancer Arthritis Hearing loss History of BPH Elevated cholesterol HTN (hypertension) Carpal tunnel syndrome, bilateral Normal colonoscopy Surgical History History of bladder surgery History of transurethral destruction of bladder lesion H/O colonoscopy History of carpal tunnel release of both wrists H/O inguinal hernia repair History of total right knee replacement (TKR) History of left knee replacement Family History Father No problems noted. Mother No problems noted. Social History Household Members: Spouse Housing: House Do you presently have visiting nurse or other home services: No Alcohol intake: never Comment: PT SLEEPING Patient Tobacco Use Status: Never used Tobacco Advance Directives Date on File: 09/18/20 service: Yes Current occupational status: retired Office Procedures Joint Injection/Aspiration Joint Injection/Aspiration Details: Interlaminar epidural steroid injection, L2/3, right parasaggital After obtaining written consent, pre-procedure blood pressure and heart rate were stable and recorded in the nursing record. The patient was placed in the prone position. The lumbar area was widely prepped with chloraprep and draped in sterile fashion. Fluoroscopic guidance was used to identify the desired interlaminar space and for needle placement. Subcutaneous 0.5% lidocaine was used to anesthetize the skin overlying the target. A 20-gauge Lei needle was advanced to the epidural space using loss of resistance to contrast technique under fluoroscopic AP and contralateral oblique views. There was no evidence of heme or CSF and no paresthesias were elicited with needle placement. Confirmation of epidural needle placement was performed with 1cc of omnipaque 180. Next 3 ml 0.5% lidocaine mixed with 80 mg triamcinilone was administered epidurally with no pain elicited on injection. The needle tract tubing was then cleared with 1 ml of 0.5% lidocaine. The needle was removed, skin cleansed and a sterile bandage was applied. The patient tolerated the procedure well and no complications were encountered. Following the procedure the patient's vital signs were stable. The patient was discharged home in good condition with post-procedural instructions. Time Out: Immediately prior to the procedure, the following was verbally confirmed that there is a signed consent form and that the correct patient, planned procedure, site and side are consistent with documentation and that necessary equipment and/or blood products are available prior to the start of the case. Complications: none EBL: <2 cc Coding 33647 - Caudal/Lumbar Epidural/Interlaminar with fluoroscopy Procedure code (CPT) selection complete Assessment & Plan Assessment & Plan (1) Lumbar radiculopathy: Code(s): M54.16 - Radiculopathy, lumbar region Category: Medical Plan Patient is status post right parasagittal interlaminar L2-3 LONNIE. Patient tolerated procedure well and was discharged home in stable condition with discharge instructions. All questions were answered. We will follow-up via telephone or in clinic to assess response to therapy. A follow-up appointment was made during today's visit. Coding Level of Care Code Procedure Only Diagnoses Lumbar radiculopathy M54.16 CPT Codes Coding - Joint 11: 20169 - Caudal/Lumbar Epidural/Interlaminar with fluoroscopy ([id number])
== END 2024-03-30 14:11 | disposition home or self-care (01) ==
LOC: HO.PMCPRC 13:35
PROVIDERS: PCP Internal Medicine Medical Oncology; Visit Provider Internal Medicine
DX: M54.16 Radiculopathy, lumbar region (principal)
CPT/HCPCS: 62323

== ENCOUNTER 2024-05-15 09:43 | Outpatient (AMB) | payer MEDICARE, SELFPAY ==
--- NOTE | 2024-05-15 09:48 | MHC.OFFVIS ---
Vital Signs 05/15/24 09:49 Height 5 ft 6 in Weight 156 lb BMI 25.2 BP 130/78 Blood Pressure Location Lt brachial Position Sitting Respiration 14 Pulse 78 Pulse Source Pulse Oximeter Pulse Oximetry (%) 97 Oxygen Delivery Method Room Air Intake Visit Reasons: S/P Right L2-L3 Interlaminar LONNIE Allergies No Known Allergies [No Known Allergies*] Allergy (Verified 06/13/24 09:01) Medication List - Last Reconciled 05/15/24 by Shaista Henderson LPN finasteride 5 mg PO QAM hydrochlorothiazide 12.5 mg PO QAM lisinopril 10 mg PO QAM metoprolol succinate ER 25 mg PO QAM tamsulosin 0.4 mg PO QAM tolterodine ER 2 mg PO QAM HPI HPI S/P Right L2-L3 Interlaminar LONNIE: Details: 88-year-old male who presents today to the office for a status post right L2-L3 interlaminar epidural steroid injection. The patient reports 65% relief following the procedure. He states that he noticed some improvement post injection and was a little more active than before. He was able to walk without any pain. He denies any heavy lifting or bending. He states that he took his pill this morning and tilted his head backward and noticed sharp pain in his lower back and buttock region. He is scheduled for lumbar decompression surgery on 05/18/2024. Past procedures 03/30/2024: Interlaminar epidural steroid injection, L2/3, right parasaggital: 65% relief. [facility] Medical History [place] (hard of hearing) Basal cell carcinoma Dyspnea on exertion Syncope and collapse Cataract SVT (supraventricular tachycardia) CKD (chronic kidney disease) Cancer Arthritis Hearing loss History of BPH Elevated cholesterol HTN (hypertension) Carpal tunnel syndrome, bilateral Surgical History Hx of right cataract extraction History of bladder surgery History of transurethral destruction of bladder lesion H/O colonoscopy History of carpal tunnel release of both wrists H/O inguinal hernia repair History of total right knee replacement (TKR) History of left knee replacement Family History Father No problems noted. Mother No problems noted. Social History Household Members: Spouse Housing: House Are you a primary healthcare business analyst to a significant other at home: No Do you presently have visiting nurse or other home services: No Alcohol intake: never Comment: PT SLEEPING Patient Tobacco Use Status: Never used Tobacco Advance Directives Date on File: 09/18/20 service: Yes Current occupational status: retired Review of Systems Const All systems reviewed & are unremarkable except as noted in HPI and below Physical Exam Vital Signs: Last Vital Signs Pulse 78 05/15/24 09:49 Resp 14 05/15/24 09:49 BP 130/78 05/15/24 09:49 Pulse Ox 97 05/15/24 09:49 Oxygen Delivery Method Room Air 05/15/24 09:49 BMI result Body Mass Index 25.2 General: Appears afebrile. Alert and oriented. Mood and affect appropriate. Follows and participates in conversation appropriately. Respiratory effort is unlabored. Able to transition from sit to stand unassisted. Ambulates with bilaterally normal heel strike and toe off. Results Reviewed Results Reviewed: No imaging is available for review. Assessment & Plan Assessment & Plan (1) Lumbar radiculopathy: Code(s): M54.16 - Radiculopathy, lumbar region Category: Medical (2) Lumbar stenosis: Code(s): M48.061 - Spinal stenosis, lumbar region without neurogenic claudication Category: Medical Plan Adequate response to injection for the interval until scheduled spine surgery as intended. He is scheduled for spinal decompression surgery on 05/18/2024. He will follow up after his surgery as needed. Scribed for Dr. Chen by Soren Reis, hospitalist medical director, on 05/15/2024. I, Dr. Chen, have personally reviewed and agree with the information entered by the scribe. Coding Level of Care Code Est Pt Level 3 (43490) Diagnoses Lumbar radiculopathy M54.16 Lumbar stenosis M48.061
[2024-05-15 09:49] VITALS: BP 130/78; PULSE 78; RESP 14; O2SAT 97; BMI 25.2
== END 2024-05-15 10:05 | disposition home or self-care (01) ==
PROVIDERS: PCP Internal Medicine Medical Oncology; Visit Provider Internal Medicine
DX: M54.16 Radiculopathy, lumbar region (principal); M48.061 Spinal stenosis, lumbar region without neurogenic claudication
CPT/HCPCS: 99213

== ENCOUNTER → 2024-05-15 09:43 | Outpatient (BNVA) | payer MEDICARE, SELFPAY | PROVIDERS: PCP Internal Medicine Medical Oncology; Visit Provider Internal Medicine | DX: M54.16 Radiculopathy, lumbar region (principal); M48.061 Spinal stenosis, lumbar region without neurogenic claudication | CPT/HCPCS: 99212 ==

== ENCOUNTER 2024-05-18 07:27 | Day surgery (SDC) | payer MEDICARE, SELFPAY ==
--- NOTE | 2024-05-04 | ECG_ITS ---
Test Reason : preop Blood Pressure : / mmHG Vent. Rate : 068 BPM Atrial Rate : 068 BPM P-R Int : 194 ms QRS Dur : 086 ms QT Int : 372 ms P-R-T Axes : 037 -14 029 degrees QTc Int : 395 ms Normal sinus rhythm Normal ECG When compared with ECG of 06-MAY-2021 14:54, No significant change was found Referred By: Krysten Finley Electronically Signed By:JIA GARCIA
[2024-05-04 12:02] VITALS: BP 111/63; PULSE 84; RESP 18; O2SAT 96; BMI 24.9
--- NOTE | 2024-05-04 12:17 | P.CONAN_ITS ---
Documented by User: Krysten Finley NP 05/10/24 13:27 HPI - Anesthesia Eval Consult details Narrative: 88yo M for Right L3-4 Decompression, 05/18/24 Medically optimized per PCP No recent illness No CP. Rare [place] Follows [facility] cardiology yearly. Last visit 08/2023. Stable with routine f/u. ? 2020 Hx of cardiac arrest after stress test. ROSC prior to transfer to ER. [facility] Active Problems Active Problems: All Active Problems Lumbar radiculopathy (Acute) Lumbar stenosis (Acute) Urinary urgency (Acute) SOB (shortness of breath) on exertion (Acute) Recurrent UTI (urinary tract infection) (Acute) Central cord synd/C5-C7 (Acute) Syncope (Acute) Shortness of breath (Acute) Nephrolithiasis (Acute) BPH loc w urin obs/LUTS (Acute) Bladder cancer (Acute) Elevated cholesterol (Acute) HTN (hypertension) (Acute) SVT (supraventricular tachycardia) (Acute) Past Medical History Medical History [place] (hard of hearing) Basal cell carcinoma Dyspnea on exertion Syncope and collapse Cataract SVT (supraventricular tachycardia) CKD (chronic kidney disease) Cancer Arthritis Hearing loss History of BPH Elevated cholesterol HTN (hypertension) Carpal tunnel syndrome, bilateral Family History Family History Father No problems noted. Mother No problems noted. Family history of problems with anesthesia: No Surgical History Surgical History Hx of right cataract extraction History of bladder surgery History of transurethral destruction of bladder lesion H/O colonoscopy History of carpal tunnel release of both wrists H/O inguinal hernia repair History of total right knee replacement (TKR) History of left knee replacement History of Problems with Anesthesia: No Social History Social History Household Members: Spouse Housing: House Are you a primary senior resident care director to a significant other at home: No Do you presently have visiting nurse or other home services: No Alcohol intake: never Comment: PT SLEEPING Patient Tobacco Use Status: Never used Tobacco Use of substances other than those prescribed or required for medical reasons: No Have you been hit, kicked, punched, or otherwise hurt by someone within the past year? If so, by whom?: No Are you DNR?: No Advance Directives: Yes ( is HCP) Advance Directives Information Provided: Yes Advance Directives on File: Yes Advance Directives Date on File: 09/18/20 Recently lost weight without trying: No Eating poorly because of decreased appetite: No Nutrition Risks: Surgical patient >75years Poor oral hygiene: No (one broken tooth upper right side) service: Yes Current occupational status: [employer] Allergies Allergy/AdvReac Type Severity Reaction Status Date / Time No Known Allergies Allergy Verified 05/18/24 07:53 [No Known Allergies*] Home Medications ?Medication ?Instructions ?Recorded ?Confirmed ?Last Taken ?Type lisinopril 10 mg tablet 10 mg PO QAM 06/04/20 05/18/24 Unknown History finasteride 5 mg tablet 5 mg PO QAM 09/10/22 05/18/24 05/18/24 History tamsulosin 0.4 mg capsule 0.4 mg PO QAM 09/16/23 05/18/24 05/18/24 History hydrochlorothiazide 12.5 mg tablet 12.5 mg PO QAM 05/04/24 05/18/24 Unknown History metoprolol succinate 25 mg 25 mg PO QAM 05/04/24 05/18/24 Unknown History tablet,extended release 24 hr tolterodine 2 mg capsule,extended 2 mg PO QAM 05/04/24 05/18/24 05/18/24 History release 24 hr Exam Height,Weight and Vital Signs: Height 5 ft 6 in Weight 69.853 kg Last Vital Signs Pulse 84 05/04/24 12:02 Resp 18 05/04/24 12:02 BP 111/63 05/04/24 12:02 Pulse Ox 96 05/04/24 12:02 O2 Del Method Room Air 05/04/24 12:02 Pertinent Lab Results Pertinent Lab Results: Lab Results 05/04/24 Range/Units 12:55 WBC 8.5 (4.8-10.8) X10*3/uL RBC 4.04 L (4.60-5.80) X10*6/uL Hgb 13.6 L (14.0-18.0) g/dl Hct 39.9 L (42.0-52.0) % MCV 98.8 H (80.0-98.0) fL MCH 33.7 H (27.0-33.0) pg MCHC 34.1 (31.0-36.0) g/dl RDW 12.1 (11.0-16.0) % Plt Count 197 (160-400) X10*3/uL MPV 9.2 L (9.4-12.4) fL Absolute Nucleated RBC 0.000 (0.0-0.012) X10*3/uL Nucleated RBC % (auto) 0.0 (0.0-0.2) /100WBC Sodium 143 (135-145) mmol/L Potassium 4.3 (3.3-5.1) mmol/L Chloride 108 (96-108) mmol/L Carbon Dioxide 26 (22-29) mmol/L Anion Gap 13 (12-20) BUN 28 H (9-16) mg/dL Creatinine 1.27 (0.5-1.4) mg/dL Estim Creat Clear Calc 36.9 Estimated GFR 54 Random Glucose 121 H (60-115) mg/dL Calcium 9.9 D (8.4-10.2) mg/dL Narrative Narrative: EKG 04/2024 Vent. Rate : 068 BPM Atrial Rate : 068 BPM P-R Int : 194 ms QRS Dur : 086 ms QT Int : 372 ms P-R-T Axes : 037 -14 029 degrees QTc Int : 395 ms Normal sinus rhythm Normal ECG When compared with ECG of 06-MAY-2021 14:54, No significant change was found Airway Mallampati Class: III TM Dist: >3cm Neck ROM: Full Loose/Missing/Broken Teeth: Yes (broken right upper) Heart: RRR Lungs: CTAB Assessment and Plan Assessment Anesthesia Assessment: Anesthesia Plan Discussed and PAT Visit Final Anesthetic Review Family History of Problems with Anesthesia: No History of Problems with Anesthesia: No Documented by User: Wendy Rodas MD 05/18/24 09:00 [facility] Past Medical History Medical History [place] (hard of hearing) Basal cell carcinoma Dyspnea on exertion Syncope and collapse Cataract SVT (supraventricular tachycardia) CKD (chronic kidney disease) Cancer Arthritis Hearing loss History of BPH Elevated cholesterol HTN (hypertension) Carpal tunnel syndrome, bilateral Family History Family History Father No problems noted. Mother No problems noted. Surgical History Surgical History Hx of right cataract extraction History of bladder surgery History of transurethral destruction of bladder lesion H/O colonoscopy History of carpal tunnel release of both wrists H/O inguinal hernia repair History of total right knee replacement (TKR) History of left knee replacement Social History Social History Household Members: Spouse Housing: House Are you a primary senior resident care director to a significant other at home: No Do you presently have visiting nurse or other home services: No Alcohol intake: never Comment: PT SLEEPING Patient Tobacco Use Status: Never used Tobacco Use of substances other than those prescribed or required for medical reasons: No Have you been hit, kicked, punched, or otherwise hurt by someone within the past year? If so, by whom?: No Are you DNR?: No Advance Directives: Yes ( is HCP) Advance Directives Information Provided: Yes Advance Directives on File: Yes Advance Directives Date on File: 09/18/20 Recently lost weight without trying: No Eating poorly because of decreased appetite: No Nutrition Risks: Surgical patient >75years Poor oral hygiene: No (one broken tooth upper right side) service: Yes Current occupational status: retired Meds Allergies Allergy/AdvReac Type Severity Reaction Status Date / Time No Known Allergies Allergy Verified 05/18/24 07:53 [No Known Allergies*] Home Medications ?Medication ?Instructions ?Recorded ?Confirmed ?Last Taken ?Type lisinopril 10 mg tablet 10 mg PO QAM 06/04/20 05/18/24 Unknown History finasteride 5 mg tablet 5 mg PO QAM 09/10/22 05/18/24 05/18/24 History tamsulosin 0.4 mg capsule 0.4 mg PO QAM 09/16/23 05/18/24 05/18/24 History hydrochlorothiazide 12.5 mg tablet 12.5 mg PO QAM 05/04/24 05/18/24 Unknown History metoprolol succinate 25 mg 25 mg PO QAM 05/04/24 05/18/24 Unknown History tablet,extended release 24 hr tolterodine 2 mg capsule,extended 2 mg PO QAM 05/04/24 05/18/24 05/18/24 History release 24 hr Assessment and Plan Final Anesthetic Review NPO: Yes ASA Class: III Final Preanesthetic Review: No Changes in Pt Med Stat, Meds/Allgs Chart Reviewed, Consent Obtained/Reviewed and Anes Risks/Benef Reviewed Patient Risk: Intermediate Procedure Risk: Intermediate Anesthetic Plan Anesthetic Plan: GA Disposition: Standard PACU
[2024-05-04 13:10] LABS: Hematocrit 39.9 % (42.0-52.0); Hemoglobin 13.6 g/dl (14.0-18.0); Mean Corpuscular HGB Conc 34.1 g/dl (31.0-36.0); Mean Corpuscular Hemoglobin 33.7 pg (27.0-33.0); Mean Corpuscular Volume 98.8 fL (80.0-98.0); Mean Platelet Volume 9.2 fL (9.4-12.4); Platelet Count 197 X10*3/uL (160-400); Red Blood Count 4.04 X10*6/uL (4.60-5.80); Red Cell Distribution Width 12.1 % (11.0-16.0); White Blood Count 8.5 X10*3/uL (4.8-10.8)
[2024-05-04 13:57] LABS: Anion Gap 13 (12-20); Blood Urea Nitrogen 28 mg/dL (9-16); Calcium 9.9 mg/dL (8.4-10.2); Carbon Dioxide 26 mmol/L (22-29); Chloride 108 mmol/L (96-108); Creatinine Clr Calc Pharmacy 36.9; Estimated Glomerular Filt Rate 54; Glucose Random 121 mg/dL (60-115); Potassium 4.3 mmol/L (3.3-5.1); Sodium 143 mmol/L (135-145)
[2024-05-18] VITALS (9 sets, daily range): BP systolic 120–141; BP diastolic 53–66; PULSE 54–90; RESP 12–16; TEMP 36–36.2; O2SAT 93–97
[2024-05-18] MEDS: methocarbamoL 750 MG TABLET PO (08:07)
[2024-05-18] MEDS: Gabapentin 300 MG CAPSULE PO (08:07)
[2024-05-18] MEDS: Lactated Ringers 1,000 ML 100 ML IVCONT (08:22)
--- NOTE | 2024-05-18 08:33 | P.HPSUR_ITS ---
Pre-Procedural Eval Section A - 24 Hr Update-Section A only Date of Service: 05/18/24 The patient is an INPATIENT: No Section B - Complete if H&P > 30 days Chief Complaint: Spinal stenosis, lumbar region without neurogenic Allergies: Allergies Allergy/AdvReac Type Severity Reaction Status Date / Time No Known Allergies Allergy Verified 05/18/24 07:53 [No Known Allergies*] Review of Systems Sugical H&P ROS: Negative: Constitution, Cardiovascular, Respiratory, Neurological, Psychiatric, Hem-Onc, Allergic/Immunologic, Gastrointestinal, Genitourinary, Musculoskeletal, Integumentary, Endocrine and Eyes/Ears/Nose/Throat Exam Surgical H&P Exam: Normal: HEENT, Normal: Heart, Normal: Lungs, Normal: E xtremities, Normal: Abdomen, Normal: Skin and Normal: Neurological (Awake, alert) Plan Diagnosis/Plan: Unchanged I have reviewed the history and physical and performed a pertinent physical examination on my patient. No changes have occurred unless specified. Bilateral L3-4 decompression through a right-sided approach Time Spent With Patient Time: Total time managing care of this patient today __5__ minutes.
--- NOTE | 2024-05-18 08:41 | P.DS_ITS ---
DS: Providers Provider Date of Service: 05/18/24 Date of discharge: 05/18/24 Primary care physician: Bill Tanner MD Admitting clinician: Sonny Swenson DS: Diagnosis Discharge Diagnosis (1) Lumbar stenosis: Status: Acute DS: Summary Time Attestation Discharge Coordination Time (in mins): 4 Quality: Safe Use of Opioids Does Pt have an Active Cancer Diagnosis on the Problem List?: No Quality: Stroke Does the patient have a stroke diagnosis?: No Physical Exam Vital Signs: Vital Signs: Last Vital Signs Temp 96.8 F 05/18/24 08:24 Pulse 62 05/18/24 08:24 Resp 12 05/18/24 08:24 BP 141/66 H 05/18/24 08:24 Pulse Ox 97 05/18/24 08:24 O2 Del Method Room Air 05/18/24 08:24 BMI result Body Mass Index 24.9 DS: Data Data Completed and Pending Completed studies during hospitalization [Text1]: Procedures Dilation of Left Ureter with Intraluminal Device, Via Natural or Artificial Opening Endoscopic (09/14/20) Excision of Bladder, Via Natural or Artificial Opening Endoscopic (09/14/20) Extirpation of Matter from Left Ureter, Via Natural or Artificial Opening Endoscopic (09/14/20) Fluoroscopy of Left Kidney, Ureter and Bladder (09/14/20) Discharge Plan Discharge Patient Disposition: Home, Self-Care Referrals: Bill Tanner MD [Primary Care Provider] - 1 Week Discharge Medications: New tramadol 50 mg tablet 50 mg PO Q6H PRN (Reason: pain) Qty: 20 0RF Continued tolterodine 2 mg capsule,extended release 24hr 2 mg PO QAM metoprolol succinate 25 mg tablet extended release 24 hr 25 mg PO QAM hydrochlorothiazide 12.5 mg tablet 12.5 mg PO QAM lisinopril 10 mg tablet 10 mg PO QAM tamsulosin 0.4 mg capsule 0.4 mg PO QAM finasteride 5 mg tablet 5 mg PO QAM Discharge Orders: Discharge Order (Routine); Ordered 05/18/24 Ordered By: Ronal Berg Diet: Advance to usual diet Activity on Discharge: As tolerated Activity Restrictions/Additional Instructions: After your spinal surgery we ask you to observe the following restrictions/guidelines: Activity: It is normal to feel some discomfort as you increase your activity, but that will improve with time. We ask you avoid heavy lifting or acitivities that cause pain. As a general rule, 8lbs is a safe limit for lifting right after surgery. Walk as much as you feel comfortable but not to exhaustion. You will feel extra tired the first few days after surgery. Stay well hydrated. It is OK to walk up and down stairs You may return to driving when you are off narcotics (such as vicodin, oxycodone, dilaudid, etc), and you are back to normal functional capacity. If you have any concerns please check with office before driving. Return to work is specific to each patient and each surgery, so please speak with your doctor/PA at first follow up. Please bring paperwork such as FMLA at that time if you need it filled out. Medications: For optimum pain control, it is best to start with a combination of 500 mg of Tylenol every 4 hours with 600 mg of Motrin every 8 hours, and use narcotics as needed in between for breakthrough pain. We will give you a short supply of narcotics after surgery (usually one weeks worth). If you need more please call the office but do not use more than pres ribed. You will need to give our office 48 hours notice if you need narcotics refilled and we do not fill narcotics on weekends or evenings. If you are on a narcotic, it is a good idea to take a stool softener such as colace or senna to avoid constipation If you take blood thinner such as aspirin, Plavix, Coumadin, Effient, Eliquis etc for conditions such as Afib, DVT, Pulmonary embolus, coronary disease, stents etc please speak with your surgeon about specific details as to when you can resume these medications. You can resume NSAIDs on post op day 1 (eg: Motrin, Naproxen, etc). Follow up: Please call the office, , after surgery to arrange a 3 week follow up for wound check. Wound Care: You may remove your dressing on the first day after surgery. ?You may ?leave open to air. Please do not remove the steri strips underneath. they will fall off on their own in one week. IT IS NORMAL FOR THE WOUND TO OOZE OR BE BLOODY FOR A FEW DAYS AFTER SURGERY. ?IF THIS HAPPENS JUST PLACE NEW DRESSING OVER IT TO AVOID STAINING CLOTHES. You may shower on post op day # 1 We ask that you do not let the water soak the wound. If it does get wet, just t owel dry lightly. Please do not scrub your incision or place any type of chemical/ointment on the wound. No tub baths, pools or jacuzzis for one month. If you have any leaking or redness from your wound, or fevers, please call office Print Language: Vietnamese
--- NOTE | 2024-05-18 10:55 | P.OP_ITS ---
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 I have explained the nature, purpose and benefits of the operation. I have discussed the risks and benefit of the operation including possible complications or adverse events with patient/family. Alternative(s) were discussed with the patient with their relative benefits and risks as well as the consequences of not accepting the operation were included in obtaining consent. Surgeon: GUERA ROCK MD, PHD Procedure Assisted By: Ronal Kennedy Description of Procedure This 88-year-old male suffering from neurogenic claudication. MRI shows L3-4 lateral recess stenosis bilaterally. He had a previous L3-4 decompression down from the left side and therefore we decided to come from right side to decompress the central canal and lateral recess. Therefore this. The patient was offered a decompression. The procedure complications were explained. The patient was consented. The patient was brought to the operating room and endotracheally intubated. The patient was turned in prone position on the Eduard frame. Prep and drape was done followed by timeout. The Physician dental ceramist assistant provided access. A mid lumbar incision was made followed by release of the paravertebral muscle on the right side to expose the L3-4 lamina and facet joints. An intraoperative x-ray was obtained to confirm the correct level. The microscope was brought in. I took over the procedure. The high-speed drill was used to do a L3-4 laminotomy until flavum ligament was reached. A #2 Kerrison was used to expand the laminotomy near flush to the pedicles and to include a pa rtial facetectomy. The flavum ligament was opened and resected with a #3 Kerrison to decompress the underlying thecal sac. A mixture of synovial cyst and scar tissue was found in the lateral recess on the right side which was removed which led to a decompression of the exiting nerve root and thecal sac. The spinous process was undercut and with a 3. Kerrison I reached over contralaterally to decompress the thecal sac. Significant scar tissue was encountered on the contralateral side and therefore no attempt was made to dissect that due to the risk of a durotomy. The microscope was removed. Hemostasis was done. The physician dental ceramist assistant close the Incision in 2 layers. Steri-Strips were used to approximate incision. An OpSite with Tegaderm was used to cover the incision. All sponge needle counts were correct. Patient was extubated and transported in stable is to recovery room. Anesthesia: General Estimated Blood Loss (ml): 20 Complications: None Duration of Surgery: Under 50 Minutes Postoperative Plan: Discharge to home
== END 2024-05-18 13:49 | disposition home or self-care (01) ==
PROVIDERS: Nurse Practitioner; PCP Internal Medicine Medical Oncology; Visit Provider Neurological Surgery
PROC: (CPT 63047; principal; 2024-05-18 10:30)
DX: M48.062 Spinal stenosis, lumbar region with neurogenic claudication (principal); I10 Essential (primary) hypertension; I47.10 Supraventricular tachycardia, unspecified; C67.9 Malignant neoplasm of bladder, unspecified; Z92.21 Personal history of antineoplastic chemotherapy; Z92.3 Personal history of irradiation; Z79.899 Other long term (current) drug therapy; Z98.890 Other specified postprocedural states
CPT/HCPCS: 63047; 36415; 80048; 85027; 93005; J0131; J0690; J1100; J2405; J2704; J3010

== ENCOUNTER → 2024-05-18 07:27 | Outpatient (BNV) | payer MEDICARE, SELFPAY | PROVIDERS: PCP Internal Medicine Medical Oncology; Visit Provider Neurological Surgery | DX: M48.061 Spinal stenosis, lumbar region without neurogenic claudication (principal) | CPT/HCPCS: 63047; 99499 ==

== ENCOUNTER 2024-06-09 11:42 | Outpatient (AMB) | payer MEDICARE, SELFPAY ==
--- NOTE | 2024-06-09 11:43 | HO.SPINEOV ---
Intake Visit Reasons: 1st post op Intake Note: Mr. Patel is here today for his 1st post-op. Farm Instructor Required: No Allergies No Known Allergies [No Known Allergies*] Allergy (Verified 06/09/24 11:47) Assessment & Plan Assessment & Plan (1) Lumbar stenosis: Code(s): M48.061 - Spinal stenosis, lumbar region without neurogenic claudication Category: Medical Plan Mr Patel is 3 weeks out from his L3-4 decompression. Unfortunately he has not had any relief from the surgery in fact he feels like he may be slightly worse. He gets intense spasms down his legs that has gotten progressively more intense as time has passed since his surgery. I went back and reviewed her operative note and we did find a synovial cyst in addition to the stenosis and thick flavum ligament. He had a spondylolisthesis before surgery but we did not see any evidence of instability with flexion-extension studies. I told him that this could possibly be a situation where he had nerve pain that just did not respond to surgery. I gave him a prescription for gabapentin just to help him get through until we can figure this out a little bit more. I did caution him against driving a told him to test it out and make sure it did not give him too many side effects before he took it 3 times a day. I will tentatively order an MRI for 1 month from now. I will do it at [facility] instead of [facility] as there significant limitations with the [place] MRI machine with its quality. It will be a lumbar MRI with and without adebayo 0. I told him if he does not have the pain any longer just call and cancel it but otherwise we would order it just to see if there is any residual stenosis that can be addressed given he is in so much pain. Ronal Swenson MD, PhD [facility] Orders: Orders MR lumbar spine wo/w con Today M48.061 - Spinal stenosis, lumbar region without neurogenic claudication Medications: New gabapentin 300 mg PO TID 90 caps 0RF Coding Level of Care Code Global (61785) Diagnoses Lumbar stenosis M48.061
== END 2024-06-09 12:08 | disposition home or self-care (01) ==
PROVIDERS: PCP Internal Medicine Medical Oncology; Visit Provider Physician Assistant
DX: M48.061 Spinal stenosis, lumbar region without neurogenic claudication (principal)
CPT/HCPCS: 99024

== ENCOUNTER → 2024-06-09 11:42 | Outpatient (BNVA) | payer MEDICARE, SELFPAY | PROVIDERS: PCP Internal Medicine Medical Oncology; Visit Provider Physician Assistant | DX: Z48.89 Encounter for other specified surgical aftercare (principal); M48.061 Spinal stenosis, lumbar region without neurogenic claudication; Z98.890 Other specified postprocedural states | CPT/HCPCS: 99212 ==

== ENCOUNTER 2024-06-13 08:50 | Outpatient (AMB) | payer MEDICARE, SELFPAY ==
--- NOTE | 2024-06-13 09:00 | MHC.OFFVIS ---
Intake Visit Reasons: Cystoscopy(Bladder Ca) Intake Note: Patient is present for Cystoscopy Urology Medication:TAMSULSOIN, FINASTERIDE Antibiotic Allergy:NONE Blood Thinner:NONE Lot:[id number] Exp:12/08/26 Security Systems Manager Required: No Allergies No Known Allergies [No Known Allergies*] Allergy (Verified 06/13/24 09:01) HPI Comments Details: Bill is a very pleasant male. He is a patient of Dr. Tanner. 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 12/17 TURBT fulgerate recurrence - Gemcitabine 3 weeks 09/19 TURBT, distal left ureteric with single dose gemcitabine - 12/21 TURBT multiple small lesions with mitomycin C and cytarabine installation Recurrence Risk per EORTC Intermediate Risk Bladder cancer risk factors Organic Solvent exposure Yes Smoking No - no other exposures Prior Cystoscopy 12/16 small anterior lesion 06/17 - small red area fulgerated on prior resection area 12/17 NAD, 04/18 NAD - 09/19 small lesion left side posterior wall - 12/18 NAD, 06/19 NAD, 11/18 NAD, 04/20 NAD, 10/22 NAD Prior Cytology 12/16 FISH positive 06/17 Cytology + high-grade - 09/19 Atypical, 06/19 NAD, 04/20 NAD. 10/22 NAD, 03/22 atypical Adjuvant therapy gemcitabine three-week boost 12/18, 06/19 - Induction [facility]/Cytarabine 12/21 Planned treatment - surveillance Lower Urinary Tract Symptoms: Current visit is for further evaluation of, lower urinary tract symptoms, combination obstructive and urgency Current treatment includes - 10/21 at tolterodine for urgency frequency Prior treatments include 08/16 TURP, finasteride and tamsulosin Prostate Symptom Score 06/16 , Moderate (9-19), Bother 3. Symptoms include 06/16 , incomplete emptying, weak stream, nocturia (>2), and are progressing. Results from testing include renal/bladder us Yes date 06/29/2018 PVR 50 prostate size 50 Prior Prostate Score unknown. PSA 10/18 1.0. Prostate volume 50+gm. o Treatment plan continue with current medications PFSH Medical History [place] (hard of hearing) Basal cell carcinoma Dyspnea on exertion Syncope and collapse Cataract SVT (supraventricular tachycardia) CKD (chronic kidney disease) Cancer Arthritis Hearing loss History of BPH Elevated cholesterol HTN (hypertension) Carpal tunnel syndrome, bilateral Surgical History Hx of right cataract extraction History of bladder surgery History of transurethral destruction of bladder lesion H/O colonoscopy History of carpal tunnel release of both wrists H/O inguinal hernia repair History of total right knee replacement (TKR) History of left knee replacement Family History Father No problems noted. Mother No problems noted. Social History Household Members: Spouse Housing: House Are you a primary director of health care marketing to a significant other at home: No Do you presently have visiting nurse or other home services: No Alcohol intake: never Comment: PT SLEEPING Patient Tobacco Use Status: Never used Tobacco Advance Directives Date on File: 09/18/20 service: Yes Current occupational status: retired Review of Systems Const Denies chills and Denies fever(s) Card Reports no additional complaints and Denies syncope Resp Denies cough GI Denies abdominal pain and Denies heartburn Reports as per HPI and Denies change in libido Neuro Denies syncope Psych Denies change in libido Endo Denies change in libido Physical Exam Const General: cooperative, healthy appearing, comfortable and no acute distress Orientation/consciousness: patient oriented x3 HEENT Face and sinus: Yes normal facial exam Mouth: moist mucous membranes Neck Neck: Yes normal visual inspection, Yes full ROM and Yes trachea midline Chest Chest palpation & inspection: normal inspection of the chest Resp Effort & Inspection: normal respiratory effort, able to speak in complete sentences and no respiratory distress GI Inspection: Yes normal to inspection Back/Spine/Pelvis Cervical Spine: normal cervical lordosis Thoracic/Lumbar Spine: thoracic and lumbar spine normal to inspection Skin General skin exam: no rashes or lesions noted Neuro General: patient oriented x3, gait normal, tone normal and moves all extremities Extrem General: Yes normal to inspection and Yes capillary refill normal Office Procedures Cystoscopy Consent Discussed risk and benefit or proposed procedure with the patient. Information consent for procedure given to the patient. Discussed technical aspects, risks, benefits and alternatives in full. Addressed all of the patient's questions and concerns regarding the procedure. The patient demonstrated knowledge and understanding. They wish to proceed with this procedure. Preparation The patient was prepped in the usual manner. A manager of quality was present and in the room. Genitalia was prepped with betadine solution in a sterile manner. Lidocaine Jelly 2% was placed into the urethra and 16Fr flexible Olympus cystoscope was inserted into the meatus after adequate lubrication. Procedure Cystoscopy performed using a disposable Urovue digital 16 Spanish cystoscope. Meatus circumcised Urethra anterior and posterior urethra normal Prostatic Urethra TURP P defect with superficial bladder cancer Bladder examination with retroflexion of cystoscope Bladder Orifices normal shape and position Bladder Capacity normal Trabeculations grade 2 Cellule Formation - Diverticulum Formation - Mucosal Erythema - Bladder Tumor 1 cm lesion prostate edge [id number] DISPOSABLE SCOPE URO-G FLEXIBLE SCOPE Procedure code (CPT) selection complete Office Meds lidocaine HCl 2 % mucosal jelly in applicator Performing Provider: Tong Gentile MD Performing Location: [facility] Administered by: Shahid Moise RN on 06/13/24 09:21 Dose Route Admin Location Dispensed Lot Number Expiration Date NDC Vp Cardiovascular 10 mL intra-urethral 10 mL nitrofurantoin monohydrate/macrocrystals 100 mg capsule Performing Provider: Tong Gentile MD Performing Location: [facility] Administered by: Shahid Moise RN on 06/13/24 09:21 Dose Route Admin Location Dispensed Lot Number Expiration Date NDC Vp Cardiovascular 100 mg PO 1 cap naproxen 500 mg tablet Performing Provider: Tong Gentile MD Performing Location: [facility] Administered by: Shahid Moise RN on 06/13/24 09:21 Dose Route Admin Location Dispensed Lot Number Expiration Date NDC Vp Cardiovascular 500 mg PO 1 tab Results AMB Urinalysis, Automated UA Leukoctes 0 Violette/uL Last Edit by JEFFREY Chung on 06/13/24 09:13 UA Nitrite Negative Last Edit by Memo Alvarado [facility] on 06/13/24 09:13 UA Urobilinogen 0.2 mg/dL Last Edit by Memo Alvarado [facility] on 06/13/24 09:13 UA Protein 15 mg/dL Last Edit by Memo Alvarado [facility] on 06/13/24 09:13 UA pH 5.5 Last Edit by Memo Alvarado [facility] on 06/13/24 09:13 UA Blood 10 Alessandro/uL Last Edit by Memo Alvarado [facility] on 06/13/24 09:13 UA Specific [place] 1.020 Last Edit by Memo Alvarado [facility] on 06/13/24 09:13 UA Ketone Negative Last Edit by Memo Alvarado [facility] on 06/13/24 09:13 UA Bilirubin 0 mg/dL Last Edit by Memo Alvarado [facility] on 06/13/24 09:13 UA Glucose 0 mg/dL Last Edit by Memo Alvarado [facility] on 06/13/24 09:13 Results Reviewed Results Reviewed: Laboratory Last Values Urine pH (Auto) 5.5 06/13/24 09:13 Specific [place] (Auto) 1.020 06/13/24 09:13 Urine Protein (Auto) 15 mg/dL 06/13/24 09:13 Glucose (UA)(Auto) 0 mg/dL 06/13/24 09:13 Urine Ketones (Auto) Negative 06/13/24 09:13 Urine Blood (Auto) 10 Alessandro/uL 06/13/24 09:13 Urine Nitrite (Auto) Negative 06/13/24 09:13 Urine Bilirubin (Auto) 0 mg/dL 06/13/24 09:13 Urine Urobilinogen (Auto) 0.2 mg/dL 06/13/24 09:13 Leukocyte Esterase (Auto) 0 Violette/uL 06/13/24 09:13 Assessment & Plan Assessment & Plan (1) Bladder cancer: Code(s): C67.9 - Malignant neoplasm of bladder, unspecified Category: Medical Plan Risks, benefits and alternatives to therapy were discussed. These include but are not limited to infection, bleeding, damage to local organs and tissues, need for further interventions. Anesthetic risks regarding cardiac arrhythmia, blood clots, and potential mortality were discussed. The patient understands the typical recovery time and the outpatient nature of the procedure. After consideration of these risks the patient gives full informed consent and they wish to move ahead with the procedure. TURBT with mitomycin-C Orders: Orders AMB Urinalysis Automated Today Z13.9 - Encounter for screening, unspecified AMB Cystoscopy Today C67.9 - Malignant neoplasm of bladder, unspecified Patient Instructions: Imaging studies, laboratory and physical exam results were discussed and reviewed in detail. No major barriers to patient understanding were identified. An opportunity to ask questions regarding the treatment plan was provided. All questions were answered. The patient expressed understanding and agreement with the above treatment plan. The patient is aware they should contact our office by phone for worsening of their current condition or the appearance of new urologic symptoms. Compliance is encouraged with any medications and followup testing that is ordered. It is a privilege to participate in the urologic care of your patient. If you have any questions or concerns regarding treatment for the above conditions, or other urologic issues, please do not hesitate to contact me. The office telephone contact is [phone]. This note is constructed using voice recognition software. While every effort has been made to ensure accuracy floating labor gang supervisor errors may have been included. Yours sincerely, Dr Tong Gentile MD, [facility] - Urology Providers of Expert, Compassionate Care for the Genitourinary System Coding Level of Care Code Est Pt Level 4 (01348) Diagnoses Bladder cancer C67.9 CPT Codes Cystoscopy - CPT: [id number] ([id number])
== END 2024-06-13 09:46 | disposition home or self-care (01) ==
PROVIDERS: PCP Internal Medicine Medical Oncology; Visit Provider Urology
DX: C67.2 Malignant neoplasm of lateral wall of bladder (principal)
CPT/HCPCS: 52000; 99214

== ENCOUNTER → 2024-06-13 08:50 | Outpatient (BNVA) | payer MEDICARE, SELFPAY | PROVIDERS: PCP Internal Medicine Medical Oncology; Visit Provider Urology | DX: C67.9 Malignant neoplasm of bladder, unspecified (principal) | CPT/HCPCS: 52000; 81003; 99212 ==

== ENCOUNTER → 2024-06-26 11:25 | Outpatient (BNV) | payer MEDICARE, SELFPAY | PROVIDERS: PCP Internal Medicine Medical Oncology; Visit Provider Urology | DX: C67.5 Malignant neoplasm of bladder neck (principal) | CPT/HCPCS: 52235 ==

== ENCOUNTER → 2024-06-26 11:25 | Day surgery (SDC) | payer MEDICARE, SELFPAY ==
[2024-06-26] VITALS (11 sets, daily range): BP systolic 107–160; BP diastolic 65–77; PULSE 60–74; RESP 14–16; TEMP 36–36.6; O2SAT 99; BMI 25.2
[2024-06-26] MEDS: Lactated Ringers 1,000 ML 50 ML IVCONT (12:27)
--- NOTE | 2024-06-26 12:52 | MHC.SHP ---
Pre-Procedural Eval Section A - 24 Hr Update-Section A only Date of Service: 06/26/24 The patient is an INPATIENT: No Changes since office visit: No Cold of Flu in the past 2 weeks, No New Medical Problems, No Changes in Medication and No Patient answered all questions The patient has been examined within 24 hours of the surgical procedure. The History & Physical has been completed within 30 days and I have reviewed it.: Yes Section B - Complete if H&P > 30 days Chief Complaint: Malignant neoplasm of bladder, unspecified Details of Present Illness: TURBT with immunotherapy Allergies: Allergies Allergy/AdvReac Type Severity Reaction Status Date / Time No Known Allergies Allergy Verified 06/26/24 11:47 [No Known Allergies*] Plan I have reviewed the history and physical and performed a pertinent physical examination on my patient. No changes have occurred unless specified. Time Spent With Patient Time: Total time managing care of this patient today ____ minutes.
--- NOTE | 2024-06-26 12:54 | P.CONAN_ITS ---
HPI - Anesthesia Eval Consult details Narrative: 88 yo male patient for TURBT with mitomycin PMFSH Active Problems Active Problems: All Active Problems Lumbar radiculopathy (Acute) Lumbar stenosis (Acute) Urinary urgency (Acute) SOB (shortness of breath) on exertion (Acute) Recurrent UTI (urinary tract infection) (Acute) Central cord synd/C5-C7 (Acute) Syncope (Acute) Shortness of breath (Acute) Nephrolithiasis (Acute) BPH loc w urin obs/LUTS (Acute) Bladder cancer (Acute) Elevated cholesterol (Acute) HTN (hypertension) (Acute) SVT (supraventricular tachycardia) (Acute) Past Medical History Medical History [place] (hard of hearing) Basal cell carcinoma Dyspnea on exertion Syncope and collapse Cataract SVT (supraventricular tachycardia) CKD (chronic kidney disease) Cancer Arthritis Hearing loss History of BPH Elevated cholesterol HTN (hypertension) Carpal tunnel syndrome, bilateral Family History Family History Father No problems noted. Mother No problems noted. Family history of problems with anesthesia: No Surgical History Surgical History Hx of right cataract extraction History of bladder surgery History of transurethral destruction of bladder lesion H/O colonoscopy History of carpal tunnel release of both wrists H/O inguinal hernia repair History of total right knee replacement (TKR) History of left knee replacement History of Problems with Anesthesia: No Social History Social History Household Members: Spouse Housing: House Are you a primary ostomy care nurse to a significant other at home: No Do you presently have visiting nurse or other home services: No Alcohol intake: never Comment: PT SLEEPING Patient Tobacco Use Status: Never used Tobacco Use of substances other than those prescribed or required for medical reasons: No Have you been hit, kicked, punched, or otherwise hurt by someone within the past year? If so, by whom?: No Are you DNR?: No Advance Directives: No Advance Directives Information Provided: Yes Advance Directives Date on File: 09/18/20 Recently lost weight without trying: No Nutrition Risks: No Nutritional Risk Poor oral hygiene: No service: Yes Current occupational status: retired Meds Allergies Allergy/AdvReac Type Severity Reaction Status Date / Time No Known Allergies Allergy Verified 06/26/24 11:47 [No Known Allergies*] Active Medications: Current Medications Lactated Ringer's (Lr) 1,000 mls @ 50 mls/hr IVCONT .Q20H CRISTELA Last Admin: 06/26/24 12:27 Dose: 50 mls/hr Mitomycin 40 mg/ Cytarabine (200 mg/ Sodium Chloride) 40 mls @ 26.667 mls/hr INTRAVESIC ONCE CRISTELA Stop: 06/26/24 23:59 Lidocaine HCl (Lidocaine Hcl 2 % Urojet 10 Ml Jel.Pf.Chris) 10 ml INTRAVESIC ONCE ONE Stop: 06/26/24 23:59 Home Medications ?Medication ?Instructions ?Recorded ?Confirmed ?Last Taken ?Type lisinopril 10 mg tablet 10 mg PO QAM 06/04/20 06/26/24 06/25/24 History finasteride 5 mg tablet 5 mg PO QAM 09/10/22 06/26/24 06/25/24 History tamsulosin 0.4 mg capsule 0.4 mg PO QAM 09/16/23 06/26/24 06/25/24 History hydrochlorothiazide 12.5 mg tablet 12.5 mg PO QAM 05/04/24 06/26/24 06/25/24 History metoprolol succinate 25 mg 25 mg PO QAM 05/04/24 06/26/24 06/25/24 History tablet,extended release 24 hr tolterodine 2 mg capsule,extended 2 mg PO QAM 05/04/24 06/26/24 06/25/24 History release 24 hr Exam Height,Weight and Vital Signs: Height 5 ft 6 in Weight 70.76 kg Last Vital Signs Temp 96.8 F 06/26/24 12:07 Pulse 65 06/26/24 12:07 Resp 14 06/26/24 12:07 BP 160/72 H 06/26/24 12:07 Pulse Ox 99 06/26/24 12:07 O2 Del Method Room Air 06/26/24 12:07 Airway Mallampati Class: III TM Dist: >3cm Neck ROM: Full Loose/Missing/Broken Teeth: No Heart: RRR Lungs: CTAB Assessment and Plan Assessment Anesthesia Assessment: Anesthesia Plan Discussed and Chart Reviewed Final Anesthetic Review Family History of Problems with Anesthesia: No History of Problems with Anesthesia: No NPO: Yes ASA Class: III Final Preanesthetic Review: No Changes in Pt Med Stat, Meds/Allgs Chart Reviewed, Consent Obtained/Reviewed and Anes Risks/Benef Reviewed Patient Risk: Intermediate Procedure Risk: Low Assessment/Block/Sedation in SS: Assess/Block/Sedation-SS Anesthetic Plan Anesthetic Plan: GA Disposition: Standard PACU
--- NOTE | 2024-06-26 13:56 | P.OP_ITS ---
Operative Note Operative Note Date of Service: 06/26/24 Narrative: PreOperative Diagnosis: bladder cancer Post Operative Diagnosis: bladder cancer - Tumor size 3 cm, location right bladder neck Procedure: TURBT and mitomycin-C with cytarabine Surgeon: Dr Tong Gentile Anesthesia: general Indications for procedure: Recurrent superficial bladder cancer Procedure: After informed consent was verified the patient was brought to the operating room and placed in a supine position. Anesthesia was administered per protocol. The patient was placed in a modified dorsal lithotomy position and prepped and draped in a sterile fashion. Safety pause time-out was performed. Antibiotics were confirmed. A 26 [place] continuous flow resectoscope was inserted per urethra. The visual obturator was used in order to minimize potential for urethral damage. Well healing area on left bladder sidewall. On right bladder neck running between the 07:00 o'clock and 12 o'clock position was superficial bladder cancer. This area was resected and fulgurated. At the completion of the procedure the bladder was irrigated. The cystoscope was removed. A [address] Andrade catheter was inserted into the bladder. 10 cc was placed in the balloon. Mitomycin-C with cytarabine in 80 cc of normal saline was instilled into the bladder. The flow from the catheter was left clamped. The inflow to the catheter was attached to a 3 L normal saline bag. The patient tolerated the procedure well. They were extubated in the operating room and transferred in stable condition to the recovery area. Immunotherapy will remain in the bladder for 1 hour. At the completion of 1 hour the clamp will be removed. The immunotherapy will be allowed to egress to the urine collection bag. The 3 L bag of normal saline will be run at maximum rate through the bladder in order to dilute any residual immunotherapy. The Andrade catheter will then be removed. Pathology: Bladder cancer Drains: As above
== END | disposition home or self-care (01) ==
PROVIDERS: PCP Internal Medicine Medical Oncology; Visit Provider Urology
PROC: 0TBB8ZZ Excision of Bladder, Via Natural or Artificial Opening Endoscopic (ICD-10-PCS; CPT 52235; principal; 2024-06-26 13:00)
DX: C67.5 Malignant neoplasm of bladder neck (principal); R06.09 Other forms of dyspnea; I12.9 Hypertensive chronic kidney disease with stage 1 through stage 4 chronic kidney disease, or unspecified chronic kidney disease; N18.9 Chronic kidney disease, unspecified; I47.10 Supraventricular tachycardia, unspecified; E78.00 Pure hypercholesterolemia, unspecified; Z85.828 Personal history of other malignant neoplasm of skin; Z98.890 Other specified postprocedural states
CPT/HCPCS: 52235; 51720; 88307; J0131; J1956; J2003; J2405; J2704; J9100; J9280

== ENCOUNTER 2024-06-30 14:33 | Outpatient (AMB) | payer MEDICARE, SELFPAY ==
--- NOTE | 2024-06-30 15:24 | A.SPINEOV_ITS ---
Intake Visit Reasons: F/u on MRI Intake Note: Mr. Patle is here to F/u on his MRI results. 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 He is status post L3-4 deco mpression for neurogenic claudication. Unfortunately, he did not respond to the surgery. He tells me that the symptoms severely affect his quality of life. He can hardly walk or stand for any length of time. In addition, there are signs of instability of the lumbar spine as he tells me that changing position produces severe pain in the back radiating down his legs for a few seconds. The new MRI shows ongoing [id number] stenosis at L3-4 due to a grade 2 spondylolisthesis. We knew this would be a possibility but I was trying to avoid a fusion. I reviewed the x-rays of the lumbar spine that show a grade 2 spondylolisthesis and in combination with the new MRI findings, I think this patient needs an oblique lumbar interbody fusion to realign the lumbar spine and to indirectly decompress the nervous structures to address his ongoing symptoms of neurogenic claudication. I spoke to the urologist who states that he will need to receive topical chemotherapy for recurrent bladder cancer but that this will not interfere with the planning of my surgery. I scheduled him for 08/09/2024. I reviewed the procedure possible complications of the hand of a model. All questions were answered satisfactorily. I spent 25 minutes in his consult to discuss my findings and plan of care. Sonny Swenson MD, PhD Spine Fellowship Trained Neurosurgeon Director, [facility] Coding Level of Care Code Global (93387) Diagnoses Spondylolisthesis, lumbar region M43.16 Lumbar stenosis with neurogenic claudication M48.062
== END 2024-06-30 16:12 | disposition home or self-care (01) ==
LOC: HO.HNS 14:33
PROVIDERS: PCP Internal Medicine Medical Oncology; Visit Provider Neurological Surgery
DX: M43.16 Spondylolisthesis, lumbar region (principal); M48.062 Spinal stenosis, lumbar region with neurogenic claudication
CPT/HCPCS: 99024

== ENCOUNTER → 2024-06-30 14:33 | Outpatient (BNVA) | payer MEDICARE, SELFPAY | PROVIDERS: PCP Internal Medicine Medical Oncology; Visit Provider Neurological Surgery | DX: M43.16 Spondylolisthesis, lumbar region (principal); M48.062 Spinal stenosis, lumbar region with neurogenic claudication | CPT/HCPCS: 99212 ==

== ENCOUNTER 2024-07-11 09:36 | Outpatient (AMB) | payer MEDICARE, SELFPAY ==
--- NOTE | 2024-07-11 09:43 | A.OFFVIS_ITS ---
Intake Visit Reasons: TURBT- follow up Intake Note: Patient is present for Telephone TURBT Follow Up Urology Med: Finasteride, Tamsulosin, Tolterodine Antibiotic Allergy: None Blood Thinner: none Last FISH Cytology: 08/2023 Last Urine Cytology: 02/2024 Ring Sorter Required: No Accompanied by: Self / Same As Patient Allergies No Known Allergies [No Known Allergies*] Allergy (Verified 07/11/24 09:44) HPI Comments Details: Bill is a very pleasant male. He is a patient of Dr. Tanner. He is seen for the following urologic conditions - bladder cancer - lower urinary tract symptoms - urinary urgency and frequency Telemedicine Evaluation 15 min Consultation [employer] Video Follow-up from removal of bladder neck recurrent high-grade bladder cancer Repeat induction with 6 weeks mitomycin-C and cytarabine Plan three-month follow-up hour biopsies and fulguration Upper tract imaging Bladder Cancer: 2017 noninvasive low-grade, 2023 small lesions Bladder cancer was initially diagnosed Dr Gentile , 2017 Bladder intervention(s) performed 08/16 , TURBT, Ta noninvasive papillary carcinoma, 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 high grade with micropapillary features Recurrence Risk per EORTC Intermediate Risk Bladder cancer risk factors Organic Solvent exposure Yes Smoking No - no other exposures Prior Cystoscopy 12/16 small anterior lesion 06/17 - small red area fulgerated on prior resection area 12/17 NAD, 04/18 NAD - 09/19 small lesion left side posterior wall - 12/18 NAD, 06/19 NAD, 11/18 NAD, 04/20 NAD, 10/22 NAD Prior Cytology 12/16 FISH positive 06/17 Cytology + high-grade - 09/19 Atypical, 06/19 NAD, 04/20 NAD. 10/22 NAD, 03/22 atypical Adjuvant therapy gemcitabine three-week boost 12/18, 06/19 - Induction MMC/Cytarabine 12/21 Planned treatment - surveillance Lower Urinary Tract Symptoms: Current visit is for further evaluation of, lower urinary tract symptoms, combination obstructive and urgency Current treatment includes - 10/21 at tolterodine for urgency frequency Prior treatments include 08/16 TURP, finasteride and tamsulosin Prostate Symptom Score 06/16 , Moderate (9-19), Bother 3. Symptoms include 06/16 , incomplete emptying, weak stream, nocturia (>2), and are progressing. Results from testing include renal/bladder us Yes date 06/29/2018 PVR 50 prostate size 50 Prior Prostate Score unknown. PSA 10/18 1.0. Prostate volume 50+gm. o Treatment plan continue with current medications PFSH Medical History [place] (hard of hearing) Basal cell carcinoma Dyspnea on exertion Syncope and collapse Cataract SVT (supraventricular tachycardia) CKD (chronic kidney disease) Cancer Arthritis Hearing loss History of BPH Elevated cholesterol HTN (hypertension) Carpal tunnel syndrome, bilateral Surgical History Hx of right cataract extraction History of bladder surgery History of transurethral destruction of bladder lesion H/O colonoscopy History of carpal tunnel release of both wrists H/O inguinal hernia repair History of total right knee replacement (TKR) History of left knee replacement Family History Father No problems noted. Mother No problems noted. Social History Household Members: Spouse Housing: House Are you a primary career development consultant to a significant other at home: No Do you presently have visiting nurse or other home services: No Alcohol intake: never Comment: PT SLEEPING Patient Tobacco Use Status: Never used Tobacco Advance Directives Date on File: 09/18/20 service: Yes Current occupational status: retired Review of Systems Const All systems reviewed & are unremarkable except as noted in HPI and below Reports no additional complaints Resp Reports no additional complaints GI Reports no additional complaints Reports as per HPI Musc Reports no additional complaints Physical Exam Telemedicine evaluation Appropriate responses Regular breathing rate and rhythm HEENT Head: Yes normal to inspection Ears: hearing grossly normal bilaterally Eyes General: appearance normal, both eyes and all related structures Neck Neck: Yes normal visual inspection Chest Chest palpation & inspection: normal inspection of the chest Resp Effort & Inspection: normal respiratory effort and able to speak in complete sentences Telehealth Telehealth Telehealth Platform: [facility] Location of provider rendering services: practice address Location of patient: address on file Patient Identification confirmed using: Name, : Yes Telehealth method: video Patient verbally consented to treatment: Yes Patient verbally consented to billing insurance company: Yes Patient informed of any privacy concerns related to visit: Yes Minutes spent on Phone/Video with Pt.: 15 Assessment & Plan Assessment & Plan (1) Bladder cancer: Code(s): C67.9 - Malignant neoplasm of bladder, unspecified Category: Medical Plan High-grade bladder cancer Need CT urogram 6 week induction immunotherapy Orders: Orders CT urogram Today C67.9 - Malignant neoplasm of bladder, unspecified, R31.0 - Gross hematuria Patient Instructions: Imaging studies, laboratory and physical exam results were discussed and reviewed in detail. No major barriers to patient understanding were identified. An opportunity to ask questions regarding the treatment plan was provided. All questions were answered. The patient expressed understanding and agreement with the above treatment plan. The patient is aware they should contact our office by phone for worsening of their current condition or the appearance of new urologic symptoms. Compliance is encouraged with any medications and followup testing that is ordered. It is a privilege to participate in the urologic care of your patient. If you have any questions or concerns regarding treatment for the above conditions, or other urologic issues, please do not hesitate to contact me. The office telephone contact is [phone]. This note is constructed using voice recognition software. While every effort has been made to ensure accuracy molecular genetic pathologist errors may have been included. Yours sincerely, Dr Tong Gentile MD, [facility] - Urology Providers of Expert, Compassionate Care for the Genitourinary System Coding Level of Care Code Tele Est Pt Level 4 (68151) Diagnoses Bladder cancer C67.9
== END 2024-07-11 10:31 | disposition home or self-care (01) ==
LOC: HO.HUSH 09:36
PROVIDERS: PCP Internal Medicine Medical Oncology; Visit Provider Urology
DX: C67.9 Malignant neoplasm of bladder, unspecified (principal)
CPT/HCPCS: 99214

== ENCOUNTER → 2024-07-11 09:36 | Outpatient (BNVA) | payer MEDICARE, SELFPAY | PROVIDERS: PCP Internal Medicine Medical Oncology; Visit Provider Urology ==

== ENCOUNTER 2024-07-20 08:02 | Outpatient (REF) | payer MEDICARE, SELFPAY | END 2024-07-20 08:03 | disposition home or self-care (01) | LOC: CF 08:02 | PROVIDERS: Visit Provider Internal Medicine | DX: M48.061 Spinal stenosis, lumbar region without neurogenic claudication (principal); M54.16 Radiculopathy, lumbar region | CPT/HCPCS: 62323; J2003; J3301; Q9967 ==

== ENCOUNTER 2024-07-20 10:30 | Outpatient (AMB) | payer MEDICARE, SELFPAY ==
[2024-07-20 11:27] VITALS: BP 144/72; PULSE 70; O2SAT 98
--- NOTE | 2024-07-20 11:27 | A.OFFVIS_ITS ---
Vital Signs 07/20/24 11:27 07/20/24 12:09 BP 144/72 H 139/65 Blood Pressure Location Rt brachial Lt brachial Position Sitting Sitting Pulse 70 71 Pulse Source Pulse Oximeter Pulse Oximeter Pulse Oximetry (%) 98 98 Oxygen Delivery Method Room Air Room Air Intake Visit Reasons: right L2-L3 parasagittal interlaminar LONNIE Allergies No Known Allergies [No Known Allergies*] Allergy (Verified 07/11/24 09:44) HPI HPI right L2-L3 parasagittal interlaminar LONNIE: Details: Patient presents for scheduled procedure. Denies any recent cough, cold, infection, fever or other significant changes in medical history since last office visit. PFSH Medical History (Updated 07/24/24 @ 10:23 by Debbie Padilla RN) [place] (hard of hearing) Basal cell carcinoma Dyspnea on exertion Syncope and collapse SVT (supraventricular tachycardia) CKD (chronic kidney disease) Cancer Arthritis Hearing loss History of BPH Elevated cholesterol HTN (hypertension) Carpal tunnel syndrome, bilateral Surgical History (Updated 07/24/24 @ 10:28 by Debbie Padilla RN) History of back surgery Hx of right cataract extraction History of bladder surgery History of transurethral destruction of bladder lesion H/O colonoscopy History of carpal tunnel release of both wrists H/O inguinal hernia repair History of total right knee replacement (TKR) History of left knee replacement Family History Father No problems noted. Mother No problems noted. Social History Household Members: Spouse Housing: House Are you a primary infant caregiver to a significant other at home: No Do you presently have visiting nurse or other home services: No Alcohol intake: never Comment: PT SLEEPING Patient Tobacco Use Status: Never used Tobacco Advance Directives Date on File: 09/18/20 service: Yes Current occupational status: retired Physical Exam Vital Signs: Last Vital Signs Pulse 71 07/20/24 12:09 BP 139/65 07/20/24 12:09 Pulse Ox 98 07/20/24 12:09 Oxygen Delivery Method Room Air 07/20/24 12:09 Office Procedures AMB Joint Injection/Aspiration Joint Injection/Aspiration Details: Interlaminar epidural steroid injection, L2-3, right parasaggital After obtaining written consent, pre-procedure blood pressure and heart rate were stable and recorded in the nursing record. The patient was placed in the prone position. The lumbar area was widely prepped with chloraprep and draped in sterile fashion. Fluoroscopic guidance was used to identify the desired interlaminar space and for needle placement. Subcutaneous 0.5% lidocaine was used to anesthetize the skin overlying the target. A 20-gauge Lei needle was advanced to the epidural space using loss of resistance to contrast technique under fluoroscopic AP and contralateral oblique views. There was no evidence of heme or CSF and no paresthesias were elicited with needle placement. Confirmation of epidural needle placement was performed with 1cc of omnipaque 180. Next 3 ml 0.5% lidocaine mixed with 80 mg triamcinilone was administered epidurally with no pain elicited on injection. The needle tract tubing was then cleared with 1 ml of 0.5% lidocaine. The needle was removed, skin cleansed and a sterile bandage was applied. The patient tolerated the procedure well and no complications were encountered. Following the procedure the patient's vital signs were stable. The patient was discharged home in good condition with post-procedural instructions. Time Out: Immediately prior to the procedure, the following was verbally confirmed that there is a signed consent form and that the correct patient, planned procedure, site and side are consistent with documentation and that necessary equipment and/or blood products are available prior to the start of the case. Complications: none EBL: <2 cc Coding 43300 - Caudal/Lumbar Epidural/Interlaminar with fluoroscopy Procedure code (CPT) selection complete Assessment & Plan Assessment & Plan (1) Lumbar radiculopathy: Code(s): M54.16 - Radiculopathy, lumbar region Category: Medical Plan Patient is status post right parasagittal interlaminar L2-3 LONNIE. Patient tolerated procedure well and was discharged home in stable condition with discharge instructions. All questions were answered. We will follow-up via telephone or in clinic to assess response to therapy. A follow-up appointment was made during today's visit. Orders: Orders FL guidance in treatment room 07/20/24 M48.061 - Spinal stenosis, lumbar region without neurogenic claudication Coding Level of Care Code Procedure Only Diagnoses Lumbar radiculopathy M54.16 CPT Codes Coding - Joint 11: 82630 - Caudal/Lumbar Epidural/Interlaminar with fluoroscopy ([id number])
[2024-07-20 12:09] VITALS: BP 139/65; PULSE 71; O2SAT 98
== END 2024-07-20 12:13 | disposition home or self-care (01) ==
LOC: HO.PMCPRC 10:30
PROVIDERS: PCP Internal Medicine Medical Oncology; Visit Provider Internal Medicine
DX: M54.16 Radiculopathy, lumbar region (principal)
CPT/HCPCS: 62323

== ENCOUNTER 2024-08-09 06:37 | Inpatient (IN) | payer MEDICARE, SELFPAY ==
[2024-07-25 12:17] VITALS: BP 136/64; PULSE 69; RESP 18; O2SAT 97; BMI 25.2
--- NOTE | 2024-07-25 12:28 | P.CONAN_ITS ---
Documented by User: Krysten Finley NP 07/25/24 12:30 HPI - Anesthesia Eval Consult details Narrative: 88yo M for L3-4 Oblique Lumbar Interbody Fusion, 08/09/24 s/p Lumbar decompression 04/2024 with GA-ETT 7 s/p TURBT 05/2024 with GA-LMA 4 Per previous PAT Follows [facility] [place] cardiology yearly. Last visit 08/2023. Stable with routine f/u. ? 2020 Hx of cardiac arrest after stress test. ROSC prior to transfer to ER. [facility] Active Problems Active Problems: All Active Problems Lumbar stenosis with neurogenic claudication (Acute) Spondylolisthesis, lumbar region (Acute) Lumbar radiculopathy (Acute) Lumbar stenosis (Acute) Urinary urgency (Acute) SOB (shortness of breath) on exertion (Acute) Recurrent UTI (urinary tract infection) (Acute) Central cord synd/C5-C7 (Acute) Syncope (Acute) Shortness of breath (Acute) Nephrolithiasis (Acute) BPH loc w urin obs/LUTS (Acute) Bladder cancer (Acute) Elevated cholesterol (Acute) HTN (hypertension) (Acute) SVT (supraventricular tachycardia) (Acute) Past Medical History Medical History [place] (hard of hearing) Basal cell carcinoma Dyspnea on exertion Syncope and collapse SVT (supraventricular tachycardia) CKD (chronic kidney disease) Cancer Arthritis Hearing loss History of BPH Elevated cholesterol HTN (hypertension) Carpal tunnel syndrome, bilateral Family History Family History Father No problems noted. Mother No problems noted. Family history of problems with anesthesia: No Surgical History Surgical History History of back surgery Hx of right cataract extraction History of bladder surgery History of transurethral destruction of bladder lesion H/O colonoscopy History of carpal tunnel release of both wrists H/O inguinal hernia repair History of total right knee replacement (TKR) History of left knee replacement History of Problems with Anesthesia: No Social History Social History Household Members: Spouse Housing: House Are you a primary healthcare project manager to a significant other at home: No Do you presently have visiting nurse or other home services: No Alcohol intake: never Comment: occasional use of cane Patient Tobacco Use Status: Never used Tobacco Use of substances other than those prescribed or required for medical reasons: No Have you been hit, kicked, punched, or otherwise hurt by someone within the past year? If so, by whom?: No Spiritual Healthcare Practices: none Cheondoism Healthcare Practices: Cheondoism Cultural Healthcare Practices: none Are you DNR?: No Advance Directives: Yes ( is HCP) Advance Directives Information Provided: Yes Advance Directives on File: Yes Advance Directives Date on File: 09/18/20 Recently lost weight without trying: No Eating poorly because of decreased appetite: No Nutrition Risks: Surgical patient >75years Poor oral hygiene: No (one broken tooth upper right side) service: Yes Current occupational status: retired [employer] Allergies Allergy/AdvReac Type Severity Reaction Status Date / Time No Known Allergies Allergy Verified 08/09/24 06:15 [No Known Allergies*] Home Medications ?Medication ?Instructions ?Recorded ?Confirmed ?Last Taken ?Type lisinopril 10 mg tablet 10 mg PO QAM 06/04/20 07/24/24 06/25/24 History finasteride 5 mg tablet 5 mg PO QAM 09/10/22 08/09/24 08/09/24 06:16 History tamsulosin 0.4 mg capsule 0.4 mg PO QAM 09/16/23 08/09/24 08/09/24 06:16 History hydrochlorothiazide 12.5 mg tablet 12.5 mg PO QAM 05/04/24 07/24/24 06/25/24 History metoprolol succinate 25 mg 25 mg PO QAM 05/04/24 08/09/24 08/09/24 06:16 History tablet,extended release 24 hr tolterodine 2 mg capsule,extended 2 mg PO QAM 05/04/24 08/09/24 08/09/24 06:16 History release 24 hr ibuprofen 200 mg tablet 400 mg PO Q6H PRN Back Pain 07/25/24 07/25/24 Unknown History Exam Height,Weight and Vital Signs: Height 5 ft 6 in Weight 70.76 kg Last Vital Signs Pulse 69 07/25/24 12:17 Resp 18 07/25/24 12:17 BP 136/64 07/25/24 12:17 Pulse Ox 97 07/25/24 12:17 O2 Del Method Room Air 07/25/24 12:17 Pertinent Lab Results Pertinent Lab Results: Lab Results 05/04/24 Range/Units 12:55 WBC 8.5 (4.8-10.8) X10*3/uL RBC 4.04 L (4.60-5.80) X10*6/uL Hgb 13.6 L (14.0-18.0) g/dl Hct 39.9 L (42.0-52.0) % MCV 98.8 H (80.0-98.0) fL MCH 33.7 H (27.0-33.0) pg MCHC 34.1 (31.0-36.0) g/dl RDW 12.1 (11.0-16.0) % Plt Count 197 (160-400) X10*3/uL MPV 9.2 L (9.4-12.4) fL Absolute Nucleated RBC 0.000 (0.0-0.012) X10*3/uL Nucleated RBC % (auto) 0.0 (0.0-0.2) /100WBC Sodium 143 (135-145) mmol/L Potassium 4.3 (3.3-5.1) mmol/L Chloride 108 (96-108) mmol/L Carbon Dioxide 26 (22-29) mmol/L Anion Gap 13 (12-20) BUN 28 H (9-16) mg/dL Creatinine 1.27 (0.5-1.4) mg/dL Estim Creat Clear Calc 36.9 Estimated GFR 54 Random Glucose 121 H (60-115) mg/dL Calcium 9.9 D (8.4-10.2) mg/dL Narrative Narrative: EKG 04/2024 Vent. Rate : 068 BPM Atrial Rate : 068 BPM P-R Int : 194 ms QRS Dur : 086 ms QT Int : 372 ms P-R-T Axes : 037 -14 029 degrees QTc Int : 395 ms Normal sinus rhythm Normal ECG When compared with ECG of 06-MAY-2021 14:54, No significant change was found Assessment and Plan Assessment Anesthesia Assessment: Chart Reviewed Final Anesthetic Review Family History of Problems with Anesthesia: No History of Problems with Anesthesia: No Documented by User: Michelle Reddy MD 08/09/24 07:15 PMFSH Past Medical History Medical History [place] (hard of hearing) Basal cell carcinoma Dyspnea on exertion Syncope and collapse SVT (supraventricular tachycardia) CKD (chronic kidney disease) Cancer Arthritis Hearing loss History of BPH Elevated cholesterol HTN (hypertension) Carpal tunnel syndrome, bilateral Family History Family History Father No problems noted. Mother No problems noted. Surgical History Surgical History History of back surgery Hx of right cataract extraction History of bladder surgery History of transurethral destruction of bladder lesion H/O colonoscopy History of carpal tunnel release of both wrists H/O inguinal hernia repair History of total right knee replacement (TKR) History of left knee replacement Social History Social History Household Members: Spouse Housing: House Are you a primary healthcare project manager to a significant other at home: No Do you presently have visiting nurse or other home services: No Alcohol intake: never Comment: occasional use of cane Patient Tobacco Use Status: Never used Tobacco Use of substances other than those prescribed or required for medical reasons: No Have you been hit, kicked, punched, or otherwise hurt by someone within the past year? If so, by whom?: No Spiritual Healthcare Practices: none Cheondoism Healthcare Practices: Cheondoism Cultural Healthcare Practices: none Are you DNR?: No Advance Directives: Yes ( is HCP) Advance Directives Information Provided: Yes Advance Directives on File: Yes Advance Directives Date on File: 09/18/20 Recently lost weight without trying: No Eating poorly because of decreased appetite: No Nutrition Risks: Surgical patient >75years Poor oral hygiene: No (one broken tooth upper right side) service: Yes Current occupational status: retired Meds Allergies Allergy/AdvReac Type Severity Reaction Status Date / Time No Known Allergies Allergy Verified 08/09/24 06:15 [No Known Allergies*] Home Medications ?Medication ?Instructions ?Recorded ?Confirmed ?Last Taken ?Type lisinopril 10 mg tablet 10 mg PO QAM 06/04/20 07/24/24 06/25/24 History finasteride 5 mg tablet 5 mg PO QAM 09/10/22 08/09/24 08/09/24 06:16 History tamsulosin 0.4 mg capsule 0.4 mg PO QAM 09/16/23 08/09/24 08/09/24 06:16 History hydrochlorothiazide 12.5 mg tablet 12.5 mg PO QAM 05/04/24 07/24/24 06/25/24 History metoprolol succinate 25 mg 25 mg PO QAM 05/04/24 08/09/24 08/09/24 06:16 History tablet,extended release 24 hr tolterodine 2 mg capsule,extended 2 mg PO QAM 05/04/24 08/09/24 08/09/24 06:16 History release 24 hr ibuprofen 200 mg tablet 400 mg PO Q6H PRN Back Pain 07/25/24 07/25/24 Unknown History Exam Airway Mallampati Class: II TM Dist: >3cm Neck ROM: Full Heart: rrr Lungs: cta Assessment and Plan Assessment Anesthesia Assessment: Anesthesia Plan Discussed Final Anesthetic Review NPO: Yes ASA Class: III Final Preanesthetic Review: No Changes in Pt Med Stat, Meds/Allgs Chart Reviewed and Consent Obtained/Reviewed Patient Risk: Intermediate Procedure Risk: Intermediate Anesthetic Plan Anesthetic Plan: GA Disposition: Standard PACU
[2024-08-09] VITALS (12 sets, daily range): BP systolic 112–139; BP diastolic 56–73; PULSE 64–83; RESP 16; TEMP 36.1–36.5; O2SAT 95–99; BMI 25.8
[2024-08-09] MEDS: Gabapentin 300 MG CAPSULE PO ×3 (06:37→19:12)
[2024-08-09] MEDS: methocarbamoL 750 MG TABLET PO ×2 (06:37→12:21)
[2024-08-09] MEDS: Lactated Ringers 1,000 ML 100 ML IVCONT (06:37)
--- NOTE | 2024-08-09 07:01 | MHC.SHP ---
Pre-Procedural Eval Section A - 24 Hr Update-Section A only Date of Service: 08/09/24 Section B - Complete if H&P > 30 days Chief Complaint: s/p L3-4 OLIF Allergies: Allergies Allergy/AdvReac Type Severity Reaction Status Date / Time No Known Allergies Allergy Verified 08/09/24 06:15 [No Known Allergies*] Review of Systems Sugical H&P ROS: Negative: Constitution, Cardiovascular, Respiratory, Neurological, Psychiatric, Hem-Onc, Allergic/Immunologic, Gastrointestinal, Genitourinary, Musculoskeletal, Integumentary, Endocrine and Eyes/Ears/Nose/Throat Exam Surgical H&P Exam: Not Evaluated: HEENT, Not Evaluated: Heart, Not Evaluated: Lungs, Not Evaluated: Extremities, Not Evaluated: Abdomen, Not Evaluated: Skin and Not Evaluated: Neurological Exam Comment: Patient is awake, alert in no acute distress on exam. Proposed surgical incision site is clean & dry with no evidence of recent surgery or injury. Plan Diagnosis/Plan: Unchanged I have reviewed the history and physical and performed a pertinent physical examination on my patient. No changes have occurred unless specified. Plan remains the same, L3-4 OLIF. Time Spent With Patient Time: Total time managing care of this patient today _15___ minutes.
--- NOTE | 2024-08-09 09:22 | P.OP_ITS ---
Operative Note Operative Note Date of Service: 08/09/24 Narrative: Preop Diagnosis: 1.) L3-4 lumbar spondylolisthesis 2.) Lumbar spinal stenosis with neurogenic claudication and back pain Procedure: 1) L3-4 discectomy, arthrodesis and implantation cage through an anterolateral, retroperitoneal approach 2) L3-4 posterior instrumented fusion 3) allograft 4) injection of 10 cc of Exparel at the bilateral L5 transverse process for a muscular erector spinae block and additional Exparel in paravertebral tissue for postop management Consent Informed Consent was obtained for this operation. I have explained the nature, purpose and benefits of the operation. I have discussed the risks and benefit of the operation including possible complications or adverse events with patient/family. Alternative(s) were discussed with the patient with their relative benefits and risks as well as the consequences of not accepting the operation were included in obtaining consent. Surgeon: GUERA ROCK MD, PHD Procedure Assisted By: Misha Chu PA-C Description of Procedure This 88-year-old male had a previous lumbar decompression done. Images reviewed a progression of the L3-4 spondylolisthesis and ongoing severe spinal stenosis. The patient was offered an oblique lumbar interbody fusion L3-4. The procedure complications were explained. The patient was consented. The patient was brought to the operating room and endotracheally intubated. The patient was turned in a lateral position with the left side up. Prep and drape was done followed by timeout. A small incision was made in the left lower abdominal quadrant. The muscle fascia was opened after which the 3 muscle layer was split to enter the retroperitoneal space. Dilators were docked in the anterior one third of the L3- 4 disc space followed by a retractor. The retractor was opened. The L3-4 disc space was exposed. An annulotomy was done after which an elevator Westfall was used to release the disc material from its endplates and to perforate the contralateral side. A partial discectomy was done. An 8 mm and 12 with 6 degree lordosis height trial implant was inserted. The discectomy was completed. The endplates were prepared. An 12 x 50 mm with 6 degree lordosis 4 web cage filled with allograft was inserted into the disc space under fluoroscopic guidance. This resulted in correction of the lumbar spondylolisthesis. The retractor was removed. Hemostasis was done. The incision was closed in 2 layers. Steri-Strips used to approximate incision. An OpSite with Tegaderm was used to cover the incision. This marked first part of the procedure. The patient was turned prone on the Lamont spine table. 2C arms were installed for fluoroscopy. Prep and drape was done followed by a second timeout. injection of 10 cc of Exparel at the bilateral L5 transverse process for a muscular erector spinae block. Two paramedian incisions were made lateral from the L3 and L4 pedicles. The muscle fascia was opened after which the muscle layer was split bluntly to expose the posterolateral gutter. The following steps were taken. A pediguard tap was used to create a transpedicular trajectory into the vertebral body. A K wire was placed. A specially designed instrument was advanced over the K wire to decorticate the posterolateral gutter in preparation for the posterolateral fusion. A pedicle screw was advanced over the K wire and the K wire was removed. The steps were done for the bilateral L3 and L4 pedicles. A total of 4 screws were placed with a diameter of 6.5 x 50mm. Pedicle screws were connected with 45 mm aung bilaterally and locked down with locking caps. The extension towers were removed. The posterolateral gutter was filled with allograft to complete the posterolateral L3-4 fusion Hemostasis was done and the incision was closed in 2 layers. Steri-Strips were used to approximate the incision. An OpSite were taken and was used to cover the incision. All sponge and needle counts were correct. Patient was extubated and transferred in stable is to recovery room. Anesthesia: General Estimated Blood Loss (ml): 30 mL Duration of Surgery: 90 minutes Complications: None Postoperative Plan: Admit to inpatient for observation
--- NOTE | 2024-08-09 09:37 | P.DS_ITS ---
DS: Providers Provider Date of Service: 08/10/24 Date of admission: 08/09/24 06:37 Primary care physician: Bill Tanner MD DS: Summary Time Attestation Discharge Coordination Time (in mins): 15 Quality: Safe Use of Opioids Does Pt have an Active Cancer Diagnosis on the Problem List?: No Quality: Stroke Does the patient have a stroke diagnosis?: No Physical Exam Vital Signs: Vital Signs: Last Vital Signs Temp 97.3 F 08/09/24 06:28 Pulse 75 08/09/24 06:28 Resp 16 08/09/24 06:28 BP 131/64 08/09/24 06:28 Pulse Ox 95 08/09/24 06:28 O2 Del Method Room Air 08/09/24 06:28 BMI result Body Mass Index 25.2 DS: Data Data Completed and Pending Completed studies during hospitalization [Text1]: Procedures Dilation of Left Ureter with Intraluminal Device, Via Natural or Artificial Opening Endoscopic (09/14/20) Excision of Bladder, Via Natural or Artificial Opening Endoscopic (09/14/20) Extirpation of Matter from Left Ureter, Via Natural or Artificial Opening Endoscopic (09/14/20) Fluoroscopy of Left Kidney, Ureter and Bladder (09/14/20) Discharge Plan Discharge Anticipated Discharge Date/Time: 08/10/24 09:08 Patient Disposition: Home, Self-Care Discharge Diagnosis: s/p L3-4 OLIF Referrals: Bill Tanner MD [Primary Care Provider] - 1 Week Discharge Medications: New oxycodone 5 mg tablet See Rx Instructions .ROUTE .COMPLEX PRN (Reason: severe pain (scale score 7- 10)) Qty: 30 0RF Rx Instructions: Take 1-2 tablets by mouth every 4 hours. Partial Fill upon patient request. Continued ibuprofen 200 mg Tablet 400 mg PO Q6H PRN (Reason: Back Pain) tolterodine 2 mg capsule,extended release 24hr 2 mg PO QAM metoprolol succinate 25 mg tablet extended release 24 hr 25 mg PO QAM hydrochlorothiazide 12.5 mg tablet 12.5 mg PO QAM lisinopril 10 mg tablet 10 mg PO QAM tamsulosin 0.4 mg capsule 0.4 mg PO QAM finasteride 5 mg tablet 5 mg PO QAM gabapentin 300 mg capsule 300 mg PO TID Qty: 90 0RF Discharge Orders: Discharge Order (Routine); Ordered 08/10/24 Ordered By: Misha Chu Diet: Advance to usual diet Activity on Discharge: As tolerated Stand Alone Forms: Patient Portal Discharge page Print Language: Occitan Care Plan Goals: Return to normal activity as tolerated. Health Concerns: None. Plan of Treatment: Follow-up in clinic in 2-3 weeks. Assessment: POD: 1 Procedure: L3-4 OLIF Bill is a pleasant 88 year old male who underwent L3-4 oblique lumbar interbody fusion yesterday. He was seen this morning sitting in bedside recliner. He had just finished eating breakfast. He has progressed well since surgery. He states that he is up walking around with his walker and is otherwise doing well. He still reports some axial low back pain, but states that his lower extremity symptoms have resolved. Pain well controlled with current regimen. He is voiding well, tolerating diet. Afebrile, vital signs stable. He has about 4/5 strength with bilateral iliopsoas testing. The rest of his lower extremity strength is 5/5. Back dressings are clean and dry. No active sanguineous drainage. Plan: Bill is a pleasant 88 year old male who is postop day 1 from L3-4 oblique lumbar interbody fusion. He continues to report some axial low back pain, but is lower extremity symptoms have resolved. He is progressing normally. He meets criteria to be medically discharged home. He requested that his medication be sent to the [facility] in [place]. We will follow up with him in 2-3 weeks in clinic. Misha Swenson MD,PhD [facility]
--- NOTE | 2024-08-09 11:54 | PHA.MEDREC ---
Addendum entered by Socorro Andrea RPh 08/09/24 12:02: Med rec was reviewed by [facility]. Shikha spoke to patient and he confirmed he's taking hydrochlorothiazide even though there's no recent claim for it. Original Note: Pharmacy Consult ? Medication Reconciliation Pharmacy has reviewed the medication reconciliation done by nursing. Spoke to patient to confirm med list.
[2024-08-09] MEDS: oxyCODONE HCl Immed Release 5 MG TABLET 10 MG PO (12:21)
[2024-08-09] MEDS: Acetaminophen 325 MG TABLET 975 MG PO ×2 (14:12→22:34)
[2024-08-09] MEDS: ceFAZolin Sodium/Dextrose,Iso 2 GM/50 ML PIGGYBACK IV ×2 (14:13→19:12)
[2024-08-09] MEDS: Docusate Sodium 100 MG CAPSULE PO (19:12)
--- OUTSIDE RECORDS SUMMARY | 2024-08-09 22:40 | XMS_ITS ---
Author Organization Bill Tanner III, MD Address [address] [place] [address] Care Team Providers Care Power Engineer Name Role Phone Bill Tanner Primary Care Provider REASON FOR VISIT follow up Social History Sex Assigned At : Social History Observation Description Sex Assigned At Male Encounters Encounter Location Date Provider Diagnosis Bill Tanner III, MD [address] [place] [address] [place] [address] 06/01/2024 Bill Tanner Plan Of Treatment Next Appt Details Provider Name:Bill Tanner, 11/22/2024 10:45:00 AM, [address] [place] [address] [place], [address], Provider Name:Bill Tanner, 02/23/2025 09:00:00 AM, [address] [place] [address] [place], [address], Progress Notes * Bill WHITFIELDDOB:1935 (88 yo M)Acc No.[id number]:06/01/2024 Progress Notes Patient:?Bill WHITFIELD Provider:?Bill Tanner MD :1935???Age:88 Y???Sex:Male Venkatesh e:06/01/2024 Address:[address] [id number] Subjective: * Chief Complaints: * ???1. Follow up. * Medical History:? Objective: * Vitals:? Assessment: Plan: * Treatment: * Images: * The named appointment provid er may or may not be the originator of this progress note, and it is not deemed complete until electronically signed by the appointment provider. Sign off status: Pending * Provider:?Bill Tanner MD Date:?10/2023 Generated for Jason esposito/Barbi/Bettyitting on:?08/09/2024 10:40 PM EST
--- OUTSIDE RECORDS SUMMARY | 2024-08-09 22:40 | XMS_ITS ---
Author Organization Bill Tanner III, MD Address [address] [place] [address] Care Team Providers Care Central Lab Technician Name Role Phone Bill Tanner Primary Care Provider REASON FOR VISIT preop clearance faxed to Dr Swenson Social History Sex Assigned At : Social History Observation Description Sex Assigned At Male Encounters Encounter Location Date Provider Diagnosis Bill Tanner III, MD [address] [place] [address] [place] [address] 05/09/2024 Bill Tanner Plan Of Treatment Next Appt Details Provider Name:Bill Tanner, 11/22/2024 10:45:00 AM, [address] [place] [address] [place], [address], Provider Name:Bill Tanner, 02/23/2025 09:00:00 AM, [address] [place] [address] [place], [address], Progress Notes * Bill WHITFIELDDOB:1935 (88 yo M)Acc No.[id number]:05/09/2024 Patient:?JorgeBill cuello :1935???Age:88 Y???Sex:Male Address:[address] [place] [address] [place], [address] * true * Date:? Generated for Printi ng/Faxing/eTransmitting on:?08/09/2024 10:40 PM EST
--- OUTSIDE RECORDS SUMMARY | 2024-08-09 22:40 | XMS_ITS ---
Author Organization Bill Tanner III, MD Address [address] [place] [address] Care Team Providers Care Lubricating Specialist Name Role Phone Bill Tanner Primary Care Provider Allergies Allergen (clinical drug ingredient) Drug/Non Drug Allergy documented on EMR Reaction Allergy Type Onset Date Status No Known Drug Allergy Unknown Drug Allergy Active REASON FOR VISIT Chronic low back pain, Recent neurosurgery, Recurrent superficial bladder cancer, Pending bladder installations, Benign prosthetic hypertrophy, Hypertension, Hearing loss, Osteoarthritis both knees Medications Medication SIG (Take, Route, Frequency, Duration) Notes Start Date End Date Status Tamsulosin HCl 0.4 MG take 1 capsule nedra ry day Orally Once a day Active Finasteride 5 MG TAKE 1 TABLET EVERY DAY Active Tolterodine Tartrate ER 2 MG 1 capsule O rally Once a day Active hydroCHLOROthiazide 25 MG TAKE 1 TABLET EVERY DAY Active Metoprolol Succinate ER 25 MG Oral Active Lisinopril 10 MG TAKE 1 TABLET EVERY DAY Active Social History Tobacco Use: Social History Observation Description Date Details (start date - stop date) Never Smoker NA - NA Sex Assigned At : Social History Observation Description Sex Assigned At Male Tobacco Use/Smoking Question Answer Notes Patient is a nonsmoker Additional Findings: Tobacco Non-User Aggressive non-smoker Vital Signs Temperature 97.4 degrees Fahrenheit 07/26/20 24 Blood pressure systolic 133 mm Hg 07/26/20 24 Blood pressure diastolic 70 mm Hg 024 Heart Rate 69 /min 07/26/2024 Height 66 in 07/26/2024 Weight 157 lbs 07/26/2024 BMI 25.34 kg/m2 07/26/2024 Encounters Encounter Location Date Provider Diagnosis Bill Tanner III, MD [address] [place] [address] DR [place]K, [place] [id number] 07/26/2024 Bill Tanner Mixed hyperlipidemia E78.2 ; Urothelial carcinoma C68.9 ; Essential hypertension I10 ; Benign prostatic hyperplasia with lower urinary tract symptoms N40.1 ; Overweight E66.3 ; Sensorineural hearing loss (SNHL) of both ears H90.3 ; Bilateral lumbar radiculopathy M54.16 and Type 2 diabetes mellitus without complication, without long-term current use of insulin E11.9 Assessments Encounter Date Diagnosis (ICD Code) Assessment Notes Treat ment Notes Treatment Clinical Notes 07/26/2024 Mixed hyperlipidemia (ICD-10 - E78.2) His lipids are stable and no change in his regimen was made today. 07/26/2024 Urothelial carcinoma (ICD-10 - C68.9) He will now proceed to a series of bladder instillations for control of the superficial bladder cancer. 07/26/2024 Essential hypertension (ICD-10 - I10) His blood pressure is in the target range. I recommended sodium restriction and weight loss. No change in his medications is necessary. 07/26/2024 Benign prostatic hyperplasia with lower urinary tract symptoms (ICD-10 - N40.1) He arises from sleep once or twice a night to urinate. No change in his medications was made. We discussed lifestyle modification as a way to reduce nocturia.He has an appointment in the near future with his urologist. 07/26/2024 Overweight (ICD-10 - E66.3) His body mass index is 25.34. He has gained 2 pounds. I recommended maintaining his weight at this level and consuming a healthy Mediterranean diet. 07/26/2024 Sensorineural hearin g loss (SNHL) of both ears (ICD-10 - H90.3) I offered to refer him for hearing aids. He will consider it. His hearing loss has not changed. 07/26/2024 Bilateral lumbar radiculopathy (ICD-10 - M54.16) He recently underwent a surgical procedure and then some injections. He has had some relief of pain but it is still present. His analgesic regimen was continued. 07/26/2024 Type 2 diabetes mellitus without complication, without long-term current use of insulin (ICD-10 - E11.9) His diabetes seems well controlled. No change in his medications were made until after his upcoming neurosurgery. His diabetes remained stable. Plan Of Treatment Medication Medication Name Sig Start Date Stop Date Notes Tamsulosin HCl 0.4 MG take 1 capsule nedra ry day Orally Once a day Finasteride 5 MG TAKE 1 TABLET EVERY DAY Tolterodine Tartrate ER 2 MG 1 capsule Orally Once a day hydroCHLOROthiazide 25 MG TAKE 1 TABLET EVERY DAY Metoprolol Succinate ER 25 MG Oral Lisinopril 10 MG TAKE 1 TABLET EVERY DAY Pending Test Test Name Order Date PROFILE, RANDOM (COMPREHENSIVE METABOLIC ) 07/26/2024 CBC w DIFF 07/26/2024 Lipid Panel 07/26/2024 Next Appt Details Follow Up: October, Reason: Ro utine check-up Provider Name:Bill Tanner, 11/22/2024 10:45:00 AM, [address] [place] [address] [address] [place], [place], [phone], Provider Name:Bill Tanner, 02/23/2025 09:00:00 AM, [address] [place] [address] [address], [place], [phone], Progress Notes * NAHIDBillDOB:1935 (88 yo M)Acc No.[id number]:07/26/2024 Progress Notes Patient:?Bill WHITFIELD Provider:?Bill Tanner MD :1935???Age:88 Y???Sex:Male Venkatesh e:07/26/2024 Address:[address] [place] [address] CAT [phone] Subjective: * Chief Complaints: * ???Chronic low back painRece nt neurosurgeryRecurrent superficial bladder cancerPending bladder installationsBenign prosthetic hypertrophyHypertensionHearing lossOsteoarthritis both knees * HPI: ???COVID-19 Screening:?Questions?Have you experienced fever, chills, cough, sore throat, shortness of breath, difficulty breathing, muscle aches, loss of taste or smell??No ?Have you been exposed to the virus within the last 10 days??No ?Have you travelled internationally in the last 10 days??No ?Have you been exposed to COVID-19 in the past??No ???:? The patient, an 88-year-old male, presented with a history of back pain and bladder cancer. He had a procedure on May 18 to remove some spurs, but experienced significant pain post-procedure. An MRI revealed a misalignment in the lumbar vertebrae, for which he is scheduled to have surgery on August 09. He reported that pain management injections have significantly improved his condition. He also reported increased frequency of urination. The patient has a history of bladder cancer, for which tumors were removed on June 26. He is scheduled to start a new treatment on August 14. He also mentioned an upcoming scan to check for cancer spread. Blood Sugar Level is 139. * ROS:?General/Constitutional:?Admits?pain,?Knees and lumbar spine, otherwise only normal aches and pains.?Chills?denies.?Fatigue?admits.?Fever?denies.?ENT:?Decreased hearing?in both ears.?Respiratory:?Cough?denies.?Cardiovascular:?Chest pain with exertion?denies.?Dyspnea on exertion?denies.?Shortness of breath?denies.?Gastrointestinal:?Constipation?occasional.?Decreased appetite?denies.?Diarrhea?denies.?Heartburn?denies.?Nausea?denies.?Rectal bleeding?denies.?Vomiting?denies.?Hematology:?bruising?denies.?petechiae?denies.?Swollen glands?none have been noted.?Genitourinary:?Frequent urination?once a night.?Musculoskeletal:?Muscle aches?denies.?Painful joints?denies.?Sciatica?denies.?Weakness?denies.?Skin:?Itching?denies.?Rash?denies.?Skin lesion(s)?denies.?Neurologic:?Difficulty speaking?denies.?Dizziness?denies.?Headache?denies.?Low back pain?denies.?Psychiatric:?Depressed mood?denies.? * Medical History:? * Surgical History:?left knee replacement 09/2013right knee replacement, Dr. Victor 09/2017colonoscopy lumbar spine decompression 2013inguinal herniorrhaphy, [facility], Dr. Blackwell 2017right rotator cuff surgery 2002left rotator cuff surgery 2003right carpal tunnel surgery 2014left carpal tunnel surgery 2015left knee replacement 2015TURP, TURBT pedunculated low-grade noninvasive urothelial carcinoma anterior wall and dome of bladder 07/2018colonoscopy, negative, [facility], Dr. Garcia 08/2006Tumor removal from bladder 2019right cataract surgery Dr. Garcia purs removal procedure in april * Hospitalization/Major Diagno stic Procedure:?right knee replacement 09/2017left knee replacement 09/2013chest pain 09/2019No history * Family History:?Father: dece ased 81 yrs, Diabetes mellitus, coronary artery disease, myocardial infarction, diagnosed with CVD, DM.?Mother: 84 yrs, Cause of unknown.?3 brother(s) , 2 sister(s) - healthy. 1 daughter(s) - healthy. .? He has 3 adopted children, one of whom of a her an overdose and one of whom of bleeding ulcers. Her surviving son is John. He is healthy and well. He has 5 grandchildren. He has 2 brothers who are , 1 of emphysema and one of bone cancer. He had 3 sisters, 2 of whom are . One of cancer of the pancreas. He is not aware of any family history of substance use disorder or mental health disorder other than with one of his children. 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 He was born in [place], [place]. He has been to Ena for 61 years and they met on a school bus. He does not smoke. He has adopted several children. * Medications:?TakingFinasteri de 5 MG Tablet TAKE 1 TABLET EVERY DAY Tolterodine Tartrate ER 2 MG Capsule Extended Release 24 Hour 1 capsule Orally Once a day hydroCHLOROthiazide 25 MG Tablet TAKE 1 TABLET EVERY DAY Metoprolol Succinate ER 25 MG Tablet Extended Release 24 Hour Oral Tamsulosin HCl 0.4 MG Capsule take 1 capsule every day Orally Once a day Lisinopril 10 MG Tablet TAKE 1 TABLET EVERY DAY Medication List reviewed and reconciled with the patientTaking Finasteride 5 MG Tablet TAKE 1 TABLET EVERY DAY Taking Tolterodine Tartrate ER 2 MG Capsule Extended Release 24 Hour 1 capsule Orally Once a day Taking hydroCHLOROthiazide 25 MG Tablet TAKE 1 TABLET EVERY DAY Taking Metoprolol Succinate ER 25 MG Tablet Extended Release 24 Hour Oral Taking Tamsulosin HCl 0.4 MG Capsule take 1 capsule every day Orally Once a day Taking Lisinopril 10 MG Tablet TAKE 1 TABLET EVERY DAY Medication List reviewed and reconciled with the patient * Allergies:?No Known Drug All ergyno[Allergies Verified] Objective: * Vitals:?Ht: 66, Wt:157, BMI: 25.34, BP:133/70, HR:69, Temp:97.4, Wt-k.21. * ???Past Orders: ???Lab:Complete Blood Count no Diff (Order Date - 05/04/2024) (Collection Date & Time - 05/04/2024 12:55 PM) ? Value Reference Range ?White Blood Count 8.5 4. 8-10.8 - X10*3/uL ?Red Blood Count 4.04 L 4.60 -5.80 - X10*6/uL ?Hemoglobin 13.6 L 14.0-18.0 - g/dl ?Hematocrit 39.9 L 42.0-52.0 - % ?Mean Corpuscular Volume 98.8 H 80.0-98.0 - fL ?Mean Corpuscular Hemoglobin 33.7 H 27.0-33.0 - pg ?Mean Corpuscular HGB Conc 34.1 31.0-36.0 - g/dl ?Red Cell Distribution Width 12.1 11.0-16.0 - % ?Platelet Count 197 160-4 00 - X10*3/uL ?Mean Platelet Volume 9.2 L 9.4-12.4 - fL ?NRBC Pct Auto 0.0 0.0-0. 2 - /100WBC ?NRBC Abs Auto 0.000 0.0-0. 012 - X10*3/uL Lab:Basic Metabolic Panel * Collection Date 05/04/2024 01/19/2022 Collection Time 12:55 PM 03:15 PM Order Date 05/04/2024 01/19/2022 Sodium 143 (Ref Range: 135-145 mmol/L) 138 (Ref Range: 135-145 mmol/L) Blood Urea Nitrogen 28?H (Ref Range: 9-16 mg/dL) 39?H (Ref Range: 9-16 mg/dL) Creatinine 1.27 (Ref Range: 0.5-1.4 mg/dL) 1.63?H (Ref Range: 0.5-1.4 mg/dL) Glucose Random 121?H (Ref Range: 60-115 mg/dL) 113 (Ref Range: 60-115 mg/dL) Calcium 9.9 (Ref Range: 8.4-10.2 mg/dL) 8.9 (Ref Range: 8.4-10.2 mg/dL) Potassium 4.3 (Ref Range: 3.3-5.1 mmol/L) 4.3 (Ref Range: 3.3-5.1 mmol/L) Chloride 108 (Ref Range: 96-108 mmol/L) 106 (Ref Range: 96-108 mmol/L) Carbon Dioxide 26 (Ref Range: 22-29 mmol/L) 23 (Ref Range: 22-29 mmol/L) Anion Gap 13 (Ref Range: 12-20) 13 (Ref Range: 12-20) Estimated Glomerular Filt Rate 54 40 Creatinine Clr Calc Pharmacy 36.9 NR * Lab:Pathology * Collection Date 06/26/2024 03/14/2024 06/19/2021 Collection Time 01:50 PM 04:36 PM 11:42 AM Order Date 06/26/2024 03/14/2024 06/19/2021 * Examination: ???General Examination: ?GENERAL APPEARANCE:?pleasant, well nourished, well developed, in no acute distress, calm and relaxed, overweight, elderly man.?HEAD:?atraumatic, normocephalic.?EYES:?eomi, perrla, anicteric, conjugate.?EARS:?normal.?NOSE:?septum intact.?ORAL CAVITY:?normal, unremarkable.?NECK/THYROID:?no jugular venous distention, no carotid bruit, thyroid normal.?LYMPH NODES:?no enlarged lymph nodes,spleen normal.?SKIN:?no suspicious lesions, anicteric.?HEART:?no clicks, gallops, murmurs, or rubs, regular rhythm, S1, S2 normal, no s3, or vascular bruits.?LUNGS:?clear to auscultation .?BREASTS:??no masses palpable bilaterally.?ABDOMEN:?bowel sounds normal, no ascites, no organomegaly, no mass, overweight.?RECTAL EXAM:?not examined.?MUSCULOSKELETAL:?extremities unremarkable, no clubbing, cyanosis or edema.?PERIPHERAL PULSES:?normal.?NEUROLOGIC:?alert and oriented, cranial nerves 2-12 grossly intact, deep tendon reflexes 2+ symmetrical, motor strength normal upper and lower extremities, sensory exam intact.?PSYCH:?alert, oriented.? : ???Ears:No wax in right ear, little bit on the left. Eardrums look good. Joints: Swellings of the joint, Heberden's nodes, part of osteoarthritis. Heart: Sounds Unremarkable. ??? Assessment: * Assessment: 1.?Urothelial carcinoma - C6 8.9 (Primary)???Notes :He will now proceed to a series of bladder instillations for control of the superficial bladder cancer.???2.?Mixed hyperlipidemia - E78.2???Notes :His lipids are stable and no change in his regimen was made today.???3.?Essential hypertension - I10???Notes :His blood pressure is in the target range.? I recommended sodium restriction and weight loss. No change in his medications is necessary.???4.?Benign prostatic hyperplasia with lower urinary tract symptoms - N40.1???Notes :He arises from sleep once or twice a night to urinate. No change in his medications was made. We discussed lifestyle modification as a way to reduce nocturia.He has an appointment in the near future with his urologist.???5.?Overweight - E66.3???Notes :His body mass index is 25.34. He has gained 2 pounds. I recommended maintaining his weight at this level and consuming a healthy Mediterranean diet.???6.?Sensorineural hearing loss (SNHL) of both ears - H90.3???Notes :I offered to refer him for hearing aids. He will consider it. His hearing loss has not changed.???7.?Bilateral lumbar radiculopathy - M54.16???Notes :He recently underwent a surgical procedure and then some injections.? He has had some relief of pain but it is still present.? His analgesic regimen was continued.???8.?Type 2 diabetes mellitus without complication, without long-term current use of insulin - E11.9???Notes :His diabetes seems well controlled. No change in his medications were made until after his upcoming neurosurgery. His diabetes remained stable.??? Plan: * Treatment: 2.?Essential hypertension?LAB: PROFILE, RANDOM (COMPREHENSIVE METABOLIC) ?LAB: CBC w DIFF ?LAB: Lipid Panel 3.?Others? Continue Finasteride Tablet, 5 MG, TAKE 1 TABLET EVERY DAY.?? * Procedure Codes:? * Preventive Medicine:? ??Counseling:?Care goal follow-up plan:?Counseling for abnormal BMI given?Yes ?Above Normal BMI Follow-up?Dietary management education, guidance, and counseling, Dietary needs education ??DM Care Plan:?Patient Lifestyle Goals?Patient wants to be able to manage diabetes without too much effort.?Treatment Goals?HbA1C < 7.0, Blood Sugars less than < 115.?Barriers?no barriers.?Self-Managment Goals?Work on weight loss, with a goal of losing 1 lb per week.? * Follow Up:?October (Reason: Mary bolden check-up) * Images: * Sign off status: Completed true * Provider:?Bill Tanner MD Date:?07/01 Generated for Printi ng/Facolletteg/eTransmitting on:?08/09/2024 10:40 PM EST History and Physical Notes * HPI (History of Present Illness) Category Sub-Category Detail Notes COVID-19 Screening Questions Have you had any new onset fever, chills, cough, congestion, sore throat, shortness of breath, muscle aches?: No Have you been exposed to the virus withi n the last 10 days?: No Have you travelled internationally in [facility] last 10 days?: No Have you been exposed to COVID-19 in the past?: No Examination Category Sub-Category Detail Notes General Examination GENERAL APPEARANCE: pleasant , well nourished, well developed, in no acute distress, calm and relaxed, overweight, elderly man HEAD: atraumatic, normocep halic EYES: eomi, perrla, anicte yoselyn, conjugate EARS: normal NOSE: septum intact NECK/THYROID: no jugular venous di stention, no carotid bruit, thyroid normal HEART: no clicks, gallops, murmurs, or rubs, regular rhythm, S1, S2 normal, no s3, or vascular bruits LUNGS: clear to auscultatio n ABDOMEN: bowel sounds normal, no ascites, no organomegaly, no mass, overweight NEUROLOGIC: alert and oriented, cranial nerves 2-12 grossly intact, deep tendon reflexes 2+ symmetrical, motor strength normal upper and lower extremities, sensory exam intact SKIN: no suspicious lesion s, anicteric PERIPHERAL PULSES: normal BREASTS: no masses palpable b ilaterally MUSCULOSKELETAL: extremities unremark able, no clubbing, cyanosis or edema LYMPH NODES: no enlarged lymph no faraz,spleen normal RECTAL EXAM: not examined PSYCH: alert, oriented ORAL CAVITY: normal, unremarkable
--- OUTSIDE RECORDS SUMMARY | 2024-08-09 22:41 | XMS_ITS | Patient Health Record ---
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 hyperlipidemia E78.2 ; Urothelial carcinoma C68.9 ; Essential hypertension I10 ; Benign prostatic hyperplasia with lower urinary tract symptoms N40.1 ; Overweight E66.3 ; 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 He is compliant with diuretic therapy. No change in his regimen was needed. 02/23/2024 Bilateral lumbar radiculopathy (ICD-10 - M54.16) The pain is severe now. He was given dexamethasone gabapentin and cyclobenzaprine x-rays were obtained. An MRI was be back in 2 or 3 days. He was encouraged to use heat and to rest as much as possible. 03/06/2024 Mixed hyperlipidemia (ICD-10 - E78.2) His lipids are stable and well controlled. He is compliant with diuretic therapy. No change in his regimen was needed. 03/06/2024 Bilateral lumbar radiculopathy (ICD-10 - M54.16) There was no known cause of his back pain. He has had no trauma or heavy exercise. Please be was rinsed and dexamethasone. 03/15/2024 Mixed hyperlipidemia (ICD-10 - E78.2) His lipids are stable and well controlled. He is compliant with his therapy. No change in his regimen was needed. On February 15, 2024 the total cholesterol was 186 triglycerides 85 HDL 63 and LDL 108. 03/15/2024 Bilateral lumbar radiculopathy (ICD-10 - M54.16) Pain is slightly better with the dexamethasone. Is going to see the neurosurgeon tomorrow and pain control next Wednesday. 04/03/2024 Mixed hyperlipidemia (ICD-10 - E78.2) His lipids are stable and well controlled. He is compliant with his therapy. No change in his regimen was needed. On February 15, 2024 the total cholesterol was 186 triglycerides 85 HDL 63 and LDL 108. 04/03/2024 Essential hypertension (ICD-10 - I10) His blood pressure today is Unremarkable. He has lost several pounds. No change was made. His medications. 05/08/2024 Mixed hyperlipidemia (ICD-10 - E78.2) His lipids are stable and well controlled. He is compliant with his therapy. No change in his regimen was needed. On February 15, 2024 the total cholesterol was 186 triglycerides 85 HDL 63 and LDL 108. 05/08/2024 Lumbago with sciatica, left side (ICD-10 - M54.42) He was seen today and examined carefully. Her history was taken. No contraindication to laminectomy was found. His blood work was reviewed and was unremarkable. An electrocardiogram done March 30, 2024 was within normal limits and showed normal sinus rhythm. He is given medical clearance for the laminectomy with the average risk of a healthy 88-year-old gentleman. The risk is small and the benefit is great. 07/26/2024 Mixed hyperlipidemia (ICD-10 - E78.2) His lipids are stable and no change in his regimen was made today. 07/26/2024 Urothelial carcinoma (ICD-10 - C68.9) He will now proceed to a series of bladder instillations for control of the superficial bladder cancer. 02/23/2024 Benign prostatic hyperplasia with lower urinary tract symptoms (ICD-10 - N40.1) He arises from sleep once or twice a night to urinate. No change in his medications was made. We discussed lifestyle modification as a way to reduce nocturia.He has an appointment in the near future with his urologist. 03/06/2024 Benign prostatic hyperplasia with lower urinary tract symptoms (ICD-10 - N40.1) He arises from sleep once or twice a night to urinate. No change in his medications was made. We discussed lifestyle modification as a way to reduce nocturia.He has an appointment in the near future with his urologist. 03/15/2024 Urothelial carcinoma (ICD-10 - C68.9) He will continue the periodic cystoscopies. The intravesicular chemotherapy has finished. 04/03/2024 Urothelial carcinoma (ICD-10 - C68.9) The most recent cystoscopy has been done and was good. Urine cytology showed only atypical cells. 05/08/2024 Elevated PSA (ICD-10 - R97.20) He remains under the care of urology for the PSA and the urothelial carcinoma. No change in his treatment was needed today. 07/26/2024 Essential hypertension (ICD-10 - I10) His blood pressure is in the target range. I recommended sodium restriction and weight loss. No change in his medications is necessary. 02/23/2024 Essential hypertension (ICD-10 - I10) His blood pressure today is 124/70. He has lost several pounds. No change was made. His medications. 03/06/2024 Urothelial carcinoma (ICD-10 - C68.9) He will continue the periodic cystoscopies. The intravesicular chemotherapy has finished. 03/15/2024 Sensorineural hearin g loss (SNHL) of both ears (ICD-10 - H90.3) I offered to refer him for hearing aids. He will consider it. His hearing loss has not changed. 04/03/2024 Sensorineural hearin g loss (SNHL) of both ears (ICD-10 - H90.3) I offered to refer him for hearing aids. He will consider it. His hearing loss has not changed. 05/08/2024 Overweight (ICD-10 - E66.3) His body mass index is 25.01. I recommended maintaining his weight at this level and consuming a healthy Mediterranean diet. 07/26/2024 Benign prostatic hyperplasia with lower urinary tract symptoms (ICD-10 - N40.1) He arises from sleep once or twice a night to urinate. No change in his medications was made. We discussed lifestyle modification as a way to reduce nocturia.He has an appointment in the near future with his urologist. 02/23/2024 Urothelial carcinoma (ICD-10 - C68.9) He will continue the periodic cystoscopies. The intravesicular chemotherapy has finished. 03/06/2024 Essential hypertension (ICD-10 - I10) His blood pressure today is 124/70. He has lost several pounds. No change was made. His medications. 03/15/2024 Type 2 diabetes mellitus without complication, without long-term current use of insulin (ICD-10 - E11.9) His hemoglobin A1c is 8.1. He wants to try diet control and we discussed this at length. He may need to have metformin prescribed. We discussed for ophthalmology to be involved. He has been compliant with all of his medications 04/03/2024 Overweight (ICD-10 - E66.3) He has lost 4 pounds and remains slightly overweight. We discussed his weight loss strategy, diet and nutrition in length. He'll continue to lose weight in kilos, BMI is in the mid range. 05/08/2024 Sensorineural hearin g loss (SNHL) of both ears (ICD-10 - H90.3) I offered to refer him for hearing aids. He will consider it. His hearing loss has not changed. 07/26/2024 Overweight (ICD-10 - E66.3) His body mass index is 25.34. He has gained 2 pounds. I recommended maintaining his weight at this level and consuming a healthy Mediterranean diet. 02/23/2024 Sensorineural hearin g loss (SNHL) of both ears (ICD-10 - H90.3) I offered to refer him for hearing aids. He will consider it. His hearing loss has not changed. 03/06/2024 Sensorineural hearin g loss (SNHL) of both ears (ICD-10 - H90.3) I offered to refer him for hearing aids. He will consider it. His hearing loss has not changed. 03/15/2024 Primary osteoarthritis of both knees (ICD-10 - M17.0) He was continued on current therapy. The pain is not disabling and he does not wish to have surgical intervention. 04/03/2024 Elevated PSA (ICD-10 - R97.20) His PSA will be repeated. If necessary. His PSA is determined by urology. 05/08/2024 Benign prostatic hyperplasia with lower urinary tract symptoms (ICD-10 - N40.1) He arises from sleep once or twice a night to urinate. No change in his medications was made. We discussed lifestyle modification as a way to reduce nocturia.He has an appointment in the near future with his urologist. 07/26/2024 Sensorineural hearin g loss (SNHL) of both ears (ICD-10 - H90.3) I offered to refer him for hearing aids. He will consider it. His hearing loss has not changed. 02/23/2024 Elevated PSA (ICD-10 - R97.20) His PSA will be repeated. If necessary. His PSA is determined by urology. 03/06/2024 Type 2 diabetes mellitus without complication, without long-term current use of insulin (ICD-10 - E11.9) His hemoglobin A1c is 8.1. He wants to try diet control and we discussed this at length. He may need to have metformin prescribed. We discussed for ophthalmology to be involved. He has been compliant with all of his medications 03/15/2024 Essential hypertension (ICD-10 - I10) His blood pressure today is 124/70. He has lost several pounds. No change was made. His medications. 04/03/2024 Lumbago with sciatica, left side (ICD-10 - M54.42) He has improved slightly. No change in his regimen as needed. 05/08/2024 Primary osteoarthritis of both knees (ICD-10 - M17.0) He was continued on current therapy. The pain is not disabling and he does not wish to have surgical intervention. 07/26/2024 Bilateral lumbar radiculopathy (ICD-10 - M54.16) He recently underwent a surgical procedure and then some injections. He has had some relief of pain but it is still present. His analgesic regimen was continued. 02/23/2024 Cataract extraction status of right eye (ICD-10 - Z98.41) He has had cataract extraction on the right eye. He has very little vision in the left eye so that has not had surgery. He reports excellent vision. 03/15/2024 Ureterolithiasis (ICD-10 - N20.1) He is maintaining his hydration. No further episodes of renal colic occurred. 04/03/2024 Benign prostatic hyperplasia with lower urinary tract symptoms (ICD-10 - N40.1) He arises from sleep once or twice a night to urinate. No change in his medications was made. We discussed lifestyle modification as a way to reduce nocturia.He has an appointment in the near future with his urologist. 05/08/2024 Essential hypertension (ICD-10 - I10) His blood pressure today is 127/65. No change in his regimen was needed today. 07/26/2024 Type 2 diabetes mellitus without complication, without long-term current use of insulin (ICD-10 - E11.9) His diabetes seems well controlled. No change in his medications were made until after his upcoming neurosurgery. His diabetes remained stable. 02/23/2024 Type 2 diabetes mellitus without complication, without long-term current use of insulin (ICD-10 - E11.9) His hemoglobin A1c is 8.1 and his fasting glucose iis 203. He wants to try diet control and we discussed this at length. He may need to have metformin prescribed. We discussed for ophthalmology to be involved. 03/15/2024 Benign prostatic hyperplasia with lower urinary tract symptoms (ICD-10 - N40.1) He arises from sleep once or twice a night to urinate. No change in his medications was made. We discussed lifestyle modification as a way to reduce nocturia.He has an appointment in the near future with his urologist. 04/03/2024 Primary osteoarthritis of both knees (ICD-10 - M17.0) He was continued on current therapy. The pain is not disabling and he does not wish to have surgical intervention. 05/08/2024 Type 2 diabetes mellitus without complication, without long-term current use of insulin (ICD-10 - E11.9) His fasting glucose today was 121. No change in his medications were made until after his upcoming neurosurgery. His diabetes remained stable. 04/03/2024 Type 2 diabetes mellitus without complication, without long-term current use of insulin (ICD-10 - E11.9) His hemoglobin A1c is 8.1. He wants to try diet control and we discussed this at length. He may need to have metformin prescribed. We discussed for ophthalmology to be involved. He has been compliant with all of his medications Plan Of Treatment Pending Test Test Name Order Date PROFILE, FASTING (COMPREHENSIVE METABOLI C) 05/08/2024 PROFILE, FASTING (COMPREHENSIVE METABOLI C) 07/05/2023 PROFILE, FASTING (COMPREHENSIVE METABOLI C) 02/17/2023 PROFILE, FASTING (COMPREHENSIVE METABOLI C) 01/04/2023 PROFILE, FASTING (COMPREHENSIVE METABOLI C) 05/26/2018 PROFILE, FASTING (COMPREHENSIVE METABOLI C) 08/11/2019 PROFILE, FASTING (COMPREHENSIVE METABOLI C) 02/15/2020 PROFILE, FASTING (COMPREHENSIVE METABOLI C) 05/12/2019 PROFILE, RANDOM (COMPREHENSIVE METABOLIC ) 10/26/2019 PROFILE, RANDOM (COMPREHENSIVE METABOLIC ) 01/01/2021 PROFILE, RANDOM (COMPREHENSIVE METABOLIC ) 01/16/2019 PROFILE, RANDOM (COMPREHENSIVE METABOLIC ) 2019 PROFILE, RANDOM (COMPREHENSIVE METABOLIC ) 06/27/2020 PROFILE, RANDOM (COMPREHENSIVE METABOLIC ) 03/25/2020 PROFILE, RANDOM (COMPREHENSIVE METABOLIC ) 07/26/2024 PROFILE, RANDOM (COMPREHENSIVE METABOLIC ) 08/15/2021 HEMOGLOBIN A1C (GLYCOHEMOGLOBIN) 023 HEMOGLOBIN A1C (GLYCOHEMOGLOBIN) 023 HEMOGLOBIN A1C (GLYCOHEMOGLOBIN) 020 HEMOGLOBIN A1C (GLYCOHEMOGLOBIN) 019 AMYLASE 2019 LIPASE 2019 LIPID PANEL 08/11/2019 LIPID PANEL 05/12/2019 LIPID PANEL 02/17/2023 LIPID PANEL 06/27/2020 LIPID PANEL 05/26/2018 LIPID PANEL 03/25/2020 LIPID PANEL 02/15/2020 GGT 10/26/2019 FREE T4 (FT4) 01/16/2019 TSH (THYROID STIMULATING HORMONE) 2020 TSH (THYROID STIMULATING HORMONE) 2018 BRAIN NATRIURETIC PEPTIDE (BNP) 08/15/20 PSA, TOTAL 03/25/2020 PSA, TOTAL 02/15/2020 PSA, TOTAL 05/08/2024 PSA, TOTAL 05/12/2019 PSA, TOTAL 01/01/2021 PSA, TOTAL 01/04/2023 PSA, TOTAL 06/27/2020 PSA, TOTAL 05/26/2018 MICROALBUMIN, RANDOM 02/17/2023 MICROALBUMIN, RANDOM 01/04/2023 CBC w DIFF 03/25/2020 CBC w DIFF 08/11/2019 CBC w DIFF 02/15/2020 CBC w DIFF 08/15/2021 CBC w DIFF 05/12/2019 CBC w DIFF 10/26/2019 CBC w DIFF 01/01/2021 CBC w DIFF 01/16/2019 CBC w DIFF 02/17/2023 CBC w DIFF 07/26/2024 CBC w DIFF 2019 CBC w DIFF 06/27/2020 CBC w DIFF 01/04/2023 CBC w DIFF 05/26/2018 SED RATE (ESR) 08/15/2021 SED RATE (ESR) 01/01/2021 MRI LUMBAR SPINE NO CONTRAST 02/23/2024 XR CHEST 2 VIEW PA & LAT 08/15/2021 Echocardiogram 08/15/2021 CBC WITH AUTO DIFF 07/05/2023 CBC WITH AUTO DIFF 05/08/2024 Lipid Panel 07/26/2024 Lipid Panel 07/05/2023 Lipid Panel 05/08/2024 Hemoglobin A1c 07/05/2023 Next Appt Details Provider Name:Bill Tanner, 11/22/2024 10:45:00 AM, [address] [facility] [address], [place], [address], Provider Name:Bill Tanner, 02/23/2025 09:00:00 AM, [address] [facility] [address] [place], [place], [address], Insurance Providers Payer Name Payer Address Payer Phone Subscriber Number Group Number Insured Name Patient Relationship to Insured Coverage Start Date Coverage End Date MEDICARE NGS [address] [place] [phone] [id number] JorgeBill Self - patient is the insured [facility] [address] [place], [place] [id number] Bill Whitfield Self - patient is the insured Medical (General) History Medical History History ICD Code Elevated PSA R97.20 osteoarthritis of the knees, TKR, 2013 essential hypertension mixed hyperlipidemia overweight benign prostatic hypertrophy low back pain, left sciatica, lumbar dec ompression erectile dysfunction, diminished libido diminished libido inguinal hernia, repaired 2017 mild hearing loss low grade, noninvasive urothelial carcin charlie of bladder July 2018 Back Pain, Bladder Cancer, M isalignment of Lumbar Vertebrae, Increased Urination Frequency Surgical History Surgery Date(Month/Year) left knee replacement 09/2013 right knee replacement, Dr. Victor 8 colonoscopy lumbar spine decompression 2012 inguinal herniorrhaphy, [facility]. Rosalva garcia 2017 right rotator cuff surgery 2002 left rotator cuff surgery 2002 right carpal tunnel surgery 2014 left carpal tunnel surgery 2014 left knee replacement 2014 TURP, TURBT pedunculated low -grade noninvasive urothelial carcinoma anterior wall and dome of bladder 07/2018 colonoscopy, negative, [facility] Dr. Jose Couch 08/2006 Tumor removal from bladder [address] Garcia 1 Spurs removal procedure in april Hospitalization History Reason Date(Month/Year) right knee replacement 09/2017 left knee replacement 09/2013 chest pain 09/2019 No history
--- OUTSIDE RECORDS SUMMARY | 2024-08-09 22:41 | XMS_ITS | Patient Health Record ---
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 Name Role Phone Bill Tanner MD Primary Care Provider Unavailab carranza Kami Aldana Unavailable [phone] Allergies No Known Allergies Reason For Referral No Information Medications Medication SIG (Take, Route, Frequency, Duration) Notes Start Date End Date Status Metoprolol Succinate 25 MG 1 capsule Ora lly Once a day Active Tolterodine Tartrate ER 2 MG 1 capsule O rally Once a day Active Lisinopril 10 MG 1 tablet Orally Once a day Active hydroCHLOROthiazide 12.5 MG 1 capsule in the morning Orally Once a day Active Tamsulosin HCl 0.4 MG 1 capsule Orally O nce a day Active Finasteride 5 MG 1 tablet Orally Once a day Active Myrbetriq 25 MG 1 tablet Orally Once a day Active Social History Tobacco Use: Social History Observation Description Date Details (start date - stop date) Never Smoker NA - NA Tobacco Use/Smoking Question Answer Notes Are you a: nonsmoker Additional Findings: Tobacco Non-User Current no n-smoker Alcohol Screen Question Answer Notes Did you have a drink containing alcohol in the p ast year? No Points 0 Interpretation Negative Tobacco use other than smoking: Question Answer Notes Are you an other tobacco user? No Plan Of Treatment No Information Insurance Providers Payer Name Payer Address Payer Phone Subscriber Number Group Number Insured Name Patient Relationship to Insured Coverage Start Date Coverage End Date Medicare [employer] [address] [facility] [place] [address] [id number] Bill Patel Self - patient is the insured [facility] [address] [place] [address] [id number] Bill Patel Self - patient is the insured Medical (General) History Medical History History ICD Code Macular degeneration Measles Bone implants/screws Surgical History Surgery Date(Month/Year) spinal surgery 2013 knee replacement 2013, 2017
--- OUTSIDE RECORDS SUMMARY | 2024-08-09 22:41 | XMS_ITS ---
Author Organization [facility] patel [place] Address [address] [place] [address] Care Team Providers Care Substance Abuse Services Director Name Role Phone Bill Tanner MD Primary Care Provider Unavail Kami Macdonald Unavailable [phone] Allergies No Known Allergies REASON FOR VISIT Pcp- 02/09/23, Heel pain Medications Medication SIG (Take, Route, Frequency, Duration) Notes Start Date End Date Status Metoprolol Succinate 25 MG 1 capsule Ora lly Once a day Active Lisinopril 10 MG 1 tablet Orally Once a day Active hydroCHLOROthiazide 12.5 MG 1 capsule in the morning Orally Once a day Active Tamsulosin HCl 0.4 MG 1 capsule Orally O nce a day Active Finasteride 5 MG 1 tablet Orally Once a day Active Tolterodine Tartrate ER 2 MG 1 capsule O rally Once a day Active Myrbetriq 25 MG [...] Are you an other tobacco user? No Vital Signs Height 5 ft 6 in in 02/23/2023 Weight 160 lbs 02/23/2023 BMI 25.82 kg/m2 02/23/2023 Encounters Encounter Location Date Provider Diagnosis [facility] [address] [place] [address] 02/23/2023 Kami Aldana Pain of right heel M79.671 and Foreign body in heel, right, sequela S90.851S Assessments Encounter Date Diagnosis (ICD Code) Assessment Notes Treatment Notes Treatment Clinical Notes Section Notes 02/23/2023 Pain of right heel (ICD-10 - M79.671) 02/23/2023 Foreign body in heel, right, sequela (ICD-10 - S90.851S) Plan Of Treatment Next Appt Details Follow Up: prn, Reason: Progress Notes * NAHID BillDOB:1935 (87 yo M)Acc No.[id number]:02/23/2023 Progress Notes Patient:?NahidBill Provider:?Kami Aldana DPM :1935???Age:87 Y???Sex:Male Venkatesh e:02/23/2023 Address:[address] [place], [place] [id number] Pcp:Bill Tanner MD Subjective: * Chief Complaints: * ???Pcp- 02/09/23Heel pain * HPI: ???Heel pain:?Nature:?tender.?Location:?plantar heel , RIGHT.?Duration:?several months.?Onset/Cause:?stepped on glass at home.?Course:?mild pain , intermittent.?Aggrevated:?any pressure.?Treatments:?Pt removed glass at home without issue, still having some mild pain, PCP concerned piece of glass still in there.? * ROS:?General/Constitutional:?Nausea?denies.?Vomiting?denies.?Hunger Thirst?denies.?Loss appetite?denies.?Chills?denies.?Fatigue?denies.?Fever?denies.?Night Sweats?denies.?Unexplained weight loss?denies.?Unexplained weight gain?denies.?HEENTM:?Dentures?denies.?Dizziness?denies.?Glasses/contacts?admits.?Retinopathy?de nies.?Blurred/double vision?denies.?TMJ?denies.?Discharge/drainage?denies.?Implants?denies.?Sore throat?denies.?Dental implants?denies.?Hard of hearing ?admits.?Difficulty chewing/swallowing/speaking?denies.?Nose bleeds?denies.?Sore mouth?denies.?Respiratory:?On Oxygen?denies.?Pneumonia/pleurisy?denies.?Bronchitis?denies.?Emphysema?denies.?C oughing?denies.?Cough blood?denies.?Shortness of breath?denies.?Wheezing?denies.?Cardiovascular:?Pacemaker?denies.?MVP?denies.?WPW?denies.?CHF?denies.?Heart attack?denies.?Septal defect?denies.?Rapid beat?denies.?Chest pain ?denies.?Atrial Fib.?denies.?Murmur/Palpitations?denies.?Gastrointestinal:?Hemorrhoids?denies.?Stomach/Abdominal pain?denies.?Dark blood stool?denies.?Irritable bowel ?denies.?Constipation?denies.?Diarrhea?denies.?Hematology:?Swelling?denies.?Clots?denies.?Varicose Veins?denies.?Bruising?denies.?Bleeding problem?denies.?Genitourinary:?Blood urine?denies.?Frequent/Painfu/urination/bladder control?admits.?Kidney stones?denies.?Infection (UTI)?denies.?Nephropathy?denies.?sex trans dis (STD)?denies.?Prostate?admits.?Musculoskeletal:?Hammertoes?denies.?Bunions?denies.?Back Pain?denies.?Muscle Cramps/ Resting?denies.?Muscle cramps / walking?denies.?Generalized aches and pains?admits.?Weakness?denies.?Integ.:?Loza?denies.?Scars?denies.?Corns/calluses?denies.?Ingrown nails?denies.?Painful nails?denies.?Open Sores?denies.?Rashes?denies.?Neurologic:?Difficulty sleeping?denies.?Brain disorder?denies.?Numbness?denies.?Balance trouble?denies.?Confusion?denies.?Fainting/blackouts?denies.?Tingling?denies.?Tr emors?denies.? * Medical History:? * Surgical History:?spinal carrie el 2014knee replacement 2017 * Hospitalization/Major Diagno stic Procedure:?Denies Past Hospitalization * Family History:?Mother: dece ased.?Father: , heart attack, diagnosed with Diabetic - NIDDM.? * Social History:?Tobacco Use:?Tobacco Use/Smoking?Are you a:?nonsmoker ?Additional Findings: Tobacco Non-User?Current non-smoker ?Tobacco use other than smoking?Are you an other tobacco user??No ???Drugs/Alcohol:?Drugs?Have you used drugs other than those for medical reasons in the past 12 months??No ?Alcohol Screen?Did you have a drink containing alcohol in the past year??No ?Points?0 ?Interpretation?Negative ???Miscellaneous:?Caffeine: yes, frequency: 1 cup. ?Children: yes. ?no Exercise. ?Marital status: . ?Occupation: Retired. * Medications:?TakingTolterodi ne Tartrate ER 2 MG Capsule Extended Release 24 Hour 1 capsule Orally Once a dayMetoprolol Succinate 25 MG Capsule ER 24 Hour Sprinkle 1 capsule Orally Once a dayhydroCHLOROthiazide 12.5 MG Capsule 1 capsule in the morning Orally Once a dayLisinopril 10 MG Tablet 1 tablet Orally Once a dayFinasteride 5 MG Tablet 1 tablet Orally Once a dayTamsulosin HCl 0.4 MG Capsule 1 capsule Orally Once a dayMyrbetriq 25 MG Tablet Extended Release 24 Hour 1 tablet Orally Once a dayMedication List reviewed and reconciled with the patientTaking Tolterodine Tartrate ER 2 MG Capsule Extended Release 24 Hour 1 capsule Orally Once a dayTaking Metoprolol Succinate 25 MG Capsule ER 24 Hour Sprinkle 1 capsule Orally Once a dayTaking hydroCHLOROthiazide 12.5 MG Capsule 1 capsule in the morning Orally Once a dayTaking Lisinopril 10 MG Tablet 1 tablet Orally Once a dayTaking Finasteride 5 MG Tablet 1 tablet Orally Once a dayTaking Tamsulosin HCl 0.4 MG Capsule 1 capsule Orally Once a dayTaking Myrbetriq 25 MG Tablet Extended Release 24 Hour 1 tablet Orally Once a dayMedication List reviewed and reconciled with the patient * Allergies:?N.K.D.A.yes[Aller gies Verified] Objective: * Vitals:?Ht: 5 ft 6 in, Wt: 1 60, BMI: 25.82, Shoe size: 8, Ht-cm: 167.64 cm, Wt- k.57 kg. * Examination: ???General Examination: ?GENERAL APPEARANCE:?Reveals a pleasant, alert, well-nourished, well- developed, well hydrated individual, who demonstrates proper attention to hygiene/body habitus, and is in no acute distress, Pt serves as own?historian for office visit today.?ORIENTED:?person, place, and time.?Neurological: ?SENSORY:?Neurological exam reveals intact sensorium, pain sensation normal, vibration sensation intact, pinprick sensation is normal in the lower extremities, Pt denies, anesthesia, burning, paresthesia, tingling, B/L.?DEEP TENDON REFLEXES:?Achilles, 2/4, B/L.?Vascular: ?DP PULSES:?3/4, B/L.?PT PULSES:?3/4, B/L.?CAPILLARY FILL TIME:?immediate, all digits, B/L.?SKIN TEMPERTURE GRADIENT OF THE LOWER EXTERMITIES:?warm to cool, proximal to distal, B/L.?HAIR GROWTH/TEXTURE/ELASTICITY/TURGOR:?normal, B/L.?PIGMENTATION:?normal, B/L.?EDEMA:?absent, B/L.?Dermatologic: ?SKIN FINDINGS:?Skin exam reveals normal texture, elasticity, and turgor. There are no masses. The interspaces are clear, no sign of puncture wound or foreign body, no infection.?Orthopedic: ?MUSCLE STRENGTH:?5/5 all groups in a symmetrical fashion , B/L.?X-Rays: ?Views:?Pt Defers X-Rays.? Assessment: * Assessment: 1.?Pain of right heel - M79. 671?2.?Foreign body in heel, right, sequela - S90.851S (Primary), Acute problem, Uncomplicated (3)? Plan: * Treatment: * Procedure Codes:? * Preventive Medicine:? ??Counseling:?Discussion:?-03: Office or other outpatient visit for the evaluation and management of a new patient, which required a medically appropriate history and/or examination and LOW level of DECISION MAKING for: 1 STABLE ACUTE UNCOMPLICATED PROBLEM, 2 OR MORE MINOR PROBLEMS, OR 1 STABLE CHRONIC PROBLEM, THAT POSE(S) A LOW RISK FOR MORBIDITY/MORTALITY. When using time for code selection, 30-44 min of total time was spent on the day of the encounter interpreting the data and educating the patient as to the nature of their condition, treatment options available according to their individual PMH, meds, allergies, and overall health/living conditions, as well as any potential risks or complications that may occur from a failure to adhere to, and participate in, the recommended course of therapy. The discussion included a complete verbal, and/or written explanation of the examination results, any x- rays taken, the proposed diagnosis, and outline of the treatment plan. A schedule for future care needs was also explained. The patient verbalized an understanding of the instructions at this time and agreed to be an active participant in their treatment. If the patient should think of any questions or concerns after the visit, I have encouraged the patient to call the office. Discussed further imaging to evaluate for any residual glass, pt defers Xray or MRI. Discussed that since initial injury was so long ago, there are no signs of any pucture wound or foreign body at the surface of the skin. Pt states pain is minimal and no signs of infection, prefers to monitor and call with any issues.? * Follow Up:?prn * Images: * Sign off status: Completed true * Provider:?Kami Aldana DPM Date:? Generated for Jason esposito/Barbi/eTransmitting on:?08/09/2024 10:40 PM EST History and Physical Notes * HPI (History of Present Illness) Category Sub-Category Detail Notes Category Not es Heel pain Duration: several months Nature: tender Location: plantar heel , RIGHT Onset/Cause: stepped on glass at home Aggravated: any pressure Course: mild pain , intermit tent Treatments: Pt removed glass at home without issue, still having some mild pain, PCP concerned piece of glass still in there Examination Category Sub-Category Detail Notes Category Not es Neurological SENSORY: Neurological exa m reveals intact sensorium, pain sensation normal, vibration sensation intact, pinprick sensation is normal in the lower extremities, Pt denies, anesthesia, burning, paresthesia, tingling, B/L DEEP TENDON REFLEXES: Achilles, 2/4, B/L Dermatologic SKIN FINDINGS: Skin exam reveal s normal texture, elasticity, and turgor. There are no masses. The interspaces are clear, no sign of puncture wound or foreign body, no infection Orthopedic MUSCLE STRENGTH: 5/5 all groups in a symm etrical fashion , B/L General Examination GENERAL APPEARANCE: Reveals a pleasant, alert, well- nourished, well-developed, well hydrated individual, who demonstrates proper attention to hygiene/body habitus, and is in no acute distress, Pt serves as own historian for office visit today ORIENTED: person, place, and t ady Vascular DP PULSES(B): 3/4, B/L PT PULSES(B): 3/4, B/L CAPILLARY FILL TIME: immediate, all digi ts, B/L TEMPERTURE GRADIENT(C): warm to cool, pr oximal to distal, B/L TROPHIC CONDITION-TEXTURE/ELASTICITY/TURGOR/HAIR GROWTH(B): normal, B/L EDEMA(C): absent, B/L PIGMENTATION: normal, B/L X-Rays - IMAGING REPORT Views: Pt Defers X-Rays
--- OUTSIDE RECORDS SUMMARY | 2024-08-09 22:41 | XMS_ITS | Data Portability ---
Author Organization [place] - [facility], [facility] Address [address] [place] [address] Assessment No assessment recorded. Plan of Treatment Reminders Order Date Submit Date Provider Last Modified By Organization Details Last Modified Time Details Appointments None recorde d. Lab None recorde d. Referral None recorde d. Procedures None recorde d. Surgeries None recorde d. Imaging XR, shoulde r, 2 or more view - RM 5 RT shldr 024 [facility] [address] [place] [address], [address], 12:58:25 Medication Orders None recorde d. Patient TargetsNo targets recorded. Patient InstructionsNo instructions recorded. Reason for Referral None Reported. Results Created Date Observation Date Name Description Value Unit Range Abnormal Flag Note LastModifiedBy Organization Detail LastModifiedTime 01/19/20 24 01/19/2024 XR, shoul alistair, 2 or more view [email or web address] ?Encry pted=s hAaTro YD8dLq bEUv6g %2BXZw aYqtaq 0bqfl% 2Fg9IQ a4ajBk vP9nXo QUaueC m3YtLR FvZlgJ JJ8mAn HZtai3 7h7313 AC0Kvb H6GWKb eUC8mr 84%3D INTERFACE [facility] Office [address] [facility] [address], [place], [address], 01/19/2024 09:27:49 01/19/20 24 01/19/2024 XR, shoul alistair, 2 or more view [email or web address] ?Encry pted=s hAaTro YD8dLq bEUv6g %2BXZw aYqtaq 0bqfl% 2Fg9IQ a4ajBk vP9nXo QUaueC m3YtLR FvZlgJ JJ8mAn HZtai3 7x6735 AC0Kvb H6GWKb eUC8mr 84%3D INTERFACE [facility] [address], [place], [address], 01/19/2024 09:27:51 Result Notes None recorded. Problems Name Problem SNOMED Code Status Onset Date Resolution Date Notes Provider Name and Address Organization Details Recorded Time Pain of right shoulder joint 001268536187920 00 [facility] 4 09:17:28 Pain of left shoulder joint 642101036657527 09 Active 2023 Fernando Caruso MD [address] [place] [address], [address], [facility] 4 09:55:05 Problem Notes None recorded. Procedures Surgical History Date Name Laterality Status Provider Name and Address Organization Details Recorded Time Shoulder Kenalog 2cc Injection, Bilateral completed Fernando Caruso MD [address] [facility], [place], [address], [facility] 01/19/2024 09:54:54 Imaging Results Imaging Date Name Status LastModified by Organiz ation Details LastModified Time 01/19/2024 XR, shoulder, 2 or more view completed INTERFACE [facility] [address], [place], [address], 01/19/2024 09:27:49 01/19/2024 XR, shoulder, 2 or more view completed INTERFACE [facility] [address], [place], [address], 01/19/2024 09:27:51 Procedure Notes None recorded. Medical Equipment None Reported. Medications Name Sig Start Date Stop Date Status Note LastModified by Organization Details LastModified Time tolterodine ER 2 mg capsule,extended release 24 hr active Not Available Not Availabl e Not Available tamsulosin 0.4 mg capsule active Not Available Not Available N ot Available lisinopril 10 mg tablet active Not Available Not Available Not Available hydrochlorothiaz reji 25 mg tablet active Not Available Not Avail able Not Available metoprolol succinate ER 25 mg tablet,extended release 24 hr active Not Available Not Availabl e Not Available levofloxacin 500 mg tablet TAKE 1 TABLET BY MOUTH EVERY DAY FOR 5 DAYS active Not Available Not Available No t Available finasteride 5 mg tablet active Not Available Not Available Not Available Vitals Date Recorded Body height Body mass index (BMI) Body weight Provider Name and Address Organization Details Last Updated DateTime 01/19/2024 165.1 cm 27.5 kg/m2 77512.74 g SASKIA BARRAZA [facility] 01/19/2024 09:31:22 Social History None recorded. Functional Status None recorded. Mental Status None recorded. Family History Nothing Reported. Medical History Condition Response Allergies/Hayfever N Coronary Artery Disease N Anxiety/Depression N Breathing or lung disorders N Emphysema N Nerve Disorders N Thyroid Problems N COPD N Pacemaker N Anemia N Kidney/Bladder Problems Y Vascular Disease N Heart Trouble Y Heart Attack (ND) N Gastrointestinal Disease N Cholesterol N Diabetes N Autoimmune disease N Bleeding Disorder N Orthotics N Arthritis N Seizures/Epilepsy N Blood Clot N AIDS/HIV N Congestive Heart Failure (CHF) N Acid Reflux (GERD) N Cancer Y Stroke N Asthma N Circulation Problems N Peripheral Vascular Disease N Sleep Apnea N Hepatitis N Heart Disease N Rheumatoid Arthritis N Arrhythmia N Pulmonary Embolism N Headaches N Fibromyalgia N Hypertension Y Osteoporosis N Past Encounters Encounter ID Performer Location Encounter Start Date Encounter Closed Date Diagnosis/Indication Diagnosis SNOMED-CT Code Diagnosis ICD10 Code [id number] MD [facility] [address] [place] [address] 01/19/2024 09:08:32 02/08/2024 12:58:24 Pain of right shoulder joint [id number] 9757269 M25.511 Pain of le ft shoulder joint [id number] 5928975 M25.512 Health Concerns Section Related Observation LastModified by Organization Detai ls LastModified Time None Recorded Concern Status LastModified by Organization Details LastModified Time None Recorded Advance Directives Directive None Recorded Payers Encounter Date Sequence Insurance Name Policy Number Policy Woods Covered Member ID Woods Member ID Guarantor Name 01/19/2024 2 [place] [id number] Bill Patel [id number] Bill Patel 01/19/2024 1 [place] [employer] Bill Patel [id number] Bill Patel Notes Date Note Type Note Provider Name and Address Organization Details Recorded Time 01/19/2024 text/html Patient presents today for evaluation of his Right and left shoulder. 88-year-old right-hand dominant gentleman with slowly progressive left shoulder discomfort, decreased activity tolerance is in functional range of motion. Patient had a arthroscopic rotator cuff [place] [address] Cedillo. Generally went on to do well. Now reports slowly increasing discomfort, decreased overhead activity tolerances.PFMSH and ROS has been reviewed, updated, and signed by me and is located in the patient's chart.On physical examination well-appearing older gentleman in no acute distress alert and oriented ? 3 . Pleasant affect. Cervical spine range of motion is moderately restricted without active radicular signs or symptoms listed.Left shoulderAltered mechanics. Soft subacromial crepitance. Anterior middle and posterior deltoid are intact. Axillary nerve function intact. Forward elevation 160, external rotation 45, internal rotation 15. Supraspinous strength 4/5 infraspinatus strength 4/5 subscapularis 4+. No instability.Right shoulderROM near full, 4/5 strength including rotator cuff and periscapular musculature. Good Muscle bulk and strength without atrophy. No evidence of instability of the shoulder. Negative impingement signs. Negative AC joint tenderness. Negative Speed's, Negative O'briens, Negative Josue. Axillary nerve function intactHEENT is unremarkable without carotid bruits or JVD.Heart regular rate and rhythm without murmurs rubs or gallops.Abdomen soft nontender nondistended positive bowel sounds.Lungs are clear bilaterally without rales rhonchi or wheezes.Patient is neurovascularly intact in both upper and lower extremities.No evidence for significant varicosities or active DVT at this time.Skin is intact to light touch and normal deep tendon reflexes.X-RAY REPORT: X-rays were ordered, obtained and reviewed today at [facility], 4 views Right shoulder obtained reveal well-maintained subacromial spacing. Type III acromion morphology. Moderate glenohumeral joint Elizabeth arthropathy. 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 Based upon his mechanics and radiographic appearance I would anticipate that his prior rotator cuff repair has in fact healed. He is now developing glenohumeral joint osteoarthropathy. Hoping to avoid shoulder arthroplasty techniques. Elected to inject his Bilateral shoulder today 8 cc Marcaine and 80 mg of Kenalog half interarticularly half subacromially. Recheck every 4-6 months as necessary Fernando Caruso MD [address], [place], [address], [facility] 01/19/2024 09:55:26
[2024-08-10] MEDS: ceFAZolin Sodium/Dextrose,Iso 2 GM/50 ML PIGGYBACK IV (01:05)
[2024-08-10 03:22] VITALS: BP 128/63; PULSE 72; TEMP 36.7; O2SAT 97
[2024-08-10] MEDS: Acetaminophen 325 MG TABLET 975 MG PO (06:03)
[2024-08-10 07:26] VITALS: BP 120/59; PULSE 79; RESP 14; TEMP 37.2; O2SAT 95
[2024-08-10] MEDS: Metoprolol Succinate ER 25 MG TAB.ER.24H PO (07:37)
[2024-08-10] MEDS: hydroCHLOROthiazide 12.5 MG TABLET PO (07:37)
[2024-08-10] MEDS: lisinopriL 10 MG TABLET PO (07:37)
[2024-08-10] MEDS: Tamsulosin HCL 0.4 MG CAPSULE PO (07:37)
[2024-08-10] MEDS: Docusate Sodium 100 MG CAPSULE PO (07:38)
[2024-08-10] MEDS: Tolterodine Tartrate LA 2 MG CAP.ER.24H PO (07:38)
[2024-08-10] MEDS: Gabapentin 300 MG CAPSULE PO (07:38)
[2024-08-10] MEDS: Finasteride 5 MG TABLET PO (07:38)
--- NOTE | 2024-08-10 09:15 | HO.NEURO.PN ---
Neurosurgery Operative Note Date of Service: 08/10/24 Narrative: POD: 1 Procedure: L3-4 OLIF Bill is a pleasant 88 year old male who underwent L3-4 oblique lumbar interbody fusion yesterday. He was seen this morning sitting in bedside recliner. He had just finished eating breakfast. He has progressed well since surgery. He states that he is up walking around with his walker and is otherwise doing well. He still reports some axial low back pain, but states that his lower extremity symptoms have resolved. Pain well controlled with current regimen. He is voiding well, tolerating diet. Afebrile, vital signs stable. He has about 4/5 strength with bilateral iliopsoas testing. The rest of his lower extremity strength is 5/5. Back dressings are clean and dry. No active sanguineous drainage. Plan: Bill is a pleasant 88 year old male who is postop day 1 from L3-4 oblique lumbar interbody fusion. He continues to report some axial low back pain, but is lower extremity symptoms have resolved. He is progressing normally. He meets criteria to be medically discharged home. He requested that his medication be sent to the [facility] in [place]. We will follow up with him in 2-3 weeks in clinic. Plan was discussed with the attending neurosurgeon Dr. Swenson who is in agreement. Misha Swenson MD,PhD [facility]
--- NOTE | 2024-08-10 09:18 | MHC.CM.PN ---
PT REPORTS HE LIVES WITH HIS AND IS INDEPENDENT WITH CARE HE HAS A CANE AND WALKER, BUT DOES NOT USE THEM AT BASELINE HCP ON FILE PCP: JIA CHAMBERS IMM DELIVERED PT HAS BEEN CLEARED TO DC HOME WITH FAMILY SUPPORT WILL TRANSPORT
[2024-08-10 09:22] VITALS: BP 120/59; PULSE 79; O2SAT 95
--- NOTE | 2024-08-10 12:37 | HO.POSTANES ---
Post Anesthesia Evaluation Post Anesthesia Evaluation Date of Service: 08/10/24 Vital Signs: Vital Signs Temp Pulse Resp BP Pulse Ox O2 Del Method 08/10/24 09:22 79 120/59 L 95 08/10/24 07:26 98.9 F 79 14 120/59 L 95 Room Air 08/10/24 03:22 98.0 F 72 128/63 97 Room Air Anesthesia: General Mental Status: Awake Pain Control: Satisfactory Nausea/Vomiting: None Hydration: Adequate Anesthesia-Related Issues: No Anes. Related Issues
== END 2024-08-10 10:35 | disposition home or self-care (01) | DRG 451 ==
LOC: HO.SSSA 09:37 → HO.S3 10:28
PROVIDERS: Admitting Provider Neurological Surgery; PCP Internal Medicine Medical Oncology; Visit Provider Neurological Surgery
PROC: 0SG00A0 Fusion of Lumbar Vertebral Joint with Interbody Fusion Device, Anterior Approach, Anterior Column, Open Approach (ICD-10-PCS; principal; 2024-08-09 07:30)
DX: M48.062 Spinal stenosis, lumbar region with neurogenic claudication (principal); M43.16 Spondylolisthesis, lumbar region; Z79.899 Other long term (current) drug therapy
CPT/HCPCS: 86850; 86900; 86901; 97116; 97162; C1713; C9290; J0131; J0665; J0690; J1100; J1171; J2003; J2405; J3010; L8699

== ENCOUNTER → 2024-08-09 06:37 | Outpatient (BNV) | payer MEDICARE, SELFPAY | PROVIDERS: Admitting Provider Neurological Surgery; PCP Internal Medicine Medical Oncology; Visit Provider Neurological Surgery | DX: M48.062 Spinal stenosis, lumbar region with neurogenic claudication (principal) | CPT/HCPCS: 20930; 22558; 22612; 22840; 22853; 99024; 99499 ==

== ENCOUNTER → 2024-08-31 07:50 | Outpatient (REF) | payer MEDICARE, SELFPAY ==
--- NOTE | 2024-08-31 07:53 | CA_ITS ---
Transthoracic Echocardiogram Patient (Last, First, Middle): Bill Patel R Gender: Male Date of : 1935 Age: 88 Procedure Date: 08/31/2024 Procedure Type: Transthoracic Echocardiogram Location: OP Height: 167.64 cm Weight: 72.12 kg BSA: 1.81 m2 Heart Rate: bpm BP: 124 / 68 mmHg Language Instructor: CLAYTON Referring MD: Ulises Zuluaga MD Wind Turbine Electrical Engineer: Ulises Zuluaga MD Symptoms: I47.1 - Supraventricular tachycardia Study Quality: Adequate ECG Rhythm: Sinus Conclusions: - 1. Normal LV ejection fraction 55-60% with elevated filling pressures 2. Mildly dilated left atrium 3. Mild aortic stenosis 4. Normal RV systolic pressure 5. No gross pericardial effusion Findings Left Ventricle Normal left ventricular size, thickness, and systolic function. The visually estimated ejection fraction is between 55-60%. Spectral Doppler is indicative of an impaired relaxation filling pattern. Elevated filling pressures. E/E prime ratio is >15, consistent with elevated filling pressures. There is mild septal asymmetric hypertrophy. Peak GLS is -14.9%, mildly to moderately reduced. Right Ventricle Normal right ventricular cavity size and systolic function. Atria The left atrium is mildly dilated. There is no evidence of interatrial shunt. The right atrium is likely dilated. Aortic Valve There is mild calcification of the aortic valve. There is mild thickening of the aortic valve. There is mild aortic valve stenosis. There is no aortic valve regurgitation. Mitral Valve There is mild anterior and posterior mitral leaflet thickening. There is trace mitral valve regurgitation. There is no mitral valve stenosis. Pulmonic Valve The pulmonic valve is likely normal. Tricuspid Valve Normal tricuspid valve structure. There is trace tricuspid valve regurgitation. Normal right atrial pressure. There is no evidence of pulmonary hypertension. Great Vessels All visible segments of the aorta are normal in size. The pulmonary artery was not well visualized. Venous The inferior vena cava is normal in size and collapses greater than 50% with inspiration. Pericardium/Pleural There is no evidence of pericardial effusion. Prior Study Comparison Changes noted compared to prior study dated: 11/14/2021. mild aortic stenosis is noted. Measurements 2D Linear Measurements IVSd: 1.12 0.6-0.9/0.6-1.0 cm LVIDd: 4.42 3.9-5.3/4.2-5.9 cm LVIDd Index: 2.44 2.4-3.2/2.2-3.1 cm/m2 LVIDs: 2.55 2.0-3.6 cm LVPWd: 1.09 0.7-1.1 cm LA Diam: 4.00 2.7-3.8/3.0-4.0 cm LAIDs Index: 2.21 1.5-2.3 cm/m2 LV Mass: 213.29 67-162/88-224 g LV Mass Index: 117.84 43-95/49-115 g/m2 LVOT Diam: 2.00 3.0+(-)1.3 cm 2D Systolic Function EF 4C: 59.50 >55% EF 2C: 59.80 >55% EF BiP: 59.40 >55% Mitral Valve MV Pk E: 0.83 MV PK A: 0.96 MV Decel Time: 216.00 E/A: 0.90 E'Lateral: 3.19 E'Medial: 3.26 E/E' Med: 25.40 E/E' Lat: 26.00 PHT: 63.00 MVA PHT: 3.49 Decel [place]: 3.98 Aortic Valve AoV Pk Stephen: 1.99 AoV Mn Stephen: 1.34 AoV VTI: 0.46 AoV Pk Grad: 16.00 Aov Mn Grad: 8.00 NELLY Cont.VTI: 1.87 LVOT LVOT Pk Stephen: 1.12 LVOT Mn Stephen: 0.75 LVOT VTI: 0.27 LVOT Pk Grad: 5.00 LVOT Mn Grad: 3.00 LVOT Diam: 2.00 LVOT Area: 3.14 Diastolic Function MV Pk E: 0.83 MV Pk A: 0.96 E/A: 0.90 E'Medial: 3.26 E/E' Med: 25.40 E' Laterial: 3.19 E/E' Lat: 26.00 Right Ventricle TAPSE (mm): 21.70 TVS' Stephen: 10.50 Tricuspid Valve TR Pk Stephen: 2.58 TR Pk Grad: 27.00 RA Press: 3.00 RVSP: 30.00 Great Vessels Aorta Sinus of Valsalva: 3.32 2.0-3.[address] Ridge: 2.11 1.7-3.4 cm Ao Asc: 3.30 2.1-3.4 cm Updated in Other Vendor System with Status of Final Ulises Zuluaga MD electronically signed on 09/01/2024 3:19:33 PM with status of Final
--- OUTSIDE RECORDS SUMMARY | 2024-08-31 07:53 | XMS_ITS ---
Author Organization Bill Tanner III, MD Address [address] [place] [address] Care Team Providers Care Pick Remover Name Role Phone Bill Tanner Primary Care Provider REASON FOR VISIT preop clearance faxed to Dr Swenson Social History Sex Assigned At : Social History Observation Description Sex Assigned At Male Encounters Encounter Location Date Provider Diagnosis Bill Tanner III, MD [address] [place] [address] [place] [address] 05/09/2024 Bill Tanner Plan Of Treatment Next Appt Details Provider Name:Bill Tanner, 11/22/2024 10:45:00 AM, [address] [place] [address] [place], [address], Provider Name:Bill Tanner, 02/23/2025 09:00:00 AM, [address] [place] [address] [place], [address], Progress Notes * Bill WHITFIELDDOB:1935 (88 yo M)Acc No.[id number]:05/09/2024 Patient:?JorgeBill cuello :1935???Age:88 Y???Sex:Male Address:[address] [place] [address] [place], [address] * true * Date:? Generated for Printi ng/Faxing/eTransmitting on:?08/31/2024 07:53 AM EST
--- OUTSIDE RECORDS SUMMARY | 2024-08-31 07:53 | XMS_ITS ---
Author Organization Bill Tanner III, MD Address [address] [place] [address] Care Team Providers Care Director Business Name Role Phone Bill Tanner Primary Care Provider REASON FOR VISIT follow up Social History Sex Assigned At : Social History Observation Description Sex Assigned At Male Encounters Encounter Location Date Provider Diagnosis Bill Tanner III, MD [address] [place] [address] [place] [address] 06/01/2024 Bill Tanner Plan Of Treatment Next Appt Details Provider Name:Bill Tanner, 11/22/2024 10:45:00 AM, [address] [place] [address] [place], [address], Provider Name:Bill Tanner, 02/23/2025 09:00:00 AM, [address] [place] [address] [place], [address], Progress Notes * Bill WHITFIELDDOB:1935 (88 yo M)Acc No.[id number]:06/01/2024 Progress Notes Patient:?Bill WHITFIELD Provider:?Bill Tanner MD :1935???Age:88 Y???Sex:Male Venktaesh e:06/01/2024 [address] [id number] Subjective: * Chief Complaints: * ???1. Follow up. * Medical History:? Objective: * Vitals:? Assessment: Plan: * Treatment: * Images: * The named appointment provid er may or may not be the originator of this progress note, and it is not deemed complete until electronically signed by the appointment provider. Sign off status: Pending * Provider:?Bill Tanner MD Date:?10/2023 Generated for Jason esposito/Barbi/Tino on:?08/31/2024 07:53 AM EST
--- OUTSIDE RECORDS SUMMARY | 2024-08-31 07:54 | XMS_ITS | Patient Health Record ---
Author Organization [facility] Address [address] [place] [address] Care Team Providers Care Homicide Squad Commanding Officer Name Role Phone Bill Tanner MD Primary Care Provider Unavailab carranza Kami Aldana Unavailable [phone] Allergies No Known Allergies Reason For Referral [...] Medicare National [employer] [address] [place] [address] [id number] Bill Patel Self - patient is the insured [facility] [address] [place] [address] [id number] Bill Patel Self - patient is the insured Medical (General) History Medical History History ICD Code Macular degeneration Measles Bone implants/screws Surgical History Surgery Date(Month/Year) spinal surgery 2013 knee replacement 2013, 2017
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
== END ==
LOC: HO.CARD 07:50
PROVIDERS: PCP Internal Medicine Medical Oncology; Visit Provider Internal Medicine Cardiovascular Disease
DX: I47.10 Supraventricular tachycardia, unspecified (principal)
CPT/HCPCS: 93306; 93356

== ENCOUNTER → 2024-08-31 07:53 | Outpatient (BNV) | payer MEDICARE, SELFPAY | PROVIDERS: PCP Internal Medicine Medical Oncology; Visit Provider Internal Medicine Cardiovascular Disease | DX: I42.2 Other hypertrophic cardiomyopathy (principal); I35.0 Nonrheumatic aortic (valve) stenosis; R93.1 Abnormal findings on diagnostic imaging of heart and coronary circulation | CPT/HCPCS: 93306; 93356 ==

== ENCOUNTER 2024-09-01 07:49 | Outpatient (REF) | payer MEDICARE, SELFPAY ==
--- NOTE | ~2024-09-01 | CT_ITS ---
CLINICAL HISTORY: C67.9 - Malignant neoplasm of bladder, unspecified CT abdomen and pelvis with and without contrast Comparison: None Findings: Minimal bronchiectasis at the lung bases. Innumerable low-density lesions throughout the liver consistent with multiple cysts. The gallbladder is decompressed. The spleen, adrenal glands and pancreas are unremarkable. Kidneys demonstrates several peripelvic cysts which exerts mass effect upon the collecting systems. No definite suspicious renal lesion. Ureters are normal in course and in caliber. The left distal ureter is not opacified and is therefore not well evaluated. Asymmetric left-sided bladder wall thickening with coarse calcification noted, reference axial image 72/96. Gas present within the bladder. The prostate gland demonstrates TURP defect. No definite pelvic sidewall adenopathy. Diverticulosis without diverticulitis. No bowel obstruction or free air. Normal appendix. Moderate atherosclerotic disease. No acute osseous finding. Degenerative and postsurgical changes are present within the spine. Impression: Mildly asymmetric left anterior bladder wall thickening as detailed. There are no comparison studies present. Several peripelvic renal cysts but no current obstructive uropathy. Several additional incidental findings. This document has been electronically signed by: Eleuterio Navarrete MD on 09/01/2024 11:16:53
--- OUTSIDE RECORDS SUMMARY | 2024-09-01 07:52 | XMS_ITS ---
Author Organization Bill Tanner III, MD Address [address] [place] [address] Care Team Providers Care Customer Marketing Assistant Name Role Phone Bill Tanner Primary Care Provider REASON FOR VISIT preop clearance faxed to Dr Swenson Social History Sex Assigned At : Social History Observation Description Sex Assigned At Male Encounters Encounter Location Date Provider Diagnosis iBll Tanner III, MD [address] [place] [address] [place] [address] 05/09/2024 Bill Tanner Plan Of Treatment Next Appt Details Provider Name:Bill Tanner, 11/22/2024 10:45:00 AM, [address] [place] [address] [place], [address], Provider Name:Bill Tanner, 02/23/2025 09:00:00 AM, [address] [place] [address] [place], [address], Progress Notes * Bill WHITFIELDDOB:1935 (88 yo M)Acc No.[id number]:05/09/2024 Patient:?JorgeBill cuello :1935???Age:88 Y???Sex:Male Address:[address] [place] [address] [place], [address] * true * Date:? Generated for Printi ng/Faxing/eTransmitting on:?09/01/2024 07:52 AM EST
--- OUTSIDE RECORDS SUMMARY | 2024-09-01 07:52 | XMS_ITS | Patient Health Record ---
Author Organization [facility] Address [address] [facility] [place] [address] Care Team Providers Care Fringe Knotter Name Role Phone Bill Tanner MD Primary Care Provider Unavailab carranza Kami Aldana Unavailable [phone] Allergies No Known Allergies Reason For Referral [...] Medicare National [employer] [address] [facility] [place] [address] [id number] Bill Patel Self - patient is the insured [facility] [address] [place] [address] [id number] Bill Patel Self - patient is the insured Medical (General) History Medical History History ICD Code Macular degeneration Measles Bone implants/screws Surgical History Surgery Date(Month/Year) spinal surgery 2013 knee replacement 2013, 2017
--- OUTSIDE RECORDS SUMMARY | 2024-09-01 07:52 | XMS_ITS ---
Author Organization Bill Tanner III, MD Address [address] [place] [place] [address] Care Team Providers Care Firmware Architect Name Role Phone Bill Tanner Primary Care Provider REASON FOR VISIT follow up Social History Sex Assigned At : Social History Observation Description Sex Assigned At Male Encounters Encounter Location Date Provider Diagnosis Bill Tanner III, MD [address] [place] [address] [place] [address] 06/01/2024 Bill Tanner Plan Of Treatment Next Appt Details Provider Name:Bill Tanner, 11/22/2024 10:45:00 AM, [address] [place] [address] [place], [address], Provider Name:Bill Tanner, 02/23/2025 09:00:00 AM, [address] [place] [address] [place], [address], Progress Notes * Bill WHITFIELDDOB:1935 (88 yo M)Acc No.[id number]:06/01/2024 Progress Notes Patient:?Bill WHITFIELD Provider:?Bill Tanner MD :1935???Age:88 Y???Sex:Male Venkatesh e:06/01/2024 [address] [phone] Subjective: * Chief Complaints: [...] Tanner MD Date:?10/2023 Generated for Jason esposito/Barbi/Tino on:?09/01/2024 07:52 AM EST
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
[2024-09-01] MEDS: iohexoL 350 MG/ML 100 ML INFUS..BTL IV (09:32)
[2024-09-01 14:38] LABS: Creatinine POC 0.9 mg/dL (0.5-1.4); GFR POC > 60
== END 2024-09-01 07:50 | disposition home or self-care (01) ==
LOC: HO.CT 07:49
PROVIDERS: PCP Internal Medicine Medical Oncology; Visit Provider Urology
DX: C67.9 Malignant neoplasm of bladder, unspecified (principal); R31.0 Gross hematuria; M48.02 Spinal stenosis, cervical region
CPT/HCPCS: 74178; 82565; 99212; Q9967

== ENCOUNTER → 2024-09-01 07:51 | Outpatient (BNV) | payer MEDICARE, SELFPAY | PROVIDERS: PCP Internal Medicine Medical Oncology; Visit Provider Radiology Vascular & Interventional Radiology | DX: C67.9 Malignant neoplasm of bladder, unspecified (principal) | CPT/HCPCS: 74178 ==

== ENCOUNTER 2024-09-01 09:13 | Outpatient (AMB) | payer MEDICARE, SELFPAY ==
--- NOTE | 2024-09-01 09:29 | A.SPINEOV_ITS ---
Intake Visit Reasons: 1st post op Intake Note: Mr. Patel is here today for his 1st post op appointment. Chemical Strength Tester Required: No Allergies No Known Allergies [No Known Allergies*] Allergy (Verified 09/01/24 09:30) Assessment & Plan Assessment & Plan (1) Lumbar stenosis with neurogenic claudication: Code(s): M48.062 - Spinal stenosis, lumbar region with neurogenic claudication Category: Medical Plan Mr Patel is here about 3 weeks out from his L3-4 oblique lumbar interbody fusion. The spasms and sciatic pain down his leg are gone. He has been having some discomfort along the edge of his left back going into his left buttock but is more like a muscle soreness rather than an actual pain. His wounds are all healing up nicely including the left lower quadrant and the posterior stab incisions. There is a little bit of scabbing on the stab incisions but no signs of infection. He is able to stand up out of a chair on his own very comfortably. He had a CT urogram done today for surveillance of his bladder cancer so I took a look at the hardware in it all looks great. I showed him the CT findings. We will see him back in 6 weeks for a 2nd postoperative visit with x-rays. We discussed activity guidelines, restrictions and expectations after lumbar fusion. Ronal Swenson MD, PhD [facility] Orders: Orders XR lumbar spine 4V min Today M48.062 - Spinal stenosis, lumbar region with neurogenic claudication Coding Level of Care Code Global (26856) Diagnoses Lumbar stenosis with neurogenic claudication M48.062
--- OUTSIDE RECORDS SUMMARY | 2024-09-01 09:36 | XMS_ITS ---
Author Organization Bill Tanner III, MD Address [address] [place] [address] Care Team Providers Care Interior Design Consultant Name Role Phone Bill Tanner Primary Care Provider [phone] Allergies Allergen (clinical drug ingredient) Drug/Non Drug [...] Provider Diagnosis Bill Tanner III, MD [address] [place] [address] DR [place], MELISSA [address] 07/26/2024 Bill Tanner Mixed hyperlipidemia E78.2 ; [...] Provider Name:Bill Tanner, 11/22/2024 10:45:00 AM, [address] [place] [address] [place] C[place], [place], [address], Provider Name:Bill Tanner, 02/23/2025 09:00:00 AM, [address] [place] [address] [address], [place], [address], Progress Notes * NAHIDBillDOB:1935 (88 yo M)Acc No.[id number]:07/26/2024 Progress Notes Patient:?Bill WHITFIELD Provider:?Bill Tanner MD :1935???Age:88 Y???Sex:Male Venkatesh e:07/26/2024 Address:[address] [place] [address] CAT [id number] Subjective: * Chief Complaints: * ???Chronic low [...] Victor 09/2017colonoscopy lumbar spine decompression 2013inguinal herniorrhaphy, [facility], Dr. Blackwell 2017right rotator cuff surgery 2002left rotator cuff surgery 2003right carpal tunnel surgery 2014left carpal tunnel surgery 2015left knee replacement 2015TURP, TURBT pedunculated low-grade noninvasive urothelial carcinoma anterior wall and dome of bladder 07/2018colonoscopy, negative, [facility], Dr. 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 He was born in [place], [place]. He has been to [place] for [...] Tanner MD Date:?07/01 Generated for Printi ng/Facolletteg/eTransmitting on:?09/01/2024 09:36 AM EST History and Physical Notes * HPI (History of Present Illness) Category Sub-Category Detail Notes COVID-19 Screening Questions Have you had any new onset fever, chills, cough, congestion, sore throat, shortness of breath, muscle aches?: No Have you been exposed to the virus withi n the last 10 days?: No Have you travelled internationally in [facility] last 10 days?: No Have you been [...]
== END 2024-09-01 10:51 | disposition home or self-care (01) ==
PROVIDERS: PCP Internal Medicine Medical Oncology; Visit Provider Physician Assistant
DX: M48.062 Spinal stenosis, lumbar region with neurogenic claudication (principal)
CPT/HCPCS: 99024

== ENCOUNTER 2024-09-01 09:58 | Outpatient (REF) | payer MEDICARE, SELFPAY | END 2024-09-01 09:59 | disposition home or self-care (01) | LOC: HO.HOSX 09:58 | PROVIDERS: Visit Provider Physician Assistant | DX: Z13.89 Encounter for screening for other disorder (principal) ==

== ENCOUNTER 2024-09-13 07:59 | Outpatient (AMB) | payer MEDICARE, SELFPAY ==
[2024-09-13 08:21] VITALS: BP 126/78; PULSE 74; BMI 25.3
--- NOTE | 2024-09-13 08:21 | A.OFFVIS_ITS ---
Vital Signs 09/13/24 08:21 Height 5 ft 6 in Weight 156 lb 8.451 oz BMI 25.3 BP 126/78 Blood Pressure Location Lt brachial Position Sitting Pulse 74 Intake Visit Reasons: 1 y fu after echo pre-op urology Intake Note: 1 year follow-up after echo with ekg also pre-op urology Wastewater Supervisor Required: No Correctional Probation Officer: Correctional Probation Officer Present Accompanied by: Spouse Allergies No Known Allergies [No Known Allergies*] Allergy (Verified 09/01/24 09:30) Medication List - Last Reconciled 09/13/24 by Ulises Zuluaga MD finasteride 5 mg PO QAM hydrochlorothiazide 12.5 mg PO QAM ibuprofen 400 mg PO Q6H PRN lisinopril 10 mg PO QAM metoprolol succinate ER 25 mg PO QAM tamsulosin 0.4 mg PO QAM tolterodine ER 2 mg PO QAM HPI Comments Details: Bill comes for follow-up. Last year he had couple of surgeries for his back. His pain has improved. He also has had recurrent bladder cancer for which she needs to undergo repeat surgery. Patient was no new cardiac symptoms except for exertional shortness of breath when he climbs a flight of stairs. He does not get any shortness of breath at rest. Denies any orthopnea, PND, leg edema. Denies any exertional chest pain. Recent echocardiogram showed normal LV ejection fraction with mild aortic stenosis with elevated LV filling pressures. He said he has not had any episodes PFSH Medical History [place] (hard of hearing) Basal cell carcinoma Dyspnea on exertion Syncope and collapse SVT (supraventricular tachycardia) CKD (chronic kidney disease) Cancer Arthritis Hearing loss History of BPH Elevated cholesterol HTN (hypertension) Carpal tunnel syndrome, bilateral Surgical History History of back surgery Hx of right cataract extraction History of bladder surgery History of transurethral destruction of bladder lesion H/O colonoscopy History of carpal tunnel release of both wrists H/O inguinal hernia repair History of total right knee replacement (TKR) History of left knee replacement Family History Father No problems noted. Mother No problems noted. Social History Household Members: Spouse Housing: House Are you a primary personal care attendant to a significant other at home: No Do you presently have visiting nurse or other home services: No Alcohol intake: never Comment: occasional use of cane Patient Tobacco Use Status: Never used Tobacco Advance Directives Date on File: 09/18/20 service: Yes Current occupational status: retired Review of Systems Const Denies chills, Denies fatigue, Denies fever(s), Denies frequent falls, Denies weakness, Denies weight gain and Denies weight loss ENT Denies dizziness Card Denies chest pain, Denies leg edema, Denies lightheadedness, Denies palpitations, Denies dyspnea, Denies dyspnea on exertion, Denies orthopnea and Denies other (loss of consciousness) Resp Denies cough, Denies dyspnea and Denies dyspnea on exertion GI Denies hematochezia and Denies change in stool character Musc Denies abnormal gait, Denies muscle weakness, Denies numbness, Denies radiating pain into limb and Denies tingling Neuro Denies abnormal gait, Denies dizziness, Denies frequent falls, Denies numbness, Denies tingling and Denies weakness Endo Denies fatigue and Denies palpitations Physical Exam Vital Signs: Last Vital Signs Pulse 74 09/13/24 08:21 BP 126/78 09/13/24 08:21 BMI result Body Mass Index 25.3 Const General: cooperative, comfortable, no acute distress, well developed, alert and awake Nutritional Appearance: average body habitus Orientation/consciousness: patient oriented x3 Limitations: no limitations Neck Neck: Yes trachea midline, Yes supple and Yes no JVD Resp Effort & Inspection: normal respiratory effort Auscultation: clear to auscultation bilaterally Cardio Jugular venous distension: no JVD Palpation: normal PMI Rate: regular rate Rhythm: regular rhythm Heart sounds: S1 normal heart sound present, S2 normal heart sound present and Murmur heart sound present systolic early GI Auscultation: normal bowel sounds Neuro General: patient oriented x3 and no focal motor deficits Extrem General: Yes no clubbing, cyanosis or edema Psych Appearance: grossly normal Office Procedures EKG Details: EKG shows normal sinus rhythm with PACs otherwise normal EKG 87870-Tlggnsmzfvumqftrk, Complete Assessment & Plan Assessment & Plan (1) Preoperative cardiovascular examination: Code(s): Z01.810 - Encounter for preprocedural cardiovascular examination Plan: Preoperative cardiovascular risk stratification elderly gentleman who has undergone multiple procedures in the last year. He has nonobstructive CAD with LV diastolic dysfunction. Clinically he is doing well. He has mild aortic stenosis. No signs or symptoms of heart failure. Currently he is optimized to undergo the procedure with low to intermediate risk for perioperative cardiov ascular morbidity mortality. Continue metoprolol in the perioperative. (2) SVT (supraventricular tachycardia): Code(s): I47.1 - Supraventricular tachycardia Category: Medical Plan: Supraventricular tachycardia which has remained suppressed on low-dose metoprolol therapy. Continue the same. Vagal maneuvers were discussed. Avoidance of stimulants was discussed. No change in therapy at this point time. (3) SOB (shortness of breath) on exertion: Code(s): R06.02 - Shortness of breath Category: Medical Plan: Shortness of breath on exertion which appears to be secondary to elevated filling pressures suggestive of diastolic dysfunction. Clinically has no signs of heart failure. At this point time we discussed about management diastolic dysfunction. He is encouraged to continue participate in physical activity as tolerated. Participate shortness of breath possibly related to deconditioning related to lack of activity level due to his spine issues. At this point time no need for diuretic regimen. Continue aggressive blood pressure control. Mild aortic stenosis does not explain his exertional shortness of breath. (4) HTN (hypertension): Code(s): I10 - Essential (primary) hypertension Category: Medical Plan: Hypertension which is currently well optimized advised to monitor blood pressure at home and maintain a log. Goal blood pressure less than 130/84. Low-salt diet was discussed. Will follow up in the clinic in 1 year's time, sooner p.r.n.. Thank you for allowing me to partake in his care Coding Level of Care Code Est Pt Level 4 (38936) Complex EM visit Add On G2211 Diagnoses Preoperative cardiovascular examination Z01.810 SVT (supraventricular tachycardia) I47.1 SOB (shortness of breath) on exertion R06.02 HTN (hypertension) I10 CPT Codes EKG - CPT: 99412-Worjupfkbggikjnzu, Complete ([id number])
== END 2024-09-13 09:07 | disposition home or self-care (01) ==
PROVIDERS: PCP Internal Medicine Medical Oncology; Visit Provider Internal Medicine Cardiovascular Disease
DX: I47.10 Supraventricular tachycardia, unspecified (principal); R06.02 Shortness of breath; I10 Essential (primary) hypertension; Z01.810 Encounter for preprocedural cardiovascular examination; I49.1 Atrial premature depolarization
CPT/HCPCS: 93010; 99214; G2211

== ENCOUNTER → 2024-09-13 07:59 | Outpatient (BNVA) | payer MEDICARE, SELFPAY | PROVIDERS: PCP Internal Medicine Medical Oncology; Visit Provider Internal Medicine Cardiovascular Disease | DX: Z01.810 Encounter for preprocedural cardiovascular examination (principal); I47.10 Supraventricular tachycardia, unspecified; R06.02 Shortness of breath; I10 Essential (primary) hypertension | CPT/HCPCS: 93005; 99212 ==

== ENCOUNTER 2024-10-09 09:06 | Day surgery (SDC) | payer MEDICARE, SELFPAY ==
--- OUTSIDE RECORDS SUMMARY | 2024-09-07 07:07 | XMS_ITS ---
Author Organization Bill Tanner III, MD Address [address] [place] [address] Care Team Providers Care Cabinet And Trim Installer Name Role Phone Bill Tanner Primary Care Provider [phone] REASON FOR VISIT follow up Social History Sex Assigned At : Social History Observation Description Sex Assigned At Male Encounters Encounter Location Date Provider Diagnosis Bill Tanner III, MD [address] [place] [address] [place] [address] 06/01/2024 Bill Tanner Plan Of Treatment Next Appt Details Provider Name:Bill Tanner, 11/22/2024 10:45:00 AM, [address] [place] [address] [place], [address], Provider Name:Bill Tanner, 02/23/2025 09:00:00 AM, [address] [place] [address] [place], [address], Progress Notes * Bill WHITFIELDDOB:1935 (88 yo M)Acc No.[id number]:06/01/2024 Progress Notes Patient:?Bill WHITFIELD Provider:?Bill Tanner MD :1935???Age:88 Y???Sex:Male Venkatesh e:06/01/2024 Address:[address] [facility] [id number] Subjective: * Chief [...] Tanner MD Date:?10/2023 Generated for Jason esposito/Barbi/Tino on:?09/07/2024 07:06 AM EST
--- OUTSIDE RECORDS SUMMARY | 2024-09-07 07:07 | XMS_ITS ---
Author Organization Bill Tanner III, MD Address [address] [facility] [address] [place] [address] Care Team Providers Care Special Delivery Worker Name Role Phone Bill Tanner Primary Care Provider [phone] REASON FOR VISIT preop clearance faxed to Dr Swenson Social History Sex Assigned At : Social History Observation Description Sex Assigned At Male Encounters Encounter Location Date Provider Diagnosis Bill Tanner III, MD [address] [place] [address] [place] [address] 05/09/2024 Bill Tanner Plan Of Treatment Next Appt Details Provider Name:Bill Tanner, 11/22/2024 10:45:00 AM, [address] [place] [address] [place], [address], Provider Name:Bill Tanner, 02/23/2025 09:00:00 AM, [address] [place] [address] [place], [address], Progress Notes * Bill WHITFIELDDOB:1935 (88 yo M)Acc No.[id number]:05/09/2024 Patient:?JorgeBill :1935???Age:88 Y???Sex:Male Address:[address] [place] [address] [place], [address] * true * Date:? Generated for Printi ng/Faxing/eTransmitting on:?09/07/2024 07:07 AM EST
--- OUTSIDE RECORDS SUMMARY | 2024-09-07 07:07 | XMS_ITS ---
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 Name Role Phone Bill Tanner Primary Care Provider [phone] Allergies Allergen (clinical drug ingredient) Drug/Non Drug [...] Date Provider Diagnosis Bill Tanner III, MD [address] [place] [address] [address] [place], [place] [address] 07/26/2024 Bill Tanner Mixed hyperlipidemia E78.2 ; [...] check-up Provider Name:Bill Tanner, 11/22/2024 10:45:00 AM, [address] [place] [address] [address] [place], [place], [address], Provider Name:Bill Tanner, 02/23/2025 09:00:00 AM, [address] [place] [address] [address], [place], [address], Progress Notes * NAHIDBillDOB:1935 (88 yo M)Acc No.[id number]:07/26/2024 Progress Notes Patient:?Bill WHITFIELD Provider:?Bill Tanner MD :1935???Age:88 Y???Sex:Male Venkatesh e:07/26/2024 Address:[address] [place] [address] [id number] Subjective: * Chief Complaints: * ???Chronic low [...] wall and dome of bladder 07/2018colonoscopy, negative, [facility], Dr. 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 He was born in [place], [place]. He has been to [place] for [...] Tanner MD Date:?07/01 Generated for Printi ng/Facolletteg/eTransmitting on:?09/07/2024 07:06 AM EST History and Physical Notes * HPI (History of Present Illness) Category Sub-Category Detail Notes COVID-19 Screening Questions Have you had any new onset fever, chills, cough, congestion, sore throat, shortness of breath, muscle aches?: No Have you been exposed to the virus withi n the last 10 days?: No Have you travelled internationally in [facility] last 10 days?: No Have you been [...]
--- OUTSIDE RECORDS SUMMARY | 2024-09-07 07:08 | XMS_ITS | Patient Health Record ---
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 [address] [place], [place] [phone] [id number] Bill Whitfield Self - patient is [...] colonoscopy lumbar spine decompression 2012 inguinal herniorrhaphy, [facility] Dr. 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 Jose Couch 08/2006 Tumor removal from bladder [address] Garcia 1 Spurs removal procedure in april Hospitalization History Reason Date(Month/Year) right knee replacement 09/2017 left knee replacement 09/2013 chest pain 09/2019 No history
--- OUTSIDE RECORDS SUMMARY | 2024-09-07 07:08 | XMS_ITS | Patient Health Record ---
Author Organization [facility] Address [address] [facility] [place] [address] Care Team Providers Care Foreman Or Supervisor And Operator Name Role Phone Bill Tanner MD Primary Care Provider Unavailab carranza Kami Aldana Unavailable [phone] Allergies No Known Allergies Reason For Referral [...] Medicare National Govt Svcs Inc [address] [place] [address] [id number] Bill Patel Self - patient is the insured [facility] [address] [place] [address] [id number] Bill Patel Self - patient is the insured Medical (General) History Medical History History ICD Code Macular degeneration Measles Bone implants/screws Surgical History Surgery Date(Month/Year) spinal surgery 2013 knee replacement 2013, 2017
--- OUTSIDE RECORDS SUMMARY | 2024-09-07 07:08 | XMS_ITS | Data Portability ---
Author Organization [place] - [facility], [facility] Address [address] [place] [address] Assessment No assessment recorded. Plan of Treatment Reminders Order Date Submit Date Provider Last Modified By Organization Details Last Modified Time Details Appointments None recorde d. Lab None recorde d. Referral None recorde d. Procedures None recorde d. Surgeries None recorde d. Imaging XR, shoulde r, 2 or more view - RM 5 RT shldr 024 [facility] [address] [place] [address], [address], 12:58:25 Medication Orders None recorde d. Patient [...] a4ajBk vP9nXo QUaueC m3YtLR FvZlgJ JJ8mAn HZtai3 [id number] AC0Kvb H6GWKb eUC8mr 84%3D INTERFACE [facility] Office [address], [place], [address], 01/19/2024 09:27:49 01/19/20 24 01/19/2024 XR, shoul alistair, 2 or more view http:/ [email or web address]:[email or web address] ?Encry pted=s hAaTro YD8dLq bEUv6g %2BXZw aYqtaq 0bqfl% 2Fg9IQ a4ajBk vP9nXo QUaueC m3YtLR FvZlgJ JJ8mAn HZtai3 1y1531 AC0Kvb H6GWKb eUC8mr 84%3D INTERFACE [facility] [address], [place], [address], 01/19/2024 09:27:51 Result Notes None recorded. Problems Name Problem SNOMED Code Status Onset Date Resolution Date Notes Provider Name and Address Organization Details Recorded Time Pain of right shoulder joint 995337705144849 00 [facility] 4 09:17:28 Pain of left shoulder joint 382390928489223 09 Active 2023 Fernando Caruso MD [address] [place] [address], [phone], [facility] 4 09:55:05 Problem Notes None recorded. Procedures Surgical History Date Name Laterality Status Provider Name and Address Organization Details Recorded Time Shoulder Kenalog 2cc Injection, Bilateral completed Fernando Caruso MD [address] [facility], [place], [address], [facility] 01/19/2024 09:54:54 Imaging Results Imaging Date Name Status LastModified by Organiz ation Details LastModified Time 01/19/2024 XR, shoulder, 2 or more view completed INTERFACE [facility] [address], [place], [address], 01/19/2024 09:27:49 01/19/2024 XR, shoulder, 2 or more view completed INTERFACE [facility] [address], [place], [address], 01/19/2024 09:27:51 Procedure Notes None recorded. Medical [...] Updated DateTime 01/19/2024 165.1 cm 27.5 kg/m2 43733.74 g SASKIA BARRAZA [facility] 01/19/2024 09:31:22 Social History None recorded. Functional Status None recorded. Mental Status None recorded. Family History Nothing Reported. Medical History Condition Response Allergies/Hayfever N Coronary Artery Disease N Breathing or lung disorders N Anxiety/Depression N Emphysema N Nerve Disorders N Thyroid Problems N COPD N Pacemaker N Kidney/Bladder Problems Y Anemia N Vascular Disease N Heart Trouble Y Heart Attack (SD) N Gastrointestinal Disease N Cholesterol N Diabetes N Autoimmune disease N Bleeding Disorder N Orthotics N Seizures/Epilepsy N Arthritis N Blood Clot N AIDS/HIV N Congestive Heart Failure (CHF) N Acid Reflux (GERD) N Cancer Y Stroke N Asthma N Circulation Problems N Peripheral Vascular Disease N Sleep Apnea N Hepatitis N Heart Disease N Rheumatoid Arthritis N Pulmonary Embolism N Arrhythmia N Headaches N Fibromyalgia N Hypertension Y Osteoporosis N Past Encounters Encounter ID Performer Location Encounter Start Date Encounter Closed Date Diagnosis/Indication Diagnosis SNOMED-CT Code Diagnosis ICD10 Code Diagnosis Note [id number] MD [facility] [address] [place] [address] 01/19/2024 09:08:32 02/08/2024 12:58:24 Pain of right shoulder joint 0912065568 3489554 M25.511 Pain of le ft shoulder joint [id number] 5095102 M25.512 Health Concerns Section Related Observation LastModified by Organization Detai ls LastModified Time None Recorded Concern Status LastModified by Organization Details LastModified Time None Recorded Advance Directives Directive None Recorded Payers Encounter Date Sequence Insurance Name Policy Number Policy Woods Covered Member ID Woods Member ID Guarantor Name 01/19/2024 2 [place] [id number] Bill Patel [id number] Bill Patel 01/19/2024 1 [place] [employer] Bill Patel [id number] Bill Patel Notes Date Note Type [...] were ordered, obtained and reviewed today at [facility], 4 views Right shoulder obtained reveal well-maintained [...] months as necessary Fernando Caruso MD [address] [facility] [address], [place], [address], [facility] 01/19/2024 09:55:26
[2024-10-05 10:31] VITALS: BMI 25.3
--- NOTE | 2024-10-06 10:10 | P.CONAN_ITS ---
HPI - Anesthesia Eval Consult details Narrative: 88yo M for Cystoscopy & Bladder Biopsy s/p OLIF 07/2024 with GA-ETT 8 Cardiac optimized. Follows [facility] cardiology yearly. Stable at 08/2024 office visit. [facility] Active Problems Active Problems: All Active Problems Lumbar stenosis with neurogenic claudication (Acute) Spondylolisthesis, lumbar region (Acute) Lumbar radiculopathy (Acute) Lumbar stenosis (Acute) Urinary urgency (Acute) SOB (shortness of breath) on exertion (Acute) Recurrent UTI (urinary tract infection) (Acute) Central cord synd/C5-C7 (Acute) Syncope (Acute) Shortness of breath (Acute) Nephrolithiasis (Acute) BPH loc w urin obs/LUTS (Acute) Bladder cancer (Acute) Elevated cholesterol (Acute) HTN (hypertension) (Acute) SVT (supraventricular tachycardia) (Acute) Past Medical History Medical History [place] (hard of hearing) Basal cell carcinoma Dyspnea on exertion Syncope and collapse SVT (supraventricular tachycardia) CKD (chronic kidney disease) Cancer Arthritis Hearing loss History of BPH Elevated cholesterol HTN (hypertension) Carpal tunnel syndrome, bilateral Family History Family History Father No problems noted. Mother No problems noted. Family history of problems with anesthesia: No Surgical History Surgical History (Updated 10/05/24 @ 10:32 by Debbie Padilla RN) History of lumbar spinal fusion History of back surgery Hx of right cataract extraction History of bladder surgery History of transurethral destruction of bladder lesion H/O colonoscopy History of carpal tunnel release of both wrists H/O inguinal hernia repair History of total right knee replacement (TKR) History of left knee replacement History of Problems with Anesthesia: No Social History Social History Household Members: Spouse Housing: House Are you a primary medicare nurse to a significant other at home: No Do you presently have visiting nurse or other home services: No Alcohol intake: never Comment: occasional use of cane Patient Tobacco Use Status: Never used Tobacco Advance Directives Date on File: 09/18/20 service: Yes Current occupational status: retired Meds Allergies Allergy/AdvReac Type Severity Reaction Status Date / Time No Known Allergies Allergy Verified 09/01/24 09:30 [No Known Allergies*] Home Medications ?Medication ?Instructions ?Recorded ?Confirmed ?Last Taken ?Type lisinopril 10 mg tablet 10 mg PO QAM 06/04/20 10/05/24 06/25/24 History finasteride 5 mg tablet 5 mg PO QAM 09/10/22 10/05/24 08/09/24 06:16 History tamsulosin 0.4 mg capsule 0.4 mg PO QAM 09/16/23 10/05/24 08/09/24 06:16 History hydrochlorothiazide 12.5 mg tablet 12.5 mg PO QAM 05/04/24 10/05/24 06/25/24 History metoprolol succinate 25 mg 25 mg PO QAM 05/04/24 10/05/24 08/09/24 06:16 History tablet,extended release 24 hr tolterodine 2 mg capsule,extended 2 mg PO QAM 05/04/24 10/05/24 08/09/24 06:16 History release 24 hr ibuprofen 200 mg tablet 400 mg PO Q6H PRN Back Pain 07/25/24 10/05/24 Unknown History Exam Height,Weight and Vital Signs: Height 5 ft 6 in Weight 71 kg Pertinent Lab Results Pertinent Lab Results: Lab Results 05/04/24 Range/Units 12:55 WBC 8.5 (4.8-10.8) X10*3/uL RBC 4.04 L (4.60-5.80) X10*6/uL Hgb 13.6 L (14.0-18.0) g/dl Hct 39.9 L (42.0-52.0) % MCV 98.8 H (80.0-98.0) fL MCH 33.7 H (27.0-33.0) pg MCHC 34.1 (31.0-36.0) g/dl RDW 12.1 (11.0-16.0) % Plt Count 197 (160-400) X10*3/uL MPV 9.2 L (9.4-12.4) fL Absolute Nucleated RBC 0.000 (0.0-0.012) X10*3/uL Nucleated RBC % (auto) 0.0 (0.0-0.2) /100WBC Sodium 143 (135-145) mmol/L Potassium 4.3 (3.3-5.1) mmol/L Chloride 108 (96-108) mmol/L Carbon Dioxide 26 (22-29) mmol/L Anion Gap 13 (12-20) BUN 28 H (9-16) mg/dL Creatinine 1.27 (0.5-1.4) mg/dL Estim Creat Clear Calc 36.9 Estimated GFR 54 Random Glucose 121 H (60-115) mg/dL Calcium 9.9 D (8.4-10.2) mg/dL Narrative Narrative: EKG 08/2024 Details: EKG shows normal sinus rhythm with PACs otherwise normal EKG ECHO 08/2024 Conclusions: - 1. Normal LV ejection fraction 55-60% with elevated filling pressures 2. Mildly dilated left atrium 3. Mild aortic stenosis 4. Normal RV systolic pressure 5. No gross pericardial effusion Assessment and Plan Assessment Anesthesia Assessment: Chart Reviewed Final Anesthetic Review Family History of Problems with Anesthesia: No History of Problems with Anesthesia: No
--- OUTSIDE RECORDS SUMMARY | 2024-10-09 09:35 | XMS_ITS | Patient Health Record ---
Author Organization [facility] Address [address] [facility] [place] [address] Care Team Providers Care Chief Librarian Circulation Department Name Role Phone Bill Tanner MD Primary Care Provider Unavailab carranza Kami Aldana Unavailable [phone] Allergies No Known Allergies Reason For Referral [...] Medicare National Govt Svcs Inc [address] [place] [address] [id number] Bill Patel Self - patient is the insured [facility] [address] [place] [address] [id number] Bill Patel Self - patient is the insured Medical (General) History Medical History History ICD Code Macular degeneration Measles Bone implants/screws Surgical History Surgery Date(Month/Year) spinal surgery 2013 knee replacement 2013, 2017
--- OUTSIDE RECORDS SUMMARY | 2024-10-09 09:35 | XMS_ITS ---
Author Organization Bill Tanner III, MD Address [address] [place] [address] Care Team Providers Care Rn Urology Name Role Phone Bill Tanner Primary Care Provider [phone] Allergies Allergen (clinical drug ingredient) Drug/Non Drug [...] Date Provider Diagnosis Bill Tanner III, MD [address] [place] [address] DR PECK, [place] [address] 07/26/2024 Bill Tanner Mixed hyperlipidemia E78.2 ; [...] check-up Provider Name:Bill Tanner, 11/22/2024 10:45:00 AM, [address] [place] [address] [address], [place], [address], Provider Name:Bill Tanner, 02/23/2025 09:00:00 AM, [address] [place] [address] [address], [place], [address], Progress Notes * NAHIDBillDOB:1935 (88 yo M)Acc No.[id number]:07/26/2024 Progress Notes Patient:?Bill WHITFIELD Provider:?Bill Tanner MD :1935???Age:88 Y???Sex:Male Venkatesh e:07/26/2024 Address:[address] [place] [address] CAT [id number] Subjective: * Chief Complaints: * ???Chronic low [...] Victor 09/2017colonoscopy lumbar spine decompression 2013inguinal herniorrhaphy, [facility], Dr. 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 He was born in [place], [place]. He has been to [place] for [...] Tanner MD Date:?07/01 Generated for Printi ng/Facolletteg/eTransmitting on:?10/09/2024 09:35 AM EST History and Physical Notes * HPI (History of Present Illness) Category Sub-Category Detail Notes COVID-19 Screening Questions Have you had any new onset fever, chills, cough, congestion, sore throat, shortness of breath, muscle aches?: No Have you been exposed to the virus withi n the last 10 days?: No Have you travelled internationally in [facility] last 10 days?: No Have you [...]
--- OUTSIDE RECORDS SUMMARY | 2024-10-09 09:35 | XMS_ITS | Data Portability ---
Author Organization [place] - [facility], [facility] Address [address] [place] [address] Assessment No assessment recorded. Plan of Treatment Reminders Order Date Submit Date Provider Last Modified By Organization Details Last Modified Time Details Appointments None recorde d. Lab None recorde d. Referral None recorde d. Procedures None recorde d. Surgeries None recorde d. Imaging XR, shoulde r, 2 or more view - RM 5 RT shldr 024 [facility] [address] [place] [address], [address], 12:58:25 Medication Orders None recorde d. Patient [...] a4ajBk vP9nXo QUaueC m3YtLR FvZlgJ JJ8mAn HZtai3 8g6484 AC0Kvb H6GWKb eUC8mr 84%3D INTERFACE [facility] Office [address] [facility] [address], [place], [address], 01/19/2024 09:27:49 01/19/20 24 01/19/2024 XR, shoul alistair, 2 or more view http:/ [email or web address] ?Encry pted=s hAaTro YD8dLq bEUv6g %2BXZw aYqtaq 0bqfl% 2Fg9IQ a4ajBk vP9nXo QUaueC m3YtLR FvZlgJ JJ8mAn HZtai3 4s4873 AC0Kvb H6GWKb eUC8mr 84%3D INTERFACE [facility] [address], [place], [address], 01/19/2024 09:27:51 Result Notes None recorded. Problems Name Problem SNOMED Code Status Onset Date Resolution Date Notes Provider Name and Address Organization Details Recorded Time Pain of right shoulder joint 207517630677525 00 [facility] 4 09:17:28 Pain of left shoulder joint 503579520977364 09 Active 2023 Fernando Caruso MD [address] [place] [address], [phone], [facility] 4 09:55:05 Problem Notes None recorded. Procedures Surgical History Date Name Laterality Status Provider Name and Address Organization Details Recorded Time Shoulder Kenalog 2cc Injection, Bilateral completed Fernando Caruso MD [address] [facility], [place], [address], [facility] 01/19/2024 09:54:54 Imaging Results Imaging Date Name Status LastModified by Organiz ation Details LastModified Time 01/19/2024 XR, shoulder, 2 or more view completed INTERFACE [facility] [address], [place], [address], 01/19/2024 09:27:49 01/19/2024 XR, shoulder, 2 or more view completed INTERFACE [facility] [address], [place], [address], 01/19/2024 09:27:51 Procedure Notes None recorded. Medical [...] Updated DateTime 01/19/2024 165.1 cm 27.5 kg/m2 93706.74 g SASKIA BARRAZA [facility] 01/19/2024 09:31:22 Social History None recorded. Functional Status None recorded. Mental Status None recorded. Family History Nothing Reported. Medical History Condition Response Allergies/Hayfever N Coronary Artery Disease N Anxiety/Depression N Breathing or lung disorders N Emphysema N Nerve Disorders N Thyroid Problems N COPD N Pacemaker N Anemia N Kidney/Bladder Problems Y Vascular Disease N Heart Trouble Y Heart Attack ([place]) N Gastrointestinal Disease N Cholesterol N Diabetes [...] SNOMED-CT Code Diagnosis ICD10 Code Diagnosis Note [id number] MD [facility] [address] [place] [address] 01/19/2024 09:08:32 02/08/2024 12:58:24 Pain of right shoulder joint [id number] M25.511 Pain of le ft shoulder joint 4914266089 4014698 M25.512 Health Concerns Section Related Observation LastModified by Organization Detai ls LastModified Time None Recorded Concern Status LastModified by Organization Details LastModified Time None Recorded Advance Directives Directive None Recorded Payers Encounter Date Sequence Insurance Name Policy Number Policy Woods Covered Member ID Woods Member ID Guarantor Name 01/19/2024 2 [place] [id number] Bill Patel [id number] Bill Patel 01/19/2024 1 [place] [employer] Bill Patel [id number] Bill Patel Notes Date Note Type [...] were ordered, obtained and reviewed today at [facility], 4 views Right shoulder obtained reveal well-maintained [...] months as necessary Fernando Caruso MD [address], [place], [address], [facility] 01/19/2024 09:55:26
--- OUTSIDE RECORDS SUMMARY | 2024-10-09 09:36 | XMS_ITS ---
Author Organization Bill Tanner III, MD Address [address] [address] Care Team Providers Care Video Journalist Name Role Phone Bill Tanner Primary Care Provider REASON FOR VISIT follow up Social History Sex Assigned At : Social History Observation Description Sex Assigned At Male Encounters Encounter Location Date Provider Diagnosis Bill Tanner III, MD [address] [place] [address] [place] [address] 06/01/2024 Bill Tanner Plan Of Treatment Next Appt Details Provider Name:Bill Tanner, 11/22/2024 10:45:00 AM, [address] [place] [address] [place], [address], Provider Name:Bill Tanner, 02/23/2025 09:00:00 AM, [address] [place] [address] [place], [address], Progress Notes * Bill WHITFIELDDOB:1935 (88 yo M)Acc No.[id number]:06/01/2024 Progress Notes Patient:?Bill WHITFIELD Provider:?Bill Tanner MD :1935???Age:88 Y???Sex:Male Venkatesh e:06/01/2024 Address:[address] [facility] [id number] Subjective: * Chief Complaints: [...] Tanner MD Date:?10/2023 Generated for Jason esposito/Barbi/Bettyitting on:?10/09/2024 09:36 AM EST
--- OUTSIDE RECORDS SUMMARY | 2024-10-09 09:36 | XMS_ITS | Clinical Summary ---
Author Organization [facility] Address [address] [place] [phone] Phone Care Team Providers Care Flarer Name Role Phone Fidel Mayes MD Primary Care Provider [phone] Surgical History Surgery Date Site/Laterality Comments JOINT REPLACEMENT PROCEDURE:JOINT REPLACEMENT Medical History Medical History Date Comments Hypertension DX:Hypertension Cancer (CMS/HCC) DX:Cancer (HCC) Family History Medical History Relation Name Comments Diabetes Father Cancer Sister Relation Name Status Comments Father Sister Social History Tobacco Use Types Packs/Day Years Used Date Smoking Tobacco: Unknown Smokeless Tobacco: Never Sex and Gender Information Value Date Recorded Sex Assigned at Not on file Legal Sex Male 11:41 PM EST Gender Identity Not on file Sexual Orientation Not on file Obstetrics History Plan of Treatment Health Maintenance Due Date Last Done Comments DTaP,Tdap,and Td Vaccines (1 - Tdap) 1943 Pneumococcal Vaccine: 50+ Ye ars (1 of 1 - PCV) 1986 Zoster Vaccines (1 of 2) 1986 RSV Immunization Patients 60 + Years Old (1 - 1-dose 75+ series) 2011 Cholesterol Screening (Lipid Panel) 08/02/2022 Depression Screening 08/02/2022 Falls Risk Assessment 08/02/2022 Social Influencers of Health Screening 08/02/2022 Hypertension/CHF/CAD Annual BMP Blood Test 08/15/2022 COVID-19 Vaccine (1 - 2023-2 5 season) 2024 Influenza Vaccine (#1) 2024 HIB Vaccines Aged Out No longer eligi ble based on patient's age to complete this topic HPV Vaccines Aged Out No longer eligi ble based on patient's age to complete this topic Hepatitis A Vaccines Aged Out No long er eligible based on patient's age to complete this topic Hepatitis B Vaccines Aged Out No long er eligible based on patient's age to complete this topic IPV Vaccines Aged Out No longer eligi ble based on patient's age to complete this topic MMR Vaccines Aged Out No longer eligi ble based on patient's age to complete this topic Meningococcal ACWY Vaccine Aged Out N o longer eligible based on patient's age to complete this topic Meningococcal B Vacine Aged Out No lo nger eligible based on patient's age to complete this topic RSV Immunization Patients Un alistair 20 months Aged Out No longer eligible b ased on patient's age to complete this topic Varicella Vaccines Aged Out No longer eligible based on patient's age to complete this topic Advance Directives Documents on File Type Date Recorded 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
--- OUTSIDE RECORDS SUMMARY | 2024-10-09 09:37 | XMS_ITS ---
Author Organization Bill Tanner III, MD Address [address] [place] [address] Care Team Providers Care Recovery Advocate Name Role Phone Bill Tanner Primary Care Provider REASON FOR VISIT preop clearance faxed to Dr Swenson Social History Sex Assigned At : Social History Observation Description Sex Assigned At Male Encounters Encounter Location Date Provider Diagnosis Bill Tanner III, MD [address] [place] [address] [place] [address] 05/09/2024 Bill Tanner Plan Of Treatment Next Appt Details Provider Name:Bill Tanner, 11/22/2024 10:45:00 AM, [address] [place] [address] [place], [address], Provider Name:Bill Tanner, 02/23/2025 09:00:00 AM, [address] [place] [address] [place], [address], Progress Notes * Bill WHITFIELDDOB:1935 (88 yo M)Acc No.[id number]:05/09/2024 Patient:?JorgeBlil :1935???Age:88 Y???Sex:Male [address] [facility], [address] * true * Date:? Generated for Printi ng/Faxing/eTransmitting on:?10/09/2024 09:36 AM EST
--- OUTSIDE RECORDS SUMMARY | 2024-10-09 09:37 | XMS_ITS | Clinical Summary ---
Author Organization [facility] Address [address] [place] [address] Care Team Providers Care Fresh Work Wrapper Layer Name Role Phone Fidel Mayes MD Primary Care Provider Allergies No known active allergies Medications Medication Sig Dispensed Refills Start Date End Date Status finasteride (PROSCAR) 5 MG tablet 0 05/04/2017 Active lisinopril (PRINIVIL,ZESTRIL) tablet 10 mg 0 03/30/2017 Active tamsulosin (FLOMAX) 0.4 MG CAPS 0 05/05/2017 Active naproxen (NAPROSYN) 500 MG tablet Take 500 mg by mouth 2 (two) times a day with meals. 0 Active hydrochlorothiazide (HYDRODIURIL) tablet 25 mg 0 02/15/2018 Active oxybutynin (DITROPAN-XL) 5 MG 24 hr tablet Take 5 mg by mouth daily. 0 09/14/2018 Active amoxicillin (AMOXIL) 500 MG tablet Take 4 tabs 1 hour prior to dental appointment 20 tablet 3 07/31/2021 Active Active Problems Problem Noted Date Diagnosed Date Knee stiffness, right 12/03/2017 Arthritis of right knee 06/18/2017 Family History Medical History Relation Name Comments Diabetes Father Cancer Sister Relation Name Status Comments Father Sister Social History Tobacco Use Types Packs/Day Years Used Date Smoking Tobacco: Unknown Smokeless Tobacco: Never Sex and Gender Information Value Date Recorded Sex Assigned at Not on file Gender Identity Not on file Sexual Orientation Not on file Last Filed Vital Signs Vital Sign Reading Time Taken Comments Blood Pressure - - Pulse - - Temperature - - Respiratory Rate - - Oxygen Saturation - - Inhaled Oxygen Concentration - - Weight 72.6 kg (160 lb) 06/18/2017 10:46 AM EDT Height 167.6 cm (5' 6 ) 06/18/2017 10:46 AM EDT Body Mass Index 25.82 06/18/2017 10:46 AM EDT Plan of Treatment Health Maintenance Due Date Last Done Comments COVID-19 Vaccine (#1) 04/16/1936 Depression Screening 1948 Preventative Health Evaluation 1954 DTap / Tdap / Td (1 - Tdap) 1955 Shingrix-Zoster Vaccine (1 of 2) 1986 Fall Risk Assessment 2001 Pneumococcal Vaccine (1 of 1 - PCV) 2001 RSV Adult > 60+ Yrs or Pregn ant (1 - 1-dose 75+ series) 2011 Influenza Vaccine (#1) 2024 Hepatitis B Vaccines Aged Out No long er eligible based on patient's age to complete this topic RSV Ped < 20 months Aged Out No longe r eligible based on patient's age to complete this topic Care Teams Fresh Work Wrapper Layer Relationship Specialty Start Date End Date Fidel Mayes MD [address] [address] [place] [phone] PCP - General Family Medicine 05/10/17
[2024-10-09] MEDS: Lactated Ringers 1,000 ML 100 ML IVCONT (09:48)
[2024-10-09 09:57] VITALS: BP 124/65; PULSE 68; RESP 18; TEMP 36.6; O2SAT 95
[2024-10-09 09:59] VITALS: BMI 24.6
--- NOTE | 2024-10-09 10:04 | P.CONAN_ITS ---
[facility] Active Problems Active Problems: All Active Problems Lumbar stenosis with neurogenic claudication (Acute) Spondylolisthesis, lumbar region (Acute) Lumbar radiculopathy (Acute) Lumbar stenosis (Acute) Urinary urgency (Acute) SOB (shortness of breath) on exertion (Acute) Recurrent UTI (urinary tract infection) (Acute) Central cord synd/C5-C7 (Acute) Syncope (Acute) Shortness of breath (Acute) Nephrolithiasis (Acute) BPH loc w urin obs/LUTS (Acute) Bladder cancer (Acute) Elevated cholesterol (Acute) HTN (hypertension) (Acute) SVT (supraventricular tachycardia) (Acute) Past Medical History Medical History [place] (hard of hearing) Basal cell carcinoma Dyspnea on exertion Syncope and collapse SVT (supraventricular tachycardia) CKD (chronic kidney disease) Cancer Arthritis Hearing loss History of BPH Elevated cholesterol HTN (hypertension) Carpal tunnel syndrome, bilateral Functional capacity: independent ambulation Family History Family History Father No problems noted. Mother No problems noted. Family history of problems with anesthesia: No Surgical History Surgical History History of lumbar spinal fusion History of back surgery Hx of right cataract extraction History of bladder surgery History of transurethral destruction of bladder lesion H/O colonoscopy History of carpal tunnel release of both wrists H/O inguinal hernia repair History of total right knee replacement (TKR) History of left knee replacement History of Problems with Anesthesia: No Social History Social History Household Members: Spouse Housing: House Are you a primary patient care specialist to a significant other at home: No Do you presently have visiting nurse or other home services: No Alcohol intake: never Comment: occasional use of cane Patient Tobacco Use Status: Never used Tobacco Have you been hit, kicked, punched, or otherwise hurt by someone within the past year? If so, by whom?: No Are you DNR?: No Advance Directives: No Advance Directives Information Provided: Yes Advance Directives Date on File: 09/18/20 Recently lost weight without trying: No Nutrition Risks: No Nutritional Risk service: Yes Current occupational status: retired Meds Allergies Allergy/AdvReac Type Severity Reaction Status Date / Time No Known Allergies Allergy Verified 10/09/24 10:00 [No Known Allergies*] Active Medications: Current Medications Lactated Ringer's (Lr) 1,000 mls @ 100 mls/hr IVCONT .Q10H CRISTELA Last Admin: 10/09/24 09:48 Dose: 100 mls/hr Home Medications ?Medication ?Instructions ?Recorded ?Confirmed ?Last Taken ?Type lisinopril 10 mg tablet 10 mg PO QAM 06/04/20 10/05/24 06/25/24 History finasteride 5 mg tablet 5 mg PO QAM 09/10/22 10/05/24 08/09/24 06:16 History tamsulosin 0.4 mg capsule 0.4 mg PO QAM 09/16/23 10/05/24 08/09/24 06:16 History hydrochlorothiazide 12.5 mg tablet 12.5 mg PO QAM 05/04/24 10/05/24 06/25/24 History metoprolol succinate 25 mg 25 mg PO QAM 05/04/24 10/05/24 08/09/24 06:16 History tablet,extended release 24 hr tolterodine 2 mg capsule,extended 2 mg PO QAM 05/04/24 10/05/24 08/09/24 06:16 History release 24 hr ibuprofen 200 mg tablet 400 mg PO Q6H PRN Back Pain 07/25/24 10/05/24 Unknown History Exam Height,Weight and Vital Signs: Height 5 ft 6 in Weight 69.2 kg Last Vital Signs Temp 97.9 F 10/09/24 09:57 Pulse 68 10/09/24 09:57 Resp 18 10/09/24 09:57 BP 124/65 10/09/24 09:57 Pulse Ox 95 10/09/24 09:57 O2 Del Method Room Air 10/09/24 09:57 Airway Mallampati Class: II TM Dist: >3cm Neck ROM: Full Heart: RRR Lungs: CTA Assessment and Plan Assessment Anesthesia Assessment: Anesthesia Plan Discussed and Chart Reviewed Final Anesthetic Review Family History of Problems with Anesthesia: No History of Problems with Anesthesia: No NPO: Yes ASA Class: II Final Preanesthetic Review: Meds/Allgs Chart Reviewed and Anes Risks/Benef Reviewed Patient Risk: Intermediate Procedure Risk: Intermediate Anesthetic Plan Anesthetic Plan: GA Disposition: Standard PACU
--- NOTE | 2024-10-09 11:06 | MHC.SHP ---
Pre-Procedural Eval Section A - 24 Hr Update-Section A only Date of Service: 10/09/24 The patient is an INPATIENT: No Changes since office visit: No Cold of Flu in the past 2 weeks, No New Medical Problems, No Changes in Medication and No Patient answered all questions The patient has been examined within 24 hours of the surgical procedure. The History & Physical has been completed within 30 days and I have reviewed it.: No Section B - Complete if H&P > 30 days Chief Complaint: Malignant neoplasm of bladder, unspecified Details of Present Illness: Here for cystoscopy, bladder biopsy after induction immunotherapy Relevant Family History (Specify if Yes): No Relevant Social History: None Present Medications: see Short Stay Collaborative assessment Medical History: No relevant PMH History of Previous Operations: Relevant previous surgery/procedure and date(s) Allergies: Allergies Allergy/AdvReac Type Severity Reaction Status Date / Time No Known Allergies Allergy Verified 10/09/24 10:00 [No Known Allergies*] Review of Systems Sugical H&P ROS: Negative: Constitution, Cardiovascular, Respiratory, Neurological, Psychiatric, Hem-Onc, Allergic/Immunologic, Gastrointestinal, Genitourinary, Musculoskeletal, Integumentary, Endocrine and Eyes/Ears/Nose/Throat Exam Surgical H&P Exam: Normal: HEENT, Normal: Heart, Normal: Lungs, Normal: Extremities, Normal: Abdomen, Normal: Skin and Normal: Neurological Plan Diagnosis/Plan: Unchanged (Cystoscopy, bladder biopsy fulguration) I have reviewed the history and physical and performed a pertinent physical examination on my patient. No changes have occurred unless specified. Time Spent With Patient Time: Total time managing care of this patient today ____ minutes.
[2024-10-09] MEDS: levoFLOXacin 500 MG TABLET PO (11:07)
--- NOTE | 2024-10-09 11:40 | W.PM.OPN ---
Operative Note Operative Note Date of Service: 10/09/24 Narrative: PreOperative Diagnosis: bladder cancer Post Operative Diagnosis: bladder cancer Procedure: cystoscopy, bladder biopsy, fulguration Surgeon: Dr Tong Gentile Anesthesia: LMA Indications for procedure: Superficial bladder cancer. Here for cystoscopy, bladder biopsy. Evaluation. Completed induction immunotherapy Procedure: After informed consent was verified the patient was brought to the operating room and placed in a supine position. Anesthesia was administered per protocol. The patient was placed in modified dorsal lithotomy position and prepped and draped in a sterile fashion. Safety pause time-out was performed. Antibiotics being given. Cystoscopy was performed. Area of prior resection visible left sidewall. Narrow band imaging light used. Three biopsies taken across bladder back wall. One from edge of prior resection. One from midline and 1 from right-hand side. Fulguration performed on each of these areas. No other suspicious lesions seen. The patient tolerated the procedure well. They were extubated in operating room and transferred in stable conditions recovery area. Pathology: Bladder biopsies Drains: None
[2024-10-09 11:51] VITALS: BP 108/53; PULSE 64; RESP 12; TEMP 36.1; O2SAT 98
[2024-10-09 11:56] VITALS: BP 106/61; PULSE 69; RESP 12; O2SAT 97
[2024-10-09 12:01] VITALS: BP 110/55; PULSE 68; RESP 16; O2SAT 97
[2024-10-09 12:06] VITALS: BP 125/54; PULSE 69; RESP 18; O2SAT 97
[2024-10-09] MEDS: Phenazopyridine HCL 100 MG TABLET PO (12:19)
[2024-10-09 12:21] VITALS: BP 132/60; PULSE 70; RESP 20; O2SAT 99
--- NOTE | 2024-10-09 13:02 | HO.ANESPROP2 ---
[facility] Active Problems Active Problems: All Active Problems Lumbar stenosis with neurogenic claudication (Acute) Spondylolisthesis, lumbar region (Acute) Lumbar radiculopathy (Acute) Lumbar stenosis (Acute) Urinary urgency (Acute) SOB (shortness of breath) on exertion (Acute) Recurrent UTI (urinary tract infection) (Acute) Central cord synd/C5-C7 (Acute) Syncope (Acute) Shortness of breath (Acute) Nephrolithiasis (Acute) BPH loc w urin obs/LUTS (Acute) Bladder cancer (Acute) Elevated cholesterol (Acute) HTN (hypertension) (Acute) SVT (supraventricular tachycardia) (Acute) Past Medical History Medical History [place] (hard of hearing) Basal cell carcinoma Dyspnea on exertion Syncope and collapse SVT (supraventricular tachycardia) CKD (chronic kidney disease) Cancer Arthritis Hearing loss History of BPH Elevated cholesterol HTN (hypertension) Carpal tunnel syndrome, bilateral Functional capacity: independent ambulation Family History Family History Father No problems noted. Mother No problems noted. Family history of problems with anesthesia: No Surgical History Surgical History History of lumbar spinal fusion History of back surgery Hx of right cataract extraction History of bladder surgery History of transurethral destruction of bladder lesion H/O colonoscopy History of carpal tunnel release of both wrists H/O inguinal hernia repair History of total right knee replacement (TKR) History of left knee replacement History of Problems with Anesthesia: No Social History Social History Household Members: Spouse Housing: House Are you a primary outdoor emergency care technician to a significant other at home: No Do you presently have visiting nurse or other home services: No Alcohol intake: never Comment: occasional use of cane Patient Tobacco Use Status: Never used Tobacco Advance Directives Date on File: 09/18/20 service: Yes Current occupational status: retired Meds Allergies Allergy/AdvReac Type Severity Reaction Status Date / Time No Known Allergies Allergy Verified 10/09/24 10:00 [No Known Allergies*] Home Medications ?Medication ?Instructions ?Recorded ?Confirmed ?Last Taken ?Type lisinopril 10 mg tablet 10 mg PO QAM 06/04/20 10/05/24 06/25/24 History finasteride 5 mg tablet 5 mg PO QAM 09/10/22 10/05/24 08/09/24 06:16 History tamsulosin 0.4 mg capsule 0.4 mg PO QAM 09/16/23 10/05/24 08/09/24 06:16 History hydrochlorothiazide 12.5 mg tablet 12.5 mg PO QAM 05/04/24 10/05/24 06/25/24 History metoprolol succinate 25 mg 25 mg PO QAM 05/04/24 10/05/24 08/09/24 06:16 History tablet,extended release 24 hr tolterodine 2 mg capsule,extended 2 mg PO QAM 05/04/24 10/05/24 08/09/24 06:16 History release 24 hr ibuprofen 200 mg tablet 400 mg PO Q6H PRN Back Pain 07/25/24 10/05/24 Unknown History Exam Height,Weight and Vital Signs: Height 5 ft 6 in Weight 69.2 kg Last Vital Signs Temp 97 F 10/09/24 11:51 Pulse 70 10/09/24 12:21 Resp 20 10/09/24 12:21 BP 132/60 10/09/24 12:21 Pulse Ox 99 10/09/24 12:21 O2 Del Method Room Air 10/09/24 12:21 Airway Mallampati Class: II TM Dist: >3cm Denture: Upper and Lower Heart: RRR Lungs: CTA Assessment and Plan Assessment Anesthesia Assessment: Anesthesia Plan Discussed and Chart Reviewed Final Anesthetic Review Family History of Problems with Anesthesia: No History of Problems with Anesthesia: No NPO: Yes ASA Class: III Final Preanesthetic Review: Meds/Allgs Chart Reviewed, Consent Obtained/Reviewed and Anes Risks/Benef Reviewed Patient Risk: Intermediate Procedure Risk: Low Anesthetic Plan Anesthetic Plan: GA Disposition: Standard PACU
--- NOTE | 2024-10-09 13:03 | HO.POSTANES ---
Post Anesthesia Evaluation Post Anesthesia Evaluation Date of Service: 10/09/24 Vital Signs: Vital Signs Temp Pulse Resp BP Pulse Ox O2 Del Method 10/09/24 12:21 70 20 132/60 99 Room Air 10/09/24 12:06 69 18 125/54 L 97 Room Air 10/09/24 12:01 68 16 110/55 L 97 Room Air 10/09/24 11:56 69 12 106/61 97 Room Air 10/09/24 11:51 97 F 64 12 108/53 L 98 Room Air 10/09/24 09:57 97.9 F 68 18 124/65 95 Room Air Anesthesia: General LMA Mental Status: Awake Pain Control: Satisfactory Nausea/Vomiting: None Hydration: Adequate Anesthesia-Related Issues: No Anes. Related Issues
== END 2024-10-09 12:51 | disposition home or self-care (01) ==
PROVIDERS: PCP Internal Medicine Medical Oncology; Visit Provider Urology
PROC: (CPT 52224; principal; 2024-10-09 11:40)
DX: C67.9 Malignant neoplasm of bladder, unspecified (principal); I12.9 Hypertensive chronic kidney disease with stage 1 through stage 4 chronic kidney disease, or unspecified chronic kidney disease; N18.9 Chronic kidney disease, unspecified; R31.0 Gross hematuria; C44.91 Basal cell carcinoma of skin, unspecified; E78.00 Pure hypercholesterolemia, unspecified; I47.10 Supraventricular tachycardia, unspecified; R06.02 Shortness of breath; Z92.25 Personal history of immunosuppression therapy; Z79.899 Other long term (current) drug therapy; Z98.890 Other specified postprocedural states
CPT/HCPCS: 52224; 88305; J1100; J2003; J2250; J2405; J2704; J3010

== ENCOUNTER → 2024-10-09 09:06 | Outpatient (BNV) | payer MEDICARE, SELFPAY | PROVIDERS: PCP Internal Medicine Medical Oncology; Visit Provider Urology | DX: C67.2 Malignant neoplasm of lateral wall of bladder (principal) | CPT/HCPCS: 52204 ==

== ENCOUNTER 2024-10-13 11:06 | Outpatient (REF) | payer MEDICARE, SELFPAY ==
--- NOTE | ~2024-10-13 | XR_ITS ---
EXAMINATION: XR LUMBAR SPINE 2-3 VIEWS HISTORY: M48.062 - Spinal stenosis, lumbar region with neurogenic claudication COMPARISON: Comparison is made with the prior examination dated 03/17/2024. FINDINGS: AP and lateral views of the lumbar spine are submitted. In the interval since the prior study, the patient is status post posterior fusion of L3 and L4 with pedicle screws, spinal stabilization rods, and a disc prosthesis. The fusion hardware is intact. There is grade I spondylolisthesis at this level without change. The vertebral bodies maintain normal height. There is moderate to severe degenerative disc disease with disc space narrowing and osteophyte formation. There is calcification of the abdominal aorta. XR/XR lumbar spine 2-3V IMPRESSION: Status post posterior fusion of L3 and L4. Grade I spondylolisthesis at this level without change. Diffuse moderate to severe degenerative disc disease. Electronically signed by: Bill Royal MD 10/13/2024 02:39 PM [facility]
--- OUTSIDE RECORDS SUMMARY | 2024-10-13 12:45 | XMS_ITS | Data Portability ---
Author Organization [place] - [facility], [facility] Address [address] [place] [address] Assessment No assessment recorded. Plan of Treatment Reminders Order Date Submit Date Provider Last Modified By Organization Details Last Modified Time Details Appointments None recorde d. Lab None recorde d. Referral None recorde d. Procedures None recorde d. Surgeries None recorde d. Imaging XR, shoulde r, 2 or more view - RM 5 RT shldr 024 [facility] [address] [place] [address], [address], 12:58:25 Medication Orders None recorde d. Patient [...] a4ajBk vP9nXo QUaueC m3YtLR FvZlgJ JJ8mAn HZtai3 [id number] AC0Kvb H6GWKb eUC8mr 84%3D INTERFACE [facility] Office [address] [facility] [address], [place], [address], 01/19/2024 09:27:49 01/19/20 24 01/19/2024 XR, shoul alistair, 2 or more view http:/ [email or web address] ?Encry pted=s hAaTro YD8dLq bEUv6g %2BXZw aYqtaq 0bqfl% 2Fg9IQ a4ajBk vP9nXo QUaueC m3YtLR FvZlgJ JJ8mAn HZtai3 0a0843 AC0Kvb H6GWKb eUC8mr 84%3D INTERFACE [facility] [address], [place], [address], 01/19/2024 09:27:51 Result Notes None recorded. Problems Name Problem SNOMED Code Status Onset Date Resolution Date Notes Provider Name and Address Organization Details Recorded Time Pain of right shoulder joint 542855543404929 00 [facility] 4 09:17:28 Pain of left shoulder joint 293323193735899 09 Active 2023 Fernando Caruso MD [address] [place] [address], [address], [facility] 4 09:55:05 Problem Notes None recorded. Procedures Surgical History Date Name Laterality Status Provider Name and Address Organization Details Recorded Time Shoulder Kenalog 2cc Injection, Bilateral completed Fernando Caruso MD [address] [facility], [place], [address], [facility] 01/19/2024 09:54:54 Imaging Results Imaging Date Name Status LastModified by Organiz ation Details LastModified Time 01/19/2024 XR, shoulder, 2 or more view completed INTERFACE [facility] [address], [place], [address], 01/19/2024 09:27:49 01/19/2024 XR, shoulder, 2 or more view completed INTERFACE [employer] [employer] [facility] [address], [place], [address], 01/19/2024 09:27:51 Procedure Notes None recorded. Medical [...] Updated DateTime 01/19/2024 165.1 cm 27.5 kg/m2 68862.74 g SASKIA BARRAZA [facility] 01/19/2024 09:31:22 Social History None recorded. Functional Status None recorded. Mental Status None recorded. Family History Nothing Reported. Medical History Condition Response Allergies/Hayfever N Coronary Artery Disease N Anxiety/Depression N Breathing or lung disorders N Emphysema N Nerve Disorders N Thyroid Problems N COPD N Pacemaker N Anemia N Kidney/Bladder Problems Y Vascular Disease N Heart Trouble Y Heart Attack (CT) N Gastrointestinal Disease N Cholesterol N Diabetes [...] SNOMED-CT Code Diagnosis ICD10 Code Diagnosis Note [id number] MD [facility] [address] [place] [address] 01/19/2024 09:08:32 02/08/2024 12:58:24 Pain of right shoulder joint 9334416729 2613049 M25.511 Pain of le ft shoulder joint 1447117631 6172173 M25.512 Health Concerns Section Related Observation LastModified by Organization Detai ls LastModified Time None Recorded Concern Status LastModified by Organization Details LastModified Time None Recorded Advance Directives Directive None Recorded Payers Encounter Date Sequence Insurance Name Policy Number Policy Woods Covered Member ID Woods Member ID Guarantor Name 01/19/2024 2 [place] [id number] Bill Patel [id number] Bill Patel 01/19/2024 1 [place] [employer] Bill Patel [id number] Bill Patel Notes Date Note Type [...] were ordered, obtained and reviewed today at [facility], 4 views Right shoulder obtained reveal [...] months as necessary Fernando Caruso MD [address], [place], [address], [facility] 01/19/2024 09:55:26
--- OUTSIDE RECORDS SUMMARY | 2024-10-13 12:45 | XMS_ITS | Clinical Summary ---
Author Organization [facility] Address [address] [place] [address] Phone Care Team Providers Care Diathermy Equipment Repairer Name Role Phone Fidel Mayes MD Primary Care Provider [phone] Surgical History Surgery Date Site/Laterality Comments JOINT [...] Documents on File Type Date Recorded Patient Survey Technician Expl anation Health Care Decision (hx) 06/22/2014 AD DICKEY DIRECTIVE Health Care Decision (hx) 06/22/2014 AD DICKEY DIRECTIVE Care Teams Diathermy Equipment Repairer Relationship Specialty Start Date End Date Fidel Mayes MD [address] PCP - General Pediatrics 12/07/17
--- OUTSIDE RECORDS SUMMARY | 2024-10-13 12:45 | XMS_ITS | Clinical Summary ---
Author Organization [facility] Address [address] [place] [address] Care Team Providers Care Mule Developer Name Role Phone Fidel Mayes MD Primary Care Provider [phone] Allergies No known active allergies Medications Medication [...] age to complete this topic Care Teams Mule Developer Relationship Specialty Start Date End Date Fidel Mayes MD [address] [address] [place] [phone] PCP - General Family Medicine 05/10/17
== END 2024-10-13 11:07 | disposition home or self-care (01) ==
LOC: HO.HOSX 11:06
PROVIDERS: PCP Internal Medicine Medical Oncology; Visit Provider Physician Assistant
DX: M48.062 Spinal stenosis, lumbar region with neurogenic claudication (principal)
CPT/HCPCS: 72100; 99212

== ENCOUNTER 2024-10-13 11:06 | Outpatient (AMB) | payer MEDICARE, SELFPAY ==
--- NOTE | 2024-10-13 12:00 | HO.SPINEOV ---
Intake Visit Reasons: 2nd post op with xrays Intake Note: Mr. Patel is here today for his 2nd post op with xrays. Screw Machine Set Up Operator Required: No Allergies No Known Allergies [No Known Allergies*] Allergy (Verified 10/09/24 10:00) Assessment & Plan Assessment & Plan (1) Lumbar stenosis with neurogenic claudication: Code(s): M48.062 - Spinal stenosis, lumbar region with neurogenic claudication Category: Medical Plan MR Patel is doing well now about 8 weeks out from his L3-4 oblique lumbar interbody fusion. That is severe nerve pain he was having has completely gone. He is having a little bit of stiffness in his back when he stands up straight and a little bit of weakness of his hip flexion. I explained to him that these things will typically resolve after surgery. He was interested in therapy to try to expedite some of his walking stability and his leg strength. This is certainly reasonable. I will have him get a postoperative x-ray today just as a baseline. We discussed activity guidelines, restrictions and expectations after lumbar fusion surgery. At this point we can see him back on an as-needed basis. Ronal Swenson MD, PhD [facility] [employer] Orders: Orders PT Evaluation and Treatment Today M48.062 - Spinal stenosis, lumbar region with neurogenic claudication XR lumbar spine 4V min Today M48.062 - Spinal stenosis, lumbar region with neurogenic claudication Coding Level of Care Code Global (77842) Diagnoses Lumbar stenosis with neurogenic claudication M48.062
--- OUTSIDE RECORDS SUMMARY | 2024-10-13 12:01 | XMS_ITS ---
Author Organization Bill Tanner III, MD Address [address] [place] [address] Care Team Providers Care Oxygen Equipment Technician Name Role Phone Bill Tanner Primary [...] Date Provider Diagnosis Bill Tanner III, MD [address] [place] [address] DR [place]ECK, [place] [phone] 07/26/2024 Bill Tanner Mixed hyperlipidemia E78.2 ; [...] check-up Provider Name:Bill Tanner, 11/22/2024 10:45:00 AM, [address] [place] [address] [address], [place], [address], Provider Name:Bill Tanner, 02/23/2025 09:00:00 AM, [address] [place] [address] [address], [place], [address], Progress Notes * NAHIDBillDOB:1935 (88 yo M)Acc No.[id number]:07/26/2024 Progress Notes Patient:?Bill WHITFIELD Provider:?Bill Tanner MD :1935???Age:88 Y???Sex:Male Venkatesh e:07/26/2024 Address:[address] [place] [address] [phone] Subjective: * Chief Complaints: * ???Chronic low [...] Victor 09/2017colonoscopy lumbar spine decompression 2013inguinal herniorrhaphy, [facility], Dr. 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 He was born in [place], [place]. He has been to [place] for [...] Tanner MD Date:?07/01 Generated for Printi ng/Facolletteg/eTransmitting on:?10/13/2024 12:00 PM EST History and Physical Notes * HPI (History of Present Illness) Category Sub-Category Detail Notes COVID-19 Screening Questions Have you had any new onset fever, chills, cough, congestion, sore throat, shortness of breath, muscle aches?: No Have you been exposed to the virus withi n the last 10 days?: No Have you travelled internationally [facility] last [facility] days?: No Have you [...]
--- OUTSIDE RECORDS SUMMARY | 2024-10-13 12:01 | XMS_ITS | Clinical Summary ---
Author Organization [facility] Address [address] [place] [address] Care Team Providers Care Distribution Warehouse Manager Name Role Phone Fidel Mayes MD Primary Care Provider [phone] Allergies No known active allergies Medications Medication [...] age to complete this topic Care Teams Distribution Warehouse Manager Relationship Specialty Start Date End Date Fidel Mayes MD [address] [address] [place] [phone] PCP - General Family Medicine 05/10/17
--- OUTSIDE RECORDS SUMMARY | 2024-10-13 12:01 | XMS_ITS ---
Author Organization Bill Tanner III, MD Address [address] [place] [address] Care Team Providers Care Carpenter Repair Name Role Phone Bill Tanner Primary Care Provider REASON FOR VISIT follow up Social History Sex Assigned At : Social History Observation Description Sex Assigned At Male Encounters Encounter Location Date Provider Diagnosis Bill Tanner III, MD [address] [place] [address] [place] [address] 06/01/2024 Bill Tanner Plan Of Treatment Next Appt Details Provider Name:Bill Tanner, 11/22/2024 10:45:00 AM, [address] [place] [address] [place], [address], Provider Name:Bill Tanner, 02/23/2025 09:00:00 AM, [address] [place] [address] [place], [address], Progress Notes * Bill WHITFIELDDOB:1935 (88 yo M)Acc No.[id number]:06/01/2024 Progress Notes Patient:?Bill WHITFIELD Provider:?Bill Tanner MD :1935???Age:88 Y???Sex:Male Venkatesh e:06/01/2024 Address:[address] [facility] [phone] Subjective: * Chief [...] Tanner MD Date:?10/2023 Generated for Jason esposito/Barbi/Tino on:?10/13/2024 12:01 PM EST
--- OUTSIDE RECORDS SUMMARY | 2024-10-13 12:01 | XMS_ITS | Patient Health Record ---
Author Organization [facility] Address [address] [place] [address] Care Team Providers Care Body Liner Name Role Phone Bill Tanner MD Primary Care Provider Unavailab carranza Kami Aldana Unavailable [phone] Allergies No Known Allergies Reason For Referral [...] Medicare [employer] [address] [place] [address] [phone] [id number] Bill Patel Self - patient is the insured [facility] [address] [place] [address] [id number] Bill Patel Self - patient is the insured Medical (General) History Medical History History ICD Code Macular degeneration Measles Bone implants/screws Surgical History Surgery Date(Month/Year) spinal surgery 2013 knee replacement 2013, 2017
--- OUTSIDE RECORDS SUMMARY | 2024-10-13 12:01 | XMS_ITS ---
Author Organization Bill Tanner III, MD Address [address] [place] [address] Care Team Providers Care Chimney Builder Name Role Phone Bill Tanner Primary Care Provider REASON FOR VISIT preop clearance faxed to Dr Swenson Social History Sex Assigned At : Social History Observation Description Sex Assigned At Male Encounters Encounter Location Date Provider Diagnosis Bill Tanner III, MD [address] [place] [address] [place] [address] 05/09/2024 Bill Tanner Plan Of Treatment Next Appt Details Provider Name:Bill Tanner, 11/22/2024 10:45:00 AM, [address] [place] [address] [place], [address], Provider Name:Bill Tanner, 02/23/2025 09:00:00 AM, [address] [place] [address] [place], [address], Progress Notes * Bill WHITFIELDDOB:1935 (88 yo M)Acc No.[id number]:05/09/2024 Patient:?JorgeBill :1935???Age:88 Y???Sex:Male Address:[address] [place] [address] [place], [address] * true * Date:? Generated for Printi ng/Faxing/eTransmitting on:?10/13/2024 12:01 PM EST
--- OUTSIDE RECORDS SUMMARY | 2024-10-13 12:01 | XMS_ITS | Clinical Summary ---
Author Organization [facility] Address [address] [place] [phone] Phone Care Team Providers Care Script Worker Name Role Phone Fidel Mayes MD Primary Care Provider Surgical History Surgery Date Site/Laterality Comments JOINT [...] Comments DTaP,Tdap,and Td Vaccines (1 - Tdap) 1955 Pneumococcal Vaccine: 50+ Ye ars (1 of [...] Documents on File Type Date Recorded Patient Actuarial Director Expl anation Health Care Decision (hx) 06/22/2014 AD DICKEY DIRECTIVE Health Care Decision (hx) 06/22/2014 AD DICKEY DIRECTIVE Care Teams Script Worker Relationship Specialty Start Date End Date Fidel Mayes MD [address] PCP - General Pediatrics 12/07/17
--- OUTSIDE RECORDS SUMMARY | 2024-10-13 12:01 | XMS_ITS | Patient Health Record ---
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 (H90.3) Active confirmed I offered to refer him for hearing aids. He will consider it. His hearing loss has not changed. Problem 026414189 Cataract extraction status of right eye (Z98.41) [...] Date Provider Diagnosis Bill Tanner III, MD [address] [place] [address] [place] [address] 02/23/2024 Bill Tanner Mixed hyperlipidemia E78.2 ; [...] of insulin E11.9 Bill Tanner III, MD [address] [place] [address] [place] [address] 03/06/2024 Bill Tanner Mixed hyperlipidemia E78.2 ; Bilateral lumbar radiculopathy M54.16 ; Benign prostatic hyperplasia with lower urinary tract symptoms N40.1 ; Urothelial carcinoma C68.9 ; Essential hypertension I10 ; Sensorineural hearing loss (SNHL) of both ears H90.3 and Type 2 diabetes mellitus without complication, without long-term current use of insulin E11.9 Bill Tanner III, MD [address] [place] [address] [place] [address] 03/15/2024 Bill Tanner Mixed hyperlipidemia E78.2 ; [...] tract symptoms N40.1 Bill Tanner III, MD [address] [place] [address] [place] [address] 04/03/2024 Bill Tanner Mixed hyperlipidemia E78.2 ; [...] of insulin E11.9 Bill Tanner III, MD [address] [place] [address] [address] [address] 05/08/2024 Bill Tanner Mixed hyperlipidemia E78.2 ; [...] of insulin E11.9 Bill Tanner III, MD [address] [place] [address] [address] [place] [address] 07/26/2024 Bill Tanner Mixed hyperlipidemia E78.2 ; Urothelial carcinoma C68.9 ; Essential hypertension I10 ; Benign prostatic hyperplasia with lower urinary tract symptoms N40.1 ; Overweight E66.3 ; Sensorineural hearing loss (SNHL) of both ears H90.3 ; Bilateral lumbar radiculopathy M54.16 and Type 2 diabetes mellitus without complication, without long-term current use of insulin E11.9 Bill Tanner III, MD [address] [place] [address] [address] [place] [address] 05/09/2024 Bill Tanner Assessments Encounter Date Diagnosis [...] HORMONE) 2018 BRAIN NATRIURETIC PEPTIDE (BNP) 08/15/20 21 PSA, TOTAL 03/25/2020 PSA, TOTAL 02/15/2020 PSA, [...] 07/26/2024 Lipid Panel 07/05/2023 Lipid Panel 05/08/2024 Pathology 10/09/2024 Hemoglobin A1c 07/05/2023 Next Appt Details Provider Name:Bill Tanner, 11/22/2024 10:45:00 AM, [address] [place] [address] [place], [place], [address], Provider Name:Bill Tanner, 02/23/2025 09:00:00 AM, [address] [place] [address] [address] CIFUENTES, [place], [address], Insurance Providers Payer Name Payer Address Payer Phone Subscriber Number Group Number Insured Name Patient Relationship to Insured Coverage Start Date Coverage End Date MEDICARE NGS [address] [place] [address] [id number] Bill Patel Self - patient is the insured [facility] [address] [place], [place] [id number] [phone] [id number] Bill Patel Self - patient is the insured Medical (General) History Medical History History ICD Code Elevated PSA R97.20 osteoarthritis of the knees, TKR, 2014 essential hypertension mixed hyperlipidemia overweight benign prostatic [...] colonoscopy lumbar spine decompression 2012 inguinal herniorrhaphy, [facility] Ce Dr. Rosalva garcia 2017 right rotator cuff surgery 2001 left rotator cuff surgery 2002 right carpal tunnel surgery 2014 left carpal tunnel surgery 2014 left knee replacement 2014 TURP, TURBT pedunculated low -grade noninvasive urothelial carcinoma anterior wall and dome of bladder 07/2018 colonoscopy, negative, [facility] C kasia, Dr. Garcia 08/2006 Tumor removal from bladder [address] Garcia 1 Spurs removal procedure in april Hospitalization History Reason Date(Month/Year) right knee replacement 09/2017 left knee replacement 09/2013 chest pain 09/2019 No history
== END 2024-10-13 12:18 | disposition home or self-care (01) ==
PROVIDERS: PCP Internal Medicine Medical Oncology; Visit Provider Physician Assistant
DX: M48.062 Spinal stenosis, lumbar region with neurogenic claudication (principal)
CPT/HCPCS: 99024

== ENCOUNTER → 2024-10-13 12:25 | Outpatient (BNV) | payer MEDICARE, SELFPAY | PROVIDERS: PCP Internal Medicine Medical Oncology; Visit Provider Radiology Diagnostic Radiology | DX: M43.16 Spondylolisthesis, lumbar region (principal); M48.062 Spinal stenosis, lumbar region with neurogenic claudication | CPT/HCPCS: 72100 ==

== ENCOUNTER 2024-10-25 10:11 | Outpatient (AMB) | payer MEDICARE, SELFPAY ==
--- NOTE | 2024-10-25 10:12 | MHC.OFFVIS ---
Intake Visit Reasons: Bladder biopsy- follow up Intake Note: Patient is present for BLADDER BIOPSY F/U Urology Medication:FINASTERIDE,TAMSULOSIN,TOLTERODINE Antibiotic Allergy:NONE Blood Thinner:NONE Cow Tester Required: No Allergies No Known Allergies [No Known Allergies*] Allergy (Verified 10/25/24 10:12) HPI Comments Details: Bill is a very pleasant male. He is a patient of Dr. Tanner. He is seen for the following urologic conditions - bladder cancer - lower urinary tract symptoms - urinary urgency and frequency Telemedicine Evaluation 15 min Consultation [employer] Chris Video Follow-up from three-month biopsy and fulguration Upper tract imaging normal Bladder biopsies normal Completed reinduction with mitomycin-C and cytarabine July Plan three-month follow-up office cystoscopy Bladder Cancer: 2017 noninvasive low-grade, 2023 TURBT T1 high-grade with micropapillary features Bladder cancer was initially diagnosed Dr Gentile , 2017 Bladder intervention(s) performed 08/16 , TURBT, Ta noninvasive papillary carcinoma, 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 12/17 TURBT fulgerate recurrence - Gemcitabine 3 weeks 09/19 TURBT, distal left ureteric with single dose gemcitabine - 12/21 TURBT multiple small lesions with mitomycin C and cytarabine installation - 06/22 TURBT - T1 high grade with micropapillary features - 10/24 bladder biopsy random - inflammatory change no evidence of disease Recurrence Risk per EORTC Intermediate Risk Bladder cancer risk factors Organic Solvent exposure Yes Smoking No - no other exposures Prior Cystoscopy 12/16 small anterior lesion 06/17 - small red area fulgerated on prior resection area 12/17 NAD, 04/18 NAD - 09/19 small lesion left side posterior wall - 12/18 NAD, 06/19 NAD, 11/18 NAD, 04/20 NAD, 10/22 NAD Prior Cytology 12/16 FISH positive 06/17 Cytology + high-grade - 09/19 Atypical, 06/19 NAD, 04/20 NAD. 10/22 NAD, 09/22 FISH +, 03/22 atypical Imaging - 09/23 CT urogram with left side bladder wall thickening otherwise normal Adjuvant therapy gemcitabine three-week boost 12/18, 06/19 - Induction MMC/Cytarabine 12/21, 08/22 reinduction Planned treatment - surveillance Lower Urinary Tract Symptoms: Current visit is for further evaluation of, lower urinary tract symptoms, combination obstructive and urgency Current treatment includes - 10/21 at tolterodine for urgency frequency Prior treatments include 08/16 TURP, finasteride and tamsulosin Prostate Symptom Score 06/16 , Moderate (9-19), Bother 3. Symptoms include 06/16 , incomplete emptying, weak stream, nocturia (>2), and are progressing. Results from testing include renal/bladder us Yes date 06/29/2018 PVR 50 prostate size 50 Prior Prostate Score unknown. PSA 10/18 1.0. Prostate volume 50+gm. o Treatment plan continue with current medications PFSH Medical History TE-MOAK (hard of hearing) Basal cell carcinoma Dyspnea on exertion Syncope and collapse SVT (supraventricular tachycardia) CKD (chronic kidney disease) Cancer Arthritis Hearing loss History of BPH Elevated cholesterol HTN (hypertension) Carpal tunnel syndrome, bilateral Surgical History History of lumbar spinal fusion History of back surgery Hx of right cataract extraction History of bladder surgery History of transurethral destruction of bladder lesion H/O colonoscopy History of carpal tunnel release of both wrists H/O inguinal hernia repair History of total right knee replacement (TKR) History of left knee replacement Family History Father No problems noted. Mother No problems noted. Social History Household Members: Spouse Housing: House Are you a primary critical care physician assistant to a significant other at home: No Do you presently have visiting nurse or other home services: No Alcohol intake: never Comment: occasional use of cane Patient Tobacco Use Status: Never used Tobacco Advance Directives Date on File: 09/18/20 service: Yes Current occupational status: retired Review of Systems Const All systems reviewed & are unremarkable except as noted in HPI and below Reports no additional complaints Resp Reports no additional complaints GI Reports no additional complaints Reports as per HPI Musc Reports no additional complaints Physical Exam Telemedicine evaluation Appropriate responses Regular breathing rate and rhythm HEENT Head: Yes normal to inspection Ears: hearing grossly normal bilaterally Eyes General: appearance normal, both eyes and all related structures Neck Neck: Yes normal visual inspection Chest Chest palpation & inspection: normal inspection of the chest Resp Effort & Inspection: normal respiratory effort and able to speak in complete sentences Telehealth Telehealth Telehealth Platform: [employer] Location of provider rendering services: practice address Location of patient: address on file Patient Identification confirmed using: Name, : Yes Telehealth method: video Patient verbally consented to treatment: Yes Patient verbally consented to billing insurance company: Yes Patient informed of any privacy concerns related to visit: Yes Minutes spent on Phone/Video with Pt.: 15 Assessment & Plan Assessment & Plan (1) Bladder cancer: Code(s): C67.9 - Malignant neoplasm of bladder, unspecified Category: Medical (2) BPH loc w urin obs/LUTS: Code(s): N40.1 - Benign prostatic hyperplasia with lower urinary tract symptoms Category: Medical (3) Nephrolithiasis: Code(s): N20.0 - Calculus of kidney Category: Medical Plan Three-month follow-up check cystoscopy Patient Instructions: This note is constructed using voice recognition software. While every effort has been made to ensure accuracy spooler rubber strand errors may have been included. Imaging studies, laboratory and physical exam results were discussed and reviewed in detail. No major barriers to patient understanding were identified. An opportunity to ask questions regarding the treatment plan was provided. All questions were answered. The patient expressed understanding and agreement with the above treatment plan. The patient is aware they should contact our office by phone for worsening of their current condition or the appearance of new urologic symptoms. Compliance is encouraged with any medications and followup testing that is ordered. It is a privilege to participate in the urologic care of your patient. If you have any questions or concerns regarding treatment for the above conditions, or other urologic issues, please do not hesitate to contact me. The office telephone contact is [phone]. Sincerely, Dr Tong Gentile MD, [facility] - Urology Compassionate Specialist Care for the Genitourinary System Coding Level of Care Code Tele Est Pt Level 3 (11325) Complex EM visit Add On G2211 Diagnoses Bladder cancer C67.9 BPH loc w urin obs/LUTS N40.1 Nephrolithiasis N20.0
--- OUTSIDE RECORDS SUMMARY | 2024-10-25 12:20 | XMS_ITS | Data Portability ---
Author Organization [place] - [facility], [facility] Address [address] [place] [address] Assessment No assessment recorded. Plan of Treatment Reminders Order Date Submit Date Provider Last Modified By Organization Details Last Modified Time Details Appointments None recorde d. Lab None recorde d. Referral None recorde d. Procedures None recorde d. Surgeries None recorde d. Imaging XR, shoulde r, 2 or more view - RM 5 RT shldr 024 [facility] [address] [place] [address], [address], 12:58:25 Medication Orders None recorde d. Patient [...] a4ajBk vP9nXo QUaueC m3YtLR FvZlgJ JJ8mAn HZtai3 [id number] AC0Kvb H6GWKb eUC8mr 84%3D INTERFACE [facility] Office [address] [facility] [address], [place], [address], 01/19/2024 09:27:49 01/19/20 24 01/19/2024 XR, shoul alistair, 2 or more view http:/ [email or web address] ?Encry pted=s hAaTro YD8dLq bEUv6g %2BXZw aYqtaq 0bqfl% 2Fg9IQ a4ajBk vP9nXo QUaueC m3YtLR FvZlgJ JJ8mAn HZtai3 8z9234 AC0Kvb H6GWKb eUC8mr 84%3D INTERFACE [facility] [address], [place], [address], 01/19/2024 09:27:51 Result Notes None recorded. Problems Name Problem SNOMED Code Status Onset Date Resolution Date Notes Provider Name and Address Organization Details Recorded Time Pain of right shoulder joint 209176692648910 00 [facility] 4 09:17:28 Pain of left shoulder joint 367892505294011 09 Active 2023 Fernando Caruso MD [address] [place] [address], [phone], [facility] 4 09:55:05 Problem Notes None recorded. Procedures Surgical History Date Name Laterality Status Provider Name and Address Organization Details Recorded Time Shoulder Kenalog 2cc Injection, Bilateral completed Fernando Caruso MD [address] [facility], [place], [address], [facility] 01/19/2024 09:54:54 Imaging Results Imaging Date Name Status LastModified by Organiz ation Details LastModified Time 01/19/2024 XR, shoulder, 2 or more view completed INTERFACE [facility] [address], [place], [address], 01/19/2024 09:27:49 01/19/2024 XR, shoulder, 2 or more view completed INTERFACE [place] [address], [place], [address], 01/19/2024 09:27:51 Procedure Notes None recorded. Medical [...] Updated DateTime 01/19/2024 165.1 cm 27.5 kg/m2 95735.74 g SASKIA BARRAZA [facility] 01/19/2024 09:31:22 Social History None recorded. Functional Status None recorded. Mental Status None recorded. Family History Nothing Reported. Medical History Condition Response Allergies/Hayfever N Coronary Artery Disease N Anxiety/Depression N Breathing or lung disorders N Emphysema N Nerve Disorders N Thyroid Problems N COPD N Pacemaker N Anemia N Kidney/Bladder Problems Y Vascular Disease N Heart Trouble Y Heart Attack ([place]) N Gastrointestinal Disease N Cholesterol N Diabetes [...] SNOMED-CT Code Diagnosis ICD10 Code Diagnosis Note [id number] MD [facility] [address] [place] [address] 01/19/2024 09:08:32 02/08/2024 12:58:24 Pain of right shoulder joint 4640118648 0719951 M25.511 Pain of le ft shoulder joint 2071504784 1445952 M25.512 Health Concerns Section Related Observation LastModified by Organization Detai ls LastModified Time None Recorded Concern Status LastModified by Organization Details LastModified Time None Recorded Advance Directives Directive None Recorded Payers Encounter Date Sequence Insurance Name Policy Number Policy Woods Covered Member ID Woods Member ID Guarantor Name 01/19/2024 2 [place] [id number] Bill Patel [id number] Bill Patel 01/19/2024 1 [place] [employer] SERVICES Bill Patel [id number] Bill Patel Notes Date Note Type [...] were ordered, obtained and reviewed today at [facility], 4 views Right shoulder obtained reveal [...] months as necessary Fernando Caruso MD [address], [place], [address], [facility] 01/19/2024 09:55:26
--- OUTSIDE RECORDS SUMMARY | 2024-10-25 12:20 | XMS_ITS ---
Author Organization Bill Tanner III, MD Address [address] [place] [address] Care Team Providers Care Manager Analysis Name Role Phone Bill Tanner Primary Care Provider [phone] Allergies Allergen (clinical drug ingredient) Drug/Non Drug [...] Date Provider Diagnosis Bill Tanner III, MD [address] [place] [address] DR PECK, [place]ISSA [phone] 07/26/2024 Bill Tanner Mixed hyperlipidemia E78.2 ; [...] check-up Provider Name:Bill Tanner, 11/22/2024 10:45:00 AM, [address] [place] [address] [address], [place], [phone], Provider Name:Bill Tanner, 02/23/2025 09:00:00 AM, [address] [place] [address] [address], [place], [address], Progress Notes * NAHIDBillDOB:1935 (88 yo M)Acc No.[id number]:07/26/2024 Progress Notes Patient:?Bill WHITFIELD Provider:?Bill Tanner MD :1935???Age:88 Y???Sex:Male Venkatesh e:07/26/2024 Address:[address] [place] [address] CAT [id number] Subjective: * Chief Complaints: * ???Chronic low [...] Victor 09/2017colonoscopy lumbar spine decompression 2013inguinal herniorrhaphy, [facility], Dr. Blackwell 2017right rotator cuff surgery 2002left rotator cuff surgery 2003right carpal tunnel surgery 2014left carpal tunnel surgery 2015left knee replacement 2015TURP, TURBT pedunculated low-grade noninvasive urothelial carcinoma anterior wall and dome of bladder 07/2018colonoscopy, negative, [facility], Dr. 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 He was born in [place], [place]. He has been to [place] for [...] Tanner MD Date:?07/01 Generated for Printi ng/Facolletteg/eTransmitting on:?10/25/2024 12:20 PM EST History and Physical Notes * HPI (History of Present Illness) Category Sub-Category Detail Notes COVID-19 Screening Questions Have you had any new onset fever, chills, cough, congestion, sore throat, shortness of breath, muscle aches?: No Have you been exposed to the virus withi n the last 10 days?: No Have you travelled internationally in [facility] last 10 days?: No Have [...]
--- OUTSIDE RECORDS SUMMARY | 2024-10-25 12:20 | XMS_ITS | Clinical Summary ---
Author Organization [facility] Address [address] [place] [phone] Phone Care Team Providers Care Cut Off Saw Tender Metal Name Role Phone Fidel Mayes MD Primary [...] Documents on File Type Date Recorded Patient Seed Expert Expl anation Health Care Decision (hx) 06/22/2014 AD DICKEY DIRECTIVE Health Care Decision (hx) 06/22/2014 AD DICKEY DIRECTIVE Care Teams Cut Off Saw Tender Metal Relationship Specialty Start Date End Date Fidel Mayes MD [address] PCP - General Pediatrics 12/07/17
--- OUTSIDE RECORDS SUMMARY | 2024-10-25 12:20 | XMS_ITS | Patient Health Record ---
[facility] Address [address] [facility] [place] [address] Care Team Providers Care Residence Life Director Name Role Phone Bill Tanner MD Primary Care Provider Unavailab carranza Kami Aldana Unavailable [phone] Allergies No Known Allergies Reason For Referral [...] Medicare [employer] [address] [place] [address] [id number] Bill Patel Self - patient is the insured [facility] [address] [place] [address] [id number] Bill Patel Self - patient is the insured Medical (General) History Medical History History ICD Code Macular degeneration Measles Bone implants/screws Surgical History Surgery Date(Month/Year) spinal surgery 2013 knee replacement 2013, 2017
--- OUTSIDE RECORDS SUMMARY | 2024-10-25 12:20 | XMS_ITS | Patient Health Record ---
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 He will consider it. His hearing loss has not changed. Problem 653175708 Cataract extraction status of right eye (Z98.41) [...] Date Provider Diagnosis Bill Tanner III, MD [address] [place] [address] DR [place], [place] [address] 02/23/2024 Bill Tanner Mixed hyperlipidemia E78.2 ; [...] of insulin E11.9 Bill Tanner III, MD [address] [place] [address] [place] [address] 03/06/2024 Bill Tanner Mixed hyperlipidemia E78.2 ; Bilateral lumbar radiculopathy M54.16 ; Benign prostatic hyperplasia with lower urinary tract symptoms N40.1 ; Urothelial carcinoma C68.9 ; Essential hypertension I10 ; Sensorineural hearing loss (SNHL) of both ears H90.3 and Type 2 diabetes mellitus without complication, without long-term current use of insulin E11.9 Bill Tanner III, MD [address] [place] [address] [place] [address] 03/15/2024 Bill Tanner Mixed hyperlipidemia E78.2 ; [...] tract symptoms N40.1 Bill Tanner III, MD [address] [place] [address] [place] [address] 04/03/2024 Bill Tanner Mixed hyperlipidemia E78.2 ; [...] of insulin E11.9 Bill Tanner III, MD [address] [place] [address] [place] [address] 05/08/2024 Bill Tanner Mixed hyperlipidemia E78.2 ; [...] of insulin E11.9 Bill Tanner III, MD [address] [place] [address] [place] [address] 07/26/2024 Bill Tanner Mixed hyperlipidemia E78.2 ; Urothelial carcinoma C68.9 ; Essential hypertension I10 ; Benign prostatic hyperplasia with lower urinary tract symptoms N40.1 ; Overweight E66.3 ; Sensorineural hearing loss (SNHL) of both ears H90.3 ; Bilateral lumbar radiculopathy M54.16 and Type 2 diabetes mellitus without complication, without long-term current use of insulin E11.9 Bill Tanner III, MD [address] [place] [address] [place] [address] 05/09/2024 Bill Tanner Assessments Encounter Date Diagnosis [...] Panel 07/05/2023 Lipid Panel 05/08/2024 Pathology 10/09/2024 XR lumbar spine 2-3V 10/13/2024 Hemoglobin A1c 07/05/2023 Next Appt Details Provider Name:Bill Tanner, 11/22/2024 10:45:00 AM, [address] [place] [address] [address], [place], [address], Provider Name:Bill Tanner, 02/23/2025 09:00:00 AM, [address] [place] [address] [address], [place], [address], Insurance Providers Payer Name Payer Address Payer Phone Subscriber Number Group Number Insured Name Patient Relationship to Insured Coverage Start Date Coverage End Date MEDICARE NGS [address] [place] [phone] [id number] Jorge Bill Self - patient is the insured [facility] [address] [place], [place] [id number] Bill Patel Self - patient is [...] colonoscopy lumbar spine decompression 2012 inguinal herniorrhaphy, [facility] Ce nter, Dr. Blackwell 2017 right rotator cuff surgery 2001 left rotator cuff surgery 2002 right carpal tunnel surgery 2014 left carpal tunnel surgery 2014 left knee replacement 2014 TURP, TURBT pedunculated low -grade noninvasive urothelial carcinoma anterior wall and dome of bladder 07/2018 colonoscopy, negative, [facility] Dr. Jose pedroza 08/2006 Tumor removal from bladder [address] Garcia 1 Spurs removal procedure in april Hospitalization History Reason Date(Month/Year) right knee replacement 09/2017 left knee replacement 09/2013 chest pain 09/2019 No history
--- OUTSIDE RECORDS SUMMARY | 2024-10-25 12:20 | XMS_ITS ---
Author Organization Bill Tanner III, MD Address [address] [place] [address] Care Team Providers Care Citrix Engineer Name Role Phone Bill Tanner Primary Care Provider REASON FOR VISIT follow up Social History Sex Assigned At : Social History Observation Description Sex Assigned At Male Encounters Encounter Location Date Provider Diagnosis Bill Tanner III, MD [address] [place] [address] [place] [address] 06/01/2024 Bill Tanner Plan Of Treatment Next Appt Details Provider Name:Bill Tanner, 11/22/2024 10:45:00 AM, [address] [place] [address] [place], [address], Provider Name:Bill Tanner, 02/23/2025 09:00:00 AM, [address] [place] [address] [place], [address], Progress Notes * Bill WHITFIELDDOB:1935 (89 yo M)Acc No.[id number]:06/01/2024 Progress Notes Patient:?Bill WHITFIELD Provider:?Bill Tanner MD :1935???Age:88 Y???Sex:Male Venkatesh e:06/01/2024 Address:[address] [facility] [place]-[id number] Subjective: * Chief Complaints: [...] Tanner MD Date:?10/2023 Generated for Jason esposito/Barbi/Tino on:?10/25/2024 12:20 PM EST
--- OUTSIDE RECORDS SUMMARY | 2024-10-25 12:21 | XMS_ITS | Clinical Summary ---
Author Organization [facility] Address [address] [place] [address] Care Team Providers Care Water Aerobics Instructor Name Role Phone Fidel Mayes MD Primary Care Provider [phone] Allergies No known active allergies Medications Medication [...] age to complete this topic Care Teams Water Aerobics Instructor Relationship Specialty Start Date End Date Fidel Mayes MD [address] [address] [place] [phone] PCP - General Family Medicine 05/10/17
--- OUTSIDE RECORDS SUMMARY | 2024-10-25 12:21 | XMS_ITS ---
Author Organization Bill Tanner III, MD Address [address] [place] [address] Care Team Providers Care Boarding Machine Operator Name Role Phone Bill Tanner Primary Care Provider [phone] REASON FOR VISIT preop clearance faxed to Dr Swenson Social History Sex Assigned At : Social History Observation Description Sex Assigned At Male Encounters Encounter Location Date Provider Diagnosis Bill Tanner III, MD [address] [place] [address] [place] [address] 05/09/2024 Bill Tanner Plan Of Treatment Next Appt Details Provider Name:Bill Tanner, 11/22/2024 10:45:00 AM, [address] [place] [address] [place], [address], Provider Name:Bill Tanner, 02/23/2025 09:00:00 AM, [address] [place] [address] [place], [address], Progress Notes * Bill WHITFIELDDOB:1935 (88 yo M)Acc No.[id number]:05/09/2024 Patient:?JorgeBill :1935???Age:88 Y???Sex:Male Address:[address] [place] [address] [place], [address] * true * Date:? Generated for Printi ng/Faxing/eTransmitting on:?10/25/2024 12:20 PM EST
== END 2024-10-25 10:54 | disposition home or self-care (01) ==
LOC: HO.HUSH 10:11
PROVIDERS: PCP Internal Medicine Medical Oncology; Visit Provider Urology
DX: C67.9 Malignant neoplasm of bladder, unspecified (principal); N40.1 Benign prostatic hyperplasia with lower urinary tract symptoms; N20.0 Calculus of kidney
CPT/HCPCS: 99213; G2211

== ENCOUNTER 2025-01-24 09:51 | Outpatient (REF) | payer MEDICARE, SELFPAY ==
[2025-01-24 16:52] LABS: Urine Cytology See Pathology rpt
== END 2025-01-24 09:52 | disposition home or self-care (01) ==
LOC: HO.LAB 09:51
PROVIDERS: PCP Internal Medicine Medical Oncology; Visit Provider Urology
DX: C67.9 Malignant neoplasm of bladder, unspecified (principal)
CPT/HCPCS: 52000; 81003; 88112; 99212

== ENCOUNTER 2025-01-24 09:51 | Outpatient (AMB) | payer MEDICARE, SELFPAY ==
--- NOTE | 2025-01-24 09:59 | MHC.OFFVIS ---
Intake Visit Reasons: cysto Intake Note: Patient is present for Cystoscopy Urology Medication:TOLTERODINE,TAMSULOSIN,FINASTERIDE Antibiotic Allergy:NONE Blood Thinner:NONE Lot:[id number] Exp:01/05/27 Dielectric Embossing Machine Operator Required: No Allergies No Known Allergies [No Known Allergies*] Allergy (Verified 01/24/25 10:01) HPI Comments Details: Bill is a very pleasant male. He is a patient of Dr. Tanner. 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 12/17 TURBT fulgerate recurrence - Gemcitabine 3 weeks 09/19 TURBT, distal left ureteric with single dose gemcitabine - 12/21 TURBT multiple small lesions with mitomycin C and cytarabine installation - 06/22 TURBT - T1 high grade with micropapillary features - 10/24 bladder biopsy random - inflammatory change no evidence of disease Recurrence Risk per EORTC Intermediate Risk Bladder cancer risk factors Organic Solvent exposure Yes Smoking No - no other exposures Prior Cystoscopy 12/16 small anterior lesion 06/17 - small red area fulgerated on prior resection area 12/17 NAD, 04/18 NAD - 09/19 small lesion left side posterior wall - 12/18 NAD, 06/19 NAD, 11/18 NAD, 04/20 NAD, 10/22 NAD Prior Cytology 12/16 FISH positive 06/17 Cytology + high-grade - 09/19 Atypical, 06/19 NAD, 04/20 NAD. 10/22 NAD, 09/22 FISH +, 03/22 atypical Imaging - 09/23 CT urogram with left side bladder wall thickening otherwise normal Adjuvant therapy gemcitabine three-week boost 12/18, 06/19 - Induction MMC/Cytarabine 12/21, 08/22 reinduction Planned treatment - surveillance Lower Urinary Tract Symptoms: Current visit is for further evaluation of, lower urinary tract symptoms, combination obstructive and urgency Current treatment includes - 10/21 at tolterodine for urgency frequency Prior treatments include 08/16 TURP, finasteride and tamsulosin Prostate Symptom Score 06/16 , Moderate (9-19), Bother 3. Symptoms include 06/16 , incomplete emptying, weak stream, nocturia (>2), and are progressing. Results from testing include renal/bladder us Yes date 06/29/2018 PVR 50 prostate size 50 Prior Prostate Score unknown. PSA 10/18 1.0. Prostate volume 50+gm. o Treatment plan continue with current medications PFSH Medical History NIKOLSKI (hard of hearing) Basal cell carcinoma Dyspnea on exertion Syncope and collapse SVT (supraventricular tachycardia) CKD (chronic kidney disease) Cancer Arthritis Hearing loss History of BPH Elevated cholesterol HTN (hypertension) Carpal tunnel syndrome, bilateral Surgical History History of lumbar spinal fusion History of back surgery Hx of right cataract extraction History of bladder surgery History of transurethral destruction of bladder lesion H/O colonoscopy History of carpal tunnel release of both wrists H/O inguinal hernia repair History of total right knee replacement (TKR) History of left knee replacement Family History Father No problems noted. Mother No problems noted. Social History Household Members: Spouse Housing: House Are you a primary district manager primary care sales to a significant other at home: No Do you presently have visiting nurse or other home services: No Alcohol intake: never Comment: occasional use of cane Patient Tobacco Use Status: Never used Tobacco Advance Directives Date on File: 09/18/20 service: Yes Current occupational status: retired Review of Systems Const Denies chills and Denies fever(s) Card Reports no additional complaints and Denies syncope Resp Denies cough GI Denies abdominal pain and Denies heartburn Reports as per HPI and Denies change in libido Neuro Denies syncope Psych Denies change in libido Endo Denies change in libido Physical Exam Const General: cooperative, healthy appearing, comfortable and no acute distress Orientation/consciousness: patient oriented x3 HEENT Face and sinus: Yes normal facial exam Mouth: moist mucous membranes Neck Neck: Yes normal visual inspection, Yes full ROM and Yes trachea midline Chest Chest palpation & inspection: normal inspection of the chest Resp Effort & Inspection: normal respiratory effort, able to speak in complete sentences and no respiratory distress GI Inspection: Yes normal to inspection Back/Spine/Pelvis Cervical Spine: normal cervical lordosis Thoracic/Lumbar Spine: thoracic and lumbar spine normal to inspection Skin General skin exam: no rashes or lesions noted Neuro General: patient oriented x3, gait normal, tone normal and moves all extremities Extrem General: Yes normal to inspection and Yes capillary refill normal Office Procedures Cystoscopy Consent Discussed risk and benefit or proposed procedure with the patient. Information consent for procedure given to the patient. Discussed technical aspects, risks, benefits and alternatives in full. Addressed all of the patient's questions and concerns regarding the procedure. The patient demonstrated knowledge and understanding. They wish to proceed with this procedure. Preparation The patient was prepped in the usual manner. A assistant printer floor covering was present and in the room. Genitalia was prepped with betadine solution in a sterile manner. Lidocaine Jelly 2% was placed into the urethra and 16Fr flexible Olympus cystoscope was inserted into the meatus after adequate lubrication. Procedure Cystoscopy performed using a disposable Urovue digital 16 Kazakh cystoscope. Meatus circumcised Urethra anterior and posterior urethra normal Prostatic Urethra TURP defect with recurrent lesion left side Bladder examination with retroflexion of cystoscope Bladder Orifices normal shape and position Bladder Capacity Normal Trabeculations Grade 0 Cellule Formation None Diverticulum Formation None Mucosal Erythema None Bladder Tumor left side urethra [id number] DISPOSABLE SCOPE URO-G FLEXIBLE SCOPE Procedure code (CPT) selection complete Office Meds lidocaine HCl 2 % mucosal jelly in applicator Performing Provider: Tong Gentile MD [place]forming [place] [facility] [place] [facility] Administered by: Debbie Mercedes RN on 01/24/25 10:17 Dose Route Admin Location Dispensed Lot Number Expiration Date ND Gericare Aide 10 mL intra-urethral 10 mL nitrofurantoin monohydrate/macrocrystals 100 mg capsule Performing Provider: Tong Gentile MD Performing Location: [facility] [place] [facility] Administered by: Debbie Mercedes RN on 01/24/25 10:17 Dose Route Admin Location Dispensed Lot Number Expiration Date ND Gericare Aide 100 mg PO 1 cap Assessment & Plan Assessment & Plan (1) Bladder cancer: Code(s): C67.9 - Malignant neoplasm of bladder, unspecified Category: Medical Plan Recurrent lesion on cystoscopy Risks, benefits and alternatives to therapy were discussed. These include but are not limited to infection, bleeding, damage to local organs and tissues, need for further interventions. Anesthetic risks regarding cardiac arrhythmia, blood clots, and potential mortality were discussed. The patient understands the typical recovery time and the outpatient nature of the procedure. After consideration of these risks the patient gives full informed consent and they wish to move ahead with the procedure. TURBT with mitomycin-C and cytarabine Orders: Orders AMB Urinalysis Automated Today Z13.9 - Encounter for screening, unspecified AMB Cystoscopy Today C67.9 - Malignant neoplasm of bladder, unspecified Patient Instructions: This note is constructed using voice recognition software. While every effort has been made to ensure accuracy chiller hand errors may have been included. Imaging studies, laboratory and physical exam results were discussed and reviewed in detail. No major barriers to patient understanding were identified. An opportunity to ask questions regarding the treatment plan was provided. All questions were answered. The patient expressed understanding and agreement with the above treatment plan. The patient is aware they should contact our office by phone for worsening of their current condition or the appearance of new urologic symptoms. Compliance is encouraged with any medications and followup testing that is ordered. It is a privilege to participate in the urologic care of your patient. If you have any questions or concerns regarding treatment for the above conditions, or other urologic issues, please do not hesitate to contact me. The office telephone contact is [phone]. Sincerely, Dr Tong Gentile MD, [facility] - Urology Compassionate Specialist Care for the Genitourinary System Coding Level of Care Code Est Pt Level 4 (44467) Complex EM visit Add On G2211 Diagnoses Bladder cancer C67.9 CPT Codes Cystoscopy - CPT: 74169-Vamorbjcfk ([id number])
--- OUTSIDE RECORDS SUMMARY | 2025-01-24 10:39 | XMS_ITS | Data Portability ---
Author Organization [place] - [facility], [facility] Address [address] [place] [address] Assessment No assessment recorded. Plan of Treatment Reminders Order Date Submit Date Provider Last Modified By Organization Details Last Modified Time Details Appointments None recorde d. Lab None recorde d. Referral None recorde d. Procedures None recorde d. Surgeries None recorde d. Imaging XR, shoulde r, 2 or more view - RM 5 RT shldr 024 [facility] [address] [place] [address], [address], 12:58:25 Medication Orders None recorde d. Patient TargetsNo targets recorded. Patient InstructionsNo instructions recorded. Reason for Referral None Reported. Results Created Date Observation Date Name Description Value Unit Range Abnormal Flag Note LastModifiedBy Organization Detail LastModifiedTime 01/19/20 24 01/19/2024 XR, shoul alistair, 2 or more view http:/ [email or web address] ?Encry pted=s hAaTro YD8dLq bEUv6g %2BXZw aYqtaq 0bqfl% 2Fg9IQ a4ajBk vP9nXo QUaueC m3YtLR FvZlgJ JJ8mAn HZtai3 8z0004 AC0Kvb H6GWKb eUC8mr 84%3D INTERFACE [facility] Office [address] [facility] [address], [place], [address], 01/19/2024 09:27:49 01/19/20 24 01/19/2024 XR, shoul alistair, 2 or more view http:/ [email or web address] ?Encry pted=s Sadiao YD8dLq bEUv6g %2BXZw aYqtaq 0bqfl% 2Fg9IQ a4ajBk vP9nXo QUaueC m3YtLR FvZlgJ JJ8mAn HZtai3 2n2120 AC0Kvb H6GWKb eUC8mr 84%3D INTERFACE [facility] [address], [place], [address], 01/19/2024 09:27:51 Result Notes None recorded. Problems Name Problem SNOMED Code Status Onset Date Resolution Date Notes Provider Name and Address Organization Details Recorded Time Pain of right shoulder joint 215143656780063 00 Active 2023 SASKIA BARRAZA [facility] 4 09:17:28 Pain of left shoulder joint 035223730832636 09 Active 2023 Fernando Caruso MD [address] [facility] [address] [place] [address], [phone], [facility] 4 09:55:05 Problem Notes None recorded. Procedures Surgical History Date Name Laterality Status Provider Name and Address Organization Details Recorded Time 4 Shoulder Kenalog 2cc Injection, Bilateral completed Fernando Caruso MD [address], [place], [address], [facility] 01/19/2024 09:54:54 Imaging Results None recorded. Procedure Notes None recorded. Medical Equipment None [...] Updated DateTime 01/19/2024 165.1 cm 27.5 kg/m2 98976.74 g SASKIA BARRAZA [place] [facility] [place] [facility] 01/19/2024 09:31:22 Social History None recorded. Functional Status None recorded. Mental Status None recorded. Family History Nothing Reported. Medical History Condition Response Coronary Artery Disease N Anxiety/Depression N Emphysema N COPD N Pacemaker N Vascular Disease N Heart Trouble Y Gastrointestinal Disease N Autoimmune disease N Orthotics N Arthritis N Blood Clot N Acid Reflux (GERD) N Cancer Y Stroke N Circulation Problems N Rheumatoid Arthritis N Arrhythmia N Headaches N Fibromyalgia N Allergies/Hayfever N Breathing or lung disorders N Nerve Disorders N Thyroid Problems N Kidney/Bladder Problems Y Anemia N Heart Attack (IA) N Cholesterol N Diabetes N Bleeding Disorder N Seizures/Epilepsy N AIDS/HIV N Congestive Heart Failure (CHF) N Asthma N Peripheral Vascular Disease N Sleep Apnea N Hepatitis N Heart Disease N Pulmonary Embolism N Hypertension Y Osteoporosis N Past Encounters Encounter ID Performer Location Encounter Start Date Encounter Closed Date Diagnosis/Indication Diagnosis SNOMED-CT Code Diagnosis ICD10 Code Diagnosis Note [id number] MD [facility] [address] [place] [address] 01/19/2024 09:08:32 02/08/2024 12:58:24 Pain of right shoulder joint [id number] 6396001 M25.511 Pain of le ft shoulder joint 6797167999 4765968 M25.512 Health Concerns Section Related Observation LastModified by Organization Detai ls LastModified Time None Recorded Concern Status LastModified by Organization Details LastModified Time None Recorded Advance Directives Directive None Recorded Payers Encounter Date Sequence Insurance Name Policy Number Policy Woods Covered Member ID Woods Member ID Guarantor Name 01/19/2024 2 [place] [id number] Bill Patel [id number] Bill Patel 01/19/2024 1 [place] [employer] Bill Patel [id number] Bill Patel Notes Date Note Type Note [...] no acute distress alert and oriented ? ? 3 . Pleasant affect. Cervical spine [...] were ordered, obtained and reviewed today at [facility], 4 views Right shoulder obtained reveal well-maintained [...] months as necessary Fernando Caruso MD [address], [place], [address], [facility] [place] [facility] 01/19/2024 09:55:26
== END 2025-01-24 10:50 | disposition home or self-care (01) ==
LOC: HO.HUSH 09:52
PROVIDERS: PCP Internal Medicine Medical Oncology; Visit Provider Urology
DX: C67.6 Malignant neoplasm of ureteric orifice (principal); Z13.9 Encounter for screening, unspecified
CPT/HCPCS: 52000; 99214

== ENCOUNTER 2025-03-15 06:58 | Day surgery (SDC) | payer MEDICARE, SELFPAY ==
--- OUTSIDE RECORDS SUMMARY | 2025-02-07 13:31 | XMS_ITS | Data Portability ---
Author Organization [place] - [facility], [facility] Address [address] [place] [address] Assessment No assessment recorded. Plan of Treatment Reminders Order Date Submit Date Provider Last Modified By Organization Details Last Modified Time Details Appointments None recorde d. Lab None recorde d. Referral None recorde d. Procedures None recorde d. Surgeries None recorde d. Imaging XR, shoulde r, 2 or more view - RM 5 RT shldr 024 [facility] [address] [place] [address], [address], 12:58:25 Medication Orders None recorde d. Patient [...] a4ajBk vP9nXo QUaueC m3YtLR FvZlgJ JJ8mAn HZtai3 [id number] AC0Kvb H6GWKb eUC8mr 84%3D INTERFACE [facility] Office [address] [facility] [address], [place], [address], 01/19/2024 09:27:49 01/19/20 24 01/19/2024 XR, shoul alistair, 2 or more view http:/ [email or web address] ?Encry pted=s Sadiao YD8dLq bEUv6g %2BXZw aYqtaq 0bqfl% 2Fg9IQ a4ajBk vP9nXo QUaueC m3YtLR FvZlgJ JJ8mAn HZtai3 [id number] AC0Kvb H6GWKb eUC8mr 84%3D INTERFACE [facility] [address], [place], [address], 01/19/2024 09:27:51 Result Notes None recorded. Problems Name Problem SNOMED Code Status Onset Date Resolution Date Notes Provider Name and Address Organization Details Recorded Time Pain of right shoulder joint [id number] 00 Active 2023 SASKIA BARRAZA [facility] 4 09:17:28 Pain of left shoulder joint 094727113155118 09 Active 2023 Fernando Caruso MD [address] [facility] [address] [place] [address], [phone], [facility] 4 09:55:05 Problem Notes None recorded. Procedures Surgical History Date Name Laterality Status Provider Name and Address Organization Details Recorded Time 4 Shoulder Kenalog 2cc Injection, Bilateral completed Fernando Caruso MD [address], [place], [address], [facility] 01/19/2024 09:54:54 Imaging Results None recorded. [...] Updated DateTime 01/19/2024 165.1 cm 27.5 kg/m2 77513.74 g SASKIA BARRAZA [place] - [place] [facility] 01/19/2024 09:31:22 Social History None recorded. Functional Status None recorded. Mental Status None recorded. Family History Nothing Reported. Medical History Condition Response Allergies/Hayfever N Coronary Artery Disease N Anxiety/Depression N Breathing or lung disorders N Emphysema N Nerve Disorders N Thyroid Problems N COPD N Pacemaker N Anemia N Kidney/Bladder Problems Y Vascular Disease N Heart Trouble Y Heart Attack ([place]) N Gastrointestinal Disease N Cholesterol N Diabetes [...] SNOMED-CT Code Diagnosis ICD10 Code Diagnosis Note [id number] MD [facility] [address] [place] [address] 01/19/2024 09:08:32 02/08/2024 12:58:24 Pain of right shoulder joint [id number] M25.511 Pain of le ft shoulder joint [id number] M25.512 Health Concerns Section Related Observation LastModified by Organization Detai ls LastModified Time None Recorded Concern Status LastModified by Organization Details LastModified Time None Recorded Advance Directives Directive None Recorded Payers Encounter Date Sequence Insurance Name Policy Number Policy Woods Covered Member ID Woods Member ID Guarantor Name 01/19/2024 2 [place] [id number] Bill Patel [id number] Bill Patel 01/19/2024 1 [place] [employer] Bill Patel [id number] Bill Patel Notes Date Note Type [...] were ordered, obtained and reviewed today at [facility], 4 views Right shoulder obtained reveal well-maintained [...] months as necessary Fernando Caruso MD [address] [facility] [address], [place], [address], [facility] - [place] [facility] 01/19/2024 09:55:26
[2025-03-13 12:28] VITALS: BMI 25.8
--- NOTE | 2025-03-14 09:44 | P.CONAN_ITS ---
Documented by User: Krysten Finley NP 03/14/25 09:47 HPI - Anesthesia Eval Consult details Narrative: 89yo M for TUR Bladder Tumor with mitomycin and cytarabine s/p Cystoscopy & Bladder Biopsy 09/2024 with GA-LMA 5 s/p OLIF 07/2024 with GA-ETT 8 Cardiac optimized prior to cysto. Follows [facility] cardiology yearly for htn, svt. Stable at 08/2024 office visit. [facility] Active Problems Active Problems: All Active Problems Footdrop (Acute) Lumbar stenosis with neurogenic claudication (Acute) Spondylolisthesis, lumbar region (Acute) Lumbar radiculopathy (Acute) Lumbar stenosis (Acute) Urinary urgency (Acute) SOB (shortness of breath) on exertion (Acute) Recurrent UTI (urinary tract infection) (Acute) Central cord synd/C5-C7 (Acute) Syncope (Acute) Shortness of breath (Acute) Nephrolithiasis (Acute) BPH loc w urin obs/LUTS (Acute) Bladder cancer (Acute) Elevated cholesterol (Acute) HTN (hypertension) (Acute) SVT (supraventricular tachycardia) (Acute) Past Medical History Medical History (Updated 10/20/24 @ 10:09 by JULI Wright) [place] (hard of hearing) Basal cell carcinoma Dyspnea on exertion Syncope and collapse SVT (supraventricular tachycardia) CKD (chronic kidney disease) Cancer Arthritis Hearing loss History of BPH Elevated cholesterol HTN (hypertension) Carpal tunnel syndrome, bilateral Family History Family History Father No problems noted. Mother No problems noted. Family history of problems with anesthesia: No Surgical History Surgical History (Updated 03/13/25 @ 12:11 by Ariella Pena RN) Hx of spinal surgery (08/09/24) Hx of cystoscopy (10/09/24) History of lumbar spinal fusion History of back surgery Hx of right cataract extraction History of bladder surgery History of transurethral destruction of bladder lesion H/O colonoscopy History of carpal tunnel release of both wrists H/O inguinal hernia repair History of total right knee replacement (TKR) History of left knee replacement History of Problems with Anesthesia: No Social History Social History Household Members: Spouse Housing: House Are you a primary rn palliative care to a significant other at home: No Do you presently have visiting nurse or other home services: No Alcohol intake: never Comment: occasional use of cane Patient Tobacco Use Status: Never used Tobacco Use of substances other than those prescribed or required for medical reasons: No Have you been hit, kicked, punched, or otherwise hurt by someone within the past year? If so, by whom?: No Advance Directives: Yes Advance Directives Information Provided: No Advance Directives on File: Yes Advance Directives Date on File: 09/18/20 Poor oral hygiene: No service: Yes Current occupational status: retired [employer] Allergies Allergy/AdvReac Type Severity Reaction Status Date / Time No Known Allergies (No Known Allergy Verified 03/13/25 12:30 Allergies*) Home Medications ?Medication ?Instructions ?Recorded ?Confirmed ?Last Taken ?Type lisinopril 10 mg tablet 10 mg PO QAM 06/04/2006/25/24 History finasteride 5 mg tablet 5 mg PO QAM 09/10/22 08/09/24 06:16 History tamsulosin 0.4 mg capsule 0.4 mg PO QAM 09/16/2303/1308/09/24 06:16 History hydrochlorothiazide 12.5 mg tablet 12.5 mg PO QAM 01/2003/13/25 06/25/24 History Exam Height,Weight and Vital Signs: Height 5 ft 6 in Weight 72.575 kg Pertinent Lab Results Pertinent Lab Results: Lab Results 05/04/24 Range/Units 12:55 WBC 8.5 (4.8-10.8) X10*3/uL RBC 4.04 L (4.60-5.80) X10*6/uL Hgb 13.6 L (14.0-18.0) g/dl Hct 39.9 L (42.0-52.0) % MCV 98.8 H (80.0-98.0) fL MCH 33.7 H (27.0-33.0) pg MCHC 34.1 (31.0-36.0) g/dl RDW 12.1 (11.0-16.0) % Plt Count 197 (160-400) X10*3/uL MPV 9.2 L (9.4-12.4) fL Absolute Nucleated RBC 0.000 (0.0-0.012) X10*3/uL Nucleated RBC % (auto) 0.0 (0.0-0.2) /100WBC Sodium 143 (135-145) mmol/L Potassium 4.3 (3.3-5.1) mmol/L Chloride 108 (96-108) mmol/L Carbon Dioxide 26 (22-29) mmol/L Anion Gap 13 (12-20) BUN 28 H (9-16) mg/dL Creatinine 1.27 (0.5-1.4) mg/dL Estim Creat Clear Calc 36.9 Estimated GFR 54 Random Glucose 121 H (60-115) mg/dL Calcium 9.9 D (8.4-10.2) mg/dL Narrative Narrative: EKG 08/2024 Details: EKG shows normal sinus rhythm with PACs otherwise normal EKG ECHO 08/2024 Conclusions: - 1. Normal LV ejection fraction 55-60% with elevated filling pressures 2. Mildly dilated left atrium 3. Mild aortic stenosis 4. Normal RV systolic pressure 5. No gross pericardial effusion Assessment and Plan Assessment Anesthesia Assessment: Chart Reviewed Final Anesthetic Review Family History of Problems with Anesthesia: No History of Problems with Anesthesia: No Documented by User: Kevan Peter MD 03/15/25 07:48 [facility] Past Medical History Medical History (Updated 10/20/24 @ 10:09 by JULI Wright) [place] (hard of hearing) Basal cell carcinoma Dyspnea on exertion Syncope and collapse SVT (supraventricular tachycardia) CKD (chronic kidney disease) Cancer Arthritis Hearing loss History of BPH Elevated cholesterol HTN (hypertension) Carpal tunnel syndrome, bilateral Family History Family History Father No problems noted. Mother No problems noted. Surgical History Surgical History (Updated 03/13/25 @ 12:11 by Ariella Pena RN) Hx of spinal surgery (08/09/24) Hx of cystoscopy (10/09/24) History of lumbar spinal fusion History of back surgery Hx of right cataract extraction History of bladder surgery History of transurethral destruction of bladder lesion H/O colonoscopy History of carpal tunnel release of both wrists H/O inguinal hernia repair History of total right knee replacement (TKR) History of left knee replacement Social History Social History Household Members: Spouse Housing: House Are you a primary rn palliative care to a significant other at home: No Do you presently have visiting nurse or other home services: No Alcohol intake: never Comment: occasional use of cane Patient Tobacco Use Status: Never used Tobacco Use of substances other than those prescribed or required for medical reasons: No Have you been hit, kicked, punched, or otherwise hurt by someone within the past year? If so, by whom?: No Advance Directives: Yes Advance Directives Information Provided: No Advance Directives on File: Yes Advance Directives Date on File: 09/18/20 Poor oral hygiene: No service: Yes Current occupational status: retired [employer] Allergies Allergy/AdvReac Type Severity Reaction Status Date / Time No Known Allergies (No Known Allergy Verified 03/13/25 12:30 Allergies*) Home Medications ?Medication ?Instructions ?Recorded ?Confirmed ?Last Taken ?Type lisinopril 10 mg tablet 10 mg PO QAM 06/04/2006/25/24 History finasteride 5 mg tablet 5 mg PO QAM 09/10/22 08/09/24 06:16 History tamsulosin 0.4 mg capsule 0.4 mg PO QAM 09/16/2303/1308/09/24 06:16 History hydrochlorothiazide 12.5 mg tablet 12.5 mg PO QAM 01/2003/13/25 06/25/24 History Exam Pertinent Lab Results Pertinent Lab Results: i Lab Results 05/04/24 Range/Units 12:55 WBC 8.5 (4.8-10.8) X10*3/uL RBC 4.04 L (4.60-5.80) X10*6/uL Hgb 13.6 L (14.0-18.0) g/dl Hct 39.9 L (42.0-52.0) % MCV 98.8 H (80.0-98.0) fL MCH 33.7 H (27.0-33.0) pg MCHC 34.1 (31.0-36.0) g/dl RDW 12.1 (11.0-16.0) % Plt Count 197 (160-400) X10*3/uL MPV 9.2 L (9.4-12.4) fL Absolute Nucleated RBC 0.000 (0.0-0.012) X10*3/uL Nucleated RBC % (auto) 0.0 (0.0-0.2) /100WBC Sodium 143 (135-145) mmol/L Potassium 4.3 (3.3-5.1) mmol/L Chloride 108 (96-108) mmol/L Carbon Dioxide 26 (22-29) mmol/L Anion Gap 13 (12-20) BUN 28 H (9-16) mg/dL Creatinine 1.27 (0.5-1.4) mg/dL Estim Creat Clear Calc 36.9 Estimated GFR 54 Random Glucose 121 H (60-115) mg/dL Calcium 9.9 D (8.4-10.2) mg/dL Airway Mallampati Class: II TM Dist: <=3cm Neck ROM: Full Heart: ok. see above. Lungs: ok Assessment and Plan Assessment Anesthesia Assessment: Anesthesia Plan Discussed Final Anesthetic Review NPO: Yes ASA Class: III Final Preanesthetic Review: No Changes in Pt Med Stat, Meds/Allgs Chart Reviewed, Consent Obtained/Reviewed and Anes Risks/Benef Reviewed Patient Risk: Intermediate Procedure Risk: Low Anesthetic Plan Anesthetic Plan: GA and Agree w/ Assess. and Plan Disposition: Standard PACU
[2025-03-15] VITALS (12 sets, daily range): BP systolic 100–139; BP diastolic 51–65; PULSE 50–70; RESP 12–16; TEMP 36.6–37.2; O2SAT 93–99
[2025-03-15] MEDS: Lactated Ringers 1,000 ML 100 ML IVCONT (07:37)
--- NOTE | 2025-03-15 07:54 | HO.ANESPROP2 ---
HPI - Anesthesia Eval Consult details Narrative: turbt [facility] Active Problems Active Problems: All Active Problems Footdrop (Acute) Lumbar stenosis with neurogenic claudication (Acute) Spondylolisthesis, lumbar region (Acute) Lumbar radiculopathy (Acute) Lumbar stenosis (Acute) Urinary urgency (Acute) SOB (shortness of breath) on exertion (Acute) Recurrent UTI (urinary tract infection) (Acute) Central cord synd/C5-C7 (Acute) Syncope (Acute) Shortness of breath (Acute) Nephrolithiasis (Acute) BPH loc w urin obs/LUTS (Acute) Bladder cancer (Acute) Elevated cholesterol (Acute) HTN (hypertension) (Acute) SVT (supraventricular tachycardia) (Acute) Past Medical History Medical History [place] (hard of hearing) Basal cell carcinoma Dyspnea on exertion Syncope and collapse SVT (supraventricular tachycardia) CKD (chronic kidney disease) Cancer Arthritis Hearing loss History of BPH Elevated cholesterol HTN (hypertension) Carpal tunnel syndrome, bilateral Family History Family History Father No problems noted. Mother No problems noted. Family history of problems with anesthesia: No Surgical History Surgical History Hx of spinal surgery (08/09/24) Hx of cystoscopy (10/09/24) History of lumbar spinal fusion History of back surgery Hx of right cataract extraction History of bladder surgery History of transurethral destruction of bladder lesion H/O colonoscopy History of carpal tunnel release of both wrists H/O inguinal hernia repair History of total right knee replacement (TKR) History of left knee replacement History of Problems with Anesthesia: No Social History Social History Household Members: Spouse Housing: House Are you a primary youth care professional to a significant other at home: No Do you presently have visiting nurse or other home services: No Alcohol intake: never Comment: occasional use of cane Patient Tobacco Use Status: Never used Tobacco Use of substances other than those prescribed or required for medical reasons: No Have you been hit, kicked, punched, or otherwise hurt by someone within the past year? If so, by whom?: No Advance Directives: Yes Advance Directives Information Provided: No Advance Directives on File: Yes Advance Directives Date on File: 09/18/20 Poor oral hygiene: No service: Yes Current occupational status: retired Meds Allergies Allergy/AdvReac Type Severity Reaction Status Date / Time No Known Allergies (No Known Allergy Verified 03/13/25 12:30 Allergies*) Active Medications: Current Medications Acetaminophen (Acetaminophen 325 Mg Tablet) 975 mg PO ONCE PRN PRN Reason: Pain, Mild (Pain Scale 1-3) Stop: 03/15/25 13:48 Fentanyl (Fentanyl Citrate/Pf 100 Mcg/2 Ml Vial) 50 mcg IVPUSH Q5M PRN PRN Reason: Pain, Moderate to Severe (Pain Scale 4-10) Stop: 03/15/25 13:48 Lactated Ringer's (Lr) 1,000 mls @ 100 mls/hr IVCONT .Q10H CRISTELA Last Admin: 03/15/25 07:37 Dose: 100 mls/hr Mitomycin 40 mg/ Cytarabine (200 mg/ Sodium Chloride) 40 mls @ 26.667 mls/hr INTRAVESIC ONCE CRISTELA Stop: 03/15/25 23:59 Lidocaine HCl (Lidocaine Hcl 2 % Urojet 10 Ml Jel.Pf.Chris) 10 ml INTRAVESIC ONCE ONE Stop: 03/15/25 23:59 Ondansetron HCl (Ondansetron Hcl 4 Mg/2 Ml Vial) 4 mg IVPUSH ONCE PRN PRN Reason: Nausea and Vomiting Stop: 03/15/25 13:48 Oxycodone HCl (Oxycodone Hcl Immed Release 5 Mg Tablet) 5 mg PO ONCE PRN PRN Reason: Pain, Moderate(Pain Scale 4-6) Home Medications ?Medication ?Instructions ?Recorded ?Confirmed ?Last Taken ?Type lisinopril 10 mg tablet 10 mg PO QAM 06/04/20 03/13/25 06/25/24 History finasteride 5 mg tablet 5 mg PO QAM 09/10/22 03/13/25 08/09/24 06:16 History tamsulosin 0.4 mg capsule 0.4 mg PO QAM 09/16/23 03/13/25 08/09/24 06:16 History hydrochlorothiazide 12.5 mg tablet 12.5 mg PO QAM 05/04/24 03/13/25 06/25/24 History Exam Height,Weight and Vital Signs: Height 5 ft 6 in Weight 72.575 kg Last Vital Signs Temp 97.8 F 03/15/25 07:33 Pulse 64 03/15/25 07:33 Resp 14 03/15/25 07:33 BP 120/58 L 03/15/25 07:33 Pulse Ox 97 03/15/25 07:33 O2 Del Method Room Air 03/15/25 07:33 Airway Mallampati Class: II TM Dist: >3cm Neck ROM: Limited Heart: rrr Lungs: cta Assessment and Plan Assessment Anesthesia Assessment: Anesthesia Plan Discussed and Chart Reviewed Final Anesthetic Review Family History of Problems with Anesthesia: No History of Problems with Anesthesia: No NPO: Yes ASA Class: III Final Preanesthetic Review: No Changes in Pt Med Stat, Meds/Allgs Chart Reviewed, Consent Obtained/Reviewed and Anes Risks/Benef Reviewed Patient Risk: Intermediate Procedure Risk: Intermediate Anesthetic Plan Anesthetic Plan: GA and Agree w/ Assess. and Plan Disposition: Standard PACU
[2025-03-15 08:37] LABS: Hematocrit 37.1 % (42.0-52.0); Hemoglobin 12.3 g/dl (14.0-18.0); Mean Corpuscular HGB Conc 33.2 g/dl (31.0-36.0); Mean Corpuscular Hemoglobin 31.8 pg (27.0-33.0); Mean Corpuscular Volume 95.9 fL (80.0-98.0); NRBC Abs Auto 0.000 X10*3/uL (0.0-0.012); NRBC Pct Auto 0.0 /100WBC (0.0-0.2); Platelet Count 156 X10*3/uL (160-400); Red Blood Count 3.87 X10*6/uL (4.60-5.80); White Blood Count 5.5 X10*3/uL (4.8-10.8)
[2025-03-15 08:53] LABS: Anion Gap 12 (12-20); Blood Urea Nitrogen 39 mg/dL (9-16); Calcium 8.5 mg/dL (8.4-10.2); Carbon Dioxide 22 mmol/L (22-29); Chloride 112 mmol/L (96-108); Creatinine Clr Calc Pharmacy 37.1; Estimated Glomerular Filt Rate 55; Potassium 4.1 mmol/L (3.3-5.1); Sodium 142 mmol/L (135-145)
--- NOTE | 2025-03-15 09:05 | MHC.SHP ---
Pre-Procedural Eval Section A - 24 Hr Update-Section A only Date of Service: 03/15/25 The patient is an INPATIENT: No Changes since office visit: No Cold of Flu in the past 2 weeks, No New Medical Problems, No Changes in Medication and No Patient answered all questions The patient has been examined within 24 hours of the surgical procedure. The History & Physical has been completed within 30 days and I have reviewed it.: Yes Section B - Complete if H&P > 30 days Chief Complaint: Malignant neoplasm of bladder, unspecified Details of Present Illness: Recurrent bladder cancer Allergies: Allergies Allergy/AdvReac Type Severity Reaction Status Date / Time No Known Allergies (No Known Allergy Verified 03/13/25 12:30 Allergies*) Review of Systems Sugical H&P ROS: Negative: Constitution, Cardiovascular, Respiratory, Neurological, Psychiatric, Hem-Onc, Allergic/Immunologic, Gastrointestinal, Genitourinary, Musculoskeletal, Integumentary, Endocrine and Eyes/Ears/Nose/Throat Exam Surgical H&P Exam: Normal: HEENT, Normal: Heart, Normal: Lungs, Normal: Extremities, Normal: Abdomen, Normal: Skin and Normal: Neurological Plan Diagnosis/Plan: Unchanged (Cystoscopy, TURBT with mitomycin-C and cytarabine) I have reviewed the history and physical and performed a pertinent physical examination on my patient. No changes have occurred unless specified. Time Spent With Patient Time: Total time managing care of this patient today ____ minutes.
--- NOTE | 2025-03-15 09:46 | W.PM.OPN ---
Operative Note Operative Note Date of Service: 03/15/25 Narrative: PreOperative Diagnosis: bladder cancer Post Operative Diagnosis: bladder cancer - Tumor size 3 cm, location right bladder neck - medium Procedure: TURBT and mitomycin-C with cytarabine Surgeon: Dr Tong Gentile Anesthesia: general Indications for procedure: Recurrent superficial bladder cancer in office Procedure: After informed consent was verified the patient was brought to the operating room and placed in a supine position. Anesthesia was administered per protocol. The patient was placed in a modified dorsal lithotomy position and prepped and draped in a sterile fashion. Safety pause time-out was performed. Antibiotics were confirmed. A 26 Khmer continuous flow resectoscope was inserted per urethra. The visual obturator was used in order to minimize potential for urethral damage. Bladder was inspected. Area of 3 cm by 1 cm long noted at right side of bladder neck. Resected and fulgurated. Narrow band imaging used to reinspect bladder. Secondary area high on left bladder sidewall noted with suspicious mucosa. Area was fully fulgurated. Proximally 4 cm long by 2 cm high. At the completion of the procedure the bladder was irrigated. The cystoscope was removed. A [address] Andrade catheter was inserted into the bladder. 10 cc was placed in the balloon. Mitomycin-C with cytarabine was instilled into the bladder. The flow from the catheter was left clamped. The inflow to the catheter was attached to a 3 L normal saline bag. The patient tolerated the procedure well. They were extubated in the operating room and transferred in stable condition to the recovery area. Installation will remain in the bladder for 1 hour. At the completion of 1 hour the clamp will be removed. The mitomycin-C will be allowed to egress to the urine collection bag. The 3 L bag of normal saline will be run at maximum rate through the bladder in order to dilute any residual mitomycin-C. The Andrade catheter will then be removed. Pathology: Bladder cancer Drains: As above
== END 2025-03-15 12:37 | disposition home or self-care (01) ==
PROVIDERS: Nurse Practitioner; PCP Internal Medicine Medical Oncology; Visit Provider Urology
PROC: 0TBB8ZZ Excision of Bladder, Via Natural or Artificial Opening Endoscopic (ICD-10-PCS; CPT 52235; principal; 2025-03-15 08:40)
DX: C67.5 Malignant neoplasm of bladder neck (principal); I12.9 Hypertensive chronic kidney disease with stage 1 through stage 4 chronic kidney disease, or unspecified chronic kidney disease; N18.9 Chronic kidney disease, unspecified; C44.91 Basal cell carcinoma of skin, unspecified; I47.10 Supraventricular tachycardia, unspecified; E78.00 Pure hypercholesterolemia, unspecified; Z79.899 Other long term (current) drug therapy; Z98.890 Other specified postprocedural states
CPT/HCPCS: 52235; 51720; 36415; 80048; 85027; 88307; J2003; J2704; J3010; J9100; J9280

== ENCOUNTER → 2025-03-15 06:58 | Outpatient (BNV) | payer MEDICARE, SELFPAY | PROVIDERS: PCP Internal Medicine Medical Oncology; Visit Provider Urology | DX: C67.5 Malignant neoplasm of bladder neck (principal) | CPT/HCPCS: 52235 ==

== ENCOUNTER 2025-04-11 11:09 | Outpatient (AMB) | payer MEDICARE, SELFPAY ==
--- NOTE | 2025-04-11 11:12 | A.OFFVIS_ITS ---
Intake Visit Reasons: TURBT follow up Intake Note: Patient is present for Post-OP TURBT Urology Medication:,TAMSULOSIN,FINASTERIDE Antibiotic Allergy:NONE Blood Thinner:NONE Back Panel Padder Required: No Accompanied by: Self / Same As Patient Allergies No Known Allergies (No Known Allergies*) Allergy (Verified 04/11/25 11:13) HPI Comments Details: Bill is a very pleasant male. He is a patient of Dr. Tanner. 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 12/17 TURBT fulgerate recurrence - Gemcitabine 3 weeks 09/19 TURBT, distal left ureteric with single dose gemcitabine - 12/21 TURBT multiple small lesions with mitomycin C and cytarabine installation - 06/22 TURBT - T1 high grade with micropapillary features - 10/24 bladder biopsy random - inflammatory change no evidence of disease - 04/23 TURBT superficial area high-grade on right side bladder neck features consistent with prior resection last May Recurrence Risk per EORTC Intermediate Risk Bladder cancer risk factors Organic Solvent exposure Yes Smoking No - no other exposures Prior Cystoscopy 12/16 small anterior lesion 06/17 - small red area fulgerated on prior resection area 12/17 NAD, 04/18 NAD - 09/19 small lesion left side posterior wall - 12/18 NAD, 06/19 NAD, 11/18 NAD, 04/20 NAD, 10/22 NAD Prior Cytology 12/16 FISH positive 06/17 Cytology + high-grade - 09/19 Atypical, 06/19 NAD, 04/20 NAD. 10/22 NAD, 09/22 FISH +, 03/22 atypical Imaging - 09/23 CT urogram with left side bladder wall thickening otherwise normal Adjuvant therapy gemcitabine three-week boost 12/18, 06/19 - Induction MMC/Cytarabine 12/21, 08/22 reinduction Planned treatment - surveillance Lower Urinary Tract Symptoms: Current visit is for further evaluation of, lower urinary tract symptoms, combination obstructive and urgency Current treatment includes - 10/21 at tolterodine for urgency frequency Prior treatments include 08/16 TURP, finasteride and tamsulosin Prostate Symptom Score 06/16 , Moderate (9-19), Bother 3. Symptoms include 06/16 , incomplete emptying, weak stream, nocturia (>2), and are progressing. Results from testing include renal/bladder us Yes date 06/29/2018 PVR 50 prostate size 50 Prior Prostate Score unknown. PSA 10/18 1.0. Prostate volume 50+gm. o Treatment plan continue with current medications PFSH Medical History [place] (hard of hearing) Basal cell carcinoma Dyspnea on exertion Syncope and collapse SVT (supraventricular tachycardia) CKD (chronic kidney disease) Cancer Arthritis Hearing loss History of BPH Elevated cholesterol HTN (hypertension) Carpal tunnel syndrome, bilateral Surgical History Hx of spinal surgery (08/09/24) Hx of cystoscopy (10/09/24) History of lumbar spinal fusion History of back surgery Hx of right cataract extraction History of bladder surgery History of transurethral destruction of bladder lesion H/O colonoscopy History of carpal tunnel release of both wrists H/O inguinal hernia repair History of total right knee replacement (TKR) History of left knee replacement Family History Father No problems noted. Mother No problems noted. Social History Household Members: Spouse Housing: House Are you a primary care management specialist to a significant other at home: No Do you presently have visiting nurse or other home services: No Alcohol intake: never Comment: occasional use of cane Patient Tobacco Use Status: Never used Tobacco Advance Directives Date on File: 09/18/20 service: Yes Current occupational status: retired Review of Systems Const Denies chills and Denies fever(s) Card Reports no additional complaints and Denies syncope Resp Denies cough GI Denies abdominal pain and Denies heartburn Reports as per HPI and Denies change in libido Neuro Denies syncope Psych Denies change in libido Endo Denies change in libido Physical Exam Const General: cooperative, healthy appearing, comfortable and no acute distress Orientation/consciousness: patient oriented x3 HEENT Face and sinus: Yes normal facial exam Mouth: moist mucous membranes Neck Neck: Yes normal visual inspection, Yes full ROM and Yes trachea midline Chest Chest palpation & inspection: normal inspection of the chest Resp Effort & Inspection: normal respiratory effort, able to speak in complete sentences and no respiratory distress GI Inspection: Yes normal to inspection Back/Spine/Pelvis Cervical Spine: normal cervical lordosis Thoracic/Lumbar Spine: thoracic and lumbar spine normal to inspection Skin General skin exam: no rashes or lesions noted Neuro General: patient oriented x3, gait normal, tone normal and moves all extremities Extrem General: Yes normal to inspection and Yes capillary refill normal Assessment & Plan Assessment & Plan (1) Bladder cancer: Code(s): C67.9 - Malignant neoplasm of bladder, unspecified Category: Medical Plan Bladder immunotherapy Bladder immuno/chemotherapy was discussed today. These medications are used to create an immune reaction against bladder cancer. The intention is to destroy any tumor cells left on the bladder surface. Since BCG and gemcitabine involved immunostimulation they are not indicated in situations where there is immune weakness. Medications are placed directly into the bladder. It should be held for one to 2 hours. The toilet should be disinfected with a cap full of household bleach prior to urination. Side effects from BCG and gemcitabine generally include mucosa-related changes such as urinary urgency and/or frequency, and hematuria BCG may also invoke an infection type response. An elevated temperature may be indicative of more serious issues and should be reported to the Dr. The intention with bladder immunotherapy is to reduce the frequency of bladder cancer recurrence by 50%. Availability of BCG is highly variable. There is a single manufacture who has had difficulty with quality improvement coordinator since 2016. Multiple protocols are available - mitomycin-C for alkalinization - 40mg/200mg in 40cc NSal - A Randomized Clinical Trial of Intravesical Instillation of Mitomycin-C and Combination of Mitomycin-C and Cytarabine (Sarah-C) in Non-Muscle Invasive Bladder Cancer - Alison Calix BJU Int. 2021;129(4):534-541. 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 Crossref DOI link:? https://doi.org/10.1200/JCO.2023.41.6_suppl.507 ) Will undergo - 5 weeks of mitomycin-C with cytarabine Patient Instructions: This note is constructed using voice recognition software. While every effort has been made to ensure accuracy proof load mechanic errors may have been included. Imaging studies, laboratory and physical exam results were discussed and reviewed in detail. No major barriers to patient understanding were identified. An opportunity to ask questions regarding the treatment plan was provided. All questions were answered. The patient expressed understanding and agreement with the above treatment plan. The patient is aware they should contact our office by phone for worsening of their current condition or the appearance of new urologic symptoms. Compliance is encouraged with any medications and followup testing that is ordered. It is a privilege to participate in the urologic care of your patient. If you have any questions or concerns regarding treatment for the above conditions, or other urologic issues, please do not hesitate to contact me. The office telephone contact is [phone]. Sincerely, Dr Tong Gentile MD, [facility] - Urology Compassionate Specialist Care for the Genitourinary System Coding Level of Care Code Est Pt Level 3 (62858) Complex EM visit Add On G2211 Diagnoses Bladder cancer C67.9
--- OUTSIDE RECORDS SUMMARY | 2025-04-11 12:10 | XMS_ITS | Clinical Summary ---
Author Organization [facility] Address [address] [place] [address] Care Team Providers Care Manufacturing Mechanic Name Role Phone Fidel Mayes MD Primary Care Provider [phone] Allergies No known active allergies Medications Medication [...] 1-dose 75+ series) 2011 Influenza Vaccine (#1) 2025 Hepatitis B Vaccines Aged Out No long er eligible based on patient's age to complete this topic RSV Ped < 20 months Aged Out No longe r eligible based on patient's age to complete this topic Care Teams Manufacturing Mechanic Relationship Specialty Start Date End Date Fidel Mayes MD [address] [address] [place] [phone] PCP - General Family Medicine 05/10/17
--- OUTSIDE RECORDS SUMMARY | 2025-04-11 12:10 | XMS_ITS | Clinical Summary ---
Author Organization [facility] Address [address] [place] [phone] Phone Care Team Providers Care Branch Operations Manager Name Role Phone Fidel Mayes MD Primary Care Provider Surgical History Surgery Date Site/Laterality Comments JOINT REPLACEMENT PROCEDURE:JOINT REPLACEMENT Medical History Medical History Date Comments Hypertension DX:Hypertension Cancer (CMS/HCC V24, CMS/HCC V28) DX:Cancer (HCC) Family History Medical History Relation [...] Vaccines (1 of 2) 1986 RSV Immunization Adult Patie nts (1 - 1-dose 75+ series) 2011 Cholesterol Screening (Lipid Panel) 08/02/2022 Falls Risk Assessment 08/02/2022 Social Influencers of Health Screening 08/02/2022 Hypertension/CHF/CAD Annual BMP Blood Test 08/15/2022 COVID-19 Vaccine ( - 2023-2 5 season) 2024 Depression Screening 08/30/2024 Influenza Vaccine (#1) 2025 HIB Vaccines Aged Out No longer eligi [...] age to complete this topic Meningococcal B Vaccine Aged Out No l onger eligible based on patient's age to complete this topic RSV Immunization Patients Un alistair 20 months Aged Out No longer eligible b ased on patient's age to complete this topic Varicella Vaccines Aged Out No longer eligible based on patient's age to complete this topic Advance Directives Documents on File Type Date Recorded Patient Curriculum And Instruction Director Expl anation Health Care Decision (hx) 06/22/2014 AD DICKEY DIRECTIVE Health Care Decision (hx) 06/22/2014 AD DICKEY DIRECTIVE Care Teams Branch Operations Manager Relationship Specialty Start Date End Date Fidel Mayes MD [address] PCP - General Pediatrics 12/07/17
== END 2025-04-11 11:55 | disposition home or self-care (01) ==
LOC: HO.HUSH 11:10
PROVIDERS: PCP Internal Medicine Medical Oncology; Visit Provider Urology
DX: C67.9 Malignant neoplasm of bladder, unspecified (principal); Z13.9 Encounter for screening, unspecified
CPT/HCPCS: 99213; G2211

== ENCOUNTER 2025-04-11 11:09 | Outpatient (REF) | payer MEDICARE, SELFPAY ==
--- OUTSIDE RECORDS SUMMARY | 2025-04-11 16:03 | XMS_ITS | Patient Health Record ---
Author Organization [facility] Address [address] [facility] [place] [phone] Care Team Providers Care Clinical Laboratory Aide Name Role Phone Bill Tanner MD Primary Care Provider Unavailab carranza Kami Aldana Unavailable [phone] Allergies No Known Allergies Reason For Referral [...] Medicare National Govt [employer] [address] [place] [address] [id number] Bill Patel Self - patient is the insured [facility] [address] [place] [address] [id number] Bill Patel Self - patient is the insured Medical (General) History Medical History History ICD Code Macular degeneration Measles Bone implants/screws Surgical History Surgery Date(Month/Year) spinal surgery 2013 knee replacement 2013, 2017
--- OUTSIDE RECORDS SUMMARY | 2025-04-11 16:04 | XMS_ITS | Patient Health Record ---
Author Organization [facility] Address [address] [facility] [address] [place] [phone] Care Team Providers Care Petroleum Production Engineer Name Role Phone Say Garcia Jr [phone] Reason For Referral No Information Plan Of Treatment No Information
== END 2025-04-11 11:10 | disposition home or self-care (01) ==
LOC: HO.LAB 11:09
PROVIDERS: PCP Internal Medicine Medical Oncology; Visit Provider Urology
DX: C67.9 Malignant neoplasm of bladder, unspecified (principal); Z79.899 Other long term (current) drug therapy
CPT/HCPCS: 81003; 88112; 99212

== ENCOUNTER 2025-07-11 10:07 | Outpatient (REF) | payer MEDICARE, SELFPAY | END 2025-07-11 10:08 | disposition home or self-care (01) | LOC: HO.LAB 10:07 | PROVIDERS: PCP Internal Medicine Medical Oncology; Visit Provider Urology | DX: C67.9 Malignant neoplasm of bladder, unspecified (principal) | CPT/HCPCS: 52000; 81003; 88112; 99212 ==

== ENCOUNTER 2025-07-11 10:07 | Outpatient (AMB) | payer MEDICARE, SELFPAY ==
--- NOTE | 2025-07-11 10:12 | MHC.OFFVIS ---
Intake Visit Reasons: cysto(Bladder Ca) Intake Note: Patient Is Present for Cystoscopy Urology Med: Myrbetriq, Finasteride, Tamsulosin Antibiotic Allergy: None Blood Thinner: None Last Cytology: 04/12/2025 URO G-HD LOT: [id number] EXP02/06/2028 Bilingual Call Center Representative Required: No Clinical Auditor: Clinical Auditor Present Accompanied by: Spouse Allergies No Known Allergies (No Known Allergies*) Allergy (Verified 07/11/25 10:23) HPI Comments Details: Bill is a very pleasant male. He is a patient of Dr. Tanner. 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 12/17 TURBT fulgerate recurrence - Gemcitabine 3 weeks 09/19 TURBT, distal left ureteric with single dose gemcitabine - 12/21 TURBT multiple small lesions with mitomycin C and cytarabine installation - 06/22 TURBT - T1 high grade with micropapillary features - 10/24 bladder biopsy random - inflammatory change no evidence of disease - 04/23 TURBT superficial area high-grade on right side bladder neck features consistent with prior resection last May Recurrence Risk per EORTC Intermediate Risk Bladder cancer risk factors Organic Solvent exposure Yes Smoking No - no other exposures Prior Cystoscopy 12/16 small anterior lesion 06/17 - small red area fulgerated on prior resection area 12/17 NAD, 04/18 NAD - 09/19 small lesion left side posterior wall - 12/18 NAD, 06/19 NAD, 11/18 NAD, 04/20 NAD, 10/22 NAD Prior Cytology 12/16 FISH positive 06/17 Cytology + high-grade - 09/19 Atypical, 06/19 NAD, 04/20 NAD. 10/22 NAD, 09/22 FISH +, 03/22 atypical, 03/23 + Imaging - 09/23 CT urogram with left side bladder wall thickening otherwise normal Adjuvant therapy gemcitabine three-week boost 12/18, 06/19 - Induction MMC/Cytarabine 12/21, 08/22 reinduction Planned treatment - surveillance Lower Urinary Tract Symptoms: Current visit is for further evaluation of, lower urinary tract symptoms, combination obstructive and urgency Current treatment includes - 10/21 at tolterodine for urgency frequency Prior treatments include 08/16 TURP, finasteride and tamsulosin Prostate Symptom Score 06/16 , Moderate (9-19), Bother 3. Symptoms include 06/16 , incomplete emptying, weak stream, nocturia (>2), and are progressing. Results from testing include renal/bladder us Yes date 06/29/2018 PVR 50 prostate size 50 Prior Prostate Score unknown. PSA 10/18 1.0. Prostate volume 50+gm. o Treatment plan continue with current medications PFSH Medical History [place] (hard of hearing) Basal cell carcinoma Dyspnea on exertion Syncope and collapse SVT (supraventricular tachycardia) CKD (chronic kidney disease) Cancer Arthritis Hearing loss History of BPH Elevated cholesterol HTN (hypertension) Carpal tunnel syndrome, bilateral Surgical History Hx of spinal surgery (08/09/24) Hx of cystoscopy (10/09/24) History of lumbar spinal fusion History of back surgery Hx of right cataract extraction History of bladder surgery History of transurethral destruction of bladder lesion H/O colonoscopy History of carpal tunnel release of both wrists H/O inguinal hernia repair History of total right knee replacement (TKR) History of left knee replacement Family History Father No problems noted. Mother No problems noted. Social History Household Members: Spouse Housing: House Are you a primary long term care administrator to a significant other at home: No Do you presently have visiting nurse or other home services: No Alcohol intake: never Comment: occasional use of cane Patient Tobacco Use Status: Never used Tobacco Advance Directives Date on File: 09/18/20 service: Yes Current occupational status: retired Review of Systems Const Denies chills and Denies fever(s) Card Reports no additional complaints and Denies syncope Resp Denies cough GI Denies abdominal pain and Denies heartburn Reports as per HPI and Denies change in libido Neuro Denies syncope Psych Denies change in libido Endo Denies change in libido Physical Exam Const General: cooperative, healthy appearing, comfortable and no acute distress Orientation/consciousness: patient oriented x3 HEENT Face and sinus: Yes normal facial exam Mouth: moist mucous membranes Neck Neck: Yes normal visual inspection, Yes full ROM and Yes trachea midline Chest Chest palpation & inspection: normal inspection of the chest Resp Effort & Inspection: normal respiratory effort, able to speak in complete sentences and no respiratory distress GI Inspection: Yes normal to inspection Back/Spine/Pelvis Cervical Spine: normal cervical lordosis Thoracic/Lumbar Spine: thoracic and lumbar spine normal to inspection Skin General skin exam: no rashes or lesions noted Neuro General: patient oriented x3, gait normal, tone normal and moves all extremities Extrem General: Yes normal to inspection and Yes capillary refill normal Office Procedures Cystoscopy Consent Discussed risk and benefit or proposed procedure with the patient. Information consent for procedure given to the patient. Discussed technical aspects, risks, benefits and alternatives in full. Addressed all of the patient's questions and concerns regarding the procedure. The patient demonstrated knowledge and understanding. They wish to proceed with this procedure. Preparation The patient was prepped in the usual manner. A lithographic press operator was present and in the room. Genitalia was prepped with betadine solution in a sterile manner. Lidocaine Jelly 2% was placed into the urethra and 16Fr flexible Olympus cystoscope was inserted into the meatus after adequate lubrication. [id number] DISPOSABLE SCOPE URO-G FLEXIBLE SCOPE Procedure code (CPT) selection complete Office Meds lidocaine HCl 2 % mucosal jelly in applicator Performing Provider: Tong Gentile MD Performing Location: [facility] Administered by: Debbie Mercedes RN on 07/11/25 10:39 Dose Route Admin Location Dispensed Lot Number Expiration Date [facility] Mobile Equipment Servicer 10 mL intra-urethral 10 mL nitrofurantoin monohydrate/macrocrystals 100 mg capsule Performing Provider: Tong Gentile MD Performing Location: [facility] Administered by: Debbie Mercedes RN on 07/11/25 10:39 Dose Route Admin Location Dispensed Lot Number Expiration Date [place] Mobile Equipment Servicer 100 mg PO 1 cap Results AMB Urinalysis, Automated UA Leukoctes 0 Violette/uL Last Edit by JUDITH Blue on 07/11/25 10:28 UA Nitrite Negative Last Edit by Sharon Kraus, RMA on 07/11/25 10:28 UA Urobilinogen 0.2 mg/dL Last Edit by Sharon Kraus, RMA on 07/11/25 10:28 UA Protein 0 mg/dL Last Edit by Sharon Kraus, RMA on 07/11/25 10:28 UA pH 6.0 Last Edit by Sharon Kraus, RMA on 07/11/25 10:28 UA Blood 0 Alessandro/uL Last Edit by Sharon Kraus, RMA on 07/11/25 10:28 UA Specific Hazen 1.015 Last Edit by Sharon Kraus, RMA on 07/11/25 10:28 UA Ketone Negative Last Edit by Sharon Kraus, RMA on 07/11/25 10:28 UA Bilirubin 0 mg/dL Last Edit by Sharon Kraus, RMA on 07/11/25 10:28 UA Glucose 0 mg/dL Last Edit by Sharon Kraus, RMA on 07/11/25 10:28 Results Reviewed Results Reviewed: Laboratory Last Values Urine pH (Auto) 6.0 07/11/25 10:22 Specific Hazen (Auto) 1.015 07/11/25 10:22 Urine Protein (Auto) 0 mg/dL 07/11/25 10:22 Glucose (UA)(Auto) 0 mg/dL 07/11/25 10:22 Urine Ketones (Auto) Negative 07/11/25 10:22 Urine Blood (Auto) 0 Alessandro/uL 07/11/25 10:22 Urine Nitrite (Auto) Negative 07/11/25 10:22 Urine Bilirubin (Auto) 0 mg/dL 07/11/25 10:22 Urine Urobilinogen (Auto) 0.2 mg/dL 07/11/25 10:22 Leukocyte Esterase (Auto) 0 Violette/uL 07/11/25 10:22 Assessment & Plan Assessment & Plan (1) Bladder cancer: Code(s): C67.9 - Malignant neoplasm of bladder, unspecified Category: Medical Plan Three-month follow-up check cystoscopy Orders: Orders AMB Urinalysis Automated Today Z13.9 - Encounter for screening, unspecified Urine Cytology Today C67.9 - Malignant neoplasm of bladder, unspecified AMB Cystoscopy Today C67.9 - Malignant neoplasm of bladder, unspecified Patient Instructions: This note is constructed using voice recognition software. While every effort has been made to ensure accuracy senior bi architect errors may have been included. Imaging studies, laboratory and physical exam results were discussed and reviewed in detail. No major barriers to patient understanding were identified. An opportunity to ask questions regarding the treatment plan was provided. All questions were answered. The patient expressed understanding and agreement with the above treatment plan. The patient is aware they should contact our office by phone for worsening of their current condition or the appearance of new urologic symptoms. Compliance is encouraged with any medications and followup testing that is ordered. It is a privilege to participate in the urologic care of your patient. If you have any questions or concerns regarding treatment for the above conditions, or other urologic issues, please do not hesitate to contact me. The office telephone contact is [phone]. Sincerely, Dr Tong Gentile MD, [facility] - Urology Compassionate Specialist Care for the Genitourinary System Coding Level of Care Code Est Pt Level 3 (27476) Complex EM visit Add On G2211 Diagnoses Bladder cancer C67.9 CPT Codes Cystoscopy - CPT: 29956-[id number] ([id number])
--- OUTSIDE RECORDS SUMMARY | 2025-07-11 11:49 | XMS_ITS | Clinical Summary ---
Author Organization [facility] Address [address] [place] [phone] Phone Care Team Providers Care Crematory Operator Name Role Phone Fidel Mayes MD Primary Care Provider [phone] Surgical History Surgery Date Site/Laterality Comments JOINT [...] 08/02/2022 Hypertension/CHF/CAD Annual BMP Blood Test 08/15/2022 Depression Screening 08/30/2024 COVID-19 Vaccine ( - 2024-2 6 season) 2025 Influenza Vaccine (#1) 2025 HIB Vaccines Aged [...] Documents on File Type Date Recorded Patient Cork Insulator Helper Expl anation Health Care Decision (hx) 06/22/2014 AD DICKEY DIRECTIVE Health Care Decision (hx) 06/22/2014 AD DICKEY DIRECTIVE Care Teams Crematory Operator Relationship Specialty Start Date End Date Fidel Mayes MD [address] PCP - General Pediatrics 12/07/17
--- OUTSIDE RECORDS SUMMARY | 2025-07-11 11:50 | XMS_ITS | Clinical Summary ---
Author Organization [facility] Address [address] [place] [address] Care Team Providers Care Welfare Aide Name Role Phone Fidel Mayes MD Primary Care Provider [phone] Allergies No known active allergies Medications Medication [...] age to complete this topic Care Teams Welfare Aide Relationship Specialty Start Date End Date Fidel Mayes MD [address] [address] [place] [phone] PCP - General Family Medicine 05/10/17
--- OUTSIDE RECORDS SUMMARY | 2025-07-11 11:50 | XMS_ITS | Data Portability ---
Author Organization [place] - [facility], [facility] Address [address] [place] [address] Assessment No assessment recorded. Plan of Treatment Reminders Order Date Submit Date Provider Last Modified By Organization Details Last Modified Time Details Appointments None recorde d. Lab None recorde d. Referral None recorde d. Procedures None recorde d. Surgeries None recorde d. Imaging XR, shoulde r, 2 or more view - RM 5 RT shldr 024 [facility] [address] [place] [address], [address], 4 12:58:25 Medication Orders None recorde d. Patient TargetsNo targets recorded. Patient InstructionsNo instructions recorded. Reason for Referral None Reported. Results Created Date Observation Date Name Description Value Unit Range Abnormal Flag Note LastModifiedBy Organization Detail LastModifiedTime 01/19/20 24 01/19/2024 XR, shoul alistair, 2 or more view [email or web address]:/ [email or web address] ?Encry pted=s hAaTro YD8dLq bEUv6g %2BXZw aYqtaq 0bqfl% 2Fg9IQ a4ajBk vP9nXo QUaueC m3YtLR FvZlgJ JJ8mAn HZtai3 6g4042 AC0Kvb H6GWKb eUC8mr 84%3D INTERFACE [facility] [address] [facility] [address], [place], [address], 01/19/2024 09:27:49 01/19/20 24 01/19/2024 XR, shoul alistair, 2 or more view [email or web address]:/ [email or web address] ?Encry pted=s hAaTro YD8dLq bEUv6g %2BXZw aYqtaq 0bqfl% 2Fg9IQ a4ajBk vP9nXo QUaueC m3YtLR FvZlgJ JJ8mAn HZtai3 9f6689 AC0Kvb H6GWKb eUC8mr 84%3D INTERFACE [facility] [address], [place], [address], 01/19/2024 09:27:51 Result Notes Documentation Provider Name and Address Organization Details Recorded Time Xr, Shoulder, 2 Or More View : [email or web address] Encrypted=dlTbIwtHZ4eEuyJ Uv6g%0UWUkzHlknp9kzkl%2Fg 5RBw5gfIdaQ3jDwIAybcHs1Kg MDGtDgaBMT8vDxUIliz11f489 7ZB4QcdF6PGFhuEZ5rn59%3D Not Available [facility] 01/19/2024 09:2 7:49 Xr, Shoulder, 2 Or More View : [email or web address] Encrypted=qkFnZlcGZ0vAcyR Uv6g%0QAVplTknln4yxsn%2Fg 6XCj4adUpsI1aNqWZpvkJc9Wh RDPwRizNFG2lDkBRjeb85r162 8AN9YzyG4XWUsgBW0nh22%3D Not Available [facility] 01/19/2024 09:2 7:51 Problems Name Problem SNOMED Code Status Onset Date Resolution Date Notes Provider Name and Address Organization Details Recorded Time Pain of right shoulder joint 433514032471905 00 Active 2023 SASKIA newman [place] - [facility] 09:17:28 Pain of left shoulder joint 166432168048931 09 Active 2023 Fernando Caruso MD [address] [facility], [facility] [place], [address] [place] [address] - [facility] 4 09:55:05 Problem Notes None recorded. Procedures Surgical History Date Name Laterality Status Provider Name and Address Organization Details Recorded Time 4 Shoulder Kenalog 2cc Injection, Bilateral completed Fernando Caruso MD [address] [place] [address] [address], [place], [address], [facility] 01/19/2024 09:54:54 Imaging Results None recorded. Procedure [...] Updated DateTime 01/19/2024 165.1 cm 27.5 kg/m2 98120.74 g SASKIA BARRAZA [facility] 01/19/2024 09:31:22 Social History None recorded. Functional Status None recorded. Mental Status None recorded. Family History Nothing Reported. Medical History Condition Response Allergies/Hayfever N Coronary Artery Disease N Breathing or lung disorders N Anxiety/Depression N Emphysema N Nerve Disorders N Thyroid Problems N COPD N Pacemaker N Anemia N Kidney/Bladder Problems Y Vascular Disease N Heart Trouble Y Heart Attack ([place]) N Gastrointestinal Disease N Cholesterol N Diabetes [...] Diagnosis SNOMED-CT Code Diagnosis ICD10 Code Diagnosis IMO Codes Diagnosis Note [id number] MD [facility] [address] [place] [address] 01/19/2024 09:08:32 02/08/2024 12:58:24 Pain of right shoulder joint 5718431737 3918815 M25.511 Pain of le ft shoulder joint [id number] 2622138 M25.512 Health Concerns Section Related Observation LastModified by Organization Detai ls LastModified Time None Recorded Concern Status LastModified by Organization Details LastModified Time None Recorded Advance Directives Directive None Recorded Payers Insurance Date Sequence Insurance Name Policy Number Policy Woods Covered Member ID Woods Member ID Guarantor Name 02/09/2024 2 [place] [id number] Bill Patel [id number] Bill Patel 02/23/2024 1 [place] [employer] Bill Patel [id number] Bill Patel Notes Date Note Type [...] in no acute distress alert and oriented 3. Pleasant affect. Cervical spine range of motion [...] were ordered, obtained and reviewed today at [facility], 4 views Right shoulder obtained reveal [...] months as necessary Fernando Caruso MD [address] [facility] [address], [place], [address], [facility] - [facility] 01/19/2024 09:55:26
== END 2025-07-11 10:48 | disposition home or self-care (01) ==
LOC: HO.HUSH 10:08
PROVIDERS: PCP Internal Medicine Medical Oncology; Visit Provider Urology
DX: C67.9 Malignant neoplasm of bladder, unspecified (principal)
CPT/HCPCS: 52000; 99213